=== PATIENT | female | born 1950 | race Hispanic/Latino ===

== ENCOUNTER 2017-10-15 11:00 | Emergency (ER) | payer OTHER, MEDICARE ==
[~2017-10-15] VITALS: Ht 160 cm; Wt 86.2 kg
[~2017-10-15 11:00] MED LIST: ALLOPURINOL100 MG PO; CYMBALTA30 MG PO; FUROSEMIDE20 MG PO; GABAPENTIN300 MG PO; GLIPIZIDE5 MG PO; LANTUS100 UNITS/ SQ; LISINOPRIL-HCT1 EACH PO; METFORMIN HCL500 MG PO; OMEPRAZOLE20 MG PO; PRAVASTATIN SOD40 MG PO
--- OUTSIDE RECORDS SUMMARY | 2017-10-15 11:02 | XMS REPORT | Clinical Summary ---
Author Author [facility] Organization [facility] Address Unknown Phone Unavailable Care Team Providers Care Senior Chemical Process Engineer Name Role Phone Melissa Ferreira MD PCP Allergies No Known Allergies Current Medications Prescription Sig. Disp. Refills Start End Date Status Date amLODIPine (NORVASC) 5 mg Take 5 mg by mouth daily. 1 06/04/20 Active tablet 17 lisinopril Take 2.5 mg by mouth 1 07/04/20 Active (PRINIVIL,ZESTRIL) 2.5 mg daily. 17 tablet pantoprazole (PROTONIX) Take 40 mg by mouth 1 06/04/20 Active 40 MG EC tablet daily. 17 JANUMET 50-1,000 mg per TAKE 1 TABLET BY MOUTH 1 06/04/20 Active tablet WITH MEALS TWICE A DAY 17 tiZANidine (ZANAFLEX) 2 TAKE 1 TABLET BY MOUTH 0 06/29/20 Active MG tablet EVERY 8 HOURS NEEDED 17 FOR 10 DAYS ondansetron (ZOFRAN) 4 MG Take 4 mg by mouth every 0 08/05/19 Active tablet 6 (six) hours as needed. 18 for nausea glimepiride (AMARYL) 2 MG TAKE 1 TABLET BY MOUTH 1 06/04/20 Active tablet DAILY WITH BREAKFAST OR 17 FIRST MAIN MEAL OF THE DAY ONCE A DAY NOVOLOG FLEXPEN 100 INJECT 10 UNITS 3 TIMES A 0 07/14/20 Active unit/mL insulin pen DAY BEFORE MEALS 17 SUBCUTANEOUSLY hydrALAZINE (APRESOLINE) Take 10 mg by mouth every 1 06/04/20 Active 10 MG tablet 8 (eight) hours. 17 BYSTOLIC 10 mg tablet TAKE 1 TABLET BY MOUTH AT 1 07/04/20 Active 6AM 17 traMADol ER (ULTRAM-ER) Take 100 mg by mouth 3 0 06/08/20 Active 100 mg 24 hr tablet (three) times a day. 17 ACCU-CHEK COMPACT PLUS USE DIRECTED EVERY 6 2 07/21/20 Active TEST strip HOURS 17 furosemide (LASIX) 40 mg Take 40 mg by mouth once. 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 Levator spasm 08/24/2017 History of bladder cancer 08/24/2017 Encounters Date Type Specialty Care Team Description 08/24/2017 Office Visit [facility] Estrada MD Enterocele (Primary Dx); Gloria Rogers, Pelvic pain; Levator spasm; History of bladder cancer after 10/14/2016 Family History Medical History Relation Name Comments problems Brother Kidney disease Brother Kidney disease Father Heart disease Mother Hypertension Mother Kidney cancer Sister Diabetes Sister Relation Name Status Comments Brother Brother Brother Brother Brother Father Mother Sister Sister Social History Tobacco Use Types Packs/Day Years Used Date Former Smoker Cigarettes 0.25 25 Quit: 1997 Smokeless Tobacco: Never Used Alcohol Use Drinks/Week oz/Week Comments No Sex Assigned at Date Recorded Not on file Last Filed Vital Signs Vital Sign Reading Time Taken Blood Pressure 114/74 08/24/2017 2:24 PM [employer] Pulse 71 08/24/2017 2:24 PM [employer] Temperature 37.6 C (99.6 F) 08/24/2017 2:24 PM [employer] Respiratory Rate - - Oxygen Saturation - - Inhaled Oxygen - - Concentration Weight 90.7 kg (200 lb) 08/24/2017 2:24 PM [employer] Height 160 cm (5' 3") 08/24/2017 2:24 PM [employer] Body Mass Index 35.43 08/24/2017 2:24 PM [employer] Plan of Treatment Health Maintenance Due Date Last Done Comments COLONOSCOPY 1999 MAMMOGRAM 1999 ZOSTER VACCINE 2009 PNEUMOCOCCAL 2014 POLYSACCHARIDE VACCINE AGE 65 AND OVER PNEUMOCOCCAL-13 2014 INFLUENZA VACCINE 02/24/2017 Results Not on fileafter 10/14/2016 Insurance Payer Benefit Subscriber ID Type Phone Address Plan / Group MEDICAID MEDICAID xxxxxxxxx Medicaid [facility] xxxxxxxxx HMO/PPO THCARE CHOICE/CHO ICE +
[2017-10-15] MEDS ORDERED: MORPHINE SULFATE 2 MG/ML SYR IV STA (11:51)
[2017-10-15] MEDS ORDERED: ONDANSETRON HCL INJ 2 MG/ML VIAL IV STA (11:51)
[2017-10-15 12:25] LABS: BASOPHILS % 0.3 % (0.0-1.0); BILIRUBIN,URINE NEGATIVE (NEGATIVE); CLARITY,URINE CLEAR (CLEAR); COLOR,URINE YELLOW (YELLOW); EOSINOPHILS # (AUTO) 0.1 (0.0-0.4); EOSINOPHILS % 1.6 % (0.0-6.0); HEMATOCRIT 34.3 % (34.2-44.1); HEMOGLOBIN 10.9 g/dL (12.0-16.0); KETONES,URINE NEGATIVE (NEGATIVE); LEUKOCYTE ESTERASE ,URINE TRACE (NEGATIVE); LYMPHOCYTES # (AUTO) 1.4 (1.0-3.2); LYMPHOCYTES % 21.5 % (18.0-39.1); MEAN CORPUSCULAR HEMOGLOBIN 30.6 pg (28-32); MEAN CORPUSCULAR HGB CONC 31.8 g/dL (31-35); MEAN CORPUSCULAR VOLUME 96.3 fL (81-99); MONOCYTES # (AUTO) 0.4 (0.2-0.8); MONOCYTES % 6.7 % (4.4-11.3); NEUTROPHILS # (AUTO) 4.5 (2.1-6.9); NEUTROPHILS % 69.4 % (38.7-80.0); NITRITE,URINE NEGATIVE (NEGATIVE); PLATELET COUNT 304 x10e3/uL (140-360); PROTEIN,URINE DIPSTICK NEGATIVE (NEGATIVE); RED BLOOD COUNT 3.56 x10e6/uL (3.6-5.1); RED CELL DISTRIBUTION WIDTH 13.9 % (11.7-14.4); URINE UROBILINOGEN 0.2 mg/dL (0.2 - 1)
--- NOTE | 2017-10-15 12:29 | Diagnostic Imaging Report ---
PROCEDURE: A single AP view of the chest. COMPARISON: None. INDICATIONS: BILATERAL KIDNEY PAIN FINDINGS: Lines/tubes: None. Lungs: The lungs are well inflated. Minimal linear opacity projecting in the left costophrenic angle region likely represents subsegmental atelectasis. There is no evidence of pneumonia or pulmonary edema. Pleura: There is no pleural effusion or pneumothorax. Heart and mediastinum: Cardiac silhouette is unremarkable. Pulmonary vasculature is normal. Bones: No acute bony abnormality. IMPRESSION: 1. No acute cardiopulmonary abnormalities. Ezekiel Schmitt M.D. Dictated by: Ezekiel Schmitt M.D. on 10/15/2017 at 12:29 Electronically approved by: Ezekiel Schmitt M.D. on 10/15/2017 at 12:29
[2017-10-15 12:35] LABS: INR 1.11; PARTIAL THROMBOPLASTIN TIME 34.3 seconds (23.8-35.5); PROTHROMBIN TIME 13.5 seconds (11.9-14.5)
[2017-10-15 12:43] LABS: BACTERIA,URINE RARE /HPF; RBC,URINE 0-5 /HPF (0-5)
[2017-10-15 12:44] LABS: ALANINE AMINOTRANSFERASE 11 IU/L (0-55); ALBUMIN 3.3 g/dL (3.5-5.0); ALBUMIN/GLOBULIN RATIO 0.9 (0.8-2.0); ALKALINE PHOSPHATASE 84 IU/L (40-150); BLOOD UREA NITROGEN 32 mg/dL (7-26); BUN/CREATININE RATIO 22 (6-25); CALCIUM 9.2 mg/dL (8.4-10.2); CARBON DIOXIDE 27 mmol/L (22-29); CHLORIDE 104 mmol/L (98-107); CREATINE KINASE 32 IU/L (29-168); CREATININE, SERUM 1.43 mg/dL (0.57-1.11); EST GLOMERULAR FILTRATION RATE 36 ML/MIN (60-); GLUCOSE 216 mg/dL (74-118); MAGNESIUM 1.5 MG/DL (1.3-2.1); SODIUM 142 mmol/L (136-145)
[2017-10-15 14:04] VITALS: BP 137/80
== END 2017-10-15 14:27 | disposition home or self-care (01) ==
LOC: ER 11:00
DX: R10.2 Pelvic and perineal pain (principal); R10.9 Unspecified abdominal pain; N30.90 Cystitis, unspecified without hematuria
CPT/HCPCS: 36415; 71045; 80053; 81001; 82550; 82553; 83735; 84484; 85025; 85610; 85730; 93005; 99284; J2270; J2405

== ENCOUNTER → 2017-12-18 | Outpatient (CLI) | payer MEDICARE ==
--- NOTE | 2017-12-18 19:21 | Diagnostic Imaging Report ---
Renal Scan Reason for exam: 67 F with bladder cancer in diagnosed in 2017; bladder removed. Biopsy of left kidney at outside facility last week also shows cancer. Left kidney has draining catheter with collection bag on right side. Radiopharmaceutical: Tc-99m MAG3 10.1 mCi Report: After administration of the radiopharmaceutical, dynamic images of the kidneys were obtained through 40 minutes. LEFT KIDNEY: Perfusion is prompt. 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 Extraction of tracer from the blood pool from the minimal amount of remaining renal parenchyma is normal. Clearance of tracer from the renal parenchyma is prompt. The pelvicaliceal system cannot be assessed because the impaired kidney does not fill the system to near-capacity. There is minimal amount of tracer that pools in the pelvicaliceal system. No drainage of tracer is seen from the left kidney. RIGHT KIDNEY: Perfusion is prompt. The kidney has a distorted reniform shape with reduction in size and irregular renal contours. Extraction of tracer from the blood pool is normal. Clearance of tracer from the renal parenchyma is prompt. The pelvicaliceal system is not dilated. Mildly increased pooling of tracer is seen within the pelvicaliceal system. Drainage of tracer from the pelvicaliceal study is adequate. No stasis of tracer is seen in the right ureter. The collection bag on the right side does fill with some tracer. DIFFERENTIAL RENAL FUNCTION: Left kidney 13% and right kidney 87% (normal 43-57%). Impression: 1. 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 The loss of renal parenchyma accounts for the decreased differential renal function of 13%. The remaining renal parenchyma appears to function normally. The renal collecting system cannot be assessed because it does not fill to near capacity. 2. The right kidney shows some loss of renal parenchyma due to scarring as evidenced by the reduction in size and the irregular contours. No hydronephrosis or obstruction are present. Signed by: Dr. Rosita Ramirez M.D. on 12/18/2017 7:18 PM
== END ==
LOC: NM 13:05
PROVIDERS: ATTEND Urology
DX: Z85.51 Personal history of malignant neoplasm of bladder (principal)
CPT/HCPCS: 78707; A9562

== ENCOUNTER → 2018-07-15 | Outpatient (CLI) | payer MEDICARE ==
--- NOTE | 2018-07-15 10:17 | Diagnostic Imaging Report ---
Exam: Right elbow, 3 views History: Elbow pain Comparison: None. Findings: No acute, displaced fracture or dislocation. Joint space is well-maintained. No joint effusion. Soft tissues unremarkable. Impression: No acute osseous abnormality. Signed by: Dr. Crow Bailon M.D. on 07/15/2018 10:13 AM
--- NOTE | 2018-07-15 10:21 | Diagnostic Imaging Report ---
Exam: Cervical spine, 4 views History: Cervical disc disorder Comparison: None. Findings: The cervical spine is visualized from the skull base to the top of T1 on the lateral radiograph. No acute, displaced fracture or dislocation. Soft tissue, ligamentous, and spinal cord abnormalities cannot be excluded on the basis of plain radiography. The intervertebral disc spaces are well-maintained. Minimal degenerative disc changes at C5-6 with a small anterior osteophyte. Mild left C3-4 foraminal narrowing secondary to uncovertebral arthrosis. Neural foramina are otherwise patent as seen on the oblique radiographs. Atlantoaxial interval is within normal limits. Prevertebral soft tissues are of normal thickness. Right internal jugular tunneled central venous catheter or port is partially visualized. Impression: No acute osseous abnormality. Mild left C3-4 foraminal narrowing due to uncovertebral arthrosis. MRI of the cervical spine without contrast may be of benefit in the clinical setting of reticular the. Minimal degenerative disc changes at C5-C6. Signed by: Dr. Crow Bailon M.D. on 07/15/2018 10:18 AM
== END ==
LOC: RAD 09:36
PROVIDERS: ATTEND Family Medicine
DX: M50.13 Cervical disc disorder with radiculopathy, cervicothoracic region (principal); M25.521 Pain in right elbow
CPT/HCPCS: 72050

== ENCOUNTER 2020-01-03 02:47 | Emergency (ER) | payer OTHER, MEDICARE ==
[~2020-01-03] VITALS: Ht 160 cm; Wt 86.2 kg
--- OUTSIDE RECORDS SUMMARY | 2020-01-03 02:51 | XMS REPORT | Clinical Summary ---
Author Author [facility] Organization [facility] Address Unknown Phone Unavailable Care Team Providers Care Trouble Shooter Name Role Phone Jasson Gregory MD PCP Allergies Comments Active Allergy Reactions Severity Noted Date Penicillins Rash Low 04/01/2018 Medications End Date Status Medication Sig Dispensed Refills Start Date Active pantoprazole (PROTONIX) Take 40 mg by 1 40 MG EC tablet mouth every 7 morning. Active NOVOLOG FLEXPEN 100 INJECT 4 0 unit/mL insulin pen UNITS 3 TIMES 7 A DAY BEFORE MEALS SUBCUTANEOUSL Y Active atorvastatin (LIPITOR) 40 Take 40 mg by 0 MG tablet mouth nightly. Active DULoxetine (CYMBALTA) 60 Take 60 mg by 0 MG capsule mouth every morning. Active magnesium oxide (MAG-OX) Take 400 mg 0 400 mg (241.3 mg by mouth magnesium) tablet daily. Active BYSTOLIC 10 mg tablet Take 10 mg by 0 09/21/19 1 mouth every 9 evening. Active NIFEdipine XL (PROCARDIA Take 30 mg by 0 10/06 XL) 30 MG 24 hr tablet mouth every 9 morning. Active glimepiride (AMARYL) 2 MG Take 2 mg by 0 07/27 tablet mouth every 9 morning. Active hydrALAZINE (APRESOLINE) Take 100 mg 0 100 MG tablet by mouth 2 (two) times a day. Active ELIQUIS 5 mg tablet Take 5 mg by 0 mouth 2 (two) 9 times a day. Active gabapentin (NEURONTIN) 1,200 mg = 4 0 01 300 mg capsule cap, PO, BID, 6 0 Refill(s) 03/02/2020 Active lidocaine-prilocaine Apply 30 g 2 03/03 (EMLA) 2.5-2.5 % cream topically as 9 needed for mild pain. Apply 1/2 gram to port 1 hour prior to treatment. Active ergocalciferol, vitamin Take by 0 D2, (VITAMIN D2 ORAL) mouth. Active LANTUS SOLOSTAR U-100 Inject 30 0 05/02/20 1 INSULIN 100 unit/mL Units under 9 injection (pen) the skin 2 (two) times a day. Active HUMALOG KWIKPEN INSULIN Inject 10 0 100 unit/mL injection pen Units under 9 the skin 2 (two) times a day. Active LINZESS 72 mcg capsule Take 1 3 01 capsule by 9 mouth daily before breakfast. Active spironolactone Take 25 mg by 0 (ALDACTONE) 25 MG tablet mouth daily. 9 Active esomeprazole (NexIUM) 40 TAKE 1 90 capsule 0 1 MG capsule CAPSULE BY 9 MOUTH EVERY DAY BEFORE BREAKFAST 08/04/2019 Discontinued (Patient Report ed) tiZANidine (ZANAFLEX) 2 TAKE 1 TABLET 0 MG tablet BY MOUTH 7 EVERY 8 HOURS NEEDED FOR 10 DAYS 07/08/2019 clonIDINE (CATAPRES) 0.1 Take 1 tablet 30 tablet 2 MG tablet (0.1 mg 8 total) by mouth daily. Hold for SBP <110 mmHg 08/04/2019 Discontinued (Patient Report ed) multivitamin with Take 1 tablet 0 minerals tablet by mouth daily. 08/04/2019 Discontinued (Patient Report ed) ascorbic acid, vitamin C, Take 500 mg 0 (VITAMIN C) 500 MG tablet by mouth daily. 06/13/2019 Discontinued (Med List Clean up) docusate sodium (COLACE) Take 100 mg 0 100 MG capsule by mouth 2 (two) times a day. 06/13/2019 Discontinued (Discontinued b y another clinician) calcium-vitamin Chew 1 0 D3-vitamin K (VIACTIV) chewable 500-500-40 mg-unit-mcg tablet(s) tablet,chewable daily. 01/23/2019 apixaban (ELIQUIS) 5 mg Take 1 tablet 60 tablet 0 tablet (5 mg total) 9 by mouth 2 (two) times a day for 30 days. 01/23/2019 polyethylene glycol Take 17 g by 30 packet 0 12/24 (MIRALAX) 17 gram packet mouth daily 9 for 30 days. 02/26/2019 Discontinued acetaminophen-codeine Take 1 tablet 90 tablet 0 (TYLENOL WITH CODEINE #3) by mouth 9 300-30 mg per tablet every 4 (four) hours as needed for moderate pain for up to 30 days. 03/26/2019 oxyCODone (ROXICODONE) 10 Take 1 tablet 60 tablet 0 MG tablet (10 mg total) 9 by mouth every 12 (twelve) hours as needed for moderate pain for up to 30 days. Max Daily Amount: 20 mg 03/03/2019 acetaminophen-codeine Take 1 tablet 15 tablet 0 (TYLENOL WITH CODEINE #3) by mouth 9 300-30 mg per tablet every 6 (six) hours as needed for moderate pain for up to 5 days. 03/05/2019 sulfamethoxazole-trimetho Take 1 tablet 14 tablet 0 prim (BACTRIM DS) 800-160 by mouth 2 9 mg per tablet (two) times a day for 7 days. smx-tmp DS (BACTRIM) 800-160 mg tabs (1tab q12 D10) 04/02/2019 ondansetron ODT (ZOFRAN Take 1 tablet 30 tablet 1 ODT) 8 MG disintegrating (8 mg total) 9 tablet by mouth every 8 (eight) hours as needed for nausea or vomiting for up to 30 days. 04/23/2019 oxyCODone (ROXICODONE) 5 chronic pain. 60 tablet 0 MG immediate release 1 tablet po q 9 tabletIndications: 12 hours prn chronic pain pain 06/13/2019 Discontinued (Discontinued b y another clinician) esomeprazole (NexIUM) 40 Take 1 90 capsule 0 0 MG capsule capsule (40 9 mg total) by mouth daily before breakfast. 03/28/2019 levoFLOXacin (LEVAQUIN) Take 1 tablet 3 tablet 0 500 MG tablet (500 mg 9 total) by mouth daily for 3 days. 08/04/2019 Discontinued (Patient Report ed) lidocaine (XYLOCAINE) 2 % Apply 1 0 02/24 jelly application 9 topically every 8 (eight) hours as needed. 06/01/2019 Discontinued (Patient Report ed) oxyCODone (ROXICODONE) 5 Take 5 mg by 0 05/11 MG immediate release mouth every 9 tablet 12 (twelve) hours as needed. 05/26/2019 Discontinued (Duplicate orde r) traMADol (ULTRAM) 50 mg Take 3,000 mg 0 tablet by mouth 9 every 6 (six) hours as needed. 05/26/2019 Discontinued (Duplicate orde r) gabapentin (NEURONTIN) Take 800 mg 1 01 800 mg tablet by mouth 3 9 (three) times a day. 06/01/2019 Discontinued (Patient Report ed) levoFLOXacin (LEVAQUIN) Take 1 tablet 7 tablet 0 500 MG tablet (500 mg 9 total) by mouth daily for 7 days. 06/06/2019 sulfamethoxazole-trimetho Take 1 tablet 14 tablet 0 prim (BACTRIM SS) 400-80 by mouth 2 9 mg per tablet (two) times a day for 7 days. 06/13/2019 Discontinued (Reorder) traMADol (ULTRAM) 50 mg Take 1 tablet 60 tablet 0 tabletIndications: (50 mg total) 9 chronic pain by mouth every 6 (six) hours as needed for moderate pain for up to 30 days .chronic pain. 07/04/2019 Discontinued (Reorder) traMADol (ULTRAM) 50 mg TAKE 1 TABLET 30 tablet 0 tablet BY MOUTH 9 EVERY 6 HOURS NEEDED FOR CHRONIC PAIN 08/04/2019 traMADol (ULTRAM) 50 mg Take 1 tablet 90 tablet 0 tabletIndications: (50 mg total) 9 chronic pain by mouth every 6 (six) hours as needed for moderate pain for up to 30 days .chronic pain. 09/21/2019 sulfamethoxazole-trimetho Take 1 tablet 28 tablet 0 prim (BACTRIM DS) 800-160 by mouth 2 0 mg per tablet (two) times a day for 14 days. Active Problems Patient Care Coordination Note Patient is known to Palliative Care from prior admissions. Please re-consult Pallliative Care upon OBS/Admit. Thanks! Problem Noted Date PE (pulmonary thromboembolism) 06/14/2019 Malignant neoplasm metastatic to left lung 9 Renal insufficiency 12/15/2018 SBO (small bowel obstruction) 10/24/2018 Small bowel obstruction 10/23/2018 C. difficile colitis 09/21/2018 Sepsis 09/19/2018 UTI (urinary tract infection) 08/19/2018 S/P insertion of IVC (inferior vena caval) filter Flank pain 07/21/2018 Hx of pulmonary embolus 07/05/2018 Dehydration 07/01/2018 Proctocolitis 06/21/2018 Urothelial cancer 05/04/2018 Acute renal failure (ARF) 04/27/2018 Urinary tract infection due to extended-spectrum beta lactamase (ESBL) 04/25/2018 producing Escherichia coli S/P ileal conduit 04/25/2018 Hyperlipidemia 04/21/2018 Hypertension 04/21/2018 Type 2 diabetes mellitus 04/21/2018 Anemia 04/21/2018 Urinary tract infection associated with nephrostomy c atheter 04/20/2018 Pelvic pain 08/24/2017 Phantom pain 08/24/2017 Enterocele 08/24/2017 Levator spasm 08/24/2017 History of bladder cancer 08/24/2017 Hypothyroidism due to medication Encounters Care Team Description Date Type Specialty 12/30/2019 Travel 12/29/2019 Travel Eliezer Barrientos MD 12/29/2019 Telephone Urology Eliezer Barrientos MD 12/16/2019 Telephone Urology Eliezer Barrientos MD 10/25/2019 Telephone Urology Eliezer Barrientos MD Urothelial carcinoma (HCC) (Primary Dx) 10/21/2019 Telemedicine Urology 10/18/2019 Travel Andres Rojas MD Hypothyroidism due to medication (Primar y Dx); Malignant neoplasm metastatic to left lung (HCC); History of bladder cancer 10/06/2019 Infusion Oncology 10/06/2019 Travel Andres Rojas MD Hypothyroidism due to medication (Primar y Dx); Malignant neoplasm metastatic to left lung (HCC); History of bladder cancer 10/03/2019 Orders Only Oncology Andres Rojas MD ChuDamaris MD 09/29/2019 Hospital Radiology Encounter Andres Rojas MD Malignant neoplasm of urinary organ (HCC ) 09/26/2019 Hospital Radiology Encounter Thania Delaney MA 09/19/2019 Telephone Oncology Thania Delaney MA 09/19/2019 Orders Only Oncology Andres Rojas MD Hypothyroidism due to medication (Primar y Dx); Malignant neoplasm metastatic to left lung (HCC); History of bladder cancer 09/15/2019 Infusion Oncology Thania Delaney MA Malignant neoplasm of urinary organ (HCC ) (Primary Dx) 09/15/2019 Orders Only Oncology Eliezer Barrientos MD Urothelial carcinoma (HCC) 09/14/2019 Hospital Radiology Encounter Andres Rojas MD Hypothyroidism due to medication (Primar y Dx); Malignant neoplasm metastatic to left lung (HCC); History of bladder cancer 09/14/2019 Orders Only Oncology Eliezer Barrientos MD Urolithiasis (Primary Dx); Malignant neoplasm of urinary organ, unspecified (HCC) 09/12/2019 Transcribe Access Orders Eliezer Barrientos MD Urothelial carcinoma (HCC) (Primary Dx) 09/07/2019 Office Visit Urology Andres Rojas MD Hypothyroidism due to medication (Primar y Dx); Malignant neoplasm metastatic to left lung (HCC); History of bladder cancer 08/25/2019 Infusion Oncology Cyril Hurt MD Malignant neoplasm metastatic to left lori ng (HCC); Hypothyroidism due to medication; History of bladder cancer 08/25/2019 Orders Only Oncology Andres Rojas MD Hypothyroidism due to medication (Primar y Dx); Malignant neoplasm metastatic to left lung (HCC); History of bladder cancer 08/04/2019 Infusion Oncology Andres Rojas MD Malignant neoplasm metastatic to left lori ng (HCC) (Primary Dx) 08/04/2019 Office Visit Oncology Fritz Dunn RPH 08/04/2019 Orders Only Oncology Andres Rojas MD Hypothyroidism due to medication; Malignant neoplasm metastatic to left lung (HCC); History of bladder cancer 07/21/2019 Orders Only Oncology Andres Rojas MD Hypothyroidism due to medication (Primar y Dx); Malignant neoplasm metastatic to left lung (HCC); History of bladder cancer 07/07/2019 Infusion Oncology Thania Delaney MA 07/05/2019 Telephone Oncology Brandy Rinaldi, NOLBERTO 07/04/2019 Orders Only Oncology Andres Rojas MD Hypothyroidism due to medication; Malignant neoplasm metastatic to left lung (HCC); History of bladder cancer 06/30/2019 Orders Only Oncology Andres Rojas MD Hypothyroidism due to medication (Primar y Dx); Malignant neoplasm metastatic to left lung (HCC); History of bladder cancer 06/16/2019 Infusion Oncology Andres Rojas MD 06/16/2019 Refill Oncology Teja Juarez MD PE (pulmonary thromboembolism) (HCC); S/P IVC filter; DVT (deep vein thrombosis) in 06/14/2019 [facility] Internal Nj dicine - Encounter 06/15/2019 Teja Juarez MD 06/14/2019 Hospital Radiology Encounter Andres Rojas MD 06/13/2019 Refill Oncology Teja Juarez MD PE (pulmonary thromboembolism) (HCC) (Pr imary Dx); S/P IVC filter 06/08/2019 Transcribe Access Orders Eliezer Barrientos MD Urothelial cancer (HCC) (Primary Dx) 06/03/2019 Office Visit Urology Andres Rojas MD Malignant neoplasm metastatic to left lori ng (HCC) (Primary Dx) 06/01/2019 Office Visit Oncology Andres Rojas MD Hypothyroidism due to medication; Malignant neoplasm metastatic to left lung (HCC); History of bladder cancer 06/01/2019 Orders Only Oncology Brandy Rinaldi, NOLBERTO 06/01/2019 Orders Only Oncology Andres Rojas MD Malignant neoplasm metastatic to left lori ng (HCC); S/P insertion of IVC (inferior vena caval) filter 05/30/2019 Hospital Radiology Encounter Tonia Vanegas RN 05/30/2019 Telephone Oncology Andres Rojas MD Hypothyroidism due to medication (Primar y Dx); Malignant neoplasm metastatic to left lung (HCC); History of bladder cancer 05/26/2019 Infusion Oncology Brandy Rinaldi, NOLBERTO 05/26/2019 Telephone Oncology Brandy Rinaldi, NOLBERTO 05/26/2019 Orders Only Oncology Andres Rojas MD Hypothyroidism due to medication; Malignant neoplasm metastatic to left lung (HCC); History of bladder cancer 05/24/2019 Orders Only Oncology Eliezer Barrientos MD Urothelial carcinoma (HCC) 05/11/2019 Hospital Radiology Encounter Thania Delaney MA 05/10/2019 Telephone Oncology Andres Rojas MD Hypothyroidism due to medication (Primar y Dx); Malignant neoplasm metastatic to left lung (HCC); History of bladder cancer 05/05/2019 Infusion Oncology Andres Rojas MD Malignant neoplasm metastatic to left lori ng (HCC); S/P insertion of IVC (inferior vena caval) filter 05/05/2019 Hospital Radiology Encounter Andres Rojas MD Malignant neoplasm metastatic to left lori ng (HCC) (Primary Dx); S/P insertion of IVC (inferior vena caval) filter 05/05/2019 Office Visit Oncology Andres Rojas MD Hypothyroidism due to medication; Malignant neoplasm metastatic to left lung (HCC); History of bladder cancer 05/03/2019 Orders Only Oncology Eliezer Barrientos MD Urothelial carcinoma (HCC) (Primary Dx) 04/27/2019 Office Visit Urology George Pyle MD Acute renal failure, unspecified acute r enal failure type (HCC); Chronic kidney disease, unspecified CKD stage 04/14/2019 Hospital Radiology Encounter Andres Rojas MD Hypothyroidism due to medication (Primar y Dx); Malignant neoplasm metastatic to left lung (HCC); History of bladder cancer 04/14/2019 Infusion Oncology Andres Rojas MD Hypothyroidism due to medication; Malignant neoplasm metastatic to left lung (HCC); History of bladder cancer 04/12/2019 Orders Only Oncology George Pyle MD Acute renal failure, unspecified acute r enal failure type (HCC) (Primary Dx); Chronic kidney disease, unspecified CKD stage 04/07/2019 Transcribe Access Orders Brandy Rinaldi RN 03/25/2019 Telephone Oncology Brandy Rinaldi RN 03/25/2019 Orders Only Oncology Fritz Dunn, [facility] 03/25/2019 Orders Only Oncology Brandy Rinaldi RN 03/25/2019 Orders Only Oncology Thania Delaney MA Malignant neoplasm metastatic to left lori ng (HCC) (Primary Dx) 03/25/2019 Orders Only Oncology Andres Rojas MD Hypothyroidism due to medication (Primar y Dx); Malignant neoplasm metastatic to left lung (HCC); History of bladder cancer 03/24/2019 Infusion Oncology Nilay Mcneil MD Encounter for lengthening/adjustment of growth maria c 03/24/2019 Hospital Radiology Encounter Nilay Mcneil MD Encounter for lengthening/adjustment of growth maria c (Primary Dx) 03/24/2019 Transcribe Access Orders Andres Rojas MD Malignant neoplasm metastatic to left lori ng (HCC) (Primary Dx); Urothelial cancer (HCC) 03/23/2019 Office Visit Oncology Andres Rojas MD 03/23/2019 Orders Only Oncology Brandy Rinaldi RN 03/23/2019 Orders Only Oncology Brandy Rinaldi RN 03/23/2019 Orders Only Oncology Andres Rojas MD Hypothyroidism due to medication; Malignant neoplasm metastatic to left lung (HCC); History of bladder cancer 03/23/2019 Orders Only Oncology Andres Rojas MD Hypothyroidism due to medication (Primar y Dx); Malignant neoplasm metastatic to left lung (HCC); History of bladder cancer 03/03/2019 Infusion Oncology Brandy Rinaldi, NOLBERTO 03/03/2019 Orders Only Oncology Coty Chapman RN 03/03/2019 Oncology Oncology Brandy Frias, NOLBERTO 03/03/2019 Orders Only Oncology Andres Rojas MD 03/01/2019 Orders Only Oncology Ankit Tejeda MD Lower abdominal pain (Primary Dx); Urinary tract infection with hematuria, site unspecified 02/26/2019 Emergency Emergency Medicine 02/26/2019 Travel Thania Delaney MA Malignant neoplasm metastatic to left lori ng (HCC) (Primary Dx) 02/25/2019 Orders Only Oncology Andres Rojas MD Malignant neoplasm metastatic to left lori ng (HCC) (Primary Dx); Urothelial cancer (HCC) 02/24/2019 Office Visit Oncology Brandy Rinaldi, NOLBERTO 02/24/2019 Orders Only Oncology Fritz Dunn, RPH Hypothyroidism due to medication; Malignant neoplasm metastatic to left lung (HCC); History of bladder cancer 02/24/2019 Orders Only Oncology Brandy Rinaldi, NOLBERTO 02/24/2019 Orders Only Oncology Andres Rojas MD Dehydration (Primary Dx); Acute renal failure, unspecified acute renal failure type (HCC) 02/22/2019 Infusion Oncology Thania Delaney MA Malignant neoplasm metastatic to left lori ng (HCC) (Primary Dx) 02/22/2019 Orders Only Oncology Tonia Vanegas, NOLBERTO 02/14/2019 Orders Only Oncology Andres Rojas MD 02/11/2019 Orders Only Oncology Brandy Rinaldi RN Dehydration (Primary Dx) 02/10/2019 Orders Only Oncology Andres Rojas MD Malignant neoplasm metastatic to left lori ng (HCC); Urothelial cancer (HCC); History of bladder cancer 02/09/2019 Hospital Procedural Cardiolo gy Encounter Andres Rojas MD 02/09/2019 Documentation Oncology Brandy Rinaldi RN 02/07/2019 Orders Only Oncology Nevaeh Bailey MA Malignant neoplasm metastatic to left lori ng (HCC) (Primary Dx); Urothelial cancer (HCC); History of bladder cancer 02/03/2019 Orders Only Oncology Andres Rojas MD Malignant neoplasm metastatic to left lori ng (HCC) (Primary Dx); Urothelial cancer (HCC) 01/26/2019 Office Visit Oncology Eliezer Barrientos MD 01/24/2019 Refill Urology Andres Rojas MD Proctocolitis; Urothelial cancer (HCC); Malignant neoplasm metastatic to left lung (HCC) 01/06/2019 Hospital Radiology Encounter Eliezer Barrientos MD Urothelial carcinoma (HCC) (Primary Dx) 01/05/2019 Office Visit Urology Eliezer Barrientos MD 01/04/2019 Telephone Urology Eliezer Barrientos MD 01/04/2019 Refill Urology after 01/02/2019 Family History Medical History Relation Name Comments problems Brother Kidney disease Brother Colon cancer Brother Kidney disease Father Heart disease Mother Hypertension Mother Kidney cancer Sister Diabetes Sister Relation Name Status Comments Brother Brother Brother Brother Brother Father Mother Sister Sister Social History Date Tobacco Use Types Packs/Day Years Used Quit: 1997 Former Smoker Cigarettes 0.25 25 Smokeless Tobacco: Never Used Drinks/Week oz/Week Comments Alcohol Use No Sex Assigned at Date Recorded Not on file Industry Job Start Date Occupation Not on file Not on file Not on file Travel End Travel History Travel Start No recent travel history available. Date Recorded COVID-19 Exposure Response 12/29/2019 4:33 PM CDT In the last month, have you been in contact with [facility] to assess someone who was confirmed or suspected to have Coronavirus / COVID-19? Last Filed Vital Signs Reading Time Taken Comments Vital Sign 137/64 10/06/2019 12:28 PM CDT Blood Pressure 60 10/06/2019 12:28 PM CDT Pulse 36.7 C (98 F) 10/06/2019 12:28 PM CDT Temperature 18 10/06/2019 12:28 PM CDT Respiratory Rate 98% 10/06/2019 12:28 PM CDT Oxygen Saturation - - Inhaled Oxygen Concentration 100 kg (220 lb 14.4 oz) 10/06/2019 10:04 AM CDT Weight 160 cm (5' 3") 08/04/2019 12:50 PM [employer] Height 39.13 08/04/2019 12:50 PM [employer] Body Mass Index Plan of Treatment Care Team Description Date Type Specialty Eliezer Barrientos MD [address] [address] 01/04/2020 Office Visit Urology Health Maintenance Due Date Last Done Comments DIABETIC RETINAL EYE EXAM 1949 DIABETIC FOOT EXAM 1959 BREAST CANCER SCREENING 1999 COLONOSCOPY SCREENING 1999 SHINGLES VACCINES (#1) 1999 65+ PNEUMOCOCCAL VACCINE 2014 (1 of 2 - PCV13) INFLUENZA VACCINE 02/25/2020 Implants Device Identifier Shelf Expiration Date Model / Serial / L ot Implanted Type Area Manufactur er [id number] / / Port Imlpntbl Smart Port W/ Dtchd Implantabl N/A: N/A ANGIODYNAM 0.4ml 6.6fr 55cm W/ Sheath - e Infusion [employer] [id number] Ports or Implanted: 04/07/2018 at [facility] (Quantity not on file) s [id number] / / Clip Ligtng Weck Hemoclip Plus W/ Medical N/A: Abdomen , WECK Tape Ti Med Lg - [id number] Clips for Middle CL OSURE Implanted: 08/23/2018 at [facility] (Quantity not on file) Use Specif ic [id number] / / Clip Ligtng Weck Hemoclip Plus W/ Medical N/A: Abdomen , TELEFLEX Tape Ti Lg - [id number] Clips for Middle MEDICA L Implanted: Qty: 2 on 08/23/2018 by Ana Maria verma/Eliezer Durant MD at [facility] Use Specific [place] [id number] / / Clip Ligtng Weck Hemoclip Plus W/ Medical N/A: Abdomen , WECK Tape Ti Med Lg - [id number] Clips for Middle CL OSURE Implanted: 08/23/2018 at [facility] (Quantity not on file) Use Specif ic [id number] / / Clip Ligtng Weck Hemoclip Plus W/ Medical N/A: Abdomen , TELEFLEX Tape Ti Lg - [id number] Clips for Middle MEDICA L Implanted: Qty: 1 on 08/23/2018 by Internal Ray verma/Eliezer Durant MD at [facility] Use Specific [place] [id number] / / Clip Ligtng Weck Hemoclip Plus W/ Medical N/A: Abdomen , TELEFLEX Tape Ti Lg - [id number] Clips for Middle MEDICA L Implanted: Qty: 1 on 08/23/2018 by Eliezer Luna MD at [facility] Use Specific [place] [id number] / / Clip Ligtng Weck Hemoclip Plus W/ Medical N/A: Abdomen , WECK Tape Ti Med Lg - [id number] Clips for Middle CL OSURE Implanted: 08/23/2018 at [facility] (Quantity not on file) Use Specif ic [id number] / / Clip Ligtng Weck Hemoclip Plus W/ Medical N/A: Abdomen , TELEFLEX Tape Ti Lg - [id number] Clips for Middle MEDICA L Implanted: Qty: 3 on 08/23/2018 by Eliezer Luna, MD at [facility] Use Specific [facility]OS[facility] [id number] / / Clip Ligtng Weck Hemoclip Plus W/ Medical N/A: Abdomen , WECK Tape Ti Med Lg - [id number] Clips for Middle CL OSURE Implanted: Qty: 3 on 08/23/2018 by Internal Quadrant/No n SYSTEMS Eliezer Barrientos MD at [facility] Use Specific [facility] [id number] / / Clip Ligtng Weck Hemoclip Plus W/ Medical N/A: Abdomen , TELEFLEX Tape Ti Med - [id number] Clips for Middle MEDIC AL Implanted: Qty: 3 on 08/23/2018 by Internal Ray drant/Eliezer Durant MD at [facility] Use Specific [facility] [id number] / / Clip Ligtng Weck Hemoclip Plus W/ Medical N/A: Abdomen , WECK Tape Ti Med Lg - [id number] Clips for Middle CL OSURE Implanted: 08/23/2018 at [facility] Internal [facility] (Quantity not on file) Use Specif ic [id number] / / Clip Ligtng Weck Hemoclip Plus W/ Medical N/A: N/A WECK Tape Ti Med Lg - [id number] Clips for CLOSURE Implanted: 08/23/2018 at [facility] (Quantity not on file) Use [id number] / / Clip Ligtng Weck Hemoclip Plus W/ Medical N/A: N/A WECK Tape Ti Med Lg - [id number] Clips for CLOSURE Implanted: 08/23/2018 at [facility] (Quantity not on file) Use [id number] / / Clip Ligtng Weck Hemoclip Plus W/ Medical N/A: N/A TELEFLEX Tape Ti Lg - [id number] Clips for MEDICAL Implanted: 08/23/2018 at [facility] (Quantity not on file) Use [id number] / / Clip Ligtng Hem-O-Skyler Endoscpc Aplr Surgical N/A: Abdom en, WECK Plymr Lg - [id number] Implants; Middle CLOSURE Implanted: Qty: 2 on 08/23/2018 by Expanders; Quadrant/No n SYSTEMS Eliezer Barrientos MD at [facility] Extenders; Specific HOSPITAL Surgical Wires [id number] / / Rtainr [facility] [place] Visceral - Surgical N/A: N/A ADEPT [id number] Implants; Implanted: Qty: 1 on 08/23/2018 by Expanders; Eliezer Barrientos MD at [facility] Extenders; HOSPITAL Surgical Wires [id number] / / [id number] Drain Wnd Chnl 19fr 1/4in Rnd Hbls Surgical ETH ICON Fl-Flut W/ 4in Trocar - Implants; DIV OF [id number] Expanders; PARUL & Implanted: Qty: 1 on 08/23/2018 by Extenders; [facility] at [facility] Surgical HOSPITAL Wires 11/23/2018 [id number] / / [id number] Mesh Surgcl [id number] Strattice Surgical N/A: Abdomen, LIFECELL Recnstrctv Tiss Mtrx - [id number] Mesh or Middle CORPORATIO Implanted: Qty: 1 on 08/23/2018 by Tissue Quadrant/No n N Eliezer Barrientos MD at [facility] Barrier Specific HOSPITAL Products [id number] / / Cook [employer] [place] Navalign Vascular N/A: N/A [employer] Femoral Vena Cava Filter - Filter PERIPHERAL [id number] INTERVENTI Implanted: 07/28/2018 at [facility] (Quantity not on file) Procedures Comments Procedure Name Priority Date/Time Associated Diag nosis THYROID STIMULATING Routine 10/06/2019 HORMONE 10:15 AM CDT T4, FREE Routine 10/06/2019 10:15 AM CDT T3 Routine 10/06/2019 10:15 AM CDT ESTIMATED GFR STAT 10/06/2019 10:07 AM CDT MAGNESIUM LEVEL STAT 10/06/2019 Hypothyroidism due to 10:07 AM CDT medication Malignant neoplasm metastatic to left lung (HCC) History of bladder cancer COMPREHENSIVE METABOLIC STAT 10/06/2019 Hypoth yroidism due to PANEL 10:07 AM CDT medication Malignant neoplasm metastatic to left lung (HCC) History of bladder cancer HC COMPLETE BLD COUNT STAT 10/06/2019 Hypothyr oidism due to W/AUTO DIFF 10:07 AM CDT medication Malignant neoplasm metastatic to left lung (HCC) History of bladder cancer PET CT SKULL BASE TO MID Routine 09/29/2019 Malig nant neoplasm of THIGH 2:49 PM [employer] urinary organ (HCC) ESTIMATED GFR STAT 09/15/2019 10:22 AM [employer] HC COMPLETE BLD COUNT STAT 09/15/2019 Hypothyr oidism due to W/AUTO DIFF 10:22 AM [employer] medication Malignant neoplasm metastatic to left lung (HCC) History of bladder cancer COMPREHENSIVE METABOLIC STAT 09/15/2019 Hypoth yroidism due to PANEL 10:22 AM [employer] medication Malignant neoplasm metastatic to left lung (HCC) History of bladder cancer MAGNESIUM LEVEL STAT 09/15/2019 Hypothyroidism due to 10:22 AM [employer] medication Malignant neoplasm metastatic to left lung (HCC) History of bladder cancer CT ABDOMEN PELVIS WO Routine 09/14/2019 Urothelia l carcinoma CONTRAST 12:16 PM [employer] (HCC) URINE CULTURE Routine 09/07/2019 Urothelial carc inoma 2:37 PM [employer] (HCC) THYROID STIMULATING Routine 08/25/2019 HORMONE 12:10 PM [employer] T4, FREE Routine 08/25/2019 12:10 PM [employer] T3 Routine 08/25/2019 12:10 PM [employer] ESTIMATED GFR STAT 08/25/2019 11:14 AM [employer]F MAGNESIUM LEVEL STAT 08/25/2019 Hypothyroidism due to 11:14 AM [employer] medication Malignant neoplasm metastatic to left lung (HCC) History of bladder cancer COMPREHENSIVE METABOLIC STAT 08/25/2019 Hypoth yroidism due to PANEL 11:14 AM [employer] medication Malignant neoplasm metastatic to left lung (HCC) History of bladder cancer HC COMPLETE BLD COUNT STAT 08/25/2019 Hypothyr oidism due to W/AUTO DIFF 11:14 AM [employer] medication Malignant neoplasm metastatic to left lung (HCC) History of bladder cancer ESTIMATED GFR Routine 08/04/2019 10:47 AM [employer] MAGNESIUM LEVEL Routine 08/04/2019 Malignant neop lasm 10:47 AM [employer] metastatic to left lung (HCC) T4, FREE Routine 08/04/2019 Malignant neopl asm 10:47 AM [employer] metastatic to left lung (HCC) THYROID STIMULATING Routine 08/04/2019 Malignant neoplasm HORMONE 10:47 AM [employer] metastatic to left lung (HCC) HC COMPLETE BLD COUNT Routine 08/04/2019 Malignan t neoplasm W/AUTO DIFF 10:47 AM [employer] metastatic to left lung (HCC) COMPREHENSIVE METABOLIC Routine 08/04/2019 Malign ant neoplasm PANEL 10:47 AM [employer] metastatic to left lung (HCC) T3 Routine 08/04/2019 Malignant neopl asm 10:47 AM [employer] metastatic to left lung (HCC) ESTIMATED GFR STAT 07/07/2019 9:18 AM [employer] T4, FREE STAT 07/07/2019 Hypothyroidism due to 9:18 AM [employer] medication Malignant neoplasm metastatic to left lung (HCC) History of bladder cancer THYROID STIMULATING STAT 07/07/2019 Hypothyroi dism due to HORMONE 9:18 AM [employer] medication Malignant neoplasm metastatic to left lung (HCC) History of bladder cancer MAGNESIUM LEVEL STAT 07/07/2019 Hypothyroidism due to 9:18 AM [employer] medication Malignant neoplasm metastatic to left lung (HCC) History of bladder cancer COMPREHENSIVE METABOLIC STAT 07/07/2019 Hypoth yroidism due to PANEL 9:18 AM [employer] medication Malignant neoplasm metastatic to left lung (HCC) History of bladder cancer HC COMPLETE BLD COUNT STAT 07/07/2019 Hypothyr oidism due to W/AUTO DIFF 9:18 AM [employer] medication Malignant neoplasm metastatic to left lung (HCC) History of bladder cancer T3 STAT 07/07/2019 Hypothyroidism due to 9:18 AM [employer] medication Malignant neoplasm metastatic to left lung (HCC) History of bladder cancer T4, FREE STAT 06/16/2019 Hypothyroidism due to 10:02 AM [employer] medication Malignant neoplasm metastatic to left lung (HCC) History of bladder cancer THYROID STIMULATING STAT 06/16/2019 Hypothyroi dism due to HORMONE 10:02 AM [employer] medication Malignant neoplasm metastatic to left lung (HCC) History of bladder cancer T3 STAT 06/16/2019 Hypothyroidism due to 10:02 AM [employer] medication Malignant neoplasm metastatic to left lung (HCC) History of bladder cancer POC GLUCOSE Routine 06/15/2019 11:25 AM [employer]F POC GLUCOSE Routine 06/15/2019 5:29 AM [employer] CHIEF POC GLUCOSE Routine 06/14/2019 11:22 PM [employer]F POC GLUCOSE Routine 06/14/2019 7:49 PM [employer]F POC GLUCOSE Routine 06/14/2019 4:33 PM [employer] US GUIDED VASCULAR ACCESS Routine 06/14/2019 DVT (deep vein 12:06 PM [employer] thrombosis) in IR IVC FILTER REMOVAL Routine 06/14/2019 PE (pulm onary 12:06 PM [employer] thromboembolism) (HCC) S/P IVC filter POC GLUCOSE Routine 06/14/2019 11:33 AM [employer]IEF POC GLUCOSE Routine 06/14/2019 7:29 AM [employer]F XR CHEST 1 VW PORTABLE STAT 06/14/2019 7:15 AM [employer]Y CHIEF ESTIMATED GFR STAT 06/14/2019 7:15 AM [employer] CHIEF PARTIAL THROMBOPLASTIN STAT 06/14/2019 TIME (PTT) 7:15 AM [employer] CHIEF PROTHROMBIN TIME WITH INR STAT 06/14/2019 7:15 AM [employer]IEF BASIC METABOLIC PANEL STAT 06/14/2019 7:15 AM [employer]IEF HC COMPLETE BLD COUNT STAT 06/14/2019 W/AUTO DIFF 7:15 AM [employer] ECG 12-LEAD STAT 06/14/2019 7:10 AM [employer] CHIE[employer] PET CT SKULL BASE TO MID Routine 05/30/2019 Malig nant neoplasm THIGH 3:36 PM [employer] metastatic to left lung (HCC) S/P insertion of IVC (inferior vena caval) filter GRAM STAIN Routine 05/26/2019 12:53 PM CDT URINE CULTURE Routine 05/26/2019 12:53 PM CDT URINALYSIS SCREEN AND Routine 05/26/2019 History of bladder cancer MICROSCOPY, WITH REFLEX 11:10 AM CDT TO CULTURE ESTIMATED GFR STAT 05/26/2019 9:30 AM CDT MAGNESIUM LEVEL STAT 05/26/2019 Hypothyroidism due to 9:30 AM CDT medication Malignant neoplasm metastatic to left lung (HCC) History of bladder cancer COMPREHENSIVE METABOLIC STAT 05/26/2019 Hypoth yroidism due to PANEL 9:30 AM CDT medication Malignant neoplasm metastatic to left lung (HCC) History of bladder cancer HC COMPLETE BLD COUNT STAT 05/26/2019 Hypothyr oidism due to W/AUTO DIFF 9:30 AM CDT medication Malignant neoplasm metastatic to left lung (HCC) History of bladder cancer CT ABDOMEN PELVIS WO Routine 05/11/2019 Urothelia l carcinoma CONTRAST 10:08 AM CDT (HCC) XR KUB KIDNEY URETER Routine 05/05/2019 Malignant neoplasm BLADDER 11:56 AM CDT metastatic to left lung (HCC) S/P insertion of IVC (inferior vena caval) filter ESTIMATED GFR Routine 05/05/2019 11:50 AM CDT MAGNESIUM LEVEL Routine 05/05/2019 Malignant neop lasm 11:50 AM CDT metastatic to left lung (HCC) T4, FREE Routine 05/05/2019 Malignant neopl asm 11:50 AM CDT metastatic to left lung (HCC) THYROID STIMULATING Routine 05/05/2019 Malignant neoplasm HORMONE 11:50 AM CDT metastatic to left lung (HCC) HC COMPLETE BLD COUNT Routine 05/05/2019 Malignan t neoplasm W/AUTO DIFF 11:50 AM CDT metastatic to left lung (HCC) COMPREHENSIVE METABOLIC Routine 05/05/2019 Malign ant neoplasm PANEL 11:50 AM CDT metastatic to left lung (HCC) T3 Routine 05/05/2019 Malignant neopl asm 11:50 AM CDT metastatic to left lung (HCC) US RENAL Routine 04/14/2019 Acute renal bobbi lure, 3:11 PM CDT unspecified acute renal failure type (HCC) Chronic kidney disease, unspecified CKD stage ESTIMATED GFR STAT 04/14/2019 9:43 AM CDT T4, FREE STAT 04/14/2019 Hypothyroidism due to 9:43 AM CDT medication Malignant neoplasm metastatic to left lung (HCC) History of bladder cancer THYROID STIMULATING STAT 04/14/2019 Hypothyroi dism due to HORMONE 9:43 AM CDT medication Malignant neoplasm metastatic to left lung (HCC) History of bladder cancer MAGNESIUM LEVEL STAT 04/14/2019 Hypothyroidism due to 9:43 AM CDT medication Malignant neoplasm metastatic to left lung (HCC) History of bladder cancer COMPREHENSIVE METABOLIC STAT 04/14/2019 Hypoth yroidism due to PANEL 9:43 AM CDT medication Malignant neoplasm metastatic to left lung (HCC) History of bladder cancer HC COMPLETE BLD COUNT STAT 04/14/2019 Hypothyr oidism due to W/AUTO DIFF 9:43 AM CDT medication Malignant neoplasm metastatic to left lung (HCC) History of bladder cancer T3 STAT 04/14/2019 Hypothyroidism due to 9:43 AM CDT medication Malignant neoplasm metastatic to left lung (HCC) History of bladder cancer ESTIMATED GFR Routine 04/04/2019 4:44 PM CDT URINALYSIS, AUTOMATED Routine 04/04/2019 Acute ki dney injury WITH MICROSCOPY 4:44 PM CDT (nontraumatic) (HCC ) Sclerosing glomerulonephritis PROTEIN, URINE, RANDOM Routine 04/04/2019 Acute k idney injury 4:44 PM CDT (nontraumatic) (HCC) Sclerosing glomerulonephritis MICROALBUMIN, URINE, Routine 04/04/2019 Acute kid gauri injury RANDOM 4:44 PM CDT (nontraumatic) (HCC ) Sclerosing glomerulonephritis SEDIMENTATION RATE Routine 04/04/2019 Acute kidne y injury 4:44 PM CDT (nontraumatic) (HCC) Sclerosing glomerulonephritis HC COMPLETE BLD COUNT Routine 04/04/2019 Acute ki dney injury W/AUTO DIFF 4:44 PM CDT (nontraumatic) (HCC ) Sclerosing glomerulonephritis RHEUMATOID FACTOR Routine 04/04/2019 Acute kidney injury 4:44 PM CDT (nontraumatic) (HCC) Sclerosing glomerulonephritis PARATHYROID HORMONE Routine 04/04/2019 Acute kidn ey injury 4:44 PM CDT (nontraumatic) (HCC) Sclerosing glomerulonephritis HEPATITIS C ANTIBODY Routine 04/04/2019 Acute kid gauri injury 4:44 PM CDT (nontraumatic) (HCC) Sclerosing glomerulonephritis HEPATITIS B SURFACE Routine 04/04/2019 Acute kidn ey injury ANTIGEN 4:44 PM CDT (nontraumatic) (HCC ) Sclerosing glomerulonephritis C4 COMPLEMENT COMPONENT Routine 04/04/2019 Acute kidney injury 4:44 PM CDT (nontraumatic) (HCC) Sclerosing glomerulonephritis C3 COMPLEMENT COMPONENT Routine 04/04/2019 Acute kidney injury 4:44 PM CDT (nontraumatic) (HCC) Sclerosing glomerulonephritis ANGE Routine 04/04/2019 Acute kidney in jury 4:44 PM CDT (nontraumatic) (HCC) Sclerosing glomerulonephritis URIC ACID LEVEL Routine 04/04/2019 Acute kidney i njury 4:44 PM CDT (nontraumatic) (HCC) Sclerosing glomerulonephritis PHOSPHORUS LEVEL Routine 04/04/2019 Acute kidney injury 4:44 PM CDT (nontraumatic) (HCC) Sclerosing glomerulonephritis MAGNESIUM LEVEL Routine 04/04/2019 Acute kidney i njury 4:44 PM CDT (nontraumatic) (HCC) Sclerosing glomerulonephritis CK ISOENZYMES Routine 04/04/2019 Acute kidney in jury 4:44 PM CDT (nontraumatic) (HCC) Sclerosing glomerulonephritis COMPREHENSIVE METABOLIC Routine 04/04/2019 Acute kidney injury PANEL 4:44 PM CDT (nontraumatic) (HCC ) Sclerosing glomerulonephritis XR KUB KIDNEY URETER Routine 03/24/2019 Encounter for BLADDER 10:47 AM CDT lengthening/adjustm ent of growth maria c MICROSCOPIC EXAMINATION Routine 03/23/2019 11:00 AM CDT URINALYSIS, COMPLETE, Routine 03/23/2019 WITH REFLEX TO CULTURE 11:00 AM CDT URINE CULTURE, Routine 03/23/2019 COMPREHENSIVE (DARRON 11:00 AM CDT HIST) ESTIMATED GFR Routine 03/23/2019 9:25 AM CDT MAGNESIUM LEVEL Routine 03/23/2019 Malignant neop lasm 9:25 AM CDT metastatic to left lung (HCC) T4, FREE Routine 03/23/2019 Malignant neopl asm 9:25 AM CDT metastatic to left lung (HCC) THYROID STIMULATING Routine 03/23/2019 Malignant neoplasm HORMONE 9:25 AM CDT metastatic to left lung (HCC) HC COMPLETE BLD COUNT Routine 03/23/2019 Malignan t neoplasm W/AUTO DIFF 9:25 AM CDT metastatic to left lung (HCC) COMPREHENSIVE METABOLIC Routine 03/23/2019 Malign ant neoplasm PANEL 9:25 AM CDT metastatic to left lung (HCC) T3 Routine 03/23/2019 Malignant neopl asm 9:25 AM CDT metastatic to left lung (HCC) MAGNESIUM LEVEL STAT 03/03/2019 Hypothyroidism due to 10:21 AM CDT medication Malignant neoplasm metastatic to left lung (HCC) History of bladder cancer T4, FREE STAT 03/03/2019 Hypothyroidism due to 10:21 AM CDT medication Malignant neoplasm metastatic to left lung (HCC) History of bladder cancer THYROID STIMULATING STAT 03/03/2019 Hypothyroi dism due to HORMONE 10:21 AM CDT medication Malignant neoplasm metastatic to left lung (HCC) History of bladder cancer T3 STAT 03/03/2019 Hypothyroidism due to 10:21 AM CDT medication Malignant neoplasm metastatic to left lung (HCC) History of bladder cancer GRAM STAIN STAT 02/26/2019 4:40 PM CDT URINE CULTURE STAT 02/26/2019 4:40 PM CDT URINALYSIS SCREEN AND STAT 02/26/2019 MICROSCOPY, WITH REFLEX 4:[address] ABDOMEN PELVIS WO STAT 02/26/2019 CONTRAST 3:32 PM CDT ESTIMATED GFR STAT 02/26/2019 3:10 PM CDT LIPASE LEVEL STAT 02/26/2019 3:10 PM CDT COMPREHENSIVE METABOLIC STAT 02/26/2019 PANEL 3:10 PM CDT HC COMPLETE BLD COUNT STAT 02/26/2019 W/AUTO DIFF 3:10 PM CDT ESTIMATED GFR Routine 02/24/2019 12:25 PM CDT HC COMPLETE BLD COUNT Routine 02/24/2019 Malignan t neoplasm W/AUTO DIFF 12:25 PM CDT metastatic to left lung (HCC) COMPREHENSIVE METABOLIC Routine 02/24/2019 Malign ant neoplasm PANEL 12:25 PM CDT metastatic to left lung (HCC) POC GLUCOSE Routine 02/22/2019 3:13 PM CDT POC GLUCOSE Routine 02/22/2019 2:50 PM CDT TTE COMPLETE, WO Routine 02/09/2019 Malignant stefano plasm CONTRAST, W DOPPLER 1:01 PM CDT metastatic to lef t lung ([id number]) (HCC) Urothelial cancer (HCC) History of bladder cancer ESTIMATED GFR Routine 02/07/2019 11:17 AM CDT PARTIAL THROMBOPLASTIN Routine 02/07/2019 Maligna nt neoplasm TIME (PTT) 11:17 AM CDT metastatic to left lung (HCC) Urothelial cancer (HCC) History of bladder cancer PROTHROMBIN TIME WITH INR Routine 02/07/2019 Azul gnant neoplasm 11:17 AM CDT metastatic to left lung (HCC) Urothelial cancer (HCC) History of bladder cancer HC COMPLETE BLD COUNT Routine 02/07/2019 Malignan t neoplasm W/AUTO DIFF 11:17 AM CDT metastatic to left lung (HCC) Urothelial cancer (HCC) History of bladder cancer COMPREHENSIVE METABOLIC Routine 02/07/2019 Malign ant neoplasm PANEL 11:17 AM CDT metastatic to left lung (HCC) Urothelial cancer (HCC) History of bladder cancer MAGNESIUM LEVEL Routine 02/07/2019 Malignant neop lasm 11:17 AM CDT metastatic to left lung (HCC) Urothelial cancer (HCC) History of bladder cancer URIC ACID LEVEL Routine 02/07/2019 Malignant neop lasm 11:17 AM CDT metastatic to left lung (HCC) Urothelial cancer (HCC) History of bladder cancer LDH Routine 02/07/2019 Malignant neopl asm 11:17 AM CDT metastatic to left lung (HCC) Urothelial cancer (HCC) History of bladder cancer THYROID STIMULATING Routine 02/07/2019 Malignant neoplasm HORMONE 11:17 AM CDT metastatic to left lung (HCC) Urothelial cancer (HCC) History of bladder cancer T4, FREE Routine 02/07/2019 Malignant neopl asm 11:17 AM CDT metastatic to left lung (HCC) Urothelial cancer (HCC) History of bladder cancer T3 Routine 02/07/2019 Malignant neopl asm 11:17 AM CDT metastatic to left lung (HCC) Urothelial cancer (HCC) History of bladder cancer HEPATITIS B SURFACE Routine 02/07/2019 Malignant neoplasm ANTIGEN 11:17 AM CDT metastatic to left lung (HCC) Urothelial cancer (HCC) History of bladder cancer HEPATITIS B SURFACE Routine 02/07/2019 Malignant neoplasm ANTIBODY 11:17 AM CDT metastatic to left lung (HCC) Urothelial cancer (HCC) History of bladder cancer RAPID HIV 1 & 2 Routine 02/07/2019 Malignant neop lasm 11:17 AM CDT metastatic to left lung (HCC) Urothelial cancer (HCC) History of bladder cancer URINALYSIS, AUTOMATED Routine 02/07/2019 Malignan t neoplasm WITH MICROSCOPY 11:17 AM CDT metastatic to left lung (HCC) Urothelial cancer (HCC) History of bladder cancer CLOSTRIDIUM DIFFICILE Routine 01/27/2019 Malignan t neoplasm TOXIN 9:45 AM CDT metastatic to left lung (HCC) PET CT SKULL BASE TO MID Routine 01/06/2019 Proct ocolitis THIGH 1:21 PM CDT Urothelial cancer ( HCC) Malignant neoplasm metastatic to left lung (HCC) POC GLUCOSE Routine 01/06/2019 11:16 AM CDT after 01/02/2019 Results * T3 (10/06/2019 10:15 AM CDT) Only the most recent of 10 results within the time period is included. T3 115 80 - 200 ng/dL [facility] Specimen Plasma specimen Performing Organization Address City/[facility] one Number [facility] DEPARTMENT OF [address] [place] [address] PATHOLOGY AND GENOMIC MEDICINE [facility] [address] [place] [id number] [facility] * Thyroid stimulating hormone (10/06/2019 10:15 AM CDT) Only the most recent of 10 results within the time period is included. TSH 4.13 0.27 - 4.20 uIU/mL [facility] Specimen Plasma specimen Performing Organization Address [facility] one Number [facility] [place] [address] [place], [place] [address] PATHOLOGY AND GENOMIC MEDICINE [facility] [address] [place] [id number] [facility] * T4, free (10/06/2019 10:15 AM CDT) Only the most recent of 10 results within the time period is included. T4, free 1.01 0.90 - 1.70 ng/dL [facility] Specimen Plasma specimen Performing Organization Address [facility] one Number [facility] [place] [address] [place], [place] [address] PATHOLOGY AND GENOMIC MEDICINE [facility] [address] [place] [address] * Estimated GFR (10/06/2019 10:07 AM CDT) Only the most recent of 14 results within the time period is included. Estimated GFR 28 (A) mL/min/1.73 m2 [place] Comment: [facility] Interpretation G1 >=90 Normal or high G2 60-89 Mildly decreased G3a 45-59 Mildly to moderately decreased G3b 30-44 Moderately to severely decreased G4 15-29 Severely decreased G5 <15 Kidney failure The eGFR was calculated using the Chronic Kidney Disease Epidemiology Collaboration (CKD-EPI) equation. Interpretation is based on recommendations of the National Kidney Foundation-Kidney Disease Outcomes Quality Initiative (NKF-KDOQI) published in 2014. Specimen Plasma specimen Performing Organization Address City/[facility] one Number [facility] DE[facility]MENT OF [address] [place] [address] PATHOLOGY AND GENOMIC MEDICINE [place] RIKI BELCHER [address] [place] [address] [facility] [address] * CBC with platelet and differential (10/06/2019 10:07 AM CDT) Only the most recent of 14 results within the time period is included. WBC 6.46 4.50 - 11.00 k/uL [facility] RBC 3.23 (L) 4.20 - 5.50 m/uL [facility] HGB 10.4 (L) 12.0 - 16.0 g/dL [facility] HCT 32.2 (L) 37.0 - 47.0 % [facility] MCV 99.7 82.0 - 100.0 fL [facility] MCH 32.2 27.0 - 34.0 pg [facility] MCHC 32.3 31.0 - 37.0 g/dL [facility] RDW - SD 44.1 37.0 - 55.0 fL [facility] MPV 9.1 8.8 - 13.2 fL [facility] Platelet count 215 150 - 400 k/uL [facility] Neutrophils 71.6 (H) 39.0 - 69.0 % [facility] Lymphocytes 17.6 (L) 25.0 - 45.0 % [facility] Monocytes 9.4 0.0 - 10.0 % [facility] Eosinophils 1.2 0.0 - 5.0 % [facility] Basophils 0.2 0.0 - 1.0 % [facility] Specimen Blood Performing Organization Address City/State/Zipcode Ph one Number [facility] DEPARTMENT OF [address] [place] [phone] PATHOLOGY AND GENOMIC MEDICINE [place] RIKI BELCHER [address] [place] [address] [facility] [address] * Magnesium level (10/06/2019 10:07 AM CDT) Only the most recent of 12 results within the time period is included. Pathologist [facility] Magnesium 1.7 1.6 - 2.4 mg/dL [facility] Specimen Plasma specimen Performing Organization Address City/State[facility] one Number [facility] OF [address] [place] [phone] PATHOLOGY AND GENOMIC MEDICINE [facility] [address] [place] [address] [facility] [address] * Comprehensive metabolic panel (10/06/2019 10:07 AM CDT) Only the most recent of 13 results within the time period is included. Sodium 139 135 - 148 mEq/L [facility] Potassium 4.5 3.5 - 5.0 mEq/L [facility] Chloride 107 98 - 112 mEq/L [facility] CO2 23 (L) 24 - 31 mEq/L [facility] Anion gap 9@ANIO 7 - 15 mEq/L [facility] BUN 39 (H) 8 - 23 mg/dL [facility] Creatinine 1.78 (H) 0.50 - 0.90 mg/dL [facility] Glucose 113 (H) 65 - 99 mg/dL [facility] Calcium 9.4 8.8 - 10.2 mg/dL [facility] Protein 6.6 6.3 - 8.3 g/dL [place] Comment: [facility] Hardy 4.6-7.0 g/dL 1 week 4.4-7.6 g/dL 7 months-1year 5.1-7.3 g/dL 1-2 years 5.6-7.5 g/dL >3 years 6.0-8.0 g/dL 18-150 6.3-8.3 g/dL Albumin 3.9 3.5 - 5.0 g/dL [facility] A/G ratio 1.4 0.7 - 3.8 [facility] Alkaline 99 0 - 104 U/L [place] phosphatase [facility] AST 20 10 - 35 U/L [facility] ALT 23 5 - 50 U/L [facility] Total bilirubin 0.3 0.0 - 1.2 mg/dL [facility] Specimen Plasma specimen Performing Organization Address City/State/Zipcode Ph one Number [facility] DE[facility]MENT OF [address] [place] [address] PATHOLOGY AND GENOMIC MEDICINE [place] IR[place] BELCHER [address] [place] [address] [facility] [address] * PET/CT Skull Base To Mid Thigh (09/29/2019 2:49 PM GEOPH[employer]ICAL PARTY CHIEF) Only the most recent of 3 results within the time period is included. Specimen Narrative Performed At EXAMINATION: PET CT SKULL BASE TO MID THIGH RAD IANT CLINICAL HISTORY: C68.9 Malignant neopl asm of urinary organ unspecified, C68.9 ; RESTAGING COMPARISON: PET/CT 05/30/2019, CT abdo men and pelvis 09/14/2019 TECHNIQUE: The patient received 10-15 m Ci 18-FDG intravenously. 1 hour later, PET/CT scanning from the orbits to the mid thighs was performed. CT scanning was nondiagnostic and used for attenuation correction purposes and to aid in localization of any abnormal findings on the PET images. Au tomated dose exposure control was utilized. Blood glucose = 100. FINDINGS: Head and Neck There is no suspicious lymph node uptak e and no evidence of malignancy in the brain. Chest No suspicious uptake in the mediastinum , travis, or axillae. 2.2 cm pulmonary nodule posterior right lung base with a n SUV of 13.7 (previously 1.1 cm, ill-defined, without clear focal uptake ). This has also increased in size from the recent abdomen CT, where it measures 1.7 cm [facility]. Stable subcentimeter ill-defined nodule anterior left upper lobe without uptake, likely benign. Abdomen Uptake is normal in the: liver, splee n, adrenal glands, pancreas, stomach. Left nephrectomy with normal uptake in the surgical bed. Borderline right hydronephrosis, slightly improved from prior PET/CT, but this was not present on the more recent abdominal CT. There is no suspicious re troperitoneal or mesenteric lymph node uptake. Extensive areas of physiologica l urinary activity in an ileal conduit. Pelvis There is no suspicious pelvic or inguin al lymph node uptake. Stable cystectomy changes with no suspicious uptake. Jose ed uptake is again seen in the anal and anorectal regions, even more prominent today, though most likely physiological (SUV = 14.7, previously 7.3). Osseous Structures There is no suspicious osseous uptake. IMPRESSION: 1.Increasing size and uptake of a pulmo nary metastasis in the right lung base. 2.No definite evidence of malignancy el sewhere. Increasing prominence of anal/anorectal uptake is most likely ph ysiological. [facility]-[id number] Procedure Note Hm Interface, Radiology Results Incoming - 09/29/2019 6:06 PM GEOPHYSICAL PARTY CHIEF EXAMINATION: PET CT SKULL BASE TO MID THIGH CLINICAL HISTORY: C68.9 Malignant neoplasm of urinary organ unspecified, C68.9 ; RESTAGING COMPARISON: PET/CT 05/30/2019, CT abdomen and pelvis 09/14/2019 TECHNIQUE: The patient received 10-15 mCi 18-FDG intravenously. 1 hour later, PET/CT scanning from the orbits to the mid thighs was performed. CT scanning was nondiagnostic and used for attenuation correction purposes and to aid in localization of any abnormal findings on the PET images. Automated dose exposure control was utilized. Blood glucose = 100. FINDINGS: Head and Neck There is no suspicious lymph node uptake and no evidence of malignancy in the brain. Chest No suspicious uptake in the mediastinum, travis, or axillae. 2.2 cm pulmonary nodule posterior right lung base with an SUV of 13.7 (previously 1.1 cm, ill- defined, without clear focal uptake). This has also increased in size from the recent abdomen CT, where it measures 1.7 cm by my measurement. Stable subcentimeter ill-defined nodule anterior left upper lobe without uptake, likely benign. Abdomen Uptake is normal in the: liver, spleen, adrenal glands, pancreas, stomach. Left nephrectomy with normal uptake in the surgical bed. Borderline right hydronephrosis, slightly improved from prior PET/CT, but this was not present on the more recent abdominal CT. There is no suspicious retroperitoneal or mesenteric lymph node uptake. Extensive areas of physiological urinary activity in an ileal conduit. Pelvis There is no suspicious pelvic or inguinal lymph node uptake. Stable cystectomy changes with no suspicious uptake. Marked uptake is again seen in the anal and anorectal regions, even more prominent today, though most likely physiological (SUV = 14.7, previously 7.3). Osseous Structures There is no suspicious osseous uptake. IMPRESSION: 1.Increasing size and uptake of a pulmon pepe metastasis in the right lung base. 2.No definite evidence of malignancy els ewhere. Increasing prominence of anal/anorectal uptake is most likely physiological. [facility]-[id number] Performing Organization Address City/State/Zipcode Ph one Number [facility] [address] [place] [address] * CT Abdomen Pelvis Wo Contrast (09/14/2019 12:16 PM GEOPHYSICAL PARTY CHIEF) Only the most recent of 3 results within the time period is included. Specimen Narrative Performed At EXAMINATION: CT ABDOMEN PELVIS WO CONTRAST RADI ANT CLINICAL HISTORY: C68.9 Malignant stefano plasm of urinary organ unspecified, hematuria UTI COMPARISON: May 11, 2019 TECHNIQUE: Multiple axial CT images of the Abdomen and pelvis were obtained Without IV contrast limiting evaluation . Sagittal and coronal reconstructions were done. Radiation dose reduction jacob hnique used for this study. CT imaging was performed with iterative reconstruction technique and/or automated exposure control to reduce ra diation dose. FINDINGS: HEPATOBILIARY: Unremarkable within th e limitations of a noncontrast exam. GALLBLADDER: Cholelithiasis without sig ns of cholecystitis. SPLEEN: No splenomegaly. PANCREAS: Unremarkable within the carson itations of a noncontrast exam. ADRENALS: No adrenal nodules. KIDNEYS: Right kidney with stable cys t. No stones or hydronephrosis. PERITONEUM/RETROPERITONEUM: No free a ir or free fluid. No enlarging lymph nodes. ABDOMINAL AORTA/IVC: No abdominal aorti c aneurysm. An IVC filter is in place. GI TRACT: Right lower quadrant ostomy in place with a stable bowel-containing parastomal hernia. No signs of bowel ob struction. The appendix is normal.No signs of diverticulitis. PELVIC ORGANS/BLADDER: Urinary bladde r, uterus, and ovaries are absent. No enlarged lymph nodes or free fluid. BONES AND SOFT TISSUES: No suspicious findings in the bones. VISUALIZED LOWER CHEST: Right pulmonary nodule increased in size now 1.4 cm. Stable subcentimeter nodule in the left lower lobe. IMPRESSION: Recurrent right lower lobe pulmonary me tastasis. No signs of recurrence in the abdomen a nd pelvis. [id number] Procedure Note Interface, Radiology Results Incoming - 09/14/2019 12:39 PM GEOPHYSICAL PARTY CHIEF EXAMINATION: CT ABDOMEN PELVIS WO CONTRAST CLINICAL HISTORY: C68.9 Malignant neoplasm of urinary organ unspecified, hematuria UTI COMPARISON: May 11, 2019 TECHNIQUE: Multiple axial CT images of the Abdomen and pelvis were obtained Without IV contrast limiting evaluation . Sagittal and coronal reconstructions were done. Radiation dose reduction technique used for this study. CT imaging was performed with iterative reconstruction technique and/or automated exposure control to reduce radiation dose. FINDINGS: HEPATOBILIARY: Unremarkable within the limitations of a noncontrast exam. GALLBLADDER: Cholelithiasis without signs of cholecystitis. SPLEEN: No splenomegaly. PANCREAS: Unremarkable within the limitations of a noncontrast exam. ADRENALS: No adrenal nodules. KIDNEYS: Right kidney with stable cyst. No stones or hydronephrosis. PERITONEUM/RETROPERITONEUM: No free air or free fluid. No enlarging lymph nodes. ABDOMINAL AORTA/IVC: No abdominal aortic aneurysm. An IVC filter is in place. GI TRACT: Right lower quadrant ostomy in place with a stable bowel-containing parastomal hernia. No signs of bowel obstruction. The appendix is normal.No signs of diverticulitis. PELVIC ORGANS/BLADDER: Urinary bladder, uterus, and ovaries are absent. No enlarged lymph nodes or free fluid. BONES AND SOFT TISSUES: No suspicious findings in the bones. VISUALIZED LOWER CHEST: Right pulmonary nodule increased in size now 1.4 cm. Stable subcentimeter nodule in the left lower lobe. IMPRESSION: Recurrent right lower lobe pulmonary metastasis. No signs of recurrence in the abdomen and pelvis. [id number] Performing Organization Address [facility] one Number [facility] [address] [place] [address] * Urine culture (09/07/2019 2:37 PM GEOPHYSICAL PARTY CHIEF) Only the most recent of 3 results within the time period is included. Urine culture No growth [facility] Specimen Urine Narrative Performed At Performed at: - [facility] [address] [place] [id number] Party Chief: Juno Wagner MD, Phone: [phone] Performing Organization Address City/[facility] one Number [facility] * POC glucose (06/15/2019 11:25 AM GEOPHYSICAL PARTY CHIEF) Only the most recent of 10 results within the time period is included. POC glucose 164 (H) 65 - 99 mg/dL [place] Comment: BAPTISM CLEAR Meter ID: [id number] [facility] [place] Shearer Operator: Terry Hoff Specimen Performing Organization Address [facility] one Number [facility] [place] [address] [place], [place] [address] PATHOLOGY AND GENOMIC MEDICINE [place] BAPTISM CLEAR [address] [place] [address] [facility] * IR IVC Filter Removal (06/14/2019 12:06 PM GEOPHYSICAL PARTY CHIEF) Specimen Narrative Performed At PROCEDURE: IR REMOVE ENDOVASCULAR VENA CAVA FILTER HM [facility] This exam was performed in the Radiolog y department. Fluoro time: 15:44 minutes IMPRESSION: A complete separate report will be issu ed in operative notes by the performing physician. [id number] Procedure Note Hm Interface, Radiology Results Incoming - 06/16/2019 9:18 AM GEOPHYSICAL PARTY CHIEF PROCEDURE: IR REMOVE ENDOVASCULAR VENA CAVA FILTER This exam was performed in the Radiology department. Fluoro time: 15:44 minutes IMPRESSION: A complete separate report will be issued in operative notes by the performing physician. [id number] Performing Organization Address [facility] Ph one Number HM [facility] [address] [place] [address] * US Guided Vascular Access (06/14/2019 12:06 PM GEOPHYSICAL PARTY CHIEF) Specimen Narrative Performed At PROCEDURE: US GUIDED VASCULAR ACCESS [facility] This exam was performed in the Radiolog y department. IMPRESSION: A complete separate report will be issu ed in operative notes by the performing physician. [id number] Procedure Note Interface, Radiology Results Incoming - 06/16/2019 9:18 AM GEOPHYSICAL PARTY CHIEF PROCEDURE: US GUIDED VASCULAR ACCESS This exam was performed in the Radiology department. IMPRESSION: A complete separate report will be issued in operative notes by the performing physician. [id number] Performing Organization Address [facility] one Number HM [facility] [address] [place] [address] * XR Chest 1 Vw Portable (06/14/2019 7:15 AM GEOPHYSICAL PARTY CHIEF) Specimen Narrative Performed At Examination: XR CHEST 1 VW PORTABLE HM [facility] Clinical history: "preop" Comparison: 06/12/2019 IMPRESSION: Indwelling support lines/tubes appear g enerally stable in position. There are no new alveolar opacities wit hin either lung. No pneumothoraces are identified. The cardiomediastinal silhouette is unc hanged. The bones of the chest are unchanged. [id number] Procedure Note Hm Interface, Radiology Results Incoming - 06/14/2019 7:19 AM GEOPHYSICAL PARTY CHIEF Examination: XR CHEST 1 VW PORTABLE Clinical history: "preop" Comparison: 06/12/2019 IMPRESSION: Indwelling support lines/tubes appear generally stable in position. There are no new alveolar opacities within either lung. No pneumothoraces are identified. The cardiomediastinal silhouette is unchanged. The bones of the chest are unchanged. [id number] Performing Organization Address [facility] one Number [facility] [address] [place] [address] * Partial thromboplastin time, activated (06/14/2019 7:15 AM GEOPHYSICAL PARTY CHIEF) Only the most recent of 2 results within the time period is included. PTT 41.0 (H) 23.0 - 36.0 sec [place] Comment: RIKI BELCHER PTT therapeutic range for [facility] unfractionated heparin is 61.0-112.0 seconds which corresponds to Anti-Xa 0.3-0.7 U/ml. Specimen Blood Performing Organization Address [facility] one Number [facility] [place] [address] [place] [address] [place], [place] [address] PATHOLOGY AND GENOMIC MEDICINE [place] BAPTISM CLEAR [address] [place] [address] [place] [address] [facility] * Prothrombin time with INR (06/14/2019 7:15 AM GEOPHYSICAL PARTY CHIEF) Only the most recent of 2 results within the time period is included. Prothrombin 12.9 11.5 - 14.5 sec [place] time BAPTISM SIMI [facility] INR 1.0 [place] Comment: RIKI BELCHER The International Normalized [facility] Ratio (INR) is a therapeutic monitoring tool for patients who are stable on oral anticoagulant therapy. An INR of 2.0-3.0 is suggested for deep vein thrombosis/pulmonary embolism. Specimen Blood Performing Organization Address [facility] one Number [facility] [place] [address] [place] [place], [place] [address] PATHOLOGY AND GENOMIC MEDICINE [facility] [address] [address] [place] [id number] [facility] * Basic metabolic panel (06/14/2019 7:15 AM GEOPHYSICAL PARTY CHIEF) Sodium 143 135 - 148 mEq/L [facility] Potassium 4.9 3.5 - 5.0 mEq/L [facility] Chloride 105 98 - 112 mEq/L [facility] CO2 25 24 - 31 mEq/L [facility] Anion gap 13@ANIO 7 - 15 mEq/L [facility] BUN 49 (H) 8 - 23 mg/dL [facility] Creatinine 2.00 (H) 0.50 - 0.90 mg/dL [facility] Glucose 131 (H) 65 - 99 mg/dL [facility] Calcium 10.0 8.8 - 10.2 mg/dL [facility] Specimen Plasma specimen Performing Organization Address City/[facility] [place] [address] [address] [place] [address] PATHOLOGY AND GENOMIC MEDICINE [facility] [address] [place] [address] * ECG 12 lead (06/14/2019 7:10 AM GEOPHYSICAL PARTY CHIEF) Pathologist [facility] Ventricular 61 [facility] MUSE rate Atrial rate 40 [facility] M[facility] OK interval 142 [facility] QRSD interval 90 [facility] QT interval 454 [facility] QTC interval 457 [facility] P axis 1 58 [facility] M[facility] QRS axis 1 -2 [facility] T wave axis 71 [facility] M[facility] EKG impression Marked sinus bradycardia with [facility] MUS E frequent premature ventricular complexes-Low voltage QRS-Abnormal ECG-- Specimen Narrative Performed At This result has an attachment that is n ot available. Performing Organization Address City/[facility] Ph one Number [facility] MUSE [address] [place] [address] * Gram stain (05/26/2019 12:53 PM CDT) Only the most recent of 2 results within the time period is included. Pathologist [facility] Gram stain Few WBC's HENDRIX result Many Gram positive rods BAPTISM Occasional Gram negative rods HOSPITAL Comment: Specimen Information Specimen Source: Urine Specimen Site: Nephrostomy/ Specimen Urine Performing Organization Address City/[facility] Ph one Number [facility] DEPARTMENT OF [address] [place] [address] PATHOLOGY AND GENOMIC MEDICINE [facility] [address] [place] [address] HOSPITAL * Urinalysis screen and microscopy, with reflex to culture (05/26/2019 11:10 AM CDT) Only the most recent of 2 results within the time period is included. Specimen site Nephrostomy [facility] Color, UA Yellow [facility] Appearance, UA Sl Cloudy [facility] Specific 1.012 1.001 - 1.030 [place] gravity, [facility] pH, UA 6.0 5.0 - 9.0 [facility] Protein, UA Negative Negative [facility] Glucose, UA Negative Negative [facility] Ketones, UA Negative Negative [facility] Bilirubin, UA Negative Negative [facility] Blood, UA Negative Negative [facility] Nitrite, UA Positive (A) Negative [facility] Urobilinogen, <2.0 <2.0 E.U./dL [facility] Leukocyte Large (A) Negative [place] esterase, [facility] Round <1 0 - 5 /HPF [place] epithelial [facility] WBC, UA 132 (H) 0 - 4 /HPF [facility] RBC, UA 8 (H) 0 - 5 /HPF [facility] Bacteria, UA Few None seen [facility] WBC clumps, UA Few (A) [facility] Yeast, UA None seen [facility] Yeast with None seen [place] pseudohyphae, [facility] Specimen Urine Performing Organization Address City/State/[facility] Ph one Number [facility] [place] [place] [address] [place], [place] [address] PATHOLOGY AND GENOMIC MEDICINE [facility] [address] [place] [address] [facility] * XR Kub Kidney Ureter Bladder (05/05/2019 11:56 AM CDT) Only the most recent of 2 results within the time period is included. 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 IMPRESSION: Lines, tubes and hardware: An IVC filte r is identified with the apex at the superior endplate of L2. Extensive surg ical clips are identified predominantly at midline, in the left upper quadrant, in the bilateral pelvis. Surgical clips are also identified in the right upper quadrant compatible with prior cholecystectomy. Lower thorax: Unremarkable where visibl e. Abdomen and bowel: Small amount of stoo l in the colon. Nonspecific paucity of bowel gas. No dilated loops of small joce wel seen. Calcifications: No abnormal calcificati ons found. Bones and soft tissues: No acute abnorm ality. Age-related degenerative findings. 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 IMPRESSION: Lines, tubes and hardware: An IVC filter is identified with the apex at the superior endplate of L2. Extensive surgical clips are identified predominantly at midline, in the left upper quadrant, in the bilateral pelvis. Surgical clips are also identified in the right upper quadrant compatible with prior cholecystectomy. Lower thorax: Unremarkable where visible. Abdomen and bowel: Small amount of stool in the colon. Nonspecific paucity of bowel gas. No dilated loops of small bowel seen. Calcifications: No abnormal calcifications found. Bones and soft tissues: No acute abnormality. Age-related degenerative findings. [facility]-[id number] Performing Organization Address City/State/Zipcode Ph one Number HM [facility] [address] [place] [address] * US Renal (04/14/2019 3:11 PM CDT) Specimen Narrative Performed At EXAMINATION: US RENAL HM [facility] CLINICAL HISTORY: N17.9 Acute kidney failure unspecified, N18.9 Chronic kidney disease unspecified, N17.9 N 18.9 TECHNIQUE: Sonographic imaging over the kidneys was performed. COMPARISON: CT of the abdomen and pel vis dated 02/26/2019 FINDINGS: 1.The right kidney is normal size measu ring 11.8 cm in long axis. The kidney has normal echogenicity. Vascular flow is u nremarkable. There is a 4.8 cm cyst in the right kidney. Mild to moderate righ t-sided hydronephrosis. 2.Prior left nephrectomy. Prior cystect bouchra. IMPRESSION: Mild to moderate right-sided hydronephr osis. [facility]-[id number] Procedure Note Interface, Radiology Results Incoming - 04/14/2019 3:16 PM CDT EXAMINATION: US RENAL CLINICAL HISTORY: N17.9 Acute kidney failure unspecified, N18.9 Chronic kidney disease unspecified, N17.9 N18.9 TECHNIQUE: Sonographic imaging over the kidneys was performed. COMPARISON: CT of the abdomen and pelvis dated 02/26/2019 FINDINGS: 1.The right kidney is normal size measur ing 11.8 cm in long axis. The kidney has normal echogenicity. Vascular flow is unremarkable. There is a 4.8 cm cyst in the right kidney. Mild to moderate right-sided hydronephrosis. 2.Prior left nephrectomy. Prior cystecto my. IMPRESSION: Mild to moderate right-sided hydronephrosis. [facility]-[id number] Performing Organization Address [facility] Ph one Number [facility] [address] [place] [address] * Microalbumin, urine, random (04/04/2019 4:44 PM CDT) Pathologist [facility] Total volume, No volume mL [place] urine [facility] Urine 34 mg/dL [place] creatinine BAPTISM concentration [facility] Urine 4.7 mg/dL [place] microalbumin [facility] Urine 138 (H) 0 - 30 mg/g [place] microalbumin/cr BAP[facility]ISM eatinine ratio HOSPITAL Specimen Urine Performing Organization Address City/[facility] Ph one Number [facility] DEPARTMENT OF [address] [place] [address] PATHOLOGY AND GENOMIC MEDICINE [address] * Hepatitis C antibody (04/04/2019 4:44 PM CDT) Hepatitis C Ab Non-reactive Non-reactive [facility] Specimen Blood Performing Organization Address City/[facility] Ph one Number [facility] DEPARTMENT OF [address] [place] [address] PATHOLOGY AND GENOMIC MEDICINE [place] [id number] [place] [address] HOSPITAL * Hepatitis B surface antigen (04/04/2019 4:44 PM CDT) Only the most recent of 2 results within the time period is included. Hepatitis B Non-reactive Non-reactive [place] surface Ag [facility] Specimen Blood Performing Organization Address City/[facility] Ph one Number [facility] DEPARTMENT [place] [address] PATHOLOGY AND [facility] MEDICINE [address] * Urinalysis, automated with microscopy (04/04/2019 4:44 PM CDT) Only the most recent of 2 results within the time period is included. Color, UA Straw [facility] Appearance, UA Clear [facility] Specific 1.006 1.001 - 1.030 [place] gravity, UA [facility] pH, UA 6.0 5.0 - 9.0 [facility] Protein, UA Negative Negative [facility] Glucose, UA Negative Negative [facility] Ketones, UA Negative Negative [facility] Bilirubin, UA Negative Negative [facility] Blood, UA Negative Negative [facility] Nitrite, UA Negative Negative [facility] Urobilinogen, <2.0 <2.0 E.U./dL [facility] Leukocyte Negative Negative [place] esterase, [facility] Epithelial <1 /HPF [place] cells, UA [facility] Round <1 0 - 5 /HPF [place] epithelial [facility] cells, [facility] WBC, UA 1 0 - 4 /HPF [facility] RBC, UA <1 0 - 5 /HPF [facility] Bacteria, UA None seen None seen [facility] Yeast, UA None seen [facility] Yeast with None seen [place] pseudohyphae, [facility] Specimen Urine Performing Organization Address City/[facility]/[employer] Ph one Number [facility] DEPARTMENT OF [address] [place] [address] PATHOLOGY AND GENOMIC MEDICINE [address] * Sedimentation rate (04/04/2019 4:44 PM CDT) Sedimentation >145 (H) 0 - 20 mm/hr [facility] Specimen Blood Performing Organization Address City/[facility] Ph one Number [facility] [place] [address] [place], [place] [address] PATHOLOGY AND GENOMIC MEDICINE [facility] [address] [place] [address] [facility] * Rheumatoid factor (04/04/2019 4:44 PM CDT) Rheumatoid <10 0 - 13 IU/mL [place] factor [facility] Specimen Plasma specimen Performing Organization Address City/[facility] Ph one Number [facility] DEPARTMENT OF [address] [place] [address] PATHOLOGY AND [facility] MEDICINE [address] * C3 complement component (04/04/2019 4:44 PM CDT) C3 complement 154 90 - 180 mg/dL [facility] Specimen Plasma specimen Performing Organization Address [facility] one Number [facility] DEPARTMENT OF [address] [place] [address] PATHOLOGY AND GENOMIC MEDICINE [address] * C4 complement component (04/04/2019 4:44 PM CDT) C4 complement 45 (H) 10 - 40 mg/dL [facility] Specimen Plasma specimen Performing Organization Address [facility] one Number [facility] DEPARTMENT OF [address] [place] [address] PATHOLOGY AND GENOMIC MEDICINE [address] * ANGE (04/04/2019 4:44 PM CDT) ANGE screen Negative Negative [facility] Specimen Blood Performing Organization Address [facility] one Number [facility] DEPARTMENT OF [address] [place] [address] PATHOLOGY AND GENOMIC MEDICINE [address] * Uric acid level (04/04/2019 4:44 PM CDT) Only the most recent of 2 results within the time period is included. Uric acid 8.2 (H) 2.4 - 5.7 mg/dL [facility] Specimen Plasma specimen Performing Organization Address City/[facility] Ph one Number [facility] DEPARTMENT OF [address] [place] [address] PATHOLOGY AND [facility] MEDICINE [address] * Phosphorus level (04/04/2019 4:44 PM CDT) Phosphorus 3.7 2.4 - 4.5 mg/dL [facility] Specimen Plasma specimen Performing Organization Address City/[facility] Ph one Number [facility] DEPARTMENT OF [address] [place] [address] PATHOLOGY AND GENOMIC MEDICINE [address] * Parathyroid hormone (04/04/2019 4:44 PM CDT) PTH 56 15 - 65 pg/mL [facility] Specimen Blood Performing Organization Address [facility] one Number [facility] DEPARTMENT OF [address] [place] [address] PATHOLOGY AND GENOMIC MEDICINE [address] * CK isoenzymes (04/04/2019 4:44 PM CDT) CK-MM 100 96 - 100 % [facility] CK-MB 0 0 - 4 % [facility] CK-BB 0 0 - 0 % [facility] Comment: The electrophoretic method is imprecise when used on specimens with total CK values <73 U/L. Isoenzyme results must be interpreted with caution. Creatine kinase 55 20 - 180 U/L [facility] Comment: REFERENCE INTERVAL: CK Total Access complete set of age- and/or gender-specific reference intervals for this test in the [employer] Laboratory Test Directory ([employer]). CK macro type I 0 0 - 0 % [facility] CK macro type 0 0 - 0 % [facility] II Comment: Performed by [facility], [address] [place] [address],[place] [id number] [email or web address], Jonnie Carrington MD - Lab. Director Specimen Serum Performing Organization Address [facility]/Zipcode Ph one Number [facility] [address] [place] [address] [facility] [address] [place] [address] * Urine Culture, Comprehensive (03/23/2019 11:00 AM CDT) Pathologist [facility] Urine culture Klebsiella pneumoniae [facility] Greater than 100,000 colony forming units per mL (A) Comment: Cefazolin <=4 ug/mL Cefazolin with an KELY <=16 predicts susceptibility to the oral agents cefaclor, cefdinir, cefpodoxime, cefprozil, cefuroxime, cephalexin, and loracarbef when used for therapy of uncomplicated urinary tract infections due to E. coli, Klebsiella pneumoniae, and Proteus mirabilis. Specimen Narrative Performed At Performed at: [facility] [address] Party Chief: Juno Wagner MD, Phone: [phone] Antibiotic Method Susceptibility Organism Amoxicillin/Clavulanate S ug/mL: Susceptible Klebsiella pneumoniae Ampicillin R ug/mL: Resistant Klebsiella pneumoniae Cefepime S ug/mL: Susceptible Klebsiella pneumoniae Ceftriaxone S ug/mL: Susceptible Klebsiella pneumoniae Cefuroxime S ug/mL: Susceptible Klebsiella pneumoniae Ciprofloxacin S ug/mL: Susceptible Klebsiella pneumoniae Ertapenem S ug/mL: Susceptible Klebsiella pneumoniae Gentamicin S ug/mL: Susceptible Klebsiella pneumoniae Imipenem S ug/mL: Susceptible Klebsiella pneumoniae Levofloxacin S ug/mL: Susceptible Klebsiella pneumoniae Meropenem S ug/mL: Susceptible Klebsiella pneumoniae Nitrofurantoin R ug/mL: Resistant Klebsiella pneumoniae Piperacillin/Tazobactam S ug/mL: Susceptible Klebsiella pneumoniae Tetracycline S ug/mL: Susceptible Klebsiella pneumoniae Tobramycin S ug/mL: Susceptible Klebsiella pneumoniae Trimethoprim/Sulfamethoxazole S ug/mL: Susceptible Klebsiella pneumoniae Comment: Performed at: [facility] [id number] Party Chief: Juno Wagner MD, Phone: [phone] Performing Organization Address [facility] one Number [facility] * URINALYSIS, COMPLETE, WITH REFLEX TO CULTURE (03/23/2019 11:00 AM CDT) Specific 1.009 1.005 - 1.030 [facility] gravity, urine pH, urine 6.5 5.0 - 7.5 [facility] Color, UA Yellow Yellow [facility] Appearance Cloudy (A) Clear [facility] WBC esterase, 2+ (A) Negative [facility] urine Protein, UA 2+ (A) Negative/Trace [facility] Glucose, urine Negative Negative [facility] Ketones, UA Negative Negative [facility] Occult blood, Trace (A) Negative [facility] urine Bilirubin, UA Negative Negative [facility] Urobilinogen, 0.2 0.2 - 1.0 mg/dL [facility] UA Nitrite, UA Negative Negative [facility] Microscopic See below:Comment: Microscopic [facility] examination was indicated and was performed. Urinalysis CommentComment: This specimen [facility] reflex has reflexed to a Urine Culture. Specimen Narrative Performed At Performed at: [address] [place], [place] [address] [address] Party Chief: Juno Wagner MD, Phone: [phone] Performing Organization Address [facility] one Number [facility] * Microscopic Examination (03/23/2019 11:00 AM CDT) WBC, UA 6-10 (A) 0 - 5 /hpf [facility] RBC, UA 0-2 0 - 2 /hpf [facility] Epithelial None seen 0 - 10 /hpf [facility] cells (non renal) Bacteria, UA Few None seen/Few [facility] Specimen Narrative Performed At Performed at: [address] [place] [address] [address] Party Chief: Juno Wagner MD, Phone: [phone] Performing Organization Address [facility] one Number [facility] * Lipase level (02/26/2019 3:10 PM CDT) Lipase 23 13 - 60 U/L [facility] Specimen Plasma specimen Performing Organization Address [facility] one Number [facility] [place] [id number] [place] [address] [place], [place] [address] PATHOLOGY AND GENOMIC MEDICINE [address] [place] [address] [facility] * Echocardiogram complete w contrast and 3D if needed (02/09/2019 1:01 PM CDT) Velocity Ratio 0.45 m/s [facility] (V1/V2) IVS,d 1.19 cm [facility] EF 64.72 % [facility] LA volume 109.00 cm3 [facility] LVPWD,d 1.12 cm [facility] AoV Mean PG 11.31 mmHg [facility] AV LVOT peak 4.03 mmHg [facility] gradient MV valve area p 3.81 cm2 [facility] 1/2 method E/A ratio 1.10 [facility] E wave 205.67 msec [facility] decelartion time LVOT Diam,S 1.97 cm [facility] LVOT area 3.05 cm2 [facility] LVOT Vmax 1.00 m/s [facility] LVOT VTI 0.22 m [facility] AoV Peak PG 20.13 mmHg [facility] MV Peak E Tom 1.18 m/s [facility] MV stenosis 57.72 ms [facility] pressure 1/2 time MV Peak A Tom 1.07 m/s [facility] LV Vol,s A2C 43.97 mL [facility] LV Vol,d A2C 128.69 mL [facility] AoV Area, Vmax 1.36 cm2 [facility] AoV Area, VTI 1.37 cm2 [facility] AoV Vmax 2.24 m/s [facility] LA Area d A4C 73 cm2 [facility] LV,d 5.01 cm [facility] LV,s 3.23 cm [facility] LV Vol,d A4C 126.32 ml [facility] LV Vol,s A4C 67.52 ml [facility] MV E A ratio 1.10 [facility] MR peak grad 84.49 mmHg [facility] LV SYS VOL 41.82 ml [facility] LV HART VOL 118.53 ml [facility] LA diam s 4.00 cm [facility] LA area s A4C 22.72 cm2 [facility] LA Vol MOD A4C 72.94 ml [facility] LV SV Teich 2D 76.72 ml [facility] LVOT SI 34.69 ml/m2 [facility] AoV Cusp sep 1.17 [facility] Aortic Root 2.98 cm [facility] AoV Vmn 1.63 [facility] IVS s 2D 1.48 [facility] LA Ao Ratio 1.34 [facility] Mmode OK End Hart 8.85 [facility] Grad OK End Diat Tom 1.49 [facility] D E excurs 1.20 [facility] E f slope 0.05 [facility] E prime lat 0.11 [facility] E aissatou sept 0.07 [facility] PV acc T slope 5.80 [facility] PV AT 119.89 msec [facility] AoV VTI 0.50 m [facility] LV EF,A2C 65.84 % [facility] LV EF,A4C 46.55 % [facility] LV EF,BP 57.37 % [facility] [place],d A2C 7.50 cm [facility] [place],d A4C 7.64 cm [facility] [place],s A2C 6.10 cm [facility] [place],s A4C 6.23 cm [facility] LV SV,A2C 84.73 % [facility] LV SV,A4C 58.81 % [facility] LV Vol,d BP 128.45 ml [facility] LV Vol,s BP 54.76 nl [facility] MR Vmax 5.21 m/s [facility] LVOT Vmn 0.73 [facility] Pt Size 160.02 [facility] Pt Wt 93.44 [facility] LVOT mean grad 2.40 mmHg [facility] LVPW s PLAX 1.34 cm [facility] MV Decel slope 5.75 m/s2 [facility] Specimen Narrative Performed At [facility] Left ventricular systolic function i s normal. There is mild left ventricular selma ntric hypertrophy. Left Ventricular ejection fraction i s 55 - 60%. The mitral valve appears calcified. Mild aortic valve stenosis . There is mild sclerosis of the aorti c valve leaflets. Spectral Doppler shows impaired rela xation pattern of left ventricular diastolic filling. Performing Organization Address [facility] Ph one Number [facility] [address] [place] [address] * Rapid HIV 1 & 2 (02/07/2019 11:17 AM CDT) Rapid HIV 1 and Non-Reactive Non-Reactive [address] Specimen Blood Performing Organization Address City/State/[facility] one Number [facility] [place] [address] [place], [place] [address] PATHOLOGY AND GENOMIC MEDICINE [facility] [address] [place] [address] [facility] * Hepatitis B surface antibody (02/07/2019 11:17 AM CDT) Hepatitis B Non-reactive Non-reactive [place] surface Ab [facility] Specimen Blood Performing Organization Address City/[facility] Ph one Number [facility] DEPARTMENT OF [address] [place] [address] PATHOLOGY [place] [address] HOSPITAL * LDH (02/07/2019 11:17 AM CDT) LDH 175 87 - 225 U/L [facility] Specimen Plasma specimen Performing Organization Address City/[facility] Ph one Number [facility] [place] [address] [place], [place] [address] PATHOLOGY AND GENOMIC MEDICINE [facility] [id number] [place] [id number] [place] [address] * C difficile toxin (01/27/2019 9:45 AM CDT) Clostridium No Clostridium difficle toxin [place] difficile toxin present [facility] Comment: HOSPITAL Specimen Information Specimen Source: Stool Specimen Site: Nonpreserved Specimen Stool - Nonpreserved Performing Organization Address [facility] Ph one Number [facility] DEPARTMENT OF [address] [place] [address] PATHOLOGY AND GENOMIC MEDICINE [facility] [address] [place] [address] HOSPITAL after 01/02/2019 Additional Health Concerns Resolved Time Infection Noted Time ESBL (C ) 12/18/2018 12:27 PM CDT Insurance Type Payer Benefit Subscriber ID Effective Phone Address Plan / Dates Group HMO AETNA MEDICARE AETNA xxxxxxxxxxxx 2019-P MEDICARE resent HMO/PPO [facility] Medicaid MEDICAID MEDICAID xxxxxxxxx 2016-P resent Advance Directives For more information, please contact: [phone] Patient Compressor Technician Explanation Type Date Recorded Advance Directives, 09/29/2019 1:04 PM Living Will and Medical Power of Director Insurance
--- OUTSIDE RECORDS SUMMARY | 2020-01-03 02:52 | XMS REPORT | Summary of Care ---
Author Author [facility] Organization [facility] Address Unknown Phone Unavailable Encounter KENNEDI Anton(OLIVA) [id number] Date(s): 12/30/16 - 12/30/16 [facility] [place] [phone]- [phone] Discharge Disposition: Home or Self Care Attending Physician: Jose Alfredo Ríos MD Vital Signs No data available for this section Problem List Condition Effective Dates Status Health Status Informan t Acid Active reflux(Confirmed) Anxiety(Confirmed) Active Diabetes Active mellitus(Confirmed) Acute lumbar Active radiculopathy(Confir med) Morbid Active obesity(Confirmed) Spasticity(Confirmed Resolved ) Allergies, Adverse Reactions, Alerts Substance Reaction Severity Status NKDA Active Medications No data available for this section Results No data available for this section Immunizations Given and Recorded Vaccine Date Status Refusal Reason pneumococcal 23-valent vaccine 12/15/05 Given Procedures Procedure Date Related Diagnosis Body Site Arthroplasty Cholecystectomy Hernia repair Hysterectomy Social History Social History Type Response Substance Abuse Use: None. Alcohol Never Smoking Status Never smoker; Type: Cigaret ela; Ready to change: No; Concerns about tobacco use in household: No; Exposure to Tobac co Smoke None; Cigarette Smoking Last 365 Days No; Reg Smoking Cessation Counseling No Assessment and Plan No data available for this section
--- OUTSIDE RECORDS SUMMARY | 2020-01-03 02:52 | XMS REPORT | Summary of Care ---
Author Author [facility] Address Unknown Phone Unavailable Encounter KENNEDI Anton(OLIVA) [id number] Date(s): 05/29/16 - 05/29/16 [place] [address] [address] [phone] Discharge Disposition: Home or Self Care Attending Physician: Michael Hennessy MD Referring Physician: Michael Hennessy MD Vital Signs Most recent to 1 oldest [Reference Range]: Height 162.56 cm (05/29/16 1:24 PM) Blood Pressure 108/72 mmHg [90-140/60-90 mmHg] (05/29/16 1:24 PM) Respiratory Rate 22 BRMIN [14-20 BRMIN] *HI* (05/29/16 1:24 PM) Peripheral Pulse 96 bpm Rate [60-100 bpm] (05/29/16 1:24 PM) Weight 109.091 kg (05/29/16 1:24 PM) Body Mass Index 41.28 m2 (05/29/16 1:24 PM) Problem List Condition Effective Dates Status Health Status Informan t Acid Active reflux(Confirmed) Anxiety(Confirmed) Active Diabetes Active mellitus(Confirmed) Acute lumbar Active radiculopathy(Confir med) Morbid Active obesity(Confirmed) Spasticity(Confirmed Resolved ) Allergies, Adverse Reactions, Alerts Substance Reaction Severity Status NKDA Active Medications gabapentin 600 mg oral tablet 600 mg = 1 tab, PO, TID, # 90 tab, 0 Refill(s), Pharmacy: [facility]/pharmacy #[id number] Start Date: 05/29/16 Status: Ordered Results No data available for this section [...]
--- OUTSIDE RECORDS SUMMARY | 2020-01-03 02:52 | XMS REPORT | Summary of Care ---
Author Author [facility] Organization [facility] Address Unknown Phone Unavailable Encounter KENNEDI Anton(OLVIA) [id number] Date(s): 01/14/16 - 01/18/16 [facility] [address] [place] [address] [phone] Discharge Disposition: Home Attending Physician: Theodore Arthur MD Admitting Physician: Theodore Arthur MD Referring Physician: Theodore Arthur MD Vital Signs 1 2 3 Most recent to oldest [Reference Range]: 160.02 cm (01/14/16 4:38 PM) 162.56 cm (01/09/16 3:05 PM) Height 99.3 DegF *HI* (01/18/16 4:30 PM) 98.3 DegF (01/18/16 4:03 PM) 98.9 DegF (01/18/16 11:53 AM) Temperature Oral [96.4-99.1 DegF] 108/71 mmHg (01/18/16 4:30 PM) 121/74 mmHg (01/18/16 4:03 PM) 117/77 mmHg (01/18/16 11:53 AM) Blood Pressure [90-140/60-90 mmHg] 17 BRMIN (01/18/16 4:30 PM) 16 BRMIN (01/18/16 4:03 PM) 16 BRMIN (01/18/16 11:53 AM) Respiratory Rate [14-20 BRMIN] 97 bpm (01/18/16 4:30 PM) 89 bpm (01/18/16 4:03 PM) 94 bpm (01/18/16 11:53 AM) Peripheral Pulse Rate [60-100 bpm] 110.625 kg (01/14/16 4:38 PM) 104.545 kg (01/09/16 3:05 PM) Weight 43.2 m2 (01/14/16 4:38 PM) 39.56 m2 (01/09/16 3:05 PM) Body Mass Index Problem List Condition Effective Dates Status Health Status Informan t Acid Active reflux(Confirmed) Anxiety(Confirmed) Active Diabetes Active mellitus(Confirmed) Morbid Active obesity(Confirmed) Allergies, Adverse Reactions, Alerts Substance Reaction Severity Status NKDA Active Medications acetaminophen (ANES) (ANES) Route: IV, Drug form: INJ, Start date: 01/14/16 12:13:00 CDT, Stop date: 6 13:13:00 CDT Start Date: 01/14/16 Stop Date: 01/14/16 Status: Completed acetaminophen-hydrocodone 325 mg-5 mg oral tablet 1 tab, PO, Q4H, PRN Pain Score 4-6, 0 Refill(s) Start Date: 01/18/16 Status: Ordered acetaminophen-hydrocodone 325 mg-5 mg oral tablet 1 tab, Route: PO, Drug Form: TAB, Dosing Weight 104.545, kg, Q4H, PRN Pain Score 4-6, Start date: 01/14/16 14:54:00 CDT, Duration: 30 day, Stop date: 02/13/16 1 4:53:00 CDT Notes: (Same as: [place] 325/5) Do not exceed 4gm/day of acetaminophen. Start Date: 01/14/16 Stop Date: 01/18/16 Status: Discontinued acetaminophen-hydrocodone 325 mg-5 mg oral tablet 1 tab, Route: PO, Drug Form: TAB, Dosing Weight 104.545, kg, Q4H, PRN Pain, Star t date: 01/14/16 14:54:00 CDT, Duration: 30 day, Stop date: 02/13/16 14:53:00 CD T Start Date: 01/14/16 Stop Date: 01/14/16 Status: Deleted allopurinol 100 mg, 1 tab, Route: PO, Drug form: TAB, Daily, Dosing Weight 110.625, kg, Star t date: 01/15/16 9:00:00 CDT, Duration: 30 day, Stop date: 02/13/16 9:00:00 CDT Notes: (Same as: Zyloprim) Start Date: 01/15/16 Stop Date: 01/18/16 Status: Discontinued allopurinol 100 mg oral tablet 100 mg = 1 tab, PO, Daily, # 90 tab, 1 Refill(s) Start Date: 01/09/16 Status: Ordered Ambien 5 mg, 1 tab, Route: PO, Drug form: TAB, Bedtime, PRN Sleep, Start date: 01/15/16 19:18:00 CDT, Duration: 30 day, Stop date: 02/14/16 19:17:00 CDT Notes: (Same As: Ambien) Start Date: 01/15/16 Stop Date: 01/18/16 Status: Discontinued Ambien CR 6.25 mg, Route: PO, Drug form: ERTAB, Bedtime, Dosing Weight 110.625, kg, PRN Sl eep, Start date: 01/15/16 18:59:00 CDT, Duration: 30 day, Stop date: 02/14/16 18 :58:00 CDT Start Date: 01/15/16 Stop Date: 01/15/16 Status: Deleted Ambien CR 12.5 mg oral tablet, extended release 12.5 mg = 1 tab, PO, Bedtime, PRN for sleep, 0 Refill(s) Start Date: 01/15/16 Stop Date: 01/29/16 Status: Ordered busPIRone 15 mg, 3 tab, Route: PO, Drug form: TAB, BID, Dosing Weight 110.625, kg, Start d ate: 01/15/16 9:00:00 CDT, Duration: 30 day, Stop date: 02/13/16 17:00:00 CDT Notes: (Same As: BuSpar) Start Date: 01/15/16 Stop Date: 01/18/16 Status: Discontinued busPIRone 15 mg oral tablet 15 mg = 1 tab, PO, BID, 0 Refill(s) Start Date: 01/09/16 Status: Ordered ceFAZolin (ANES) Route: IV, Drug form: INJ, ONCE, Stop date: 01/14/16 11:14:00 CDT Start Date: 01/14/16 Stop Date: 01/14/16 Status: Completed ceFAZolin (SCIP) 1 gm, 100 mL, Route: IVPB, Drug form: INJ, ABXQ8H, Dosing Weight 104.545, kg, St art date: 01/14/16 16:00:00 CDT, Stop date: 01/15/16 12:00:00 CDT Start Date: 01/14/16 Stop Date: 01/15/16 Status: Completed Colace 100 mg oral capsule 100 mg, 1 cap, Route: PO, Drug form: CAP, BID, Dosing Weight 104.545, kg, Start date: 01/14/16 17:00:00 CDT, Duration: 30 day, Stop date: 02/13/16 9:00:00 CDT Notes: (Same as: Colace) (Do Not Crush) Start Date: 01/14/16 Stop Date: 01/18/16 Status: Discontinued Dilaudid 0.5 mg, 0.5 mL, Route: IV, Drug form: INJ, Q3H, Dosing Weight 104.545, kg, PRN P ain Score 4-6, Start date: 01/14/16 14:54:00 CDT, Stop date: 02/13/16 14:53:00 C DT Start Date: 01/14/16 Stop Date: 01/18/16 Status: Discontinued Dilaudid 1 mg, 1 mL, Route: IV, Drug form: INJ, Q3H, Dosing Weight 104.545, kg, PRN Pain Score 7-10, Start date: 01/14/16 14:54:00 CDT, Duration: 30 day, Stop date: 01/25 14:53:00 CDT Start Date: 01/14/16 Stop Date: 01/18/16 Status: Discontinued DULoxetine 60 mg, 2 cap, Route: PO, Drug form: DRC, Daily, Dosing Weight 110.625, kg, Start date: 01/15/16 9:00:00 CDT, Duration: 30 day, Stop date: 02/13/16 9:00:00 CDT Notes: (Same as: Cymbalta) (Do Not Crush) Start Date: 01/15/16 Stop Date: 01/18/16 Status: Discontinued DULoxetine 60 mg oral delayed release capsule 60 mg = 1 cap, PO, Daily, # 30 cap, 0 Refill(s) Start Date: 01/09/16 Status: Ordered ePHEDrine (ANES) Route: IV, Drug form: INJ, ONCE, Stop date: 01/14/16 12:19:00 CDT Start Date: 01/14/16 Stop Date: 01/14/16 Status: Completed fentaNYL (ANES) Route: IV, Drug form: INJ, ONCE, Stop date: 01/14/16 11:04:00 CDT Start Date: 01/14/16 Stop Date: 01/14/16 Status: Completed furosemide 40 mg oral tablet 40 mg, 1 tab, Route: PO, Drug form: TAB, Daily, Dosing Weight 110.625, kg, Start date: 01/15/16 9:00:00 CDT, Duration: 30 day, Stop date: 02/13/16 9:00:00 CDT Notes: (Same as: Lasix) May cause GI upset. Give with food or milk. Start Date: 01/15/16 Stop Date: 01/18/16 Status: Discontinued furosemide 40 mg oral tablet 40 mg = 1 tab, PO, Daily, # 30 tab, 0 Refill(s) Start Date: 01/09/16 Status: Ordered gabapentin 300 mg oral capsule 1,200 mg = 4 cap, PO, BID, 0 Refill(s) Start Date: 01/09/16 Status: Ordered Garlic Oil oral capsule 1 tab, PO, Daily, 0 Refill(s) Start Date: 01/09/16 Status: Ordered heparin 5000 units/mL injectable solution 5,000 unit, 1 mL, Route: SUB-Q, Drug form: INJ, Q12H, Dosing Weight 104.545, kg, Start date: 01/15/16 8:00:00 CDT, Duration: 30 day, Stop date: 02/13/16 21:00:00 CDT Notes: porcine heparin Start Date: 01/15/16 Stop Date: 01/18/16 Status: Discontinued Humalog Kwik Pen 100 units/mL subcutaneous injection 5 unit, SUB-Q, TID-Before Meals, # 3 mL, 0 Refill(s) Start Date: 01/09/16 Status: Ordered hydrochlorothiazide 12.5 mg, 1 cap, Route: PO, Drug form: CAP, Daily, Start date: 01/15/16 9:00:00 C DT, Duration: 30 day, Stop date: 02/13/16 9:00:00 CDT Notes: (Same as: Microzide) With food. Start Date: 01/15/16 Stop Date: 01/18/16 Status: Discontinued hydrochlorothiazide-lisinopril 12.5 mg-20 mg oral tablet 1 tab, Route: PO, Drug Form: TAB, Dosing Weight 110.625, kg, Daily, Start date: 01/15/16 9:00:00 CDT, Duration: 30 day, Stop date: 02/13/16 9:00:00 CDT Start Date: 01/15/16 Stop Date: 01/15/16 Status: Deleted hydrochlorothiazide-lisinopril 12.5 mg-20 mg oral tablet 1 tab, PO, Daily, # 30 tab, 0 Refill(s) Start Date: 01/09/16 Status: Ordered insulin lispro 5 unit, Route: SUB-Q, Drug form: SOLN, TID-Before Meals, Dosing Weight 110.625, kg, Start date: 01/15/16 7:30:00 CDT, Duration: 30 day, Stop date: 02/13/16 16:3 0:00 CDT Start Date: 01/15/16 Stop Date: 01/15/16 Status: Deleted ketOROLAC (ANES) IV, ONCE Start Date: 01/14/16 Stop Date: 01/14/16 Status: Completed Lactated Ringers Injection IV 1000 mL 1,000 mL, Rate: 25 ml/hr, Infuse over: 40 hr, Route: IV, Dosing Weight 104.545 k g, Total Volume: 1,000, Start date: 01/14/16 10:38:00 CDT, Duration: 30 day, Sto p date: 02/13/16 10:37:00 CDT Start Date: 01/14/16 Stop Date: 01/14/16 Status: Discontinued Lantus Route: SUB-Q, Drug form: SOLN, Bedtime, Dosing Weight 110.625, kg, Start date: 0 01/15/16 21:00:00 CDT, Duration: 30 day, Stop date: 02/13/16 21:00:00 CDT Start Date: 01/15/16 Stop Date: 01/15/16 Status: Deleted Lantus 100 units/mL 60 units, SUB-Q, Bedtime, 0 Refill(s) Start Date: 01/09/16 Status: Ordered Levemir FlexPen 60 unit, 0.6 mL, Route: SUB-Q, Drug form: INJ, Bedtime, Start date: 01/15/16 21: 00:00 CDT, Duration: 30 day, Stop date: 02/13/16 21:00:00 CDT Notes: Same as LevemirDo not hold insulin without contacting prescriberWASTE: F/ P - Black; E - Municipal Trash Bin "single patient use only" Start Date: 01/15/16 Stop Date: 01/18/16 Status: Discontinued lidocaine (ANES) Route: IV, Drug form: INJ, ONCE, Stop date: 01/14/16 11:04:00 CDT Start Date: 01/14/16 Stop Date: 01/14/16 Status: Completed lisinopril 20 mg, 1 tab, Route: PO, Drug form: TAB, Daily, Start date: 01/15/16 9:00:00 CDT , Duration: 30 day, Stop date: 02/13/16 9:00:00 CDT Notes: (Same as: Prinivil, Zestril) Start Date: 01/15/16 Stop Date: 01/18/16 Status: Discontinued loratadine 10 mg, 1 tab, Route: PO, Drug form: TAB, Daily, Dosing Weight 110.625, kg, Start date: 01/15/16 9:00:00 CDT, Duration: 30 day, Stop date: 02/13/16 9:00:00 CDT Notes: 1 hr before meals (Same as: Claritin) Start Date: 01/15/16 Stop Date: 01/18/16 Status: Discontinued loratadine 10 mg oral tablet 10 mg = 1 tab, PO, Daily, # 30 tab, 0 Refill(s) Start Date: 01/09/16 Stop Date: 02/08/16 Status: Ordered LR 1000 mL INJ (ANES) Route: IV, Total Volume: 1,000, Start date: 01/14/16 10:28:00 CDT, Stop date: 11:28:00 CDT Start Date: 01/14/16 Stop Date: 01/14/16 Status: Completed magnesium citrate 300 ml, Route: PO, Drug Form: LIQ, Dosing Weight 104.545, kg, ONCE, PRN Constipa tion, Start date: 01/14/16 14:54:00 CDT Notes: (Same as: Citrate of Magnesia) Start Date: 01/14/16 Stop Date: 01/18/16 Status: Discontinued metFORMIN 1,000 mg, 2 tab, Route: PO, Drug form: TAB, BID-Meals, Dosing Weight 110.625, kg , Start date: 01/15/16 8:00:00 CDT, Duration: 30 day, Stop date: 02/13/16 17:00: 00 CDT Notes: (Same as: Glucophage) Take with meal Start Date: 01/15/16 Stop Date: 01/18/16 Status: Discontinued metFORMIN 1000 mg oral tablet 1,000 mg = 1 tab, PO, BID-Meals, # 30 tab, 0 Refill(s) Start Date: 01/09/16 Status: Ordered metroNIDAZOLE 500 mg oral tablet 500 mg = 1 tab, PO, Q8H, # 21 tab, 0 Refill(s) Start Date: 01/09/16 Stop Date: 01/16/16 Status: Ordered midazolam (ANES) Route: IV, Drug form: SOLN, ONCE, Stop date: 01/14/16 11:14:00 CDT Start Date: 01/14/16 Stop Date: 01/14/16 Status: Completed multivitamin Daily, 0 Refill(s) Start Date: 01/09/16 Status: Ordered NovoLOG FlexPen 5 unit, 0.05 mL, Route: SUB-Q, Drug form: SOLN, TID-Before Meals, Start date: 7:33:00 CDT, Duration: 30 day, Stop date: 02/14/16 7:30:00 CDT Notes: Roll in palms of hands gently; Do not shake vigorously. (Same as: NovoLO G)"single patient use only"WASTE: F/P - Black; E - Municipal Trash Bin Stable f or 28 days at room temperature.Expires in days from Date Start Date: 01/15/16 Stop Date: 01/18/16 Status: Discontinued ondansetron (ANES) Route: IV, Drug form: INJ, ONCE, Stop date: 01/14/16 13:54:00 CDT Start Date: 01/14/16 Stop Date: 01/14/16 Status: Completed pantoprazole 40 mg, 1 tab, Route: PO, Drug form: ECTAB, Daily, Dosing Weight 110.625, kg, Sta rt date: 01/15/16 9:00:00 CDT, Duration: 30 day, Stop date: 02/13/16 9:00:00 CDT Notes: Tablet should not be chewed or crushed.(Same as: Protonix) Start Date: 01/15/16 Stop Date: 01/18/16 Status: Discontinued pantoprazole 40 mg oral enteric coated tablet 40 mg = 1 tab, PO, Daily, # 30 tab, 0 Refill(s) Start Date: 01/09/16 Status: Ordered Pepcid 20 mg oral tablet 20 mg, 1 tab, Route: PO, Drug form: TAB, Daily, Dosing Weight 104.545, kg, Start date: 01/15/16 9:00:00 CDT, Duration: 30 day, Stop date: 02/13/16 9:00:00 CDT Notes: (Same as: Pepcid) Start Date: 01/15/16 Stop Date: 01/18/16 Status: Discontinued phenylephrine (ANES) Route: IV, Drug form: INJ, ONCE, Stop date: 01/14/16 12:14:00 CDT Start Date: 01/14/16 Stop Date: 01/14/16 Status: Completed potassium chloride 10 mEq oral tablet, extended release 10 mEq, 1 tab, Route: PO, Drug form: ERTAB, Daily, Dosing Weight 110.625, kg, St art date: 01/15/16 9:00:00 CDT, Duration: 30 day, Stop date: 02/13/16 9:00:00 CD T Notes: (Same as: K-Dur 10)"Do Not Crush" With food and full glass of water Start Date: 01/15/16 Stop Date: 01/18/16 Status: Discontinued potassium chloride 10 mEq oral tablet, extended release = 1 cap, PO, Daily, # 30 cap, 1 Refill(s) Start Date: 01/09/16 Status: Ordered pravastatin 40 mg, 2 tab, Route: PO, Drug form: TAB, Bedtime, Dosing Weight 110.625, kg, Sta rt date: 01/15/16 21:00:00 CDT, Duration: 30 day, Stop date: 02/13/16 21:00:00 C DT Notes: (Same as: Pravachol) Start Date: 01/15/16 Stop Date: 01/18/16 Status: Discontinued pravastatin 40 mg oral tablet 40 mg = 1 tab, PO, Bedtime, # 30 tab, 0 Refill(s) Start Date: 01/09/16 Status: Ordered promethazine 25 mg oral tablet 25 mg = 1 tab, PO, PRN, 0 Refill(s) Start Date: 01/09/16 Status: Ordered propofol (ANES) Route: IV, Drug form: INJ, ONCE, Stop date: 01/14/16 11:04:00 CDT Start Date: 01/14/16 Stop Date: 01/14/16 Status: Completed rocuronium (ANES) Route: IV, Drug form: INJ, ONCE, Stop date: 01/14/16 11:04:00 CDT Start Date: 01/14/16 Stop Date: 01/14/16 Status: Completed Senokot 17.2 mg, 2 tab, Route: PO, Drug Form: TAB, Dosing Weight 104.545, kg, Daily, Sta rt date: 01/15/16 9:00:00 CDT, Duration: 30 day, Stop date: 02/13/16 9:00:00 CDT Notes: (Same as: Senokot) Start Date: 01/15/16 Stop Date: 01/18/16 Status: Discontinued sodium chloride 0.9% 1000 ml INJ 1,000 mL 1,000 mL, Rate: 75 ml/hr, Infuse over: 13.3 hr, Route: IV, Dosing Weight 104.545 kg, Total Volume: 1,000, Start date: 01/14/16 14:54:00 CDT, Duration: 30 day, S top date: 02/13/16 14:53:00 CDT Start Date: 01/14/16 Stop Date: 01/18/16 Status: Discontinued tizanidine 4 mg oral tablet 4 mg = 1 tab, PO, PRN, 0 Refill(s) Start Date: 01/09/16 Status: Ordered tramadol 50 mg oral tablet 50 mg = 1 tab, PO, Q8H, PRN Pain, # 60 tab, 0 Refill(s) Start Date: 01/09/16 Stop Date: 01/29/16 Status: Ordered Tylenol 650 mg, 2 tab, Route: PO, Drug form: TAB, Q4H, Dosing Weight 104.545, kg, PRN Pa in 1-3/Temp > 100.4 F, Start date: 01/14/16 14:54:00 CDT, Duration: 30 day, Stop date: 02/13/16 14:53:00 CDT Notes: Do not exceed 4 gm/day. (Same as: Tylenol) Start Date: 01/14/16 Stop Date: 01/18/16 Status: Discontinued vancomycin (ANES) (ANES) Route: IV, Drug form: INJ, Start date: 01/14/16 11:06:00 CDT, Stop date: 6 12:06:00 CDT Start Date: 01/14/16 Stop Date: 01/14/16 Status: Completed Zofran 4 mg, 2 mL, Route: IV, Drug form: INJ, Q8H, Dosing Weight 104.545, kg, PRN Nause a, Start date: 01/14/16 14:54:00 CDT, Duration: 30 day, Stop date: 02/13/16 14:5 3:00 CDT Notes: (Same as: Zofran) MEDICATION WASTE Product Size: 4 mgProduct Was janis: __0_ mg Start Date: 01/14/16 Stop Date: 01/18/16 Status: Discontinued Results BLOOD BANK RESULTS Most recent to 1 oldest [Reference Range]: ABO/Rh O POS *Unknown* (01/09/16 4:03 PM) Antibody Scrn Negative (01/09/16 4:03 PM) ELECTROLYTES Most recent to 1 oldest [Reference Range]: Sodium Lvl [135-145 139 mEq/L mEq/L] (01/09/16 4:03 PM) Potassium Lvl 4.6 mEq/L [3.5-5.1 mEq/L] (01/09/16 4:03 PM) Chloride Lvl [95-109 102 mEq/L mEq/L] (01/09/16 4:03 PM) CO2 [24-32 mEq/L] 30 mEq/L (01/09/16 4:03 PM) AGAP [10.0-20.0 11.6 mEq/L mEq/L] (01/09/16 4:03 PM) CHEM PANEL Most recent to 1 oldest [Reference Range]: Creatinine Lvl 1.24 mg/dL [0.50-1.40 mg/dL] (01/09/16 4:03 PM) eGFR 45 mL/min/1.73m2 1 *NA* (01/09/16 4:03 PM) BUN [7-22 mg/dL] 22 mg/dL (01/09/16 4:03 PM) B/C Ratio [6-25] 18 (01/09/16 4:03 PM) Glucose Lvl [70-99 193 mg/dL mg/dL] *HI* (01/09/16 4:03 PM) Total Protein 7.5 g/dL [6.4-8.4 g/dL] (01/09/16 4:03 PM) Albumin Lvl [3.5-5.0 3.6 g/dL g/dL] (01/09/16 4:03 PM) Globulin [2.0-4.0 3.9 g/dL g/dL] (01/09/16 4:03 PM) A/G Ratio [0.7-1.6] 0.9 (01/09/16 4:03 PM) Calcium Lvl 9.3 mg/dL [8.5-10.5 mg/dL] (01/09/16 4:03 PM) ALT [0-65 unit/L] 40 unit/L (01/09/16 4:03 PM) AST [0-37 unit/L] 25 unit/L (01/09/16 4:03 PM) Alk Phos [39-136 89 unit/L unit/L] (01/09/16 4:03 PM) Bili Total [0.2-1.3 0.2 mg/dL mg/dL] (01/09/16 4:03 PM) 1Result Comment: The eGFR is calculated using the CKD-EPI formula. In most young, healthy individuals the eGFR will be >90 mL/min/1.73m2. The eGFR declines with age. An eGFR of 60-89 may be normal in some populations, particularly the elderly, for whom the CKD-EPI formula has not been extensively validated. Use of the eGFR is not recommended in the following populations: Individuals with unstable creatinine concentrations, including patients and those with serious co-morbid conditions. Patients with extremes in muscle mass or diet. The data above are obtained from the National Kidney Disease Education Program ( NKDEP) which additionally recommends that when the eGFR is used in patients with extremes of body mass index for purposes of drug dosing, the eGFR should be mul tiplied by the estimated BMI. HEMATOLOGY Most recent to 1 oldest [Reference Range]: WBC [3.7-10.4 K/CMM] 6.4 K/CMM (01/09/16 4:03 PM) RBC [4.20-5.40 4.06 M/CMM M/CMM] *LOW* (01/09/16 4:03 PM) Hgb [12.0-16.0 g/dL] 11.8 g/dL *LOW* (01/09/16 4:03 PM) Hct [36.0-48.0 %] 36.0 % (01/09/16 4:03 PM) MCV [80.0-98.0 fL] 88.5 fL (01/09/16 4:03 PM) MCH [27.0-31.0 pg] 29.1 pg (01/09/16 4:03 PM) MCHC [32.0-36.0 32.8 g/dL g/dL] (01/09/16 4:03 PM) RDW [11.5-14.5 %] 13.7 % (01/09/16 4:03 PM) Platelet [133-450 275 K/CMM K/CMM] (01/09/16 4:03 PM) MPV [7.4-10.4 fL] 8.4 fL (01/09/16 4:03 PM) Segs [45.0-75.0 %] 58.1 % (01/09/16 4:03 PM) Lymphocytes 29.5 % [20.0-40.0 %] (01/09/16 4:03 PM) Monocytes [2.0-12.0 8.0 % %] (01/09/16 4:03 PM) Eosinophils [0.0-4.0 3.2 % %] (01/09/16 4:03 PM) Basophils [0.0-1.0 1.2 % %] *HI* (01/09/16 4:03 PM) Segs-Bands # 3.7 K/CMM [1.5-8.1 K/CMM] (01/09/16 4:03 PM) Lymphocytes # 1.9 K/CMM [1.0-5.5 K/CMM] (01/09/16 4:03 PM) Monocytes # [0.0-0.8 0.5 K/CMM K/CMM] (01/09/16 4:03 PM) Eosinophils # 0.2 K/CMM [0.0-0.5 K/CMM] (01/09/16 4:03 PM) Basophils # [0.0-0.2 0.1 K/CMM K/CMM] (01/09/16 4:03 PM) PT [12.0-14.7 13.2 seconds seconds] (01/09/16 4:03 PM) INR [0.85-1.17] 0.97 (01/09/16 4:03 PM) PTT [22.9-35.8 33.2 seconds seconds] (01/09/16 4:03 PM) Immunizations Given and Recorded Vaccine Date Status [...] Smoking Cessation Counseling No Assessment and Plan Extracted from: Title: Clinical Document Author: Hima Gan MD Date: 01/17/16 PHYSICAL MEDICINE AND REHABILITATION PROGRESS NOTE CHIEF COMPLAINT IDENTIFICATION: This is a 65-year-old lady being seen for ongoing rehabilitation needs after having a lumbar neurogenic claudication central canal stenosis with bilateral L4-L5 and L5-S1 laminotomy and cyst resection. INTERVAL EVENTS AND SUBJECTIVE: All interval events reviewed. No new fevers, chills, nausea, vomiting, chest pains, palpitations, headaches, or dizziness. STrength improving. Tolerance to therapy improving. Disappointed that [facility] of network. PHYSICAL EXAMINATION: Vitals and Temp: VitalsTmp(F)[id number] 01/16 12:[id number]--- 01/16 08:[id number]--- 01/16 04:1798.809487/77--99--- 01/15 23:4298.890792/69--98--- 01/15 19:4699.515219/72--99--- 24 Hr Tmax: 99.0F (37.22c) at 01/15 19:4 6Vital Signs are the last 5 in the past 48 hours. GENERAL: Obese, BMI 43, sitting in room. PSYCH: Alert, oriented, appropriate and pleasant. HEENT: Pupils equal, round, reactive to light. Extraocular muscles intact. Moist mucous membranes. CARDIOVASCULAR: 2+ bilateral upper extremity pulses. Regular rate and rhythm all extremities, warm, well-perfused. PULMONARY: Respirations unlabored without conversational dyspnea at the sentence to the paragraph level. ABDOMEN: Doughy, nontender, nondistended. : No [place]. SKIN: No new breakdown seen over the arms or feet. BACK: Clean, dry and intact. NEUROMUSCULOSKELETAL: Cranial nerves II-XII are intact. Strength in the bilateral hip flexion, 4/5 knee extension, ankle dorsiflexion, great toe extension unbreakable. Babinski mute bilaterally. No hypertonicity or clonus. Good tolerance to sitting at the edge of the bed, though has poor posture. LABORATORY DATA: Labs (Last four charted values) WBC 6.4(JAN 08) Hgb L 11.8(JAN 08) Hct 36.0(JAN 08) Plt 275(JAN 08) Na 139(JAN 08) K 4.6(DEC 15) CO2 30(DEC 15) Cl 102(DEC 15) Cr 1.24(DEC 15) BUN 22(DEC 15) Glucose Random H 193(JAN 08) Ca 9.3(DEC 15) PT 13.2(JAN 08) INR 0.97(JAN 08) PTT 33.2(JAN 08) IMAGING DIAGNOSTIC STUDIES: No new imaging. ASSESSMENT AND PLAN: This is a 65-year-old with: 1. Lumbar neurogenic claudication with central canal stenosis and bilateral L4- L5 and L5-S1 foraminal stenosis status post laminotomy with L5-S1 synovial cyst resection: Neurological examination is stable. Strength appears to be improving in the distal myotomes. Sensation appears to be improving. No evidence for radiculitis. Continue with gentle postoperative risk reduction. Continue rehabilitation remobilization. 2. Axial back pain and postsurgical in the setting of chronic pain: This is also appearing stable at this time. We will continue to try to limit the usage of narcotics for the control. Continue ice, positioning, range of motion, stretching, heat packs as tolerated. 3. Rehabilitation for deficits in mobil ity, ADLs, IADLs, weakness and incoordination: -All interval therapy notes reviewed. -Pt standing at bathroom door w/o AD and IV pole attached to wall > decreased safety awareness > pt wall walking. Completed toileting Mod I. Sit > stand w/ RW from toilet SBA. gt in lag[place] SBA. Walking 125 feet with SBA. -Goals for mod indep. -Awaiting SNF for ongoing therapy- 1-2 h ours per day with nursing monitoring and assistance. -All acute hospital based rehab goals me t. I will follow peripherally. Please contact me with any other concerns.
--- OUTSIDE RECORDS SUMMARY | 2020-01-03 02:52 | XMS REPORT | Continuity of Care Document ---
Author Author [employer] Address Unknown Phone Unavailable Care Team Providers Care Supervisor [employer] Information [employer] Name Role Phone [facility] [employer] Unavailable Un available Problems Problem Status Onset Date Classification Date Reported Comments Source Methicillin resistant Staphylococcus aureus (organism) Active 12/14/2019 Problem 12/21/2019 [facility] - 12/14/2019 Problem added by Discern Expert. 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 Active 02/07/2019 [facility] Z12.31 - ENCNTR SCREEN MAMMOGRAM FOR MA Active 02/02/2019 [facility] DX: RADICULOPATHY, LUMBAR REGION,, PRESE Active 12/17/2018 [facility] Volume depletion, unspecified 10/21/2017 01/20/2018 [facility] M25.512 - PAIN IN LEFT SHOULDER Active 03/02/2017 [facility] 40MG Active 01/07/2017 [facility] Low back pain 11/28/2016 12/01/2016 [facility] BACK PAIN Active 11/28/2016 [facility] F/U Active 0 11/28/2016 [facility] M25.369 - "OTHER INSTABILITY, UNSPECIFIE Active 09/17/2016 [facility] 40 MG Active 05/29/2016 [facility] EVAL Active 05/13/2016 [facility] REFERRAL FOR EVAL Active 01/29/2016 [facility] UNK Active 0 01/07/2016 [facility] LUMBAR RADICULOPATHY, SURGERY Active 01/07/2016 [facility] 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 Active 07/03/2015 [facility] Mixed hyperlipidemia 01/20/2018 [facility] Other acute kidney failure 01/20/2018 [facility] Unspecified hydronephrosis 01/20/2018 [facility] Acid reflux (finding) Active Problem 12/21/2019 [facility], [facility], [facility], [facility] Anxiety (finding) Active Problem 12/21/2019 [facility], [facility], [facility], [facility] Clostridium difficile colitis (disorder) Resolved Problem 12/21/2019 [facility] Diabetes mellitus (disorder) A ctive Problem [facility], [facility], [facility], [facility] Lumbar radiculopathy (disorder) Active Problem [facility], [facility], [facility], [facility] Malignant neoplastic disease (disorder) Resolved Problem 12/21/2019 [facility] Morbid obesity (disorder) Acti ve Problem [facility], [facility], [facility], [facility] Spasticity (finding) Resolved Problem 12/21/2019 [facility], [facility], [facility], [facility] Secondary malignant neoplasm of lung (disorder) Resolved Problem 12/21/2019 [facility] RADICULOPATHY, LUMBAR REGION A ctive [facility] SPONDYLS W/O MYELOPATHY OR RADICULOPATHY Active [facility] OTHER MUSCLE SPASM Active [facility] OTHER CHRONIC PAIN Active [facility] SEVERE SEPSIS WITH SEPTIC SHOCK Active [facility] Medications Medication Details Route Status Patient Instructions Ordering Provider Order Date Source levofloxacin 750 mg oral tablet 750 mg = 1 tab, PO, Q48H, X 6 day, # 3 tab, 0 Refill(s), [facility]acy: [id number] Active 12/20/2019 [facility] vancomycin + Sodium Chloride 0.9% IV 250 mL 2001 mg: infuse over 2.5 hours For adult patients only: Round to nearest 250 mg per Medical Staff approval MEDICATION WASTE Product Size: 1000 mg Product Wasted: ___ mg Inactive 12/19/2019 [facility] Levaquin Notes: (Same as:Levaq uin) No Longer Active 12/18/2019 [facility] vancomycin + Sodium Chloride 0.9% IV 250 mL 2001 mg: infuse over 2.5 hours For adult patients only: Round to nearest 250 mg per Medical Staff approval MEDICATION WASTE Product Size: 1000 mg Product Wasted: ___ mg No Longer Active 12/17/2019 [facility] nter heparin Notes: porcine heparin No Longer Active 12/16/2019 [facility] meropenem Notes: Same as Sher kevin MEDICATION WASTE Product Size: 500 mg Product Wasted: ___ mg No Longer Active 12/16/2019 [facility] Docusate Notes: (Same as: Cola ce) (Do Not Crush) No Longer Active 12/15/2019 [facility] duloxetine Notes: (Same as: Cy mbalta) (Do Not Crush) No Longer Active 12/15/2019 [facility] Esomeprazole 40 mg, 1 cap, Rou te: PO, Drug form: ECCAP, Daily, Dosing Weight 102.9, kg, Start date: 12/15/19 9:00:00 CDT, Duration: 30 day, Stop date: 01/13/20 9:00:00 CDT No Longer Active 12/15/2019 [facility] nter montelukast Notes: (Same as:Si ngulair) No Longer Active 12/15/2019 [facility] POLYETHYLENE GLYCOL 3350 Notes : Dissolve in 8 oz of water or juice. (Same as: Miralax) Inactive 12/15/2019 [facility] nter Protonix Notes: Tablet should not be chewed or crushed. (Same as: Protonix) No Longer Active 12/15/2019 [facility] nter Miralax Notes: Dissolve in 8 o z of water or juice. (Same as: Miralax) No Longer Active 12/15/2019 [facility] Oxycodone Hydrochloride 5 MG Oral Tablet Notes: (Same as: Roxicodone) No Longer Active 12/15/2019 [facility] nter atorvastatin Notes: (Same as: Lipitor) No Longer Active 12/15/2019 [facility] Eliquis 5 mg, Route: PO, Drug form: TAB, Q12H, Dosing Weight 102.9, kg, Start date: 12/14/19 21:00:00 CDT, Duration: 30 day, Stop date: 01/13/20 9:00:00 CDT Inactive 12/15/2019 [facility] nter Melatonin 3 MG Extended Release Tablet Notes: (Same as: Melatonin) No Longer Active 12/15/2019 [facility] Vancomycin 2001 mg: infuse ov er 2.5 hours No Longer Active 12/15/2019 [facility] sennosides, HALFWAY Notes: (Same a s: Senokot) No Longer Active 12/14/2019 [facility] Heparin 80 unit/kg Bolus (Heparin Dosing Weight) Route: IVP, PRN, 5,800 unit, 5.8 mL, Drug form: INJ, PRN, Heparin Protocol, Start date: 12/14/19 15:11:00 CDT Stop date: 01/13/20 15:10:00 CDT, 30 day, 0 No Longer Active 12/14/2019 [facility] Heparin 40 unit/kg Bolus (Heparin Dosing Weight) Route: IVP, PRN, 2,900 unit, 2.9 mL, Drug form: INJ, PRN, Heparin Protocol, Start date: 12/14/19 15:11:00 CDT Stop date: 01/13/20 15:10:00 CDT, 30 day, 0 No Longer Active 12/14/2019 [facility] heparin additive 25,000 unit [18 unit/kg /hr] + Premix Diluent Sodium Chloride 0.45% 500 mL Notes: Total Concentration = 50 unit/ ml Total volume = 500 ml Send Med Request 2 hours prior to next bag No Longer Active 12/14/2019 [facility] Calcium Chloride 0.0014 MEQ/ML / Potassi um Chloride 0.004 MEQ/ML / Sodium Chloride 0.103 MEQ/ML / Sodium Lactate 0.028 MEQ/ML Injectable Solution 500 mL, 500 ml/hr, Infuse Over: 1 hr, Ro lyssa: IV, 500, Drug form: INJ, ONCE, Priority: STAT, Dosing Weight 102.9 kg, Start date: 12/14/19 14:57:00 CDT, Stop date: 12/14/19 14:57:00 CDT, 0 Inactive 12/14/2019 [facility] nter Sucralfate 100 MG/ML Oral Suspension [Carafate] Notes: May interfere w/enteral feeds - Take 1 hr before or 2 hr after antacids, dairy pdt, meals & minerals - On empty stomach. For patients unable to swallow tablet, dissolve in 10mL - 30mL of water or juice and stir before giving. (Same As: Carafate) No Longer Activ e 12/14/2019 [facility] Dextrose 50% Syringe (D50W) 12 .5 gm, 25 mL, Route: IVP, Drug Form: INJ, Dosing Weight 102.9, kg, PRN, PRN Blood Glucose Results, Start date: 12/14/19 13:46:00 CDT, Duration: 30 day, Stop date: 01/13/20 13:45:00 CDT, 0 No Longer Active 12/14/2019 [facility] Glucagon 1 mg, Route: IM, Drug form: PDR/INJ, PRN, Dosing Weight 102.9, kg, PRN Blood Glucose Results, Start date: 12/14/19 13:46:00 CDT, Duration: 30 day, Stop date: 01/13/20 13:45:00 CDT, 0 No Longer Active 12/14/2019 [facility] Insulin Lispro Notes: (Same as : Humalog) Roll in palms of hands gently; Do not shake vigorously. WASTE: F/P - Black; E - Municipal Trash Bin Stable for 28 days at room temperature. Expires in days from Date No Longer Active 12/14/2019 [facility] nt NIFEdipine 30 mg oral tablet, extended release 30 mg = 1 tab, PO, Daily, 0 Refill(s) Active 12/14/2019 [facility] nter albuterol 90 mcg/inh inhalation aerosol Notes: Albuterol 90 microgram/inh 8.5gm HFA WASTE: Aerosol - Return to Pharmacy Same as: ProAir No Longer Active 12/14/2019 [facility] oxyCODONE 10 mg oral tablet, immediate release TK 1 T PO Q 4 TO 6 H PRN Active 12/14/2019 [facility] spironolactone 25 mg oral tablet 25 mg = 1 tab, Daily, 0 Refill(s) Active 12/14/2019 [facility] nebivolol 10 MG Oral Tablet [Bystolic] 10 mg = 1 tab, Daily, 0 Refill(s) Active 12/14/2019 [facility] montelukast 10 mg oral tablet 10 mg = 1 tab, Daily, 0 Refill(s) Active 12/14/2019 [facility] atorvastatin 40 mg oral tablet 40 mg = 1 tab, Bedtime, 0 Refill(s) No Longer Active 12/14/2019 [facility] gabapentin 800 MG Oral Tablet 800 mg = 1 tab, TID, 0 Refill(s) No Longer Active 12/14/2019 [facility] apixaban 5 MG Oral Tablet [Eliquis] 5 mg, PO, Q12H, 0 Refill(s) No Longer Active 12/14/2019 [facility] 4 ML pembrolizumab 25 MG/ML Injection [Keytruda] 0 Refill(s) Active 12/14/2019 [facility] albuterol 90 mcg/inh inhalation aerosol 2 puff, INHALATION, QID, PRN Wheezing, # 17 gm, 0 Refill(s) Active 12/14/2019 [facility] nter Trazodone Hydrochloride 50 MG Oral Tablet 50 mg = 1 tab, Bedtime, PRN Sleep, 0 Refill(s) Active 12/14/2019 [facility] n[facility] Hydralazine Hydrochloride 100 MG Oral Tablet 0 Refill(s) No Longer Active 12/14/2019 [facility] glimepiride 2 mg oral tablet 2 mg = 1 tab, Daily, 0 Refill(s) Active 12/14/2019 [facility] Esomeprazole 40 MG Enteric Coated Capsule 40 mg = 1 cap, Daily, 0 Refill(s) Active 12/14/2019 [facility] linaclotide 0.072 MG Oral Capsule [Linzess] 72 microgram = 1 cap, Daily, PRN Constipation, 0 Refill(s) Active 12/14/2019 [facility] nter Sucralfate 100 MG/ML Oral Suspension [Carafate] 1 gm = 10 mL, QID-Before Meals, PRN GI Upset, 0 Refill(s) Active 12/14/2019 [facility] nter Oxycodone Hydrochloride 5 MG Oral Tablet Notes: (Same as: Roxicodone) No Longer Active 12/14/2019 [facility] nter meropenem Notes: Same as Sher kevin MEDICATION WASTE Product Size: 500 mg Product Wasted: ___ mg No Longer Active 12/14/2019 [facility] Saline Flush 0.9% Notes: Same as: BD Posiflush Sterile No Longer Active 12/14/2019 [facility] 1/2 NS 1000 mL 1,000 mL, Rate: 75 ml/hr, Infuse over: 13.3 hr, Route: IV, Dosing Weight 102.6 kg, Total Volume: 1,000, Start date: 12/14/19 8:51:00 CDT, Duration: 30 day, Stop date: 01/13/20 8:50:00 CDT, 2.17, m2 Inactive 12/14/2019 [facility] Acetaminophen Notes: Do not ex ceed 4 gm/day. (Same as: Tylenol) Inactive 12/14/2019 [facility] Oxycodone Hydrochloride 5 MG Oral Tablet Notes: (Same as: Roxicodone) Inactive 12/14/2019 [facility] Nystatin 100 UNT/MG Topical Powder Notes: (Same as:Mycostatin, Nilstat) For external use only. No Longer Active 12/14/2019 [facility] Acetaminophen Notes: Do not ex ceed 4 gm/day. (Same as: Tylenol) Inactive 12/14/2019 [facility] Ondansetron Notes: (Same as: Jose garcía) MEDICATION WASTE Product Size: 4 mg Product Wasted: ___ mg No Longer Active 12/14/2019 [facility] Saline Flush 0.9% Notes: (Same as: BD Posiflush) Inactive 12/14/2019 [facility] Potassium Chloride 20 mEq, Rou te: IVPB, PRN, Dosing Weight 102.6, kg, PRN Abnormal Lab Result, Via central line, Start date: 12/14/19 7:20:00 CDT, Duration: 30 day, Stop date: 01/13/20 7:19:00 CDT, FOR ICU USE ONLY Inactive 12/14/2019 [facility] sodium phosphate 15 mmol, Rout e: IVPB, PRN, Dosing Weight 102.6, kg, PRN Abnormal Lab Result, Start date: 12/14/19 7:20:00 CDT, Duration: 30 day, Stop date: 01/13/20 7:19:00 CDT, FOR ICU USE ONLY Inactive 12/14/2019 [facility] potassium phosphate 15 mmol, R oute: IVPB, PRN, Dosing Weight 102.6, kg, PRN Abnormal Lab Result, Start date: 12/14/19 7:20:00 CDT, Duration: 30 day, Stop date: 01/13/20 7:19:00 CDT, FOR ICU USE ONLY Inactive 12/14/2019 [facility] potassium phosphate-sodium phosphate 250 mg-280 mg-160 mg oral powder for reconstitution 2 pkt, Route: PO, Dosing Weight 102.6, kg, PRN, PRN Abnormal Lab Result, FOR ICU USE ONLY, Start date: 12/14/19 7:20:00 CDT, Duration: 30 day, Stop date: 01/13/20 7:19:00 CDT Inactive 12/14/2019 [facility] Magnesium Sulfate 2 gm, Route: IVPB, PRN, Dosing Weight 102.6, kg, PRN Abnormal Lab Result, Start date: 12/14/19 7:20:00 CDT, Duration: 30 day, Stop date: 01/13/20 7:19:00 CDT, FOR ICU USE ONLY Inactive 12/14/2019 [facility] Magnesium Oxide 800 mg, Route: PO, PRN, Dosing Weight 102.6, kg, PRN Abnormal Lab Result, FOR ICU USE ONLY, Start date: 12/14/19 7:20:00 CDT, Duration: 30 day, Stop date: 01/13/20 7:19:00 CDT Inactive 12/14/2019 [facility] Calcium Gluconate 1 gm, Route: IVPB, PRN, Dosing Weight 102.6, kg, PRN Abnormal Lab Result, Start date: 12/14/19 7:20:00 CDT, Duration: 30 day, Stop date: 01/13/20 7:19:00 CDT, FOR ICU USE ONLY Inactive 12/14/2019 [facility] Calcium Carbonate 500 MG Chewable Tablet 500 mg, Route: PO, PRN, Dosing Weight 102.6, kg, PRN Abnormal Lab Result, FOR ICU USE ONLY, Start date: 12/14/19 7:20:00 CDT, Duration: 30 day, Stop date: 01/13/20 7:19:00 CDT Inactive 12/14/2019 [facility] Fentanyl 50 microgram, Route: IVP, ONCE, Dosing Weight 86.364, kg, Priority: STAT, Start date: 12/14/19 1:56:00 CDT, Stop date: 12/14/19 1:56:00 CDT Inactive 12/14/2019 [facility] Norepinephrine Notes: Not for direct administration - DILUTE. Protect from light. (Same as:Levophed). Administer by either central venous catheter or peripherally-inserted central catheter (PICC) line. No Longer Active 12/14/2019 [facility] Vancomycin 2001 mg: infuse ov er 2.5 hours For adult patients only: Round to nearest 250 mg per Medical Staff approval MEDICATION WASTE Product Size: 1000 mg Product Wasted: ___ mg Inactive 12/14/2019 [facility] Tylenol Notes: Do not exceed 4 gm/day. (Same as: Tylenol) Inactive 12/14/2019 [facility] Saline Flush 0.9% Notes: (Same as: BD Posiflush) No Longer Active 12/14/2019 [facility] Isolyte S PH-7.4 (Bolus) IV No ela: (Same as: Isolyte S PH7.4, Normosol-R PH 7.4, Plasma-Lyte A ) Inactive 12/14/2019 [facility] nter cefepime Notes: (Same As: Az erwin) MEDICATION WASTE Product Size: 1000 mg Product Wasted: ___ mg Inactive 12/14/2019 [facility] gabapentin 600 MG Oral Tablet 600 mg = 1 tab, PO, TID, # 90 tab, 3 Refill(s), [id number] Active 01/07/2017 [facility] Methocarbamol 750 MG Oral Tablet [Robaxin] 750 mg = 1 tab, PO, Q6H, PRN Spasms, X 7 day, # 28 tab, 0 Refill(s), Pharmacy: [id number] Active 11/28/2016 [facility] Lidocaine 0.05 MG/MG Transdermal Patch 1 patch, TOP, Daily, # 14 patch, 0 Refill(s), Pharmacy: [facility] #[id number] Active 11/28/2016 [facility] predniSONE 20 mg oral tablet 6 0 mg = 3 tab, PO, Daily, Take 3 tablets for 60 mg dose, X 3 day, # 9 tab, 0 Refill(s), Pharmacy: [facility]/pharmacy #[id number] Active 11/28/2016 [facility] Robaxin Notes: (Same as:Robaxi n) Inactive 11/28/2016 [facility] Motrin Notes: (Same as: Advil) Give with food. Inactive 11/28/2016 [facility] gabapentin 600 MG Oral Tablet 600 mg = 1 tab, PO, TID, # 90 tab, 0 Refill(s), Pharmacy: [facility]/pharmacy #[id number] Active 05/29/2016 [facility] Acetaminophen 325 MG / Hydrocodone Kyaw trate 5 MG Oral Tablet 1 tab, PO, Q4H, PRN Pain Score 4-6, 0 Refill(s) Active 01/18/2016 [facility] Lantus Route: SUB-Q, Drug form : SOLN, Bedtime, Dosing Weight 110.625, kg, Start date: 01/15/16 21:00:00 CDT, Duration: 30 day, Stop date: 02/13/16 21:00:00 CDT Inactive 01/16/2016 [facility] Levemir FlexPen Notes: Same as Levemir Do not hold insulin without contacting prescriber WASTE: F/P - Black; E - Municipal Trash Bin "single patient use only" No Longer Active 01/16/2016 [facility] Pravastatin Notes: (Same as: P ravachol) No Longer Active 01/16/2016 [facility] Ambien Notes: (Same As: Ambien) No Longer Active 01/16/2016 [facility] Ambien CR 6.25 mg, Route: PO, Drug form: ERTAB, Bedtime, Dosing Weight 110.625, kg, PRN Sleep, Start date: 01/15/16 18:59:00 CDT, Duration: 30 day, Stop date: 02/14/16 18:58:00 CDT Inactive 01/15/2016 [facility] Zolpidem tartrate 12.5 MG Extended Relea se Tablet [Ambien] 12.5 mg = 1 tab, PO, Bedtime, PRN for sl eep, 0 Refill(s) Active 01/15/2016 [facility] Potassium Chloride 10 MEQ Extended Release Tablet Notes: (Same as: K-Dur 10) "Do Not Crush" With food and full glass of water No Longer Active 01/15/2016 [facility] pantoprazole Notes: Tablet negrito uld not be chewed or crushed. (Same as: Protonix) N o Longer Active 01/15/2016 [facility] Loratadine Notes: 1 hr before meals (Same as: Claritin) No Longer Active 01/15/2016 [facility] Hydrochlorothiazide 12.5 MG / Lisinopril 20 MG Oral Tablet 1 tab, Route: PO, Drug Form: TAB, Dosing Weight 110.625, kg, Daily, Start date: 01/15/16 9:00:00 CDT, Duration: 30 day, Stop date: 02/13/16 9:00:00 CDT Inactive 01/15/2016 [facility] Furosemide 40 MG Oral Tablet N otes: (Same as: Lasix) May cause GI upset. Give with food or milk. No Longer Active 01/15/2016 [facility] duloxetine Notes: (Same as: Cy mbalta) (Do Not Crush) No Longer Active 01/15/2016 [facility] Buspirone Notes: (Same As: BuS par) No Longer Active 01/15/2016 [facility] lisinopril Notes: (Same as: Pr inivil, Zestril) No Longer Active 01/15/2016 [facility] Allopurinol Notes: (Same as: Z yloprim) No Longer Active 01/15/2016 [facility] Senokot Notes: (Same as: Senok ot) No Longer Active 01/15/2016 [facility] Famotidine 20 MG Oral Tablet [Pepcid] Notes: (Same as: Pepcid) No Longer Active 01/15/2016 [facility] hydrochlorothiazide Notes: (Sa me as: Microzide) With food. No Longer Active 01/15/2016 [facility] Metformin hydrochloride 1000 MG Oral Tablet Notes: (Same as: Glucophage) Take with meal No Longer Active 01/15/2016 [facility] heparin sodium, porcine 2500 UNT/ML Injectable Solutio n Notes: porcine heparin No Longer Active 01/15/2016 [facility] NovoLOG FlexPen Notes: Roll in palms of hands gently; Do not shake vigorously. (Same as: NovoLOG) "single patient use only" WASTE: F/P - Black; E - Municipal Trash Bin Stable for 28 days at room temperature. Expires in days from Date No Longer Active 01/15/2016 [facility] Insulin Lispro 5 unit, Route: SUB-Q, Drug form: SOLN, TID-Before Meals, Dosing Weight 110.625, kg, Start date: 01/15/16 7:30:00 CDT, Duration: 30 day, Stop date: 02/13/16 16:30:00 CDT Inactive 01/15/2016 [facility] Docusate Sodium 100 MG Oral Capsule [Colace] Notes: (Same as: Colace) (Do Not Crush) No Longer Active 01/14/2016 [facility] ceFAZolin (SCIP) 1 gm, 100 mL, Route: IVPB, Drug form: INJ, ABXQ8H, Dosing Weight 104.545, kg, Start date: 01/14/16 16:00:00 CDT, Stop date: 01/15/16 12:00:00 CDT No Longer Active 01/14/2016 [facility] ketOROLAC (ANES) IV, ONCE Inactive 01/14/2016 [facility] Zofran Notes: (Same as: Zofran ) MEDICATION WASTE Product Size: 4 mg Product Wasted: __0_ mg No Longer Active 01/14/2016 [facility] magnesium citrate Notes: (Same as: Citrate of Magnesia) No Longer Active 01/14/2016 [facility] Dilaudid 0.5 mg, 0.5 mL, Route : IV, Drug form: INJ, Q3H, Dosing Weight 104.545, kg, PRN Pain Score 4-6, Start date: 01/14/16 14:54:00 CDT, Stop date: 02/13/16 14:53:00 CDT No Longer Active 01/14/2016 [facility] Tylenol Notes: Do not exceed 4 gm/day. (Same as: Tylenol) No Longer Active 01/14/2016 [facility] Acetaminophen 325 MG / Hydrocodone Kyaw trate 5 MG Oral Tablet Notes: (Same as: [place] 325/5) Do not ex ceed 4gm/day of acetaminophen. No Longer Active 01/14/2016 [facility] Sodium Chloride 0.154 MEQ/ML Injectable Solution 1,000 mL, Rate: 75 ml/hr, Infuse over: 13.3 hr, Route: IV, Dosing Weight 104.545 kg, Total Volume: 1,000, Start date: 01/14/16 14:54:00 CDT, Duration: 30 day, Stop date: 02/13/16 14:53:00 CDT No Longer Active 01/14/2016 [facility] ondansetron (ANES) Route: IV, Drug form: INJ, ONCE, Stop date: 01/14/16 13:54:00 CDT Inactive 01/14/2016 [facility] ePHEDrine (ANES) Route: IV, Dr ug form: INJ, ONCE, Stop date: 01/14/16 12:19:00 CDT Inactive 01/14/2016 [facility] phenylephrine (ANES) Route: IV , Drug form: INJ, ONCE, Stop date: 01/14/16 12:14:00 CDT Inactive 01/14/2016 [facility] acetaminophen (ANES) (ANES) Ro lyssa: IV, Drug form: INJ, Start date: 01/14/16 12:13:00 CDT, Stop date: 01/14/16 13:13:00 CDT Inactive 01/14/2016 [facility] midazolam (ANES) Route: IV, Dr ug form: SOLN, ONCE, Stop date: 01/14/16 11:14:00 CDT Inactive 01/14/2016 [facility] ceFAZolin (ANES) Route: IV, Dr ug form: INJ, ONCE, Stop date: 01/14/16 11:14:00 CDT Inactive 01/14/2016 [facility] vancomycin (ANES) (ANES) Route : IV, Drug form: INJ, Start date: 01/14/16 11:06:00 CDT, Stop date: 01/14/16 12:06:00 CDT Inactive 01/14/2016 [facility] propofol (ANES) Route: IV, Eleuterio g form: INJ, ONCE, Stop date: 01/14/16 11:04:00 CDT Inactive 01/14/2016 [facility] fentaNYL (ANES) Route: IV, Eleuterio g form: INJ, ONCE, Stop date: 01/14/16 11:04:00 CDT Inactive 01/14/2016 [facility] rocuronium (ANES) Route: IV, D rug form: INJ, ONCE, Stop date: 01/14/16 11:04:00 CDT Inactive 01/14/2016 [facility] lidocaine (ANES) Route: IV, Dr ug form: INJ, ONCE, Stop date: 01/14/16 11:04:00 CDT Inactive 01/14/2016 [facility] Calcium Chloride 0.0014 MEQ/ML / Potassi um Chloride 0.004 MEQ/ML / Sodium Chloride 0.103 MEQ/ML / Sodium Lactate 0.028 MEQ/ML Injectable Solution 1,000 mL, Rate: 25 ml/hr, Infuse over: 4 0 hr, Route: IV, Dosing Weight 104.545 kg, Total Volume: 1,000, Start date: 01/14/16 10:38:00 CDT, Duration: 30 day, Stop date: 02/13/16 10:37:00 CDT Inactive 01/14/2016 [facility] LR 1000 mL INJ (ANES) Route: I V, Total Volume: 1,000, Start date: 01/14/16 10:28:00 CDT, Stop date: 01/14/16 11:28:00 CDT Inactive 01/14/2016 [facility] Insulin Glargine 100 UNT/ML Injectable S olution [Lantus] 60 units, SUB-Q, Bedtime, 0 Refill(s) Active 01/09/2016 [facility] 3 ML Insulin Lispro 100 UNT/ML Pen Injector [Humalog] 5 unit, SUB-Q, TID-Before Meals, # 3 mL, 0 Refill(s) Active 01/09/2016 [facility] multivitamin Daily, 0 Refill(s) Active 01/09/2016 [facility] Garlic Oil oral capsule 1 tab, PO, Daily, 0 Refill(s) Active 01/09/2016 [facility] DULoxetine 60 mg oral delayed release capsule 60 mg = 1 cap, PO, Daily, # 30 cap, 0 Refill(s) Active 01/09/2016 [facility] Metronidazole 500 MG Oral Tablet 500 mg = 1 tab, PO, Q8H, # 21 tab, 0 Refill(s) Active 01/09/2016 [facility] pantoprazole 40 mg oral enteric coated tablet 40 mg = 1 tab, PO, Daily, # 30 tab, 0 Refill(s) Active 01/09/2016 [facility] gabapentin 300 MG Oral Capsule 1,200 mg = 4 cap, PO, BID, 0 Refill(s) Active 01/09/2016 [facility] allopurinol 100 mg oral tablet 100 mg = 1 tab, PO, Daily, # 90 tab, 1 Refill(s) Active 01/09/2016 [facility] promethazine 25 mg oral tablet 25 mg = 1 tab, PO, PRN, 0 Refill(s) Active 01/09/2016 [facility] tizanidine 4 mg oral tablet 4 mg = 1 tab, PO, PRN, 0 Refill(s) Active 01/09/2016 [facility] Furosemide 40 MG Oral Tablet 4 0 mg = 1 tab, PO, Daily, # 30 tab, 0 Refill(s) Active 01/09/2016 [facility] Potassium Chloride 10 MEQ Extended Release Tablet = 1 cap, PO, Daily, # 30 cap, 1 Refill(s) Active 01/09/2016 [facility] busPIRone 15 mg oral tablet 15 mg = 1 tab, PO, BID, 0 Refill(s) Active 01/09/2016 [facility] loratadine 10 mg oral tablet 1 0 mg = 1 tab, PO, Daily, # 30 tab, 0 Refill(s) Active 01/09/2016 [facility] Hydrochlorothiazide 12.5 MG / Lisinopril 20 MG Oral Tablet 1 tab, PO, Daily, # 30 tab, 0 Refill(s) Active 01/09/2016 [facility] tramadol hydrochloride 50 MG Oral Tablet 50 mg = 1 tab, PO, Q8H, PRN Pain, # 60 tab, 0 Refill(s) Active 01/09/2016 [facility] pravastatin 40 mg oral tablet 40 mg = 1 tab, PO, Bedtime, # 30 tab, 0 Refill(s) Active 01/09/2016 [facility] Metformin hydrochloride 1000 MG Oral Tablet 1,000 mg = 1 tab, PO, BID-Meals, # 30 tab, 0 Refill(s) Active 01/09/2016 [facility] Allergies, Adverse Reactions, Alerts Substance Category Reaction Severity Reaction type Status Date Reported Comments Source No Known Medication Allergies Assertion Drug aller gy [facility] penicillins Assertion Drug allergy Active [facility] Immunizations Immunization Date Given Site Status Last Updated Comments Source pneumococcal 23-valent vaccine 12/15/2005 Right arm completed Stefan [facility], TIRDominga, NAI Hunter, NAI Mauricio,[facility] Results Order Name Results Value Reference Range Date Interpretation Comments Source CHEM PANEL Glucose Lvl 118 70 - 99 12/19/2019 [facility] CHEM PANEL BUN 27 7 - 22 12/19/2019 [facility] CHEM PANEL Creatinine Lvl 1.28 0.50 - 1.40 12/19/2019 [facility] CHEM PANEL Sodium Lvl 140 135 - 145 12/19/2019 [facility] CHEM PANEL Potassium Lvl 5.1 3.5 - 5.1 12/19/2019 [facility] CHEM PANEL Chloride Lvl 107 95 - 109 12/19/2019 [facility] CHEM PANEL CO2 27 24 - 32 12/19/2019 [facility] CHEM PANEL Calcium Lvl 9.0 8.5 - 10.5 12/19/2019 [facility] CHEM PANEL Total Protein 6.0 6.4 - 8.4 12/19/2019 [facility] CHEM PANEL Albumin Lvl 2.2 3.5 - 5.0 12/19/2019 [facility] CHEM PANEL ALT 22 0 - 65 12/19/2019 [facility] CHEM PANEL AST 16 0 - 37 12/19/2019 [facility] CHEM PANEL Alk Phos 120 39 - 136 12/19/2019 [facility] CHEM PANEL Bili Total 0.3 0.2 - 1.3 12/19/2019 [facility] CHEM PANEL AGAP 11.1 10.0 - 20.0 12/19/2019 [facility] CHEM PANEL B/C Ratio 21 6 - 25 12/19/2019 [facility] CHEM PANEL Globulin 3.8 2.7 - 4.2 12/19/2019 [facility] CHEM PANEL A/G Ratio 0.6 0.7 - 1.6 12/19/2019 [facility] CHEM PANEL eGFR 42 12/19/2019 Result Comment: The eGFR is calculated using the [...] from the National Kidney Disease Education Program (NKDEP) which additionally recommends that when the eGFR is used in patients with extremes of body mass index for purposes of drug dosing, the eGFR should be multiplied by the estimated BMI. [facility] CHEM PANEL Phosphorus 3.6 2.5 - 4.5 12/19/2019 [facility] CHEM PANEL Magnesium Lvl 1.7 1.8 - 2.4 12/19/2019 [facility] HEMATOLOGY WBC 4.2 3.7 - 10.4 12/19/2019 [facility] HEMATOLOGY RBC 2.62 4.20 - 5.40 12/19/2019 [facility] HEMATOLOGY Hgb 8.4 12.0 - 16.0 12/19/2019 [facility] HEMATOLOGY Hct 25.0 36.0 - 48.0 12/19/2019 [facility] HEMATOLOGY MCV 95.6 80.0 - 98.0 12/19/2019 [facility] HEMATOLOGY MCH 32.3 27.0 - 31.0 12/19/2019 [facility] HEMATOLOGY MCHC 33.7 32.0 - 36.0 12/19/2019 [facility] HEMATOLOGY RDW 13.4 11.5 - 14.5 12/19/2019 [facility] HEMATOLOGY Platelet 230 133 - 450 12/19/2019 [facility] HEMATOLOGY MPV 7.8 7.4 - 10.4 12/19/2019 [facility] HEMATOLOGY Segs 58.2 45.0 - 75.0 12/19/2019 [facility] HEMATOLOGY Lymphocytes 26.5 20.0 - 40.0 12/19/2019 [facility] HEMATOLOGY Monocytes 12.5 2.0 - 12.0 12/19/2019 [facility] HEMATOLOGY Eosinophils 2.3 0.0 - 4.0 12/19/2019 [facility] HEMATOLOGY Basophils 0.5 0.0 - 1.0 12/19/2019 [facility] HEMATOLOGY Neutrophils # 2.4 1.5 - 8.1 12/19/2019 [facility] HEMATOLOGY Lymphocytes # 1.1 1.0 - 5.5 12/19/2019 [facility] HEMATOLOGY Monocytes # 0.5 0.0 - 0.8 12/19/2019 [facility] HEMATOLOGY Eosinophils # 0.1 0.0 - 0.5 12/19/2019 [facility] CHEM PANEL Magnesium Lvl 1.8 1.8 - 2.4 12/18/2019 [facility] CHEM PANEL Glucose Lvl 108 70 - 99 12/18/2019 [facility] CHEM PANEL BUN 31 7 - 22 12/18/2019 [facility] CHEM PANEL Creatinine Lvl 1.51 0.50 - 1.40 12/18/2019 [facility] CHEM PANEL Sodium Lvl 139 135 - 145 12/18/2019 [facility] CHEM PANEL Potassium Lvl 4.9 3.5 - 5.1 12/18/2019 [facility] CHEM PANEL Chloride Lvl 111 95 - 109 12/18/2019 [facility] CHEM PANEL CO2 25 24 - 32 12/18/2019 [facility] CHEM PANEL Calcium Lvl 8.7 8.5 - 10.5 12/18/2019 [facility] CHEM PANEL Total Protein 5.6 6.4 - 8.4 12/18/2019 [facility] CHEM PANEL Albumin Lvl 2.1 3.5 - 5.0 12/18/2019 [facility] CHEM PANEL ALT 20 0 - 65 12/18/2019 [facility] CHEM PANEL AST 16 0 - 37 12/18/2019 [facility] CHEM PANEL Alk Phos 111 39 - 136 12/18/2019 [facility] CHEM PANEL Bili Total 0.3 0.2 - 1.3 12/18/2019 [facility] CHEM PANEL AGAP 7.9 10.0 - 20.0 12/18/2019 [facility] CHEM PANEL B/C Ratio 21 6 - 25 12/18/2019 [facility] CHEM PANEL Globulin 3.5 2.7 - 4.2 12/18/2019 [facility] CHEM PANEL A/G Ratio 0.6 0.7 - 1.6 12/18/2019 [facility] CHEM PANEL eGFR 35 12/18/2019 Result Comment: The eGFR is calculated using the [...] from the National Kidney Disease Education Program (NKDEP) which additionally recommends that when the eGFR is used in patients with extremes of body mass index for purposes of drug dosing, the eGFR should be multiplied by the estimated BMI. [facility] CHEM PANEL Phosphorus 3.3 2.5 - 4.5 12/18/2019 [facility] HEMATOLOGY Segs 57.1 45.0 - 75.0 12/18/2019 [facility] HEMATOLOGY Lymphocytes 25.9 20.0 - 40.0 12/18/2019 [facility] HEMATOLOGY Monocytes 14.7 2.0 - 12.0 12/18/2019 [facility] HEMATOLOGY Eosinophils 1.6 0.0 - 4.0 12/18/2019 [facility] HEMATOLOGY Basophils 0.7 0.0 - 1.0 12/18/2019 [facility] HEMATOLOGY Neutrophils # 2.1 1.5 - 8.1 12/18/2019 [facility] HEMATOLOGY Lymphocytes # 1.0 1.0 - 5.5 12/18/2019 [facility] HEMATOLOGY Monocytes # 0.5 0.0 - 0.8 12/18/2019 [facility] HEMATOLOGY Eosinophils # 0.1 0.0 - 0.5 12/18/2019 [facility] HEMATOLOGY WBC 3.7 3.7 - 10.4 12/18/2019 [facility] HEMATOLOGY RBC 2.32 4.20 - 5.40 12/18/2019 [facility] HEMATOLOGY Hgb 7.4 12.0 - 16.0 12/18/2019 [facility] HEMATOLOGY Hct 22.4 36.0 - 48.0 12/18/2019 [facility] HEMATOLOGY MCV 96.2 80.0 - 98.0 12/18/2019 [facility] HEMATOLOGY MCH 32.0 27.0 - 31.0 12/18/2019 [facility] HEMATOLOGY MCHC 33.3 32.0 - 36.0 12/18/2019 [facility] HEMATOLOGY RDW 13.8 11.5 - 14.5 12/18/2019 [facility] HEMATOLOGY Platelet 198 133 - 450 12/18/2019 [facility] HEMATOLOGY MPV 8.3 7.4 - 10.4 12/18/2019 [facility] TOXICOLOGY Vanco Tr 23.7 12/18/2019 [facility] TOXICOLOGY Vanco Tr TND 1930 12/18/2019 [facility] CHEM PANEL Magnesium Lvl 1.9 1.8 - 2.4 12/17/2019 [facility] CHEM PANEL Glucose Lvl 102 70 - 99 12/17/2019 [facility] CHEM PANEL BUN 29 7 - 22 12/17/2019 [facility] CHEM PANEL Creatinine Lvl 1.34 0.50 - 1.40 12/17/2019 [facility] CHEM PANEL Sodium Lvl 139 135 - 145 12/17/2019 [facility] CHEM PANEL Potassium Lvl 5.0 3.5 - 5.1 12/17/2019 [facility] CHEM PANEL Chloride Lvl 110 95 - 109 12/17/2019 [facility] CHEM PANEL CO2 22 24 - 32 12/17/2019 [facility] CHEM PANEL Calcium Lvl 8.6 8.5 - 10.5 12/17/2019 [facility] CHEM PANEL Total Protein 5.4 6.4 - 8.4 12/17/2019 [facility] CHEM PANEL Albumin Lvl 2.0 3.5 - 5.0 12/17/2019 [facility] CHEM PANEL ALT 14 0 - 65 12/17/2019 [facility] CHEM PANEL AST 9 0 - 37 12/17/2019 [facility] CHEM PANEL Alk Phos 114 39 - 136 12/17/2019 [facility] CHEM PANEL Bili Total 0.4 0.2 - 1.3 12/17/2019 [facility] CHEM PANEL AGAP 12.0 10.0 - 20.0 12/17/2019 [facility] CHEM PANEL B/C Ratio 22 6 - 25 12/17/2019 [facility] CHEM PANEL Globulin 3.4 2.7 - 4.2 12/17/2019 [facility] CHEM PANEL A/G Ratio 0.6 0.7 - 1.6 12/17/2019 [facility] CHEM PANEL eGFR 40 12/17/2019 Result Comment: The eGFR is calculated using the [...] from the National Kidney Disease Education Program (NKDEP) which additionally recommends that when the eGFR is used in patients with extremes of body mass index for purposes of drug dosing, the eGFR should be multiplied by the estimated BMI. [facility] CHEM PANEL Phosphorus 3.0 2.5 - 4.5 12/17/2019 [facility] HEMATOLOGY WBC 3.9 3.7 - 10.4 12/17/2019 [facility] HEMATOLOGY RBC 2.42 4.20 - 5.40 12/17/2019 [facility] HEMATOLOGY Hgb 7.7 12.0 - 16.0 12/17/2019 [facility] HEMATOLOGY Hct 23.2 36.0 - 48.0 12/17/2019 [facility] HEMATOLOGY MCV 95.9 80.0 - 98.0 12/17/2019 [facility] HEMATOLOGY MCH 32.0 27.0 - 31.0 12/17/2019 [facility] HEMATOLOGY MCHC 33.4 32.0 - 36.0 12/17/2019 [facility] HEMATOLOGY RDW 13.5 11.5 - 14.5 12/17/2019 [facility] HEMATOLOGY Platelet 192 133 - 450 12/17/2019 [facility] HEMATOLOGY MPV 8.1 7.4 - 10.4 12/17/2019 [facility] HEMATOLOGY Segs 63.3 45.0 - 75.0 12/17/2019 [facility] HEMATOLOGY Lymphocytes 19.3 20.0 - 40.0 12/17/2019 [facility] HEMATOLOGY Monocytes 15.4 2.0 - 12.0 12/17/2019 [facility] HEMATOLOGY Eosinophils 1.6 0.0 - 4.0 12/17/2019 [facility] HEMATOLOGY Basophils 0.4 0.0 - 1.0 12/17/2019 [facility] HEMATOLOGY Neutrophils # 2.5 1.5 - 8.1 12/17/2019 [facility] HEMATOLOGY Lymphocytes # 0.8 1.0 - 5.5 12/17/2019 [facility] HEMATOLOGY Monocytes # 0.6 0.0 - 0.8 12/17/2019 [facility] HEMATOLOGY Eosinophils # 0.1 0.0 - 0.5 12/17/2019 [facility] HEMATOLOGY PT 14.5 12.0 - 14.7 12/16/2019 [facility] HEMATOLOGY INR 1.12 0.85 - 1.17 12/16/2019 [facility] HEMATOLOGY PTT 68.1 22.9 - 35.8 12/16/2019 [facility] HEMATOLOGY PT 15.2 12.0 - 14.7 12/16/2019 [facility] HEMATOLOGY INR 1.19 0.85 - 1.17 12/16/2019 [facility] HEMATOLOGY PTT 84.2 22.9 - 35.8 12/16/2019 [facility] HEMATOLOGY PT 15.6 12.0 - 14.7 12/16/2019 [facility] HEMATOLOGY INR 1.23 0.85 - 1.17 12/16/2019 [facility] HEMATOLOGY PTT 117.3 22.9 - 35.8 12/16/2019 Result Comment: Critical Result(s) arevalo d to ramesh graham at 12/16/2019 00:17 by sss. Read back OK. [facility] TOXICOLOGY Vanco Tr 17.0 12/16/2019 [facility] TOXICOLOGY Vanco Tr TND 1930 12/16/2019 [facility] CARDIAC ENZYMES Troponin-I <0.02 0.00 - 0.40 12/15/2019 [facility] PARATHYROID PROFILE Ca Ion WB 1.09 1.05 - 1.25 12/15/2019 [facility] PARATHYROID PROFILE Ca Norm WB 1.05 1.05 - 1.25 12/15/2019 [facility] TOXICOLOGY Vanco Lvl 13.8 12/15/2019 [facility] BACTERIAL - SEROLOGY MRSA by PCR Positive 1 *ABN* (12/14/19 9:06 AM) 12/14/2019 Result Comment: "Significant Findings called to Charli Walsh at 12/14/2019 20:41 by LF. Read Back OK." [facility] CARDIAC ENZYMES BNP 328 <=100 pg/mL 12/14/2019 [facility] CHEM PANEL Bili Direct 0.3 0.0 - 0.3 12/14/2019 [facility] CHEM PANEL Bili Indirect 0.4 0.0 - 1.0 12/14/2019 [facility] CHEM PANEL Osmolality 284 280 - 300 12/14/2019 [facility] DRUG SCREEN U Amph Scr Nega tive *NA* (12/14/19 9:06 AM) Negative 12/14/2019 [facility] DRUG SCREEN U [place] Scr Nega tive *NA* (12/14/19 9:06 AM) Negative 12/14/2019 [facility] DRUG SCREEN U Benzodiaz Scr Nega tive *NA* (12/14/19 9:06 AM) Negative 12/14/2019 [facility] DRUG SCREEN U Cocaine Scr Nega tive *NA* (12/14/19 9:06 AM) Negative 12/14/2019 [facility] DRUG SCREEN U Cannab Scr Nega tive *NA* (12/14/19 9:06 AM) Negative 12/14/2019 [facility] DRUG SCREEN U Opiate Scr Posi tive *ABN* (12/14/19 9:06 AM) Negative 12/14/2019 [facility] DRUG SCREEN U Phencyclidine Scr Nega tive *NA* (12/14/19 9:06 AM) Negative 12/14/2019 [facility] DRUG SCREEN UDS Note See Note (12/14/19 9:06 AM) 12/14/2019 [facility] DRUG SCREEN U Methadone Scr Nega tive *NA* (12/14/19 9:06 AM) Negative 12/14/2019 [facility] DRUG SCREEN U Propoxyph Scr Nega tive *NA* (12/14/19 9:06 AM) Negative 12/14/2019 [facility] HEMATOLOGY RBC Morph Alysa l (12/14/19 9:06 AM) Normal 12/14/2019 [facility] HEMATOLOGY Plt Morph Alysa l (12/14/19 9:06 AM) Normal 12/14/2019 [facility] IMMUNOLOGY Hep Bs Ag Negat onofre *NA* (12/14/19 9:06 AM) Negative 12/14/2019 [facility] IMMUNOLOGY Hep B Core IgM Negat onofre *NA* (12/14/19 9:06 AM) Negative 12/14/2019 [facility] IMMUNOLOGY Hep C Ab Negat onofre *NA* (12/14/19 9:06 AM) Negative 12/14/2019 [facility] IMMUNOLOGY Hep A IgM Negat onofre *NA* (12/14/19 9:06 AM) Negative 12/14/2019 [facility] IMMUNOLOGY HIV Ag/Ab 4th Gen Negat onofre *NA* (12/14/19 9:06 AM) Negative 12/14/2019 [facility] PARATHYROID PROFILE Ca Ion WB 1.10 1.05 - 1.25 12/14/2019 [facility] PARATHYROID PROFILE Ca Norm WB 1.04 1.05 - 1.25 12/14/2019 [facility] SPECIAL CHEMISTRY Hgb A1C 5.7 <=5.6 % 12/14/2019 [facility] URINE CHEM U Osmolality 203 300 - 800 12/14/2019 [facility] URINE CHEM U Sodium 22 12/14/2019 [facility] URINE CHEM U Potassium 12.2 12/14/2019 [facility] URINE CHEM U Chloride <10 12/14/2019 [facility] IMMUNOLOGY Coronavirus (COVID-19) NA A Not Detected (12/14/19 4:54 AM) Not Detected 12/14/2019 [facility] LEVOFLOXACIN:SUSC:PT:ISOLATE:ORDQN:KELY Culture: Urine 10,000 - 50,000 CFU/mL Enterococcus Species 12/14/2019 [facility] LEVOFLOXACIN:SUSC:PT:ISOLATE:ORDQN:KELY Enterococcus Species Enterococcus Species 12/14/2019 [facility] URINE AND STOOL UA Color Yellow *NA* (12/14/19 2:17 AM) Yellow 12/14/2019 [facility] URINE AND STOOL UA Turbidity Slight *ABN* (12/14/19 2:17 AM) Clear 12/14/2019 [facility] URINE AND STOOL UA Spec Grav 1.010 <=1.030 12/14/2019 [facility] URINE AND STOOL UA pH 6.0 5.0 - 8.0 12/14/2019 [facility] URINE AND STOOL UA Protein Negative mg/dL Negative mg/dL 12/14/2019 [facility] URINE AND STOOL UA Glucose Negative mg/dL Negative mg/dL 12/14/2019 [facility] URINE AND STOOL UA Ketones Negative mg/dL Negative mg/dL 12/14/2019 [facility] URINE AND STOOL UA Bili Negative *NA* (12/14/19 2:17 AM) Negative 12/14/2019 [facility] URINE AND STOOL UA Blood Small *ABN* (12/14/19 2:17 AM) Negative 12/14/2019 [facility] URINE AND STOOL UA Urobilinogen <1.0 0.1 - 1.0 12/14/2019 [facility] URINE AND STOOL UA Nitrite Negative (12/14/19 2:17 AM) Negative 12/14/2019 [facility] URINE AND STOOL UA Leuk Est Small *ABN* (12/14/19 2:17 AM) Negative 12/14/2019 [facility] URINE AND STOOL UA WBC 25 0 - 5 12/14/2019 [facility] URINE AND STOOL UA RBC 2 0 - 2 12/14/2019 [facility] URINE AND STOOL UA Mucus Few /LPF None Seen /LPF 12/14/2019 [facility] URINE AND STOOL UA Sq Epi None Seen 12/14/2019 [facility] BLOOD BANK RESULTS ABO/Rh O POS 12/14/2019 [facility] BLOOD BANK RESULTS Antibody Scrn Negative (12/13/19 8:16 PM) 12/14/2019 [facility] CARDIAC ENZYMES Total CK 119 12 - 191 12/14/2019 [facility] CARDIAC ENZYMES Troponin-I <0.02 0.00 - 0.40 12/14/2019 [facility] CHEM PANEL Procalcitonin Lvl 0.37 0.00 - 0.10 12/14/2019 [facility] CHEM PANEL Lactic Acid WB 2.0 0.5 - 2.2 12/14/2019 [facility] URINE AND STOOL UA Urobilinogen <=1.0 mg/dL 0.1 - 1.0 11/28/2016 [facility] URINE AND STOOL UA Color Ltyellow 11/28/2016 [facility] URINE AND STOOL UA Protein Negative mg/dL Negative mg/dL 11/28/2016 [facility] URINE AND STOOL UA Ketones Negative mg/dL Negative mg/dL 11/28/2016 [facility] URINE AND STOOL UA Glucose Negative mg/dL Negative mg/dL 11/28/2016 [facility] URINE AND STOOL UA Bili Negative *NA* (11/28/16 3:09 PM) Negative 11/28/2016 [facility] URINE AND STOOL UA Leuk Est Negative (11/28/16 3:09 PM) Negative 11/28/2016 [facility] URINE AND STOOL UA Sq Epi Occasional /LPF Few /LPF 11/28/2016 [facility] URINE AND STOOL UA RBC 4 0 - 2 11/28/2016 [facility] URINE AND STOOL UA WBC 7 0 - 5 11/28/2016 [facility] URINE AND STOOL UA Bacteria Occasional /HPF None Seen /HPF 11/28/2016 [facility] URINE AND STOOL UA Hyal Cast 1 0 - 2 11/28/2016 [facility] URINE AND STOOL UA Nitrite Negative (11/28/16 3:09 PM) Negative 11/28/2016 [facility] URINE AND STOOL UA Blood Small *ABN* (11/28/16 3:09 PM) Negative 11/28/2016 [facility] URINE AND STOOL UA pH 5.0 5.0 - 8.0 11/28/2016 [facility] URINE AND STOOL UA Spec Grav 1.005 <=1.030 11/28/2016 [facility] URINE AND STOOL UA Turbidity Clear (11/28/16 3:09 PM) Clear 11/28/2016 [facility] BLOOD BANK RESULTS ABO/Rh O POS 01/09/2016 [facility] BLOOD BANK RESULTS Antibody Scrn Negative (01/09/16 4:03 PM) 01/09/2016 [facility] CHEM PANEL B/C Ratio 18 6 - 25 01/09/2016 [facility] CHEM PANEL AGAP 11.6 10.0 - 20.0 01/09/2016 [facility] CHEM PANEL A/G Ratio 0.9 0.7 - 1.6 01/09/2016 [facility] CHEM PANEL Globulin 3.9 2.0 - 4.0 01/09/2016 [facility] CHEM PANEL Bili Total 0.2 0.2 - 1.3 01/09/2016 [facility] CHEM PANEL AST 25 0 - 37 01/09/2016 [facility] CHEM PANEL Alk Phos 89 39 - 136 01/09/2016 [facility] CHEM PANEL ALT 40 0 - 65 01/09/2016 [facility] CHEM PANEL Total Protein 7.5 6.4 - 8.4 01/09/2016 [facility] CHEM PANEL Albumin Lvl 3.6 3.5 - 5.0 01/09/2016 [facility] CHEM PANEL Calcium Lvl 9.3 8.5 - 10.5 01/09/2016 [facility] CHEM PANEL eGFR 45 01/09/2016 Result Comment: The eGFR is calculated using the [...] from the National Kidney Disease Education Program (NKDEP) which additionally recommends that when the eGFR is used in patients with extremes of body mass index for purposes of drug dosing, the eGFR should be multiplied by the estimated BMI. [facility] CHEM PANEL Creatinine Lvl 1.24 0.50 - 1.40 01/09/2016 [facility] CHEM PANEL Chloride Lvl 102 95 - 109 01/09/2016 [facility] CHEM PANEL CO2 30 24 - 32 01/09/2016 [facility] CHEM PANEL Sodium Lvl 139 135 - 145 01/09/2016 [facility] CHEM PANEL Potassium Lvl 4.6 3.5 - 5.1 01/09/2016 [facility] CHEM PANEL BUN 22 7 - 22 01/09/2016 [facility] CHEM PANEL Glucose Lvl 193 70 - 99 01/09/2016 [facility] HEMATOLOGY Monocytes # 0.5 0.0 - 0.8 01/09/2016 [facility] HEMATOLOGY Lymphocytes # 1.9 1.0 - 5.5 01/09/2016 [facility] HEMATOLOGY Eosinophils 3.2 0.0 - 4.0 01/09/2016 [facility] HEMATOLOGY Basophils 1.2 0.0 - 1.0 01/09/2016 [facility] HEMATOLOGY Segs-Bands # 3.7 1.5 - 8.1 01/09/2016 [facility] HEMATOLOGY Lymphocytes 29.5 20.0 - 40.0 01/09/2016 [facility] HEMATOLOGY Monocytes 8.0 2.0 - 12.0 01/09/2016 [facility] HEMATOLOGY Segs 58.1 45.0 - 75.0 01/09/2016 [facility] HEMATOLOGY Eosinophils # 0.2 0.0 - 0.5 01/09/2016 [facility] HEMATOLOGY Basophils # 0.1 0.0 - 0.2 01/09/2016 [facility] INR 0.97 0.85 - 1.17 01/09/2016 [facility] PT 13.2 12.0 - 14.7 01/09/2016 [facility] PTT 33.2 22.9 - 35.8 01/09/2016 [facility] Hct 36.0 36.0 - 48.0 01/09/2016 [facility] MCV 88.5 80.0 - 98.0 01/09/2016 [facility] Hgb 11.8 12.0 - 16.0 01/09/2016 [facility] WBC 6.4 3.7 - 10.4 01/09/2016 [facility] RBC 4.06 4.20 - 5.40 01/09/2016 [facility] MPV 8.4 7.4 - 10.4 01/09/2016 [facility] Platelet 275 133 - 450 01/09/2016 [facility] MCH 29.1 27.0 - 31.0 01/09/2016 [facility] MCHC 32.8 32.0 - 36.0 01/09/2016 [facility] RDW 13.7 11.5 - 14.5 01/09/2016 [facility] Pathology Reports No Data Provided for This Section Diagnostic Reports Report Value Date Source Ext Lower Venous Doppler Bilat US EXAM: US BILATERAL LOWER EXTREMITY VENOUS DOPPLER DATE: 12/16/2019 3:25 PM CDT INDICATION: Septicemia- concern for DVT ADDITIONAL INFORMATION: None. COMPARISON: None. TECHNIQUE: Multiplanar grayscale, color Doppler, and spectral Doppler ultrasound of the bilateral lower extremity veins. FINDINGS: Right Thigh Veins: Common Femoral: Patent. Femoral (SFV): Patent. Popliteal: Patent. Proximal Greater Saphenous: Patent. Proximal Deep Femoral Veins: Patent. Right Calf Veins: Peroneal: Patent. Posterior Tibial: Patent. Left Thigh Veins: Common Femoral: Patent. Femoral (SFV): Patent. Popliteal: Patent. Proximal Greater Saphenous: Patent. Proximal Deep Femoral Veins: Patent. Left Calf Veins: Peroneal: Patent. Posterior Tibial: Patent. Other: Left popliteal fluid collection in keeping with a Weiss's cyst measures 3.9 x 2.4 x 1.0 cm. IMPRESSION: 1. No deep venous thrombosis (DVT) in t he femoropopliteal veins. 2. No DVT in the visible portions of th e calf veins. 3. Left Weiss's cyst. 12/16/2019 [facility] Chest 1view DX EXAM: XR CHEST 1 VIEW DATE: 12/16/2019 8:49 CDT INDICATION: - evaluate for pulmonary edema Additional history: History of malignant neoplasm of bladder. COMPARISON: Chest 12/13/2019 TECHNIQUE: AP chest. . FINDINGS: Lines, tubes and hardware: A right chest wall port catheter is unchanged. Lungs and pleura: Linear opacities in the lung bases are unchanged. There are 3 subcentimeter nodular opacities projecting over the right upper lung and left lower lung are noted. Minimal bilateral perihilar opacities are present, slightly more prominent since the prior exam. The costophrenic sulci are sharp without effusion. No pneumothorax is identified on this semiupright radiograph. Heart and mediastinum: The heart size is normal for technique. Bones, soft tissues: Osseous structures are unchanged. IMPRESSION: 1. Minimal bilateral perihilar opacitie s may represent pulmonary venous congestion or mild pulmonary edema. 2. Bibasilar subsegmental atelectasis. 3. Subcentimeter nodular opacities proj ecting over the right upper lung and left lower lung may represent calcified granulomas, although metastasis cannot be completely excluded, considering prior history of malignancy. Further evaluation with CT chest recommended. 12/16/2019 [facility] Abdomen AP DX EXAM: XR ABDOMEN 1 VIEW DATE: 12/15/2019 at 0835 hours INDICATION: Abdominal pain ADDITIONAL INFORMATION: None. COMPARISON: CT abdomen pelvis of 11/18/2017 at 1608 hours. TECHNIQUE: AP abdomen. FINDINGS: Lines, tubes and hardware: * Surgical clips are seen in the abdomen and pelvis. * IVC filter overlies L2-3. * EKG leads overlie the patient. Lower thorax: Unremarkable where visible. Abdomen and bowel: Normal. Bones and soft tissues: No acute abnormality. IMPRESSION: 1. No abdominal abnormalities. 2. Hardware as above. 12/15/2019 [facility] Abdomen complete US EXAM: US A BDOMEN COMPLETE DATE: 12/14/2019 7:12 CDT INDICATION: - eval for hydronephrosis as well as unclear cause of diffuse abdomen pain ADDITIONAL INFORMATION: 69-year-old female with past medical history of metastatic bladder cancer presenting with fever, oliguria, and cloudy urine x 2 days. COMPARISON: Retroperitoneal ultrasound, 10/14/2017. CT abdomen and pelvis without IV contrast, 11/18/2017. TECHNIQUE: Multiplanar grayscale and color Doppler ultrasound of the abdomen. FINDINGS: Liver: Craniocaudal length: 22.1 cm. Echogenicity: Normal. Surface: Normal. Mass (size and location): None. Main portal vein: Caliber: 1.1 cm. Flow: Hepatopetal. Bile ducts: Common bile duct diameter: 0.37 cm. Intrahepatic ducts: Normal. Gallbladder: Post cholecystectomy. Pancreas: Partially obscured. No focal lesions. Spleen: Size: 9.8 cm x 5.5 cm x 3.9 cm. Volume: 109.7 mL. Mass or focal lesion (size and location): None. Right kidney: Size: 11.8 cm x 3.9 cm x 4.6 cm. Volume: 111 mL. Cortical thickness: Normal. Hydronephrosis: None. Echogenicity: Normal. Calculi: None. Cysts/Masses: A thin-walled, anechoic, avascular cystic lesion measuring 5.2 cm x 3.7 cm x 3.7 cm is seen in the right renal interpolar region. Left kidney: Not identified. Bladder: Not identified. Abdominal aorta: The diameters of the proximal and mid aorta are 1.7 cm and 1.5 cm respectively. Inferior vena cava: The IVC is within normal size limits with an IVC filter in place. Free fluid: None. Other: None. IMPRESSION: 1. No hydronephrosis in the right kidne y. The left kidney and bladder are not identified; please correlate with patient's surgical history for bladder cancer. 2. Right interpolar renal simple cyst m easuring 5.2 cm x 3.7 cm x 3.7 cm. 3. IVC filter in place. 4. Hepatomegaly. 12/14/2019 [facility] Brain wo contrast CT EXAM: CT BRAIN WITHOUT CONTRAST DATE: 12/13/2019 at 2332 hours INDICATION: Left sided weakness x 1 day COMPARISON: None TECHNIQUE: Axial CT images of the brain were obtained. Sagittal and coronal reformats. IV contrast: None DLP: 840 mGy-cm FINDINGS: There is no edema, hemorrhage, mass lesion or other acute intracranial abnormality. The ventricles and basal cisterns are patent. Hyperostosis frontalis interna is evident bilaterally. Otherwise, the calvarium and skull base are unremarkable. There are calcifications of the bilateral carotid siphons in the right vertebral artery and basilar artery. 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 The mastoid air cells and visible paranasal sinuses are clear. The orbital globes are unremarkable. IMPRESSION: No acute intracranial abnormality UT SECTION: Neuro 12/13/2019 [facility] Chest 1view DX EXAM: XR CHEST 1 VIEW DATE: 12/13/2019 19:16 CDT INDICATION: - Undifferentiated Sepsis COMPARISON: Chest x-ray dated November 2012 TECHNIQUE: AP chest. FINDINGS: Lines, tubes and hardware: Right chest wall port catheter tip projects over the upper SVC. Lungs and pleura: Streaky bibasilar opacities are present. Calcified granuloma in the left lower lung. Mild biapical pulmonary scarring. The costophrenic sulci are sharp without effusion. No pneumothorax is identified on this semiupright radiograph. Heart and mediastinum: The heart size is normal for technique. The mediastinal contours are normal. Bones, soft tissues: No acute abnormality. IMPRESSION: 1. Streaky bibasilar opacities likely r epresent subsegmental atelectasis 12/13/2019 [facility] Bone scan 3 phase NM TRIPLE PH ASE BONE SCAN OF THE KNEES: HISTORY: Left knee pain for 3 months, left total knee arthroplasty 2016. TECHNIQUE: 26.0 mCi of technetium 99m MDP were given intravenously followed by perfusion, blood pool and delayed static imaging over the knees. FINDINGS: There is no abnormal perfusion or blood pool activity in the left knee. Photopenia in the left knee is seen consistent with the prosthesis. There is increased activity in the osseous structures surrounding the left knee prosthesis. Radiographs of the left knee on 11/11/2018 show osteoporosis surrounding the prosthesis without definite evidence of loosening or osteomyelitis. There are no other current imaging studies for comparison. IMPRESSION: Findings consistent with reactive changes around the left knee prosthesis with possible loosening, without bone scan evidence of osteomyelitis. SL [id number] 02/11/2019 [facility] Spine lumbar wo contrast MRI P atient Name: FELICITAS PASTRANA : 1950; Age: 68 years Female MR: [id number] Study: Spine lumbar wo contrast MRI 01/25/2019 5:50 PM CDT Clinical Indication: - M54.16 Radiculopathy, lumbar region. COMPARISON: CT 11/18/2017. Lumbar spine radius 11/28/2016 TECHNIQUE: Multiplanar T1, T2, STIR weighted noncontrast MRI of the lumbar spine is performed on the 1.5 Leslie magnet. FINDINGS: ALIGNMENT AND GENERAL ASSESSMENT: There is normal alignment of the lumbar spine. The bone marrow is normal for the patient's age. There is no compression fracture. The anterior and posterior paraspinal soft tissues are normal. The conus medullaris ends at the L1-L2 level. For the sake of nomenclature, five lumbar vertebrae are assumed. DISC SPACES: T12-L1: No significant disc bulge or protrusion. No spinal canal stenosis or foraminal narrowing. The facet joints are unremarkable. L1-L2: No significant disc bulge or protrusion. No spinal canal stenosis or foraminal narrowing. The facet joints are unremarkable. L2-L3: Mild facet degenerative changes. No significant disc bulge or protrusion. No spinal canal stenosis. Small bilateral foraminal disc protrusions. L3-L4: Posterior disc bulge. Moderate to severe facet degenerative changes. Severe spinal canal stenosis. Spinal canal measures 5.6 mm. Moderate bilateral foraminal narrowing. Mild facet degenerative changes. L4-L5: Severe facet degenerative changes. Question postsurgical changes. Lack of IV contrast does somewhat limit evaluation. Focal signal abnormalities present posteriorly could reflect post surgical scarring change. Mild posterior disc bulge. Moderate spinal canal stenosis. Spinal measures 7.7 mm. Moderate to severe bilateral foraminal narrowing. L5-S1: Posterior disc bulge. Moderate to severe facet degenerative changes. No spinal canal stenosis. Moderate to severe bilateral foraminal narrowing. IMPRESSION: 1. Severe spinal canal stenosis at L3-L 4. 2. Moderate spinal canal stenosis at L4 -L5. 3. Moderate to severe foraminal narrowi ng at L4-L5 and L5-S1. SL: [id number] 01/25/2019 [facility] Knee 4+ views unilateral DX Le knee 4+ views unilateral DX, 11/11/2018 14:01 CDT HISTORY: - M25.562 Pain in left knee COMPARISON: None FINDINGS: Status post left total knee arthroplasty. Hardware is intact. No perisplenic fractures. There appears to be a few small ossified bodies in the joint. Negative for joint effusion. IMPRESSION: Left total knee arthroplasty SL: [id number] 11/11/2018 [facility] Abdomen/Pelvis wo IV contrast CT EXAM: CT ABDOMEN AND PELVIS WITHOUT CONTRAST DATE: 11/18/2017 3:13 PM CDT INDICATION: - Z85.51 Personal history of malignant neoplasm of bladder ADDITIONAL INFORMATION: None. COMPARISON: January 13, 2017 TECHNIQUE: Volumetric CT acquisition of the abdomen and pelvis without the intravenous administration contrast. Axial, coronal and sagittal reconstructions. Oral contrast: Omni mix CT Radiation Dose DLP 819 mGy-cm AEC, mA/kV adjustment by patient size, and/or iterative reconstruction technique were used, per departmental dose-optimization program. FINDINGS: Lines and tubes: None. Lower thorax: Unremarkable. Evaluation of the solid organs is limited by lack of intravenous contrast. Liver and biliary tree: Unremarkable. Gallbladder: Surgically absent Pancreas: Moderately atrophic Spleen: Unremarkable. Adrenals: Unremarkable. Kidneys comment ureters, and bladder: There has been interval cystectomy with creation of a diverting ileostomy. There is mild right-sided and severe left- sided hydroureteronephrosis. A 4 cm right renal cyst is again seen. There is no nephrolithiasis. Reproductive organs: Surgically absent Gastrointestinal tract: There is mild diverticulosis. Appendix: Normal. Peritoneum and retroperitoneum: No ascites or free air. Lymph nodes: No pathologic adenopathy. Vasculature: Mild atherosclerotic calcification Bones: No acute abnormality. Soft tissues: Postsurgical changes in the anterior abdominal wall. Moderate fat- containing right lower quadrant parastomal hernia. IMPRESSION: 1. Interval cystectomy with creation of a diverting ileostomy. 2. Mild right-sided and severe left-kristin ed hydroureteronephrosis. 3. No evidence of metastatic disease in the abdomen or pelvis. 11/18/2017 [facility] Retroperitoneal limited US EXA M: Retroperitoneal limited US HISTORY: E86.9 Volume depletion, unspecified; N17.8 Other acute kidney failure; E87.2 Acidosis - E86.9 Volume depletion, unspecified; N17.8 Other acute kidney failure; E87.2 Acidosis COMPARISON: 01/13/2017 CT FINDINGS: Right kidney: Length and cortical thickness are 12.3 and 1.0 cm, respectively. No hydronephrosis, suspicious mass, or large shadowing calculus. There is a simple right renal cyst which measures 4.8 cm. Left Kidney: Length and cortical thickness are 11.7 and 1.2 cm, respectively. There is significant left hydronephrosis. In the proximal ureter, there is a soft tissue focus measuring 1.4 cm. The left ureter is dilated proximal and distal to this soft tissue focus measuring approximately 1 cm. Bladder: Absent. Vascular: Visualized portions of the IVC are patent. There is no obvious aneurysmal dilatation of the aorta. The origins of the common iliac arteries are not seen sonographically. IMPRESSION: Significant left hydronephrosis with a soft tissue density in the proximal ureter. Soft tissue is nonspecific and could represent infection, tumor or clot. The left ureter is dilated proximal and distal to this soft tissue focus. 10/14/2017 [facility] Shoulder series DX Patient Nam e: FELICITAS PASTRANA : 1950; Age: 66 years y/o Female MR: [id number] * LEFT SHOULDER, 4 views History: Left shoulder pain. Comparison is made to 12/30/2016 was reviewed. Technique: The left shoulder was evaluated in frontal projection in internal and external rotation. Transaxillary and transthoracic views were also obtained. IMPRESSION: 1. Mildly displaced fracture of the grea ter tuberosity is again noted without significant change from the prior study. 2. There are 2 small calcific densities adjacent to the glenoid, possible small avulsion fractures of the glenoid versus dystrophic degenerative calcifications. 3. The acromioclavicular joint is unrema rkable. 4. No significant degenerative changes i nvolving the glenohumeral joint. 5. No destructive lesions. 6. The previously noted surgical skin st aples overlie the left shoulder are no longer present. SL: [id number] 01/20/2017 [facility] Renal Stone CT Exam: CT scan o f the abdomen and pelvis without contrast. Reason for Exam: - R31.9 Hematuria, unspecified; N13.30 Unspecified hydronephrosis Comparison Exam: MRI lumbar spine 06/24/2016 Technique: Multiple axial images were obtained of the abdomen and pelvis. 5 mm slices were acquired without injection of intravenous contrast. Reformatted sagittal and coronal images were obtained for additional diagnostic information. Total exam DLP = 954 mGy-cm. This exam was performed according to our departmental dose-optimization program, which includes automated exposure control, adjustment of the MA and/or KV according to patient size and/or use of iterative reconstruction technique. Discussion: Visualized portions of the lung bases are unremarkable. Note that this exam is suboptimal for evaluation of the abdominal and pelvic viscera secondary to lack of intravenous contrast. Liver is unremarkable for technique. The patient is status post cholecystectomy. No biliary duct dilation. Stomach is unremarkable. Pancreas, adrenal glands, and spleen are within normal limits. Multiple lobulated masslike densities are seen within the base of the bladder (2, 122). It cannot be further evaluated without use of intravenous contrast. No calcified stones seen within the kidneys, ureters, or the bladder. However, there is severe left-sided hydroureter and hydronephrosis. Low-density structure likely representing a cyst seen within the right kidney measuring up to 3.9 cm. No dilated loops of bowel. The appendix is normal. Patient is status post hysterectomy and bilateral oophorectomy by history. No appreciable lymphadenopathy. No acute bony abnormality is appreciated. No suspicious osteoblastic or osteolytic lesions. No evidence seen for abdominal aortic aneurysm. Impression: 1. Findings highly suspicious for prima ry neoplasm involving the bladder associated with severe left-sided hydronephrosis and hydroureter. Cystoscopy should be considered. 01/13/2017 [facility] Humerus 2 views DX Patient Nam e: FELICITAS PASTRANA : 1950; Age: 66 years Female MR: [id number] Study: Humerus 2 views DX 12/30/2016 3:30 PM CDT CLINICAL INDICATION: M79.602 Pain in left arm - M79.602 Pain in left arm COMPARISON: None FINDINGS: Views and laterality: Left humerus 2 views Comminuted and mildly displaced fracture through the proximal left humerus. The glenohumeral and acromioclavicular joints are intact. The visualized lung is clear. Surgical mel overlie the left shoulder. IMPRESSION: Comminuted and mildly displaced fracture through the proximal left humerus. Surgical mel overlie the left shoulder. Advise correlation with prior operative history. SL: [id number] 12/30/2016 [facility] lumbar 2 or 3 views DX S pine lumbar 2 or 3 views DX COMPARISON: None CLINICAL HISTORY: Pain Post Trauma - Trauma; FINDINGS: 3 views of the lumbar spine are submitted for review. 5 nonrib-bearing lumbar-type vertebra ar e visualized. Visualized bones demonstrate normal radiodensity. There is no evidence for fracture or subluxation. There is mild anterior spondylosis most pronounced at L2-L3 level. Facet arthrosis is noted in the mid to lower lumbar spine. The SI joints demonstrate normal morphology. IMPRESSION: Degenerative changes in the lumbar spine, as discussed above. No evidence for fracture or subluxation. SL: [id number] 11/28/2016 [facility] Spine lumbar wo contrast MRI E XAM: MRI LUMBAR SPINE WITHOUT CONTRAST DATE: 06/24/2016 8:08 AM [employer] . TECHNIQUE: Multiplanar, multisequence MRI lumbar spine without IV contrast COMPARISON: 07/13/2015 lumbar magnetic resonance imaging FINDINGS: The lumbar vertebral bodies have normal height, shape, and alignment. There is no worrisome marrow signal abnormality. The conus terminates normally at L1-L2. The paravertebral soft tissues are within normal limits. Postoperative status. There is a 3.4 cm right renal cyst. There is fluid signal in the right renal pelvis measuring up to 2.5 cm. The visualized portion of the left ureter is dilated. Disc spaces, spinal canal, and neural foramina: T12-L1. Intervertebral disc height and signal are maintained. Posterior elements are normal. There is no stenosis. L1-L2. Intervertebral disc height and signal are maintained. Posterior elements are normal. There is no stenosis. L2-L3. Intervertebral discs is dehydrated with small diffuse bulge. Facets are unremarkable. Central canal measures 11 mm. Lateral recesses are patent. Neural foramina are patent. L3-L4. Loss in vertebral disc signal. There is a small diffuse disc bulge. There is bilateral facet hypertrophy with ligamentous redundancy. Central canal measures 8 mm with slight crowding of the cauda equina. Lateral recesses are narrowed with no compression of the L4 nerve roots. There is mild stenosis of the neural foramina with no compression of the exiting L3 nerve roots. L4-L5. Intervertebral disc is dehydrated with diffuse disc bulge. Patient is status post bilateral laminotomies. Facets are enlarged bilaterally. Central canal measures 6 mm. Lateral recesses are patent. There is severe left and moderate to severe right neural foramen narrowing. L5-S1. Intervertebral disc height and signal are maintained. There is moderate diffuse disc bulge. There is bilateral facet hypertrophy with synovial inflammation. Patient is undergone bilateral laminectomies. Central canal measures 10 mm. There is severe right and moderate to severe left neural foramen stenosis. IMPRESSION: 1. Interval L4-L5 and L5-S1 postoperativ e changes with improvement in the capacity of the central canal relative to the preoperative study 2. Persistent, substantial bilateral L4- L5 and L5-S1 neural foramen narrowings 3.Left-sided hydronephrosis and ureteral prominence. This finding is incompletely evaluated by this study and may be further assessed with CT abdomen and pelvis 06/24/2016 [facility] Sp[facility] lumbar series DX Five-vi ew lumbar spine. INDICATION: 65-year-old female with chronic low back pain status post lumbar surgery. Rule out right L5-S1 foraminal stenosis. Backache. COMPARISON: None. FINDINGS: Lumbar vertebral bodies are normal in height and alignment on lateral view. The disc spaces are preserved in height. Mild anterior and lateral degenerative spurring seen throughout. Facet degenerative changes are seen on the left at L5-S1. No pars defects identified. IMPRESSION: Mild/moderate lumbar spondylosis. SL: [id number] 05/29/2016 [facility] Brain w/wo contrast MRI COMPAR SANJEEV: No prior exam. COMMENTS: No intracranial hemorrhage, ventriculomegaly, midline shift, or acute ischemia is seen. Flow voids are seen within the vessels at the skull base. There is no diffusion restriction. The brainstem appears unremarkable. The cerebellum appears unremarkable. The sella appears unremarkable. Several scattered supratentorial white matter increased FLAIR signal are seen compatible with mild chronic microvascular ischemia. No pathologic enhancement is demonstrated. Right maxillary sinus mild polypoid mucosal disease is seen. There is approximately 4.7 mm inferior ectopia of the bilateral cerebellar tonsils below the foramen magnum. IMPRESSION: 1. No acute hemorrhage, acute ischemia, or mass. 2. Mild chronic microvascular ischemia. 3. Inferior ectopia of the bilateral cer ebellar tonsils. 05/26/2016 [facility] Hip 2/3 views uni DX Right Hip x-ray 3 views History: 65-year-old female with right hip pain. Comparison: None. Findings: The hip joint space is mild narrowed. The acetabulum has mild sclerotic changes at lateral margin there are no osteophytes. The contours of the femoral head are normal. No soft tissue calcification. No fracture or subluxation seen. Impression: Mild right hip osteo arthritic changes. 05/19/2016 [facility] Spine Sacrum wo contrast MRI E XAM: SPINE SACRUM WO CONTRAST MRI DATE: Jul 13, 2015 07:11:00 AM . CLINICAL INDICATION: low-back pain with radiculopathy. TECHNIQUE: Multiplanar, multisequence MRI sacrum performed without IV contrast COMPARISON: Lumbar spine MRI from the same date FINDINGS: The lower lumbar vertebral bodies and sacrum abnormal marrow signals. There is no compression deformity or suggestion of insufficiency fracture. There is facet arthropathy asymmetric to the right at L5-S1 with synovial inflammatory changes in the adjacent paraspinal muscle inflammatory change. On the right at S1 and S2, there is a 13 x 10 mm synovial cyst posterior to the right zygapophyseal articulation. Is a similar, but smaller lesion in the left measuring up to 6 mm. IMPRESSION: 1. No sacral fracture or marrow signal a bnormality otherwise 2. Right L5-S1 and S1- S2 facet arthropa thy with synovial inflammation including bilateral S1- S2 synovial cysts posterior to the articulations. 07/13/2015 [facility] [place] Spine lumbar wo contrast MRI E XAM: MRI LUMBAR SPINE WITHOUT CONTRAST DATE: Jul 13, 2015 07:11:00 AM . CLINICAL INDICATION: low-back pain, spondylosis without myelopathy. TECHNIQUE: Multiplanar, multisequence MRI lumbar spine without IV contrast COMPARISON: Unavailable FINDINGS: The lumbar vertebral bodies have normal height, shape, and alignment. There is no worrisome marrow signal abnormality. The conus terminates normally at L1-L2. The paravertebral soft tissues are within normal limits. Bosniak one 3.1 cm right renal cyst is noted. Disc spaces, spinal canal, and neural foramina: T12-L1. Intervertebral disc height and signal are maintained. Posterior elements are normal. There is no stenosis. L1-L2. Intervertebral disc height and signal are maintained. Posterior elements are normal. There is no stenosis. L2-L3. Intervertebral disc height and signal are maintained. Posterior elements are normal. There is no stenosis. L3-L4. Mild loss of intervertebral disc signal without significant height loss. There is a small diffuse disc bulge slightly asymmetric to the left extraforaminal zone. Facets are minimally enlarged without significant ligamentous redundancy. Central canal measures 9 mm with mild effacement of the ventral CSF space, but no cauda equina crowding. Lateral recesses are narrowed with descending L4 nerve roots contacted by the disc and facets. Neural foramina are very minimally narrowed without L3 nerve root mass effect L4-L5. Intervertebral disc is dehydrated without significant height loss. There is moderate diffuse disc bulge. There is severe facet enlargement with ligamentous redundancy. Central canal is narrowed to 6 mm with near-complete effacement CSF spaces and crowding of the cauda equina, but no sunitha compression. Lateral recesses are completely effaced with nonvisualization of the descending L5 nerve roots. There is severe stenosis of the left neural foramen with L4 nerve root compressed by disc and facets. There is moderate stenosis of the right neural foramen with facet osteophytes encroaching upon, but not compressing the L4 nerve root. L5-S1. Intervertebral disc height and signal are maintained. Facets are severely enlarged asymmetric to the right with ligamentous redundancy. Central canal measures 8 mm without significant cauda equina crowding. There is right greater left lateral recess stenosis with dorsal displacement and presumed compression of the right S1 nerve root, which is not clearly identified. There is moderate to severe stenosis of the right neural foramen with right L5 nerve root contacted and minimally remodeled by disc and facet osteophyte. IMPRESSION: 1. Moderate to severe L4-L5 central eloy l stenosis with cauda equina crowding, but no sunitha compression. There is associated severe bilateral lateral recess stenosis. 2. Moderate to severe/severe neural fora men stenoses on the left at L4-L5 and on the right L5-S1. 3. Please see additional comments above 07/13/2015 [facility] Consultation Notes No Data Provided for This Section Discharge Summaries No Data Provided for This Section History and Physicals No Data Provided for This Section Vital Signs Vital Sign Value Date Comments Source Temperature Oral (F) 98 F 12/19/2019 [facility] Heart Rate 63 12/19/2019 [facility] Respitory Rate 18 12/19/2019 [facility] Systolic (mm Hg) 163 12/19/2019 [facility] Diastolic (mm Hg) 65 12/19/2019 [facility] Temperature Oral (F) 97.8 F 12/19/2019 [facility] Heart Rate 77 12/19/2019 [facility] Respitory Rate 18 12/19/2019 [facility] Systolic (mm Hg) 145 12/19/2019 [facility] Diastolic (mm Hg) 73 12/19/2019 [facility] Temperature Oral (F) 98.2 F 12/19/2019 [facility] Heart Rate 64 12/19/2019 [facility] Respitory Rate 18 12/19/2019 [facility] Systolic (mm Hg) 135 12/19/2019 [facility] Diastolic (mm Hg) 60 12/19/2019 [facility] Height 160.02 cm 12/16/2019 [facility] Weight 102.9 12/16/2019 [facility] Height 160.02 cm 12/14/2019 [facility] Weight 102.9 12/14/2019 [facility] BMI Calculated 40.19 12/14/2019 [facility] Height 160.02 cm 12/14/2019 [facility] Weight 102.6 12/14/2019 [facility] BMI Calculated 40.07 12/14/2019 [facility] BMI Calculated 30.73 12/13/2019 [facility] Weight 99.545 01/07/2017 [facility] BMI Calculated 38.88 01/07/2017 [facility] Systolic (mm Hg) 102 01/07/2017 [facility] Diastolic (mm Hg) 59 01/07/2017 [facility] Heart Rate 100 01/07/2017 [facility] Height 160.02 cm 01/07/2017 [facility] Respitory Rate 22 01/07/2017 [facility] Temperature Oral (F) 98.0 F 11/28/2016 [facility] Respitory Rate 16 11/28/2016 [facility] Heart Rate 76 11/28/2016 [facility] Systolic (mm Hg) 112 11/28/2016 [facility] Diastolic (mm Hg) 78 11/28/2016 [facility] Respitory Rate 16 11/28/2016 [facility] Heart Rate 84 11/28/2016 [facility] Temperature Oral (F) 98.1 F 11/28/2016 [facility] Systolic (mm Hg) 110 11/28/2016 [facility] Diastolic (mm Hg) 71 11/28/2016 [facility] Height 157.48 cm 11/28/2016 [facility] BMI Calculated 43.99 11/28/2016 [facility] Weight 109.091 11/28/2016 [facility] Height 162.56 cm 05/29/2016 [facility] Weight 109.091 05/29/2016 [facility] BMI Calculated 41.28 05/29/2016 [facility] Respitory Rate 22 05/29/2016 [facility] Heart Rate 96 05/29/2016 [facility] Systolic (mm Hg) 108 05/29/2016 [facility] Diastolic (mm Hg) 72 05/29/2016 [facility] BMI Calculated 42.6 05/13/2016 [facility] Weight 109.091 05/13/2016 [facility] Systolic (mm Hg) 99 05/13/2016 [facility] Diastolic (mm Hg) 62 05/13/2016 [facility] Height 160.02 cm 05/13/2016 [facility] Respitory Rate 20 05/13/2016 [facility] Temperature Oral (F) 98 F 05/13/2016 [facility] Heart Rate 105 05/13/2016 [facility] Temperature Oral (F) 99.3 F 01/18/2016 [facility] Heart Rate 97 01/18/2016 [facility] Respitory Rate 17 01/18/2016 [facility] Systolic (mm Hg) 108 01/18/2016 [facility] Diastolic (mm Hg) 71 01/18/2016 [facility] Temperature Oral (F) 98.3 F 01/18/2016 [facility] Heart Rate 89 01/18/2016 [facility] Respitory Rate 16 01/18/2016 [facility] Systolic (mm Hg) 121 01/18/2016 [facility] Diastolic (mm Hg) 74 01/18/2016 [facility] Systolic (mm Hg) 117 01/18/2016 [facility] Diastolic (mm Hg) 77 01/18/2016 [facility] Respitory Rate 16 01/18/2016 [facility] Heart Rate 94 01/18/2016 [facility] Temperature Oral (F) 98.9 F 01/18/2016 [facility] Height 160.02 cm 01/14/2016 [facility] Weight 110.625 01/14/2016 [facility] BMI Calculated 43.2 01/14/2016 [facility] Height 162.56 cm 01/09/2016 [facility] BMI Calculated 39.56 01/09/2016 [facility] Weight 104.545 01/09/2016 [facility] Encounters Location Location Details Encounter Type Encounter Number Reason For Visit Attending Provider ADM Date DC Date Status Source [facility] [place] [facility] [id number] 00 Kenneth Ferreira 12/06/2014 12/07/2014 [facility] [place] [facility] [place] [facility] [id number] 01 Kenneth Ferreira 07/13/2015 07/14/2015 [facility] [place] Outpatient [id number] [facility] 12/18/2015 Active [facility] Outpatient [id number] [facility] 01/14/2016 Active [facility] Inpatient [id number] Theodore Max 01/14/2016 01/18/2016 [facility] Outpatient [id number] THEODORE MAX 01/29/2016 Active [facility] Outpatient [id number] SHABNAM ESTILL 02/01/2016 Active [facility] Outpatient [id number] [facility] 02/29/2016 Active [facility] Outpatient [id number] SHABNAM ESTILL 02/29/2016 Active [facility] Outpatient [id number] SHABNAM ESTILL 04/11/2016 Active [facility] Outpatient [id number] Argyrios Stampas 05/13/2016 05/14/2016 [facility] [place] [facility] [id number] 03 Argyrios Stampas 05/19/2016 05/20/2016 [facility] [place] [facility] [place] [facility] [id number] 02 Kenneth Ferreira 05/26/2016 05/27/2016 [facility] [place] [facility] Outpatient [id number] Michael Cheney-Bustamante 05/29/2016 05/30/2016 [facility] [place] [facility] [id number] 04 Michael Cheney-Bustamante 06/24/2016 06/25/2016 [facility] [place] [facility] Emergency [id number] Joey Espino 11/28/2016 11/28/2016 [facility] [place] [facility] [id number] Jose Alfredo Ríos 12/30/2016 12/31/2016 [facility] [place] [facility] Outpatient [id number] Michael Cheney-Bustamante 01/07/2017 01/08/2017 [facility] [place] [facility] [id number] 07 Kenneth Ferreira 01/13/2017 01/14/2017 [facility] [place] [facility] [place] [facility] [id number] 08 Jose Alfredo Michoacano 01/20/2017 01/21/2017 [facility] [place] [facility] [place] [facility] [id number] 10 Fidel Perry 10/14/2017 10/15/2017 [facility] [place] [facility] [place] [facility] [id number] 11 Tyler Ross 11/18/2017 11/19/2017 [facility] [place] [facility] [place] [facility] [id number] 12 Jose Alfredo Sidhue 11/11/2018 11/12/2018 [facility] Outpatient [id number] Jose Alfreod Michoacano 01/25/2019 01/26/2019 [facility] Outpatient [id number] Jose Alfredo Michoacano 02/11/2019 02/12/2019 [facility] Inpatient [id number] [place] Bernabe 12/13/2019 12/19/2019 [facility] Procedures Procedure Code Date Perfomer Comments Source Arthroplasty [id number] [facility], [facility] [place],[facility] [place] Cholecystectomy [id number] [facility] [place],[facility] Creation of ileal conduit [id number] [facility] Cystectomy [id number] [facility] Hernia repair [id number] [facility], [facility] [place],[facility] [place],[facility] Hysterectomy [id number] [facility], [facility] [place],[facility] Laminectomy<sup>1</sup> [id number] L4-L5, L5- S1 [facility] Left nephrectomy [id number] [facility] Assessment and Plan Assessment and Plan Date Source Extracted from:Title: Progress Note Author: Driss Dalton MD Date: 12/19/19 69 yo F w/ PMH urothelial carcinoma s/p cystectomy with ileal conduit, hydronephrosis s/p L nephrectomy, pulmonary mets currently under treatment, recurrent UTI (pseudomonas, MRSA, ESBL Klebsiella) admitted for septic shock 2/2 UTI. 1.Septic shock(R65.21) 2.Acute UTI(N39.0) - H/O ESBL Klebsiella, pseudomonas rodriges-sensitive, MRSA UTIs in 2018 ([facility] records) - Urine culture: MRSA / Sensitivies: pending - s/p Meropenem 3 day - Vancomycin 1500 qd (12/12-12/17) - Urology: Renal U/S: no hydronephrosis: follow up o/p 3.AUDREY (acute kidney injury)(N17.9) -Cr> 1.51 -PO Intake, 4.Urothelial cancer(C68.9) -pulm mets -Keytruda monthly -Continue home montelukast and albuterol prn SOB DVT: heparin subq Diet: Renal Diet PT/OT Dispo: pending clinical improvement Driss Dalton MD PGY-1 discussed with PGY-3 and attending, agreed to current plan [id number] Addendum by Jules Herring MD on 12/19/2019 15:27 CDT Family Medicine Staff Progress Note: I was present and examined this patient with Court and Kamala, and I agree with the history and examination as discussed and reflected in theprogress noteby dated 12/19/2019. I have personally reviewed the past medical records, current laboratory findings, diagnostic imaging and interpretation. I have discussed the assessment and plan with the team. Ms. Pastrana is a 69 yr. old femalew/ PMHx ofurothelial carcinoma s/p cystectomy with ileal conduit, hydronephrosis s/p L nephrectomy, pulmonary mets currently under treatment, recurrent MDR UTI (pseudomonas, MRSA, ESBL Klebsiella) admitted for septic shock 2/2 UTI. She was initially admitted to ICU for pressor support, was started on antibiotics, anddowngraded to the floor for further management. Upon my vist this morning, patient is clinically improving, VS stable. Today's plan is: Continue on Meropenem and Vancomycin.Per Urology team, no concern for retention or obstruction.Pain control with oxycodone per home meds. Urology will f/u patient as outpatient. Okay to discharge home today with f/u with Urology as outpatient next week. Extracted from:Title: [facility] Pulmonary and Critical Care Teaching Staff Attestation Author: Ant Kidd MD Date: 12/14/19 TEACHING PHYSICIAN NOTE I was present for the akhtar points of the _Dr. Andrews _ history and physical examination of the patient on the date of _12/13_. I reviewed past medical records, information, labs and imaging and I concur with residents/fellows note and agree with the findings and plan as documented in the chart except stated below otherwise. I discussed the case with _Dr. Andrews_ and agree with the diagnosis of: - Septic shock - Urinary tract infection (history of ES BL+MRSA) - AUDREY on CKD (baseline 1.9) - Encephalopathy likely from sepsis - DM - Hyponatremia likely hypovolemia - Chronic DVT - Cancer Pain - Hx: metastatic urothelial carcinoma wi th ileal conduit with metastasis, left nephrectomy, laminectomy Plan: - covid negative, CXR not suggestive and no pulm symptoms. Ultarsound of right kidney no hydro, s/p cholecystectomy - lactate normal. 2 liters in. Additiona l 500 LR--> wean off pressors - Continue VAnc + Merem 12/13: Day 1. pen ding cultures - ICU quality > Head elevated 30 degrees > DVT prophylaxis: heparin drip > Nutrition/glucose control: start diet, Glucose> 180 (Sliding scale) > Line and tubes: Lines, Tubes, and Drains: 12/14/2019 05:15 Central Lines: Femoral, left Non-tunneled (most common) Triple > Sultana catheter: urostomy > Sedation: none > Date of intubation: na > Restraints: na I saw, evaluated, and participated in the care of the patient on the date of this note. I have extensively reviewed the patient's available history, information, labs and imaging. The patient's condition has high probability for clinically significant deterioration and requires the highest level of physician preparedness to intervene urgently and thus requires ICU care. I personally spent _30minutes, excluding procedures. Extracted from:Title: Stroke Consultation Brief Note Author: Nick Chery MD Date: 12/13/19 Stroke Consultation Brief Note Patient: FELICITAS PASTRANA Date/time of arrival to [facility]: 12/13/2019 18:41 Reason for consult: LUE weakness Requesting Physician/Service: Alex Bai MD Assessment: FELICITAS PASTRANA is a 69 Years Female with PMH of bladder cancer s/p surgery, ostomy, lung mets who presented after 2 days of fever, oligouria, and cloudy urine. She was lethargic the day of her admission with reported decreased volume of speech and difficulty eating/confusion which resolved in a few hours and she was back to baseline per the daughter when the patient arrived to the ED. ED resident reported LUE/LLE drift, however, this is baseline per the daughter due to prior L shoulder and L knee surgeries. Her transient symptoms of confusion and difficulty talking were likely due to her current infectious and metabolic symptoms, similar to a prior such episode in the setting of dehydration as reported by the daughter. We reviewed the CT Brain and did not see anything concerning and her exam dose not show reliable focal neurological deficits. Thus we would not recommend any further work up from a stroke standpoint. Thank you for the consultation. Case discussed with stroke fellow Dr Kyle. We will now sign off. Nick Chery MD [facility] | [facility] Adult Neurology PGY-2 Neurology Team 12/19/2019 [facility] Extracted from:Title: Clinical Document Author: Hima Gan MD Date: [...] of network. PHYSICAL EXAMINATION: Vitals and Temp: Vitals Tmp(F) Pulse BP RR SpO2 FIO2 01/16 12:00 98.2 87 113/72 1 6 99 --- 01/16 08:00 98.2 83 121/75 1 6 99 --- 01/16 04:17 98.8 93 128/77 - - 99 --- 01/15 23:42 98.4 84 113/69 - - 98 --- 01/15 19:46 99.0 86 131/72 - - 99 --- 24 Hr Tmax: 99.0F (37.22c) at 01/15 19:4 6 Vital Signs are the last 5 in the [...] DATA: Labs (Last four charted values) WBC 6.4 (JAN 08) Hgb L 11.8 (JAN 08) Hct 36.0 (JAN 08) Plt 275 (JAN 08) Na 139 (JAN 08) K 4.6 (JAN 08) CO2 30 (JAN 08) Cl 102 (JAN 08) Cr 1.24 (JAN 08) BUN 22 (JAN 08) Glucose Random H 193 (JAN 08) Ca 9.3 (JAN 08) PT 13.2 (JAN 08) INR 0.97 (JAN 08) PTT 33.2 (JAN 08) IMAGING DIAGNOSTIC STUDIES: No new imaging. [...] Please contact me with any other concerns. 01/18/2016 [facility] Plan of Care No Data Provided for This Section Social History Social History Date Source Social History TypeResponse Substance Abuse Use: None. Alcohol Never Smoking Status Never smoker; Type: Cigarettes; Ready to change: No; Concerns about tobacco use in household: No; Exposure to Tobacco Smoke None; Cigarette Smoking Last 365 Days No; Reg Smoking Cessation Counseling No entered on: 01/07/17 01/09/2016 [facility] Social History TypeResponse Substance Abuse Use: None. Alcohol Never Smoking Status Never smoker; Type: Cigarettes; Ready to change: No; Concerns about tobacco use in household: No; Exposure to Tobacco Smoke None; Cigarette Smoking Last 365 Days No; Reg Smoking Cessation Counseling No entered on: 01/07/17 01/09/2016 [facility] [place] Social History TypeResponse Substance Abuse Use: None. Alcohol Never Smoking Status Never smoker; Type: Cigarettes; Ready to change: No; Concerns about tobacco use in household: No; Exposure to Tobacco Smoke None; Cigarette Smoking Last 365 Days No; Reg Smoking Cessation Counseling No 01/09/2016 [facility] Social History TypeResponse Substance Abuse Use: None. Alcohol Never Smoking Status Never smoker; Type: Cigarettes; Ready to change: No; Concerns about tobacco use in household: No; Exposure to Tobacco Smoke None; Cigarette Smoking Last 365 Days No; Reg Smoking Cessation Counseling No entered on: 01/07/17 01/09/2016 [facility] Social History TypeResponse Alcohol Never Substance Abuse Use: None. Smoking Status Never smoker; Type: Cigarettes; Ready to change: No; Concerns about tobacco use in household: No; Exposure to Tobacco Smoke None; Cigarette Smoking Last 365 Days No; Reg Smoking Cessation Counseling No entered on: 12/13/19 01/09/2016 [facility] Family History No Data Provided for This Section Advance Directives No Data Provided for This Section Functional Status No Data Provided for This Section
--- OUTSIDE RECORDS SUMMARY | 2020-01-03 02:52 | XMS REPORT | Summary of Care ---
Author Organization Unknown Address Unknown Phone Unavailable Encounter HQ Encntr_aliwillam(FIN) [id number] Date(s): 12/06/14 - 12/06/14 [facility] Outpatient Imaging - [address] [place] Maur[place] [id number] [phone] Discharge Disposition: Home Physician Attending: Kenneth Ferreira MD Vital Signs No data available for this section Problem List No data available for this section Allergies, Adverse Reactions, Alerts Substance Reaction Severity Status NKDA Active Medications No data available for this section Results No data available for this section Immunizations Vaccine Date Refusal Reason pneumococcal 23-valent vaccine 12/15/05 Procedures No data available for this section Social History No data available for this section Assessment and Plan No data available for this section
--- OUTSIDE RECORDS SUMMARY | 2020-01-03 02:52 | XMS REPORT | Summary of Care ---
Author Author [facility] Organization [facility] Address Unknown Phone Unavailable Encounter KENNEDI Anton(OLIVA) [id number] Date(s): 11/28/16 - 11/28/16 [facility] [address] [place] [address]- Discharge Diagnosis: Acute bilateral low back pain Discharge Disposition: Home or Self Care Attending Physician: Joey Espino MD Vital Signs Most recent to 1 2 oldest [Reference Range]: Height 157.48 cm (11/28/16 1:01 PM) Temperature Oral 98.0 DegF 98.1 DegF [96.4-99.1 DegF] (11/28/16 4:07 PM) (11/28/16 1:01 PM) Blood Pressure 112/78 mmHg 110/71 mmHg [90-140/60-90 mmHg] (11/28/16 4:07 PM) (11/28/16 1:01 PM) Respiratory Rate 16 BRMIN 16 BRMIN [14-20 BRMIN] (11/28/16 4:07 PM) (11/28/16 1:01 PM) Peripheral Pulse 76 bpm 84 bpm Rate [60-100 bpm] (11/28/16 4:07 PM) (11/28/16 1:01 PM) Weight 109.091 kg (11/28/16 1:01 PM) Body Mass Index 43.99 m2 (11/28/16 1:01 PM) Problem List Condition Effective Dates Status Health Status Informan t Acid Active reflux(Confirmed) Anxiety(Confirmed) Active Diabetes Active mellitus(Confirmed) Acute lumbar Active radiculopathy(Confir med) Morbid Active obesity(Confirmed) Spasticity(Confirmed Resolved ) Allergies, Adverse Reactions, Alerts Substance Reaction Severity Status NKDA Active Medications lidocaine topical patch (5% film) 1 patch, TOP, Daily, # 14 patch, 0 Refill(s), Pharmacy: [facility]/pharmacy #[id number] Start Date: 11/28/16 Stop Date: 12/12/16 Status: Ordered Motrin 600 mg, 3 tab, Route: PO, Drug form: TAB, ONCE, Dosing Weight 109.091, kg, Prior ity: STAT, Start date: 11/28/16 13:11:00 CDT, Stop date: 11/28/16 13:11:00 CDT Notes: (Same as: Advil) Give with food. Start Date: 11/28/16 Stop Date: 11/28/16 Status: Completed predniSONE 20 mg oral tablet 60 mg = 3 tab, PO, Daily, Take 3 tablets for 60 mg dose, X 3 day, # 9 tab, 0 Ref ill(s), Pharmacy: [facility]/pharmacy #[id number] Start Date: 11/28/16 Stop Date: 12/01/16 Status: Ordered Robaxin 1,000 mg, 2 tab, Route: PO, Drug form: TAB, ONCE, Dosing Weight 109.091, kg, Erendira ority: STAT, Start date: 11/28/16 14:40:00 CDT, Stop date: 11/28/16 14:40:00 CDT Notes: (Same as:Robaxin) Start Date: 11/28/16 Stop Date: 11/28/16 Status: Completed Robaxin-750 oral tablet 750 mg = 1 tab, PO, Q6H, PRN Spasms, X 7 day, # 28 tab, 0 Refill(s), Pharmacy: [facility]/pharmacy #[id number] Start Date: 11/28/16 Stop Date: 12/05/16 Status: Ordered Results URINE AND STOOL Most recent to 1 oldest [Reference Range]: UA Turbidity [Clear] Clear (11/28/16 3:09 PM) UA Color Ltyellow *NA* (11/28/16 3:09 PM) UA pH [5.0-8.0] 5.0 (11/28/16 3:09 PM) UA Spec Grav 1.005 [<=1.030] (11/28/16 3:09 PM) UA Glucose [Negative Negative mg/dL mg/dL] *NA* (11/28/16 3:09 PM) UA Blood [Negative] Small *ABN* (11/28/16 3:09 PM) UA Ketones [Negative Negative mg/dL mg/dL] *NA* (11/28/16 3:09 PM) UA Protein [Negative Negative mg/dL mg/dL] (11/28/16 3:09 PM) UA Urobilinogen <=1.0 mg/dL [0.1-1.0 mg/dL] *NA* (11/28/16 3:09 PM) UA Bili [Negative] Negative *NA* (11/28/16 3:09 PM) UA Leuk Est Negative [Negative] (11/28/16 3:09 PM) UA Nitrite Negative [Negative] (11/28/16 3:09 PM) UA WBC [0-5 /HPF] 7 /HPF *HI* (11/28/16 3:09 PM) UA RBC [0-2 /HPF] 4 /HPF *HI* (11/28/16 3:09 PM) UA Bacteria [None Occasional /HPF Seen /HPF] *NA* (11/28/16 3:09 PM) UA Sq Epi [Few /LPF] Occasional /LPF *NA* (11/28/16 3:09 PM) UA Hyal Cast [0-2 1 /LPF /LPF] (11/28/16 3:09 PM) Immunizations Given and Recorded Vaccine Date [...]
--- OUTSIDE RECORDS SUMMARY | 2020-01-03 02:52 | XMS REPORT | Summary of Care ---
Author Author [facility] Outpatient Imaging - [facility] Organization [facility] Outpatient Imaging - [facility] Address Unknown Phone Unavailable Encounter HQ Encntr_alias(FIN) [id number] Date(s): 07/13/15 - 07/13/15 [facility] Outpatient Imaging - [place] [address] [place] [id number] [phone] Discharge Disposition: Home Attending Physician: Kenneth Ferreira MD Vital Signs No data [...]
--- OUTSIDE RECORDS SUMMARY | 2020-01-03 02:52 | XMS REPORT | Summary of Care ---
Author Author [facility] Outpatient Imaging - [facility] Organization [facility] Outpatient Imaging - [facility] Address Unknown Phone Unavailable Encounter HQ Desean(FIN) [id number] Date(s): 05/26/16 - 05/26/16 [facility] Imaging - [place] [address] [place] [phone] Discharge Disposition: Home or Self Care Attending Physician: Kenneth Ferreira MD Vital Signs [...]
--- OUTSIDE RECORDS SUMMARY | 2020-01-03 02:52 | XMS REPORT | Summary of Care ---
Author Author [facility] Address Unknown Phone Unavailable Encounter KENNEDI Anton(OLIVA) [id number] Date(s): 05/13/16 - 05/13/16 [place] [place], [place] [address] Discharge Disposition: Home or Self Care Attending Physician: Addy Humphries MD Referring Physician: Addy Humphries MD Vital Signs Most recent to 1 oldest [Reference Range]: Height 160.02 cm (05/13/16 2:47 PM) Temperature Oral 98 DegF [96.4-99.1 DegF] (05/13/16 2:47 PM) Blood Pressure 99/62 mmHg [90-140/60-90 mmHg] (05/13/16 2:47 PM) Respiratory Rate 20 BRMIN [14-20 BRMIN] (05/13/16 2:47 PM) Peripheral Pulse 105 bpm Rate [60-100 bpm] *HI* (05/13/16 2:47 PM) Weight 109.091 kg (05/13/16 2:47 PM) Body Mass Index 42.6 m2 (05/13/16 2:47 PM) Problem List Condition Effective Dates Status Health Status Informan t Acid Active reflux(Confirmed) Anxiety(Confirmed) Active Diabetes Active mellitus(Confirmed) Acute lumbar Active radiculopathy(Confir med) Morbid Active obesity(Confirmed) Spasticity(Confirmed Resolved ) Allergies, Adverse Reactions, Alerts Substance Reaction Severity Status NKDA Active Medications No Known Medications Results No data available for this section [...]
--- OUTSIDE RECORDS SUMMARY | 2020-01-03 02:52 | XMS REPORT | Summary of Care ---
Author Author [facility] Outpatient Imaging - [facility] Organization [facility] Outpatient Imaging - [facility] Address Unknown Phone Unavailable Encounter HQ Desean(FIN) [id number] Date(s): 06/24/16 - 06/24/16 [facility] Outpatient Imaging - [place] [address] [place] [phone] Discharge Disposition: Home or Self Care Attending Physician: Michael Hennessy MD Vital Signs No data available for [...]
--- OUTSIDE RECORDS SUMMARY | 2020-01-03 02:52 | XMS REPORT | Summary of Care ---
Author Author [facility] ospital Organization [facility] Address Unknown Phone Unavailable Encounter KENNEDI Anton(OLIVA) [id number] Date(s): 02/11/19 - 02/11/19 [facility] [address] [place] [address]- [phone] Discharge Disposition: Home or Self Care Attending Physician: Jose Alfredo Ríos MD Referring Physician: Jose Alfredo Ríos MD Vital Signs No data available for this section Problem List Condition Effective Dates Status Health Status Informan t Acid Active reflux(Confirmed) Anxiety(Confirmed) Active Diabetes Active mellitus(Confirmed) Acute lumbar Active radiculopathy(Confir med) Morbid Active obesity(Confirmed) Spasticity(Confirmed Resolved ) Allergies, Adverse Reactions, Alerts No Known Medication Allergies Medications No data available for this section Results No data available for this section Immunizations Given and Recorded Vaccine Date Status Refusal Reason pneumococcal 23-valent vaccine 12/15/05 Given Procedures Procedure Date Related Diagnosis Body Site Status Arthroplasty Completed Cholecystectomy Completed Hernia repair Completed Hysterectomy Completed Social History Social History Type Response Substance Abuse Use: None. Alcohol Never Smoking Status Never smoker; Type: Cigaret ela; Ready to change: No; Concerns about tobacco use in household: No; Exposure to Tobac co Smoke None; Cigarette Smoking Last 365 Days No; Reg Smoking Cessation Counseling No entered on: 01/07/17 Assessment and Plan No data available for this section
--- OUTSIDE RECORDS SUMMARY | 2020-01-03 02:52 | XMS REPORT | Summary of Care ---
Author Author [facility] Outpatient Imaging - [facility] Organization [facility] Outpatient Imaging - [facility] Address Unknown Phone Unavailable Encounter KENNEDI Anton(FIN) [id number] Date(s): 01/13/17 - 01/13/17 [facility] Outpatient Imaging - [place] [address] [place] [phone] Discharge Disposition: Home or Self Care Attending Physician: Kenneht Ferreira MD Vital Signs No data available [...]
--- OUTSIDE RECORDS SUMMARY | 2020-01-03 02:52 | XMS REPORT | Summary of Care ---
Author Author [facility] Outpatient Imaging [facility] Organization [facility] Outpatient Imaging [facility] Address Unknown Phone Unavailable Encounter KENNEDI Anton(OLIVA) [id number] Date(s): 01/20/17 - 01/20/17 [facility] Outpatient Imaging [place] [address] 46- [phone] Discharge Disposition: Home or Self Care Attending [...]
--- OUTSIDE RECORDS SUMMARY | 2020-01-03 02:52 | XMS REPORT | Summary of Care ---
Author Author [facility]ital Organization [facility] Address Unknown Phone Unavailable Encounter KENNEDI Anton(OLIVA) [id number] Date(s): 01/25/19 - 01/25/19 [facility] [address] [place] [address]- [phone] Discharge Disposition: Home or Self Care Attending [...]
--- OUTSIDE RECORDS SUMMARY | 2020-01-03 02:52 | XMS REPORT | Summary of Care ---
Author Author [facility] Outpatient Imaging [facility] Organization [facility] Outpatient Imaging [facility] Address Unknown Phone Unavailable Encounter KENNEDI Anton(FIN) [id number] Date(s): 11/11/18 - 11/11/18 [facility] Outpatient Imaging [place] [address] 46- [phone] Discharge Disposition: Home or Self Care Attending [...]
--- OUTSIDE RECORDS SUMMARY | 2020-01-03 02:52 | XMS REPORT | Summary of Care ---
Author Author [facility] Organization [facility] Address Unknown Phone Unavailable Encounter KENNEDI Anton(OLIVA) [id number] Date(s): 12/13/19 - 12/19/19 [facility] [address] [employer] provided by [employer] [facility] [place] [address]- Discharge Disposition: Home or Self Care Attending Physician: Carmelina Martinez DO Admitting Physician: Ant Kidd MD Vital Signs 1 2 3 Most recent to oldest [Reference Range]: 160.02 cm (12/16/19 1:48 AM) 160.02 cm (12/14/19 10:31 AM) 160.02 cm (12/14/19 6:46 AM) Height 101.6 kg (12/15/19 4:39 AM) Current Weight 98 DegF (12/19/19 11:34 AM) 97.8 DegF (12/19/19 8:19 AM) 98.2 DegF (12/19/19 4:00 AM) Temperature Oral [96.4-99.1 DegF] 163/65 mmHg *HI* (12/19/19 11:34 AM) 145/73 mmHg *HI* (12/19/19 8:19 AM) 135/60 mmHg (12/19/19 4:00 AM) Blood Pressure [90-140/60-90 mmHg] 18 BRMIN (12/19/19 11:34 AM) 18 BRMIN (12/19/19 8:19 AM) 18 BRMIN (12/19/19 4:00 AM) Respiratory Rate [14-20 BRMIN] 63 bpm (12/19/19 11:34 AM) 77 bpm (12/19/19 8:19 AM) 64 bpm (12/19/19 4:00 AM) Peripheral Pulse Rate [60-100 bpm] 102.9 kg (12/16/19 1:48 AM) 102.9 kg (12/14/19 10:31 AM) 102.6 kg (12/14/19 6:46 AM) Weight 40.19 m2 (12/14/19 10:31 AM) 40.07 m2 (12/14/19 6:46 AM) 30.73 m2 (12/13/19 6:43 PM) Body Mass Index Problem List Condition Effective Dates Status Health Status Informan t Acid Active reflux(Confirmed) Anxiety(Confirmed) Active C. 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 Allergies, Adverse Reactions, Alerts Substance Reaction Severity Status penicillins Active Medications 1/2 NS 1000 mL 1,000 mL, Rate: 75 ml/hr, Infuse over: 13.3 hr, Route: IV, Dosing Weight 102.6 k g, Total Volume: 1,000, Start date: 12/14/19 8:51:00 CDT, Duration: 30 day, Stop date: 01/13/20 8:50:00 CDT, 2.17, m2 Start Date: 12/14/19 Stop Date: 12/14/19 Status: Discontinued acetaminophen 650 mg, 2 tab, Route: PO, Drug form: TAB, Q4H, Dosing Weight 102.6, kg, PRN For Temp > 100.4 F, Start date: 12/14/19 7:20:00 CDT, Duration: 30 day, Stop date: 01/13/20 7:19:00 CDT, 0 Notes: Do not exceed 4 gm/day. (Same as: Tylenol) Start Date: 12/14/19 Stop Date: 12/14/19 Status: Discontinued acetaminophen 650 mg, 2 tab, Route: PO, Drug form: TAB, Q6H, Dosing Weight 102.6, kg, PRN Pain Score 1-3, Start date: 12/14/19 8:48:00 CDT, Duration: 30 day, Stop date: 01/12 8:47:00 CDT, 0 Notes: Do not exceed 4 gm/day. (Same as: Tylenol) Start Date: 12/14/19 Stop Date: 12/14/19 Status: Discontinued albuterol 90 mcg/inh inhalation aerosol 2 puff, INHALATION, QID, PRN Wheezing, # 17 gm, 0 Refill(s) Start Date: 12/14/19 Status: Ordered albuterol 90 mcg/inh inhalation aerosol 2 puff, Route: INHALATION, Drug Form: AERO/A, Dosing Weight 102.9, kg, QID, PRN Wheezing, Start date: 12/14/19 13:38:00 CDT, Duration: 30 day, Stop date: 13:37:00 CDT, 0 Notes: Albuterol 90 microgram/inh 8.5gm HFAWASTE: Aerosol - Return to Pharmacy Same as: ProAir Start Date: 12/14/19 Stop Date: 12/19/19 Status: Discontinued atorvastatin 40 mg, 1 tab, Route: PO, Drug form: TAB, Bedtime, Dosing Weight 102.9, kg, Start date: 12/14/19 21:00:00 CDT, Duration: 30 day, Stop date: 01/12/20 21:00:00 CDT, 0 Notes: (Same as: Lipitor) Start Date: 12/14/19 Stop Date: 12/19/19 Status: Discontinued atorvastatin 40 mg oral tablet 40 mg = 1 tab, Bedtime, 0 Refill(s) Start Date: 12/14/19 Stop Date: 12/19/19 Status: Discontinued Bystolic 10 mg oral tablet 10 mg = 1 tab, Daily, 0 Refill(s) Start Date: 12/14/19 Status: Ordered calcium carbonate 500 mg (200 mg elemental calcium) oral tablet 500 mg, Route: PO, PRN, Dosing Weight 102.6, kg, PRN Abnormal Lab Result, FOR IC U USE ONLY, Start date: 12/14/19 7:20:00 CDT, Duration: 30 day, Stop date: 01/12 7:19:00 CDT Start Date: 12/14/19 Stop Date: 12/14/19 Status: Discontinued calcium carbonate 500 mg (200 mg elemental calcium) oral tablet 1,000 mg, Route: PO, PRN, Dosing Weight 102.6, kg, PRN Abnormal Lab Result, FOR ICU USE ONLY, Start date: 12/14/19 7:20:00 CDT, Duration: 30 day, Stop date: 7:19:00 CDT Start Date: 12/14/19 Stop Date: 12/14/19 Status: Discontinued calcium gluconate 1 gm, Route: IVPB, PRN, Dosing Weight 102.6, kg, PRN Abnormal Lab Result, Start date: 12/14/19 7:20:00 CDT, Duration: 30 day, Stop date: 01/13/20 7:19:00 CDT, F OR ICU USE ONLY Start Date: 12/14/19 Stop Date: 12/14/19 Status: Discontinued Carafate 1 gm, 1 tab, Route: PO, Drug form: TAB, QID-Before Meals, Dosing Weight 102.9, k g, PRN GI Upset, Start date: 12/14/19 14:24:00 CDT, Duration: 30 day, Stop date: 01/13/20 14:23:00 CDT, 0 Notes: May interfere w/enteral feeds - Take 1 hr before or 2 hr after antacids, dairy pdt, meals & minerals - On empty stomach.For patients unable to swallow tablet, dissolve in 10mL - 30mL of water or juice and stir before giving. (Same As: Carafate) Start Date: 12/14/19 Stop Date: 12/16/19 Status: Discontinued Carafate 1 g/10 mL oral suspension 1 gm = 10 mL, QID-Before Meals, PRN GI Upset, 0 Refill(s) Start Date: 12/14/19 Status: Ordered cefepime + sterile water 10 mL 1 gm, Route: IVP, ONCE, Dosing Weight 86.364, kg, Priority: STAT, Start date: 19:16:00 CDT, Stop date: 12/13/19 19:16:00 CDT, ABX Indication: Urinary T ract Infection, 0 Notes: (Same As: Maxipime) MEDICATION WASTE Product Size: 1000 mgProduc t Wasted: ___ mg Start Date: 12/13/19 Stop Date: 12/13/19 Status: Completed Dextrose 50% Syringe (D50W) 12.5 gm, 25 mL, Route: IVP, Drug Form: INJ, Dosing Weight 102.9, kg, PRN, PRN Bl ood Glucose Results, Start date: 12/14/19 13:46:00 CDT, Duration: 30 day, Stop d ate: 01/13/20 13:45:00 CDT, 0 Start Date: 12/14/19 Stop Date: 12/19/19 Status: Discontinued Dextrose 50% Syringe (D50W) 25 gm, 50 mL, Route: IVP, Drug Form: INJ, Dosing Weight 102.9, kg, PRN, PRN Bloo d Glucose Results, Start date: 12/14/19 13:46:00 CDT, Duration: 30 day, Stop dannie e: 01/13/20 13:45:00 CDT, 0 Start Date: 12/14/19 Stop Date: 12/16/19 Status: Discontinued docusate 100 mg, 1 cap, Route: PO, Drug form: CAP, TID-Meals, Dosing Weight 102.9, kg, St art date: 12/15/19 17:00:00 CDT, Duration: 30 day, Stop date: 01/14/20 12:00:00 CDT, 0 Notes: (Same as: Colace) (Do Not Crush) Start Date: 12/15/19 Stop Date: 12/19/19 Status: Discontinued DULoxetine 60 mg, 1 cap, Route: PO, Drug form: DRC, Daily, Dosing Weight 102.9, kg, Start d ate: 12/15/19 9:00:00 CDT, Duration: 30 day, Stop date: 01/13/20 9:00:00 CDT, 0 Notes: (Same as: Cymbalta) (Do Not Crush) Start Date: 12/15/19 Stop Date: 12/19/19 Status: Discontinued Eliquis 5 mg, Route: PO, Drug form: TAB, Q12H, Dosing Weight 102.9, kg, Start date: 11/25 21:00:00 CDT, Duration: 30 day, Stop date: 01/13/20 9:00:00 CDT Start Date: 12/14/19 Stop Date: 12/14/19 Status: Canceled Eliquis 5 mg oral tablet 5 mg, PO, Q12H, 0 Refill(s) Start Date: 12/14/19 Stop Date: 12/19/19 Status: Discontinued esomeprazole 40 mg, 1 cap, Route: PO, Drug form: ECCAP, Daily, Dosing Weight 102.9, kg, Start date: 12/15/19 9:00:00 CDT, Duration: 30 day, Stop date: 01/13/20 9:00:00 CDT Start Date: 12/15/19 Stop Date: 12/14/19 Status: Canceled esomeprazole 40 mg oral delayed release capsule 40 mg = 1 cap, Daily, 0 Refill(s) Start Date: 12/14/19 Status: Ordered fentaNYL 50 microgram, Route: IVP, ONCE, Dosing Weight 86.364, kg, Priority: STAT, Start date: 12/14/19 1:56:00 CDT, Stop date: 12/14/19 1:56:00 CDT Start Date: 12/14/19 Stop Date: 12/14/19 Status: Completed gabapentin 800 mg oral tablet 800 mg = 1 tab, TID, 0 Refill(s) Start Date: 12/14/19 Stop Date: 12/19/19 Status: Discontinued glimepiride 2 mg oral tablet 2 mg = 1 tab, Daily, 0 Refill(s) Start Date: 12/14/19 Status: Ordered glucagon 1 mg, Route: IM, Drug form: PDR/INJ, PRN, Dosing Weight 102.9, kg, PRN Blood Glu cose Results, Start date: 12/14/19 13:46:00 CDT, Duration: 30 day, Stop date: 13:45:00 CDT, 0 Start Date: 12/14/19 Stop Date: 12/19/19 Status: Discontinued heparin 5,000 unit, 1 mL, Route: SUB-Q, Drug form: INJ, Q8H, Dosing Weight 102.9, kg, St art date: 12/16/19 16:00:00 CDT, Duration: 30 day, Stop date: 02/14/20 8:00:00 C DT, 0 Notes: porcine heparin Start Date: 12/16/19 Stop Date: 12/19/19 Status: Discontinued Heparin 40 unit/kg Bolus (Heparin Dosing Weight) Route: IVP, PRN, 2,900 unit, 2.9 mL, Drug form: INJ, PRN, Heparin Protocol, Star t date: 12/14/19 15:11:00 CDT Stop date: 01/13/20 15:10:00 CDT, 30 day, 0 Start Date: 12/14/19 Stop Date: 12/16/19 Status: Discontinued Heparin 80 unit/kg Bolus (Heparin Dosing Weight) Route: IVP, PRN, 5,800 unit, 5.8 mL, Drug form: INJ, PRN, Heparin Protocol, Star t date: 12/14/19 15:11:00 CDT Stop date: 01/13/20 15:10:00 CDT, 30 day, 0 Start Date: 12/14/19 Stop Date: 12/16/19 Status: Discontinued heparin additive 25,000 unit [18 unit/kg/hr] + Premix Diluent Sodium Chloride 0. 45% 500 mL 500 mL, Rate: 26.14 ml/hr, Infuse over: 19.1 hr, Route: IV, Dosing Weight 72.6 k g, Total Volume: 500 mL, Start date: 12/14/19 15:11:00 CDT, Duration: 30 day, St op date: 01/13/20 15:10:00 CDT, 1.82, m2, 0 Notes: Total Concentration = 50 unit/ ml Total volume = 500 mlSend Med Request 2 hours prior to next bag Start Date: 12/14/19 Stop Date: 12/16/19 Status: Discontinued hydrALAZINE 100 mg oral tablet 0 Refill(s) Start Date: 12/14/19 Stop Date: 12/19/19 Status: Discontinued insulin lispro 1 unit, 0.01 mL, Route: SUB-Q, Drug form: SOLN, TID-Before Meals, Dosing Weight 102.9, kg, PRN Blood Glucose Results, Start date: 12/14/19 13:46:00 CDT, Duratio n: 30 day, Stop date: 01/13/20 13:45:00 CDT, 0 Notes: (Same as: Humalog) Roll in palms of hands gently; Do not shake vigorously . WASTE: F/P - Black; E - Municipal Trash BinStable for 28 days at room tempera ture.Expires in days from Date Start Date: 12/14/19 Stop Date: 12/19/19 Status: Discontinued insulin lispro 2 unit, 0.02 mL, Route: SUB-Q, Drug form: SOLN, TID-Before Meals, Dosing Weight 102.9, kg, PRN Blood Glucose Results, Start date: 12/14/19 13:46:00 CDT, Duratio n: 30 day, Stop date: 01/13/20 13:45:00 CDT, 0 Notes: (Same as: Humalog) Roll in palms of hands gently; Do not shake vigorously . WASTE: F/P - Black; E - Municipal Trash BinStable for 28 days at room tempera ture.Expires in days from Date Start Date: 12/14/19 Stop Date: 12/19/19 Status: Discontinued insulin lispro 3 unit, 0.03 mL, Route: SUB-Q, Drug form: SOLN, TID-Before Meals, Dosing Weight 102.9, kg, PRN Blood Glucose Results, Start date: 12/14/19 13:46:00 CDT, Duratio n: 30 day, Stop date: 01/13/20 13:45:00 CDT, 0 Notes: (Same as: Humalog) Roll in palms of hands gently; Do not shake vigorously . WASTE: F/P - Black; E - Municipal Trash BinStable for 28 days at room tempera ture.Expires in days from Date Start Date: 12/14/19 Stop Date: 12/19/19 Status: Discontinued insulin lispro 4 unit, 0.04 mL, Route: SUB-Q, Drug form: SOLN, TID-Before Meals, Dosing Weight 102.9, kg, PRN Blood Glucose Results, Start date: 12/14/19 13:46:00 CDT, Duratio n: 30 day, Stop date: 01/13/20 13:45:00 CDT, 0 Notes: (Same as: Humalog) Roll in palms of hands gently; Do not shake vigorously . WASTE: F/P - Black; E - Municipal Tr[facility] BinStable [facility] from Date Start Date: 12/14/19 Stop Date: 12/19/19 Status: Discontinued insulin lispro 5 unit, 0.05 mL, Route: SUB-Q, Drug form: SOLN, TID-Before Meals, Dosing Weight 102.9, kg, PRN Blood Glucose Results, Start date: 12/14/19 13:46:00 CDT, Duratio n: 30 day, Stop date: 01/13/20 13:45:00 CDT, 0 Notes: (Same as: Humalog) Roll in palms of hands gently; Do not shake vigorously . WASTE: F/P - Black; E - Municipal Trash BinStable for 28 days at room [facility].Expires in days from Date Start Date: 12/14/19 Stop Date: 12/19/19 Status: Discontinued Isolyte S PH-7.4 (Bolus) IV 1,000 mL, 2,000 ml/hr, Infuse Over: 0.5 hr, Route: IV, 1,000, Drug form: SOLN, O NCE, Priority: STAT, Dosing Weight 86.364 kg, Start date: 12/13/19 19:16:00 CDT, Stop date: 12/13/19 19:16:00 CDT, 0 Notes: (Same as: Isolyte S PH7.4, Normosol-R PH 7.4, Plasma-Lyte A ) Start Date: 12/13/19 Stop Date: 12/13/19 Status: Completed Keytruda intravenous injection 0 Refill(s) Start Date: 12/14/19 Status: Ordered Lactated Ringers (Bolus) IV 500 mL, 500 ml/hr, Infuse Over: 1 hr, Route: IV, 500, Drug form: INJ, ONCE, Prio rity: STAT, Dosing Weight 102.9 kg, Start date: 12/14/19 14:57:00 CDT, Stop date : 12/14/19 14:57:00 CDT, 0 Start Date: 12/14/19 Stop Date: 12/14/19 Status: Completed Levaquin 750 mg, 150 mL, Route: IV, Drug form: SOLN, [id number], Dosing Weight 102.9, kg, St art date: 12/18/19 12:00:00 CDT, Duration: 30 day, Stop date: 01/15/20 12:00:00 CDT, ABX Indication: Urinary Tract Infection, 0 Notes: (Same as:Levaquin) Start Date: 12/18/19 Stop Date: 12/19/19 Status: Discontinued levofloxacin 750 mg oral tablet 750 mg = 1 tab, PO, Q48H, X 6 day, # 3 tab, 0 Refill(s), Pharmacy: [facility]/pharmacy #[id number] Start Date: 12/20/19 Stop Date: 12/26/19 Status: Ordered Levophed 8 mg in 250 mL (Titrate.) IV 8 mg + Sodium Chloride 0.9% IV 242 mL 8 mg, 8 mL, Rate: Titrate, Start Dose: 5 microgram/min, Titration: 2 microgram/m in every 2-5 minutes, Goal(s): MAP >= 65 mmHg, Max Dose: 70 microgram/min, Route: IV, Dosing Weight 86.364 kg, Total Volume: 250, Start date: 12/13/19 22:50:00 CDT, Durati... Notes: Not for direct administration - DILUTE. Protect from light. (Same as:Levo phed). Administer by either central venous catheter or peripherally-inserted adam tral catheter (PICC) line. Start Date: 12/13/19 Stop Date: 12/15/19 Status: Discontinued Linzess 72 mcg oral capsule 72 microgram = 1 cap, Daily, PRN Constipation, 0 Refill(s) Start Date: 12/14/19 Status: Ordered magnesium oxide 800 mg, Route: PO, PRN, Dosing Weight 102.6, kg, PRN Abnormal Lab Result, FOR IC U USE ONLY, Start date: 12/14/19 7:20:00 CDT, Duration: 30 day, Stop date: 01/12 7:19:00 CDT Start Date: 12/14/19 Stop Date: 12/14/19 Status: Discontinued magnesium sulfate 2 gm, Route: IVPB, PRN, Dosing Weight 102.6, kg, PRN Abnormal Lab Result, Start date: 12/14/19 7:20:00 CDT, Duration: 30 day, Stop date: 01/13/20 7:19:00 CDT, F OR ICU USE ONLY Start Date: 12/14/19 Stop Date: 12/14/19 Status: Discontinued melatonin 3 mg oral tablet 3 mg, 1 tab, Route: PO, Drug Form: TAB, Dosing Weight 102.9, kg, Bedtime, Start date: 12/14/19 21:00:00 CDT, Duration: 30 day, Stop date: 01/12/20 21:00:00 CDT, 0 Notes: (Same as: Melatonin) Start Date: 12/14/19 Stop Date: 12/19/19 Status: Discontinued meropenem 500 mg, Route: IVPB, Drug form: PDR/INJ, [id number], Dosing Weight 102.6, kg, CrCL= 10 -29 ml/min, Extended infusion, infuse over 3 hours, Start date: 12/14/19 11 :00:00 CDT, Duration: 3 day, Stop date: 12/16/19 23:00:00 CDT, ABX Indication: U rinary Trac... Notes: Same as Merrem MEDICATION WASTE Product Size: 500 mgProduct Wast ed: ___ mg Start Date: 12/14/19 Stop Date: 12/16/19 Status: Discontinued meropenem 500 mg, Route: IVPB, Drug form: PDR/INJ, [id number], Dosing Weight 102.9, kg, CrCL= 30 -49 ml/min, Extended infusion, infuse over 3 hours, Start date: 12/16/19 11: 00:00 CDT, Duration: 2 day, Stop date: 12/18/19 3:00:00 CDT, ABX Indication: Uri nary Tract... Notes: Same as Merrem MEDICATION WASTE Product Size: 500 mgProduct Wast ed: ___ mg Start Date: 12/16/19 Stop Date: 12/18/19 Status: Completed MiraLax 17 gm, 1 pkt, Route: PO, Drug form: PWDR, BID, Dosing Weight 102.9, kg, Start da te: 12/15/19 9:00:00 CDT, Duration: 30 day, Stop date: 01/13/20 17:00:00 CDT, 0 Notes: Dissolve in 8 oz of water or juice.(Same as: Miralax) Start Date: 12/15/19 Stop Date: 12/19/19 Status: Discontinued montelukast 10 mg, 1 tab, Route: PO, Drug form: TAB, Daily, Dosing Weight 102.9, kg, Start d ate: 12/15/19 9:00:00 CDT, Duration: 30 day, Stop date: 01/13/20 9:00:00 CDT, 0 Notes: (Same as:Singulair) Start Date: 12/15/19 Stop Date: 12/19/19 Status: Discontinued montelukast 10 mg oral tablet 10 mg = 1 tab, Daily, 0 Refill(s) Start Date: 12/14/19 Status: Ordered NIFEdipine 30 mg oral tablet, extended release 30 mg = 1 tab, PO, Daily, 0 Refill(s) Start Date: 12/14/19 Status: Ordered nystatin topical 100,000 units/g powder 1 appl, Route: TOP, PRN, Drug form: PWDR, PRN For Fungal Prophylaxis, Start date : 12/14/19 7:20:00 CDT, Duration: 30 day, Stop date: 01/13/20 7:19:00 CDT, 0 Notes: (Same as:Mycostatin, Nilstat) For external use only. Start Date: 12/14/19 Stop Date: 12/16/19 Status: Discontinued ondansetron 4 mg, 2 mL, Route: IVP, Drug form: INJ, Q8H, Dosing Weight 102.6, kg, PRN Nausea & Vomiting, Start date: 12/14/19 7:20:00 CDT, Duration: 30 day, Stop date: 01/13/20 7:19:00 CDT, 0 Notes: (Same as: Cristiane) MEDICATION WASTE Product Size: 4 mgProduct Was janis: ___ mg Start Date: 12/14/19 Stop Date: 12/16/19 Status: Discontinued oxyCODONE 10 mg oral tablet, immediate release TK 1 T PO Q 4 TO 6 H PRN Start Date: 12/14/19 Status: Ordered oxyCODONE 5 mg oral tablet, immediate release 10 mg, 2 tab, Route: PO, Drug form: TAB, Q6H, Dosing Weight 102.9, kg, PRN Pain Score 4-6, Start date: 12/14/19 11:58:00 CDT, Duration: 30 day, Stop date: 01/12 11:57:00 CDT, 0 Notes: (Same as: Roxicodone) Start Date: 12/14/19 Stop Date: 12/15/19 Status: Discontinued oxyCODONE 5 mg oral tablet, immediate release 10 mg, 2 tab, Route: PO, Drug form: TAB, Q4H, Dosing Weight 102.9, kg, PRN Pain Score 4-6, Start date: 12/15/19 7:55:00 CDT, Duration: 30 day, Stop date: 7:54:00 CDT, 0 Notes: (Same as: Roxicodone) Start Date: 12/15/19 Stop Date: 12/19/19 Status: Discontinued oxyCODONE 5 mg oral tablet, immediate release 5 mg, 1 tab, Route: PO, Drug form: TAB, Q6H, Dosing Weight 102.6, kg, PRN Pain S core 4-6, Start date: 12/14/19 8:48:00 CDT, Duration: 30 day, Stop date: 0 8:47:00 CDT, 0 Notes: (Same as: Roxicodone) Start Date: 12/14/19 Stop Date: 12/14/19 Status: Discontinued polyethylene glycol 3350 17 gm, 1 pkt, Route: PO, Drug form: PWDR, Daily, Dosing Weight 102.9, kg, Start date: 12/15/19 9:00:00 CDT, Duration: 30 day, Stop date: 01/13/20 9:00:00 CDT, 0 Notes: Dissolve in 8 oz of water or juice.(Same as: Miralax) Start Date: 12/15/19 Stop Date: 12/15/19 Status: Canceled potassium chloride 20 mEq, Route: IVPB, PRN, Dosing Weight 102.6, kg, PRN Abnormal Lab Result, Via central line, Start date: 12/14/19 7:20:00 CDT, Duration: 30 day, Stop date: 7:19:00 CDT, FOR ICU USE ONLY Start Date: 12/14/19 Stop Date: 12/14/19 Status: Discontinued potassium chloride 10 mEq, Route: IVPB, PRN, Dosing Weight 102.6, kg, PRN Abnormal Lab Result, Via peripheral line, Start date: 12/14/19 7:20:00 CDT, Duration: 30 day, Stop date: 01/13/20 7:19:00 CDT, FOR ICU USE ONLY Start Date: 12/14/19 Stop Date: 12/14/19 Status: Discontinued potassium chloride 20 mEq, Route: PO, Drug form: ERTAB, PRN, Dosing Weight 102.6, kg, PRN Abnormal Lab Result, Start date: 12/14/19 7:20:00 CDT, Duration: 30 day, Stop date: 01/12 7:19:00 CDT, FOR ICU USE ONLY Start Date: 12/14/19 Stop Date: 12/14/19 Status: Discontinued potassium chloride 20 mEq, Route: NJ, Drug form: LIQ, PRN, Dosing Weight 102.6, kg, PRN Abnormal La b Result, Start date: 12/14/19 7:20:00 CDT, Duration: 30 day, Stop date: 0 7:19:00 CDT, FOR ICU USE ONLY Start Date: 12/14/19 Stop Date: 12/14/19 Status: Discontinued potassium phosphate 15 mmol, Route: IVPB, PRN, Dosing Weight 102.6, kg, PRN Abnormal Lab Result, Sta rt date: 12/14/19 7:20:00 CDT, Duration: 30 day, Stop date: 01/13/20 7:19:00 CDT , FOR ICU USE ONLY Start Date: 12/14/19 Stop Date: 12/14/19 Status: Discontinued potassium phosphate 30 mmol, Route: IVPB, PRN, Dosing Weight 102.6, kg, PRN Abnormal Lab Result, Sta rt date: 12/14/19 7:20:00 CDT, Duration: 30 day, Stop date: 01/13/20 7:19:00 CDT , FOR ICU USE ONLY Start Date: 12/14/19 Stop Date: 12/14/19 Status: Discontinued potassium phosphate 45 mmol, Route: IVPB, PRN, Dosing Weight 102.6, kg, PRN Abnormal Lab Result, Sta rt date: 12/14/19 7:20:00 CDT, Duration: 30 day, Stop date: 01/13/20 7:19:00 CDT , FOR ICU USE ONLY Start Date: 12/14/19 Stop Date: 12/14/19 Status: Discontinued potassium phosphate-sodium phosphate 250 mg-280 mg-160 mg oral powder for recons titution 2 pkt, Route: PO, Dosing Weight 102.6, kg, PRN, PRN Abnormal Lab Result, FOR ICU USE ONLY, Start date: 12/14/19 7:20:00 CDT, Duration: 30 day, Stop date: 7:19:00 CDT Start Date: 12/14/19 Stop Date: 12/14/19 Status: Discontinued Protonix 40 mg, 1 tab, Route: PO, Drug form: ECTAB, Daily, Dosing Weight 102.9, kg, Start date: 12/15/19 9:00:00 CDT, Duration: 30 day, Stop date: 01/13/20 9:00:00 CDT, 0 Notes: Tablet should not be chewed or crushed.(Same as: Protonix) Start Date: 12/15/19 Stop Date: 12/19/19 Status: Discontinued Saline Flush 0.9% 10 ml, Route: IVP, Drug Form: INJ, Dosing Weight 102.6, kg, Q12H, Start date: 9:00:00 CDT, Duration: 30 day, Stop date: 01/12/20 21:00:00 CDT, 0 Notes: Same as: BD Posiflush Sterile Start Date: 12/14/19 Stop Date: 12/19/19 Status: Discontinued Saline Flush 0.9% 10 ml, Route: IVP, Drug Form: INJ, Dosing Weight 102.6, kg, PRN, PRN Line Flush, Start date: 12/14/19 7:20:00 CDT, Duration: 30 day, Stop date: 01/13/20 7:19:00 CDT, 0 Notes: (Same as: BD Posiflush) Start Date: 12/14/19 Stop Date: 12/14/19 Status: Discontinued Saline Flush 0.9% 10 mL, Route: IVP, Drug Form: INJ, Dosing Weight 86.364, kg, PRN, PRN Line Flush , Start date: 12/13/19 19:16:00 CDT, Duration: 30 day, Stop date: 01/12/20 19:15 :00 CDT, 0 Notes: (Same as: BD Posiflush) Start Date: 12/13/19 Stop Date: 12/19/19 Status: Discontinued senna 8.6 mg, 1 tab, Route: PO, Drug Form: TAB, Dosing Weight 102.9, kg, BID, Start da te: 12/14/19 17:00:00 CDT, Duration: 30 day, Stop date: 01/13/20 9:00:00 CDT, 0 Notes: (Same as: Senokot) Start Date: 12/14/19 Stop Date: 12/19/19 Status: Discontinued sodium phosphate 15 mmol, Route: IVPB, PRN, Dosing Weight 102.6, kg, PRN Abnormal Lab Result, Sta rt date: 12/14/19 7:20:00 CDT, Duration: 30 day, Stop date: 01/13/20 7:19:00 CDT , FOR ICU USE ONLY Start Date: 12/14/19 Stop Date: 12/14/19 Status: Discontinued sodium phosphate 30 mmol, Route: IVPB, PRN, Dosing Weight 102.6, kg, PRN Abnormal Lab Result, Sta rt date: 12/14/19 7:20:00 CDT, Duration: 30 day, Stop date: 01/13/20 7:19:00 CDT , FOR ICU USE ONLY Start Date: 12/14/19 Stop Date: 12/14/19 Status: Discontinued sodium phosphate 45 mmol, Route: IVPB, PRN, Dosing Weight 102.6, kg, PRN Abnormal Lab Result, Sta rt date: 12/14/19 7:20:00 CDT, Duration: 30 day, Stop date: 01/13/20 7:19:00 CDT , FOR ICU USE ONLY Start Date: 12/14/19 Stop Date: 12/14/19 Status: Discontinued spironolactone 25 mg oral tablet 25 mg = 1 tab, Daily, 0 Refill(s) Start Date: 12/14/19 Status: Ordered trazodone 50 mg oral tablet 50 mg = 1 tab, Bedtime, PRN Sleep, 0 Refill(s) Start Date: 12/14/19 Status: Ordered Tylenol 650 mg, 2 tab, Route: PO, Drug form: TAB, ONCE, Dosing Weight 86.364, kg, Priori ty: STAT, Start date: 12/13/19 19:36:00 CDT, Stop date: 12/13/19 19:36:00 CDT, 0 Notes: Do not exceed 4 gm/day. (Same as: Tylenol) Start Date: 12/13/19 Stop Date: 12/13/19 Status: Completed vancomycin 1,500 mg, 250 mL, Route: IVPB, Drug form: INJ, [id number], Dosing Weight 102.6, kg, Start date: 12/14/19 20:00:00 CDT, Duration: 3 day, Stop date: 12/16/19 20:00:00 CDT, ABX Indication: Urinary Tract Infection, 0 Notes: TIME CRITICAL MEDICATIONSame as: Vancocin-NS (premixed)Infusion rate< 1000 mg: infuse over 1 [id number] - 1500 mg: infuse over 1.5 [id number] - 2000 mg: infuse over 2 hours> 2001 mg: infuse over 2.5 hours Start Date: 12/14/19 Stop Date: 12/16/19 Status: Discontinued vancomycin + Sodium Chloride 0.9% IV 250 mL 1.5 gm, Route: IVPB, [id number], Start date: 12/16/19 20:00:00 CDT, Stop date: 12/26 20:00:00 CDT, ABX Indication: Bacteremia, 0 Notes: TIME CRITICAL MEDICATION(Same As: Vancocin)Infusion rate< 1000 mg: infuse over 1 [id number] - 1500 mg: infuse over 1.5 hoursVancomycin FOR IV SET ONLY1501 - 2000 mg: infuse over 2 hours> 2001 mg: infuse over 2.5 hoursFor adult patients only: Round to nearest 250 mg per Medical Staff approval MEDICATION WASTE Product Size: 1000 mgProduct Wasted: ___ mg Start Date: 12/16/19 Stop Date: 12/17/19 Status: Discontinued vancomycin + Sodium Chloride 0.9% IV 250 mL 1,750 mg, Route: IVPB, ONCE, Dosing Weight 86.364, kg, Priority: STAT, Start dannie e: 12/13/19 19:36:00 CDT, Stop date: 12/13/19 19:36:00 CDT, ABX Indication: Othe r (specify in Comments), 0 Notes: TIME CRITICAL MEDICATION(Same As: Vancocin)Infusion rate< 1000 mg: infuse over 1 [id number] - 1500 mg: infuse over 1.5 hoursVancomycin FOR IV SET ONLY1501 - 2000 mg: infuse over 2 hours> 2001 mg: infuse over 2.5 hoursFor adult patients only: Round to nearest 250 mg per Medical Staff approval MEDICATION WASTE Product Size: 1000 mgProduct Wasted: ___ mg Start Date: 12/13/19 Stop Date: 12/13/19 Status: Completed vancomycin + Sodium Chloride 0.9% IV 250 mL 1.25 gm, Route: IVPB, [id number], Start date: 12/18/19 19:30:00 CDT, Duration: 30 d ay, Stop date: 01/16/20 19:30:00 CDT, ABX Indication: Bacteremia, 0 Notes: TIME CRITICAL MEDICATION(Same As: Vancocin)Infusion rate< 1000 mg: infuse over 1 [id number] - 1500 mg: infuse over 1.5 hoursVancomycin FOR IV SET ONLY1501 - 2000 mg: infuse over 2 hours> 2001 mg: infuse over 2.5 hoursFor adult patients only: Round to nearest 250 mg per Medical Staff approval MEDICATION WASTE Product Size: 1000 mgProduct Wasted: ___ mg Start Date: 12/18/19 Stop Date: 12/18/19 Status: Canceled Results 1 2 3 Most recent to oldest [Reference Range]: 0.37 ng/mL *HI* (12/13/19 7:36 PM) Procalcitonin Lvl [0.00-0.10 ng/mL] 2.4 K/CMM (12/19/19 5:10 AM) 2.1 K/CMM (12/18/19 3:02 AM) 2.5 K/CMM (12/17/19 3:22 AM) Neutrophils # [1.5-8.1 K/CMM] 1.1 K/CMM (12/19/19 5:10 AM) 1.0 K/CMM (12/18/19 3:02 AM) 0.8 K/CMM *LOW* (12/17/19 3:22 AM) Lymphocytes # [1.0-5.5 K/CMM] 0.5 K/CMM (12/19/19 5:10 AM) 0.5 K/CMM (12/18/19 3:02 AM) 0.6 K/CMM (12/17/19 3:22 AM) Monocytes # [0.0-0.8 K/CMM] 0.1 K/CMM (12/19/19 5:10 AM) 0.1 K/CMM (12/18/19 3:02 AM) 0.1 K/CMM (12/17/19 3:22 AM) Eosinophils # [0.0-0.5 K/CMM] 328 pg/mL *HI* (12/14/19 9:06 AM) BNP [<=100 pg/mL] 1930 *NA* (12/17/19 7:44 PM) 1930 *NA* (12/15/19 7:50 PM) Vanco Tr TND 23.7 ug/ml *NA* (12/17/19 7:44 PM) 17.0 ug/ml *NA* (12/15/19 7:50 PM) Vanco Tr Normal (12/14/19 9:06 AM) Plt Morph [Normal] Negative *NA* (12/14/19 9:06 AM) HIV Ag/Ab 4th Gen [Negative] 0.4 mg/dL (12/14/19 9:06 AM) Bili Indirect [0.0-1.0 mg/dL] Positive 1 *ABN* (12/14/19 9:06 AM) MRSA by PCR 42 mL/min/1.73m2 2 *NA* (12/19/19 5:10 AM) 35 mL/min/1.73m2 3 *NA* (12/18/19 3:02 AM) 40 mL/min/1.73m2 4 *NA* (12/17/19 3:22 AM) eGFR O POS *Unknown* (12/13/19 8:16 PM) ABO/Rh See Note (12/14/19 9:06 AM) UDS Note 0.6 *LOW* (12/19/19 5:10 AM) 0.6 *LOW* (12/18/19 3:02 AM) 0.6 *LOW* (12/17/19 3:22 AM) A/G Ratio [0.7-1.6] Negative (12/13/19 8:16 PM) Antibody Scrn 2.2 g/dL *LOW* (12/19/19 5:10 AM) 2.1 g/dL *LOW* (12/18/19 3:02 AM) 2.0 g/dL *LOW* (12/17/19 3:22 AM) Albumin Lvl [3.5-5.0 g/dL] 120 unit/L (12/19/19 5:10 AM) 111 unit/L (12/18/19 3:02 AM) 114 unit/L (12/17/19 3:22 AM) Alk Phos [39-136 unit/L] 22 unit/L (12/19/19 5:10 AM) 20 unit/L (12/18/19 3:02 AM) 14 unit/L (12/17/19 3:22 AM) ALT [0-65 unit/L] Negative *NA* (12/14/19 9:06 AM) U Amph Scr [Negative] 11.1 mEq/L (12/19/19 5:10 AM) 7.9 mEq/L *LOW* (12/18/19 3:02 AM) 12.0 mEq/L (12/17/19 3:22 AM) AGAP [10.0-20.0 mEq/L] 16 unit/L (12/19/19 5:10 AM) 16 unit/L (12/18/19 3:02 AM) 9 unit/L (12/17/19 3:22 AM) AST [0-37 unit/L] 21 (12/19/19 5:10 AM) 21 (12/18/19 3:02 AM) 22 (12/17/19 3:22 AM) B/C Ratio [6-25] Negative *NA* (12/14/19 9:06 AM) U Lubna Scr [Negative] 0.5 % (12/19/19 5:10 AM) 0.7 % (12/18/19 3:02 AM) 0.4 % (12/17/19 3:22 AM) Basophils [0.0-1.0 %] Negative *NA* (12/14/19 9:06 AM) U Benzodiaz Scr [Negative] 27 mg/dL *HI* (12/19/19 5:10 AM) 31 mg/dL *HI* (12/18/19 3:02 AM) 29 mg/dL *HI* (12/17/19 3:22 AM) BUN [7-22 mg/dL] 9.0 mg/dL (12/19/19 5:10 AM) 8.7 mg/dL (12/18/19 3:02 AM) 8.6 mg/dL (12/17/19 3:22 AM) Calcium Lvl [8.5-10.5 mg/dL] 119 unit/L (12/13/19 7:36 PM) Total CK [12-191 unit/L] 107 mEq/L (12/19/19 5:10 AM) 111 mEq/L *HI* (12/18/19 3:02 AM) 110 mEq/L *HI* (12/17/19 3:22 AM) Chloride Lvl [95-109 mEq/L] 27 mEq/L (12/19/19 5:10 AM) 25 mEq/L (12/18/19 3:02 AM) 22 mEq/L *LOW* (12/17/19: AM) CO2 [24-32 mEq/L] Negative *NA* (12/14/19 9:06 AM) U Cocaine Scr [Negative] 1.28 mg/dL (12/19/19 5:10 AM) 1.51 mg/dL *HI* (12/18/19 3:02 AM) 1.34 mg/dL (12/17/19 3:22 AM) Creatinine Lvl [0.50-1.40 mg/dL] 0.3 mg/dL (12/14/19 9:06 AM) Bili Direct [0.0-0.3 mg/dL] 2.3 % (12/19/19 5:10 AM) 1.6 % (12/18/19 3:02 AM) 1.6 % (12/17/19 3:22 AM) Eosinophils [0.0-4.0 %] 3.8 g/dL (12/19/19 5:10 AM) 3.5 g/dL (12/18/19 3:02 AM) 3.4 g/dL (12/17/19 3:22 AM) Globulin [2.7-4.2 g/dL] 118 mg/dL *HI* (12/19/19 5:10 AM) 108 mg/dL *HI* (12/18/19 3:02 AM) 102 mg/dL *HI* (12/17/19 3:22 AM) Glucose Lvl [70-99 mg/dL] Negative *NA* (12/14/19 9:06 AM) Hep A IgM [Negative] Negative *NA* (12/14/19 9:06 AM) Hep B Core IgM [Negative] Negative *NA* (12/14/19 9:06 AM) Hep Bs Ag [Negative] 25.0 % *LOW* (12/19/19 5:10 AM) 22.4 % *LOW* (12/18/19 3:02 AM) 23.2 % *LOW* (12/17/19 3:22 AM) Hct [36.0-48.0 %] Negative *NA* (12/14/19 9:06 AM) Hep C Ab [Negative] 8.4 g/dL *LOW* (12/19/19 5:10 AM) 7.4 g/dL *LOW* (12/18/19 3:02 AM) 7.7 g/dL *LOW* (12/17/19 3:22 AM) Hgb [12.0-16.0 g/dL] 5.7 % *HI* (12/14/19 9:06 AM) Hgb A1C [<=5.6 %] 1.12 (12/16/19 12:18 PM) 1.19 *HI* (12/16/19 6:04 AM) 1.23 *HI* (12/15/19 10:46 PM) INR [0.85-1.17] 5.1 mEq/L (12/19/19 5:10 AM) 4.9 mEq/L (12/18/19 3:02 AM) 5.0 mEq/L (12/17/19 3:22 AM) Potassium Lvl [3.5-5.1 mEq/L] 26.5 % (12/19/19 5:10 AM) 25.9 % (12/18/19 3:02 AM) 19.3 % *LOW* (12/17/19:22 AM) Lymphocytes [20.0-40.0 %] 32.3 pg *HI* (12/19/19 5:10 AM) 32.0 pg *HI* (12/18/19 3:02 AM) 32.0 pg *HI* (12/17/19:22 AM) MCH [27.0-31.0 pg] 33.7 g/dL (12/19/19 5:10 AM) 33.3 g/dL (12/18/19:02 AM) 33.4 g/dL (12/17/19:22 AM) MCHC [32.0-36.0 g/dL] 95.6 fL (12/19/19 5:10 AM) 96.2 fL (12/18/19 3:02 AM) 95.9 fL (12/17/19 3:22 AM) MCV [80.0-98.0 fL] Negative *NA* (12/14/19 9:06 AM) U Methadone Scr [Negative] 1.7 mg/dL *LOW* (12/19/19 5:10 AM) 1.8 mg/dL (12/18/19 3:02 AM) 1.9 mg/dL (12/17/19:22 AM) Magnesium Lvl [1.8-2.4 mg/dL] 12.5 % *HI* (12/19/19 5:10 AM) 14.7 % *HI* (12/18/19 3:02 AM) 15.4 % *HI* (12/17/19: AM) Monocytes [2.0-12.0 %] 7.8 fL (12/19/19 5:10 AM) 8.3 fL (12/18/19 3:02 AM) 8.1 fL (12/17/19 3:22 AM) MPV [7.4-10.4 fL] 140 mEq/L (12/19/19 5:10 AM) 139 mEq/L (12/18/19 3:02 AM) 139 mEq/L (12/17/19 3:22 AM) Sodium Lvl [135-145 mEq/L] Positive *ABN* (12/14/19 9:06 AM) U Opiate Scr [Negative] 284 mOsm/kg (12/14/19 9:06 AM) Osmolality [280-300 mOsm/kg] Negative *NA* (12/14/19 9:06 AM) U Phencyclidine Scr [Negative] 3.6 mg/dL (12/19/19 5:10 AM) 3.3 mg/dL (12/18/19 3:02 AM) 3.0 mg/dL (12/17/19 3:22 AM) Phosphorus [2.5-4.5 mg/dL] 230 K/CMM (12/19/19 5:10 AM) 198 K/CMM (12/18/19 3:02 AM) 192 K/CMM (12/17/19 3:22 AM) Platelet [133-450 K/CMM] 58.2 % (12/19/19 5:10 AM) 57.1 % (12/18/19 3:02 AM) 63.3 % (12/17/19 3:22 AM) Segs [45.0-75.0 %] Negative *NA* (12/14/19 9:06 AM) U Propoxyph Scr [Negative] 6.0 g/dL *LOW* (12/19/19 5:10 AM) 5.6 g/dL *LOW* (12/18/19 3:02 AM) 5.4 g/dL *LOW* (12/17/19 3:22 AM) Total Protein [6.4-8.4 g/dL] 14.5 seconds (12/16/19 12:18 PM) 15.2 seconds *HI* (12/16/19 6:04 AM) 15.6 seconds *HI* (12/15/19 10:46 PM) PT [12.0-14.7 seconds] 68.1 seconds *HI* (12/16/19 12:18 PM) 84.2 seconds *HI* (12/16/19 6:04 AM) 117.3 seconds 5 *CRIT* (12/15/19 10:46 PM) PTT [22.9-35.8 seconds] Not Detected (12/14/19 4:54 AM) Coronavirus (COVID-19) BRICE [Not Detected] 2.62 M/CMM *LOW* (12/19/19 5:10 AM) 2.32 M/CMM *LOW* (12/18/19 3:02 AM) 2.42 M/CMM *LOW* (12/17/19 3:22 AM) RBC [4.20-5.40 M/CMM] Normal (12/14/19 9:06 AM) RBC Morph [Normal] 13.4 % (12/19/19 5:10 AM) 13.8 % (12/18/19 3:02 AM) 13.5 % (12/17/19 3:22 AM) RDW [11.5-14.5 %] 0.3 mg/dL (12/19/19 5:10 AM) 0.3 mg/dL (12/18/19 3:02 AM) 0.4 mg/dL (12/17/19 3:22 AM) Bili Total [0.2-1.3 mg/dL] Negative *NA* (12/14/19 9:06 AM) U Cannab Scr [Negative] <0.02 ng/mL (12/15/19 4:52 AM) <0.02 ng/mL (12/13/19 7:36 PM) Troponin-I [0.00-0.40 ng/mL] Negative *NA* (12/14/19 2:17 AM) UA Bili [Negative] Small *ABN* (12/14/19 2:17 AM) UA Blood [Negative] <10 mEq/L *NA* (12/14/19 9:06 AM) U Chloride Yellow *NA* (12/14/19 2:17 AM) UA Color [Yellow] Negative mg/dL *NA* (12/14/19 2:17 AM) UA Glucose [Negative mg/dL] Negative mg/dL *NA* (12/14/19 2:17 AM) UA Ketones [Negative mg/dL] Small *ABN* (12/14/19 2:17 AM) UA Leuk Est [Negative] Few /LPF *NA* (12/14/19 2:17 AM) UA Mucus [None Seen /LPF] Negative (12/14/19 2:17 AM) UA Nitrite [Negative] 6.0 (12/14/19 2:17 AM) UA pH [5.0-8.0] Negative mg/dL (12/14/19 2:17 AM) UA Protein [Negative mg/dL] 2 /HPF (12/14/19 2:17 AM) UA RBC [0-2 /HPF] 22 mEq/L *NA* (12/14/19 9:06 AM) U Sodium 1.010 (12/14/19 2:17 AM) UA Spec Grav [<=1.030] None Seen *NA* (12/14/19 2:17 AM) UA Sq Epi Slight *ABN* (12/14/19 2:17 AM) UA Turbidity [Clear] <1.0 mg/dL (12/14/19 2:17 AM) UA Urobilinogen [0.1-1.0 mg/dL] 25 /HPF *HI* (12/14/19 2:17 AM) UA WBC [0-5 /HPF] 203 mOsm/kg *LOW* (12/14/19 9:06 AM) U Osmolality [300-800 mOsm/kg] 12.2 mEq/L *NA* (12/14/19 9:06 AM) U Potassium 13.8 ug/ml *NA* (12/14/19 7:21 PM) Vanco Lvl 4.2 K/CMM (12/19/19 5:10 AM) 3.7 K/CMM (12/18/19 3:02 AM) 3.9 K/CMM (12/17/19 3:22 AM) WBC [3.7-10.4 K/CMM] 1.09 mMol/L (12/15/19 1:25 AM) 1.10 mMol/L (12/14/19 9:06 AM) Ca Ion WB [1.05-1.25 mMol/L] 1.05 mMol/L (12/15/19 1:25 AM) 1.04 mMol/L *LOW* (12/14/19 9:06 AM) Ca Norm WB [1.05-1.25 mMol/L] 2.0 mmol/L (12/13/19 7:36 PM) Lactic Acid WB [0.5-2.2 mmol/L] 1Result Comment: "Significant Findings called to Charli Walsh at 12/14/2019 20:41 by LF. Read Back OK." 2Result Comment: The eGFR is calculated using the [...] be mul tiplied by the estimated BMI. 3Result Comment: The eGFR is calculated using the [...] be mul tiplied by the estimated BMI. 4Result Comment: The eGFR is calculated using the [...] be mul tiplied by the estimated BMI. 5Result Comment: Critical Result(s) called to ramesh graham at 12/16/2019 00:17 by sss. Read back OK. Microbiology Reports TEST: Culture: Urine STATUS: Auth (Verified) BODY SITE: SOURCE: Urine, Clean Catch COLLECTED DATE/TIME: 12/14/19 4:42 AM FINAL REPORT 10,000 - 50,000 CFU/mL Enterococcus Species ORGANISM:Enterococcus Species Immunizations Given and Recorded Vaccine Date Status Refusal Reason pneumococcal 23-valent vaccine 12/15/05 Given Procedures Procedure Date Related Diagnosis Body Site Status Arthroplasty Completed Cholecystectomy Completed Creation of ileal conduit Completed Cystectomy Completed Hernia repair Completed Hysterectomy Completed Laminectomy1 Completed Left nephrectomy Completed 1L4-L5, L5-S1 Social History Social History Type Response Alcohol Never Substance Abuse Use: None. Smoking Status Never smoker; Type: Cigaret ela; Ready to change: No; Concerns about tobacco use in household: No; Exposure to Tobac co Smoke None; Cigarette Smoking Last 365 Days No; Reg Smoking Cessation Counseling No entered on: 12/13/19 Assessment and Plan Extracted from: Title: Progress Note Author: Driss Dalton MD Date: 0 69 yo F w/ PMH urothelial carcin michelle s/p cystectomy with ileal conduit, hydronephrosis s/p [...] PGY-3 and attending, agreed to current plan [id number] Addendum by Herring, [facility] Medicine Staff Progr [facility] Note: Jules MUÑOZ on I was present and examined this patient with Court and Kamala, and I agree with the 12/19/2019 history and examination as discussed and reflected in theprogress noteby 15:27 CDT dated 12/19/2019. I have personally reviewed the past medical records, current laboratory findings, diagnostic imaging and interpretation. I have discussed the assessment and plan with the team. Ms Gabriel Pastrana is a 69 yr. old femalew/ PMHx ofurothelial carcinoma s/p cystectomy with ileal conduit, hydronephrosis s/p L nephrectomy, pulmonary mets currently u nder treatment, recurrent MDR UTI (pseudomonas, MRSA, ESBL Klebsiella) admitted for sep tic shock 2/2 UTI. She was initially admitted to ICU for pressor support, was started on antibiotics, anddowngraded to the floor for further management. Upon my vist this morning, patient is clinically improving, VS stable. Today's plan is: Continue on Meropenem and Vancomycin.Per Urology team, no concern for retention or obstruction. Pain control with oxycodone per home meds. Urology will f/u patient as outpatient. Okay to discharge home today with f/u with Urology as outpatient next week. Extracted from: Title: [facility] and Critical Author: Ant Kidd Date: 12/14/19 Care Teaching Staff Attestation TEACHING PHYSICIAN NOTE I was present for the akhtar points of the _Dr. Andrews _ history and physical examination of the patient on the date of _12/13_. I reviewed past medical records, information, labs and imaging and I concur with resident s/fellow s note and agree with the findings and [...] I personally spent _30minutes, excluding procedures. Extracted from: Title: Stroke Consultation Brief Author: Nick Chery Date: 12/13/19 Note Stacy MUÑOZ Stroke Consultation Brief Note Patient: FELICITAS PASTRANA Date/time of arrival to [facility]: 12/13/2019 18:41 Reason for consult: LUE [...] will now sign off. Nick Chery MD [facility] | [facility] Adult Neurology PGY-2 Neurology Team
--- OUTSIDE RECORDS SUMMARY | 2020-01-03 02:52 | XMS REPORT | Summary of Care ---
Author Author [facility] Outpatient Imaging - [facility] Organization [facility] Outpatient Imaging - [facility] Address Unknown Phone Unavailable Encounter KENNEDI Anton(FIN) [id number] Date(s): 05/19/16 - 05/19/16 [facility] Outpatient Imaging - [place] [address] [place] [phone] Discharge Disposition: Home or Self Care Attending Physician: Addy Humphries MD Vital Signs No data available for [...]
--- OUTSIDE RECORDS SUMMARY | 2020-01-03 02:52 | XMS REPORT | Summary of Care ---
Author Author [facility] Outpatient Imaging - [facility] Organization [facility] Outpatient Imaging - [facility] Address Unknown Phone Unavailable Encounter HQ Desean(FIN) [id number] Date(s): 10/14/17 - 10/14/17 [facility] Outpatient Imaging - [place] [address] [place] [address] [phone] Encounter Diagnosis Volume depletion, unspecified (Final) - 10/20/17 Mixed hyperlipidemia (Final) - Other acute kidney failure (Final) - Unspecified hydronephrosis (Final) - Discharge Disposition: Home or Self Care Attending Physician: Fidel Perry MD Vital Signs No data available for [...]
--- OUTSIDE RECORDS SUMMARY | 2020-01-03 02:52 | XMS REPORT | Summary of Care ---
Author Author [facility] Address Unknown Phone Unavailable Encounter KENNEDI Anton(OLIVA) [id number] Date(s): 01/07/17 - 01/07/17 [id number] [place], [place] [address] Discharge Disposition: Home or Self Care Attending Physician: Michael Hennessy MD Referring Physician: Michael Hennessy MD Vital Signs Most recent to 1 oldest [Reference Range]: Height 160.02 cm (01/07/17 2:12 PM) Blood Pressure 102/59 mmHg [90-140/60-90 mmHg] (01/07/17 2:12 PM) Respiratory Rate 22 BRMIN [14-20 BRMIN] *HI* (01/07/17 2:12 PM) Peripheral Pulse 100 bpm Rate [60-100 bpm] (01/07/17 2:12 PM) Weight 99.545 kg (01/07/17 2:12 PM) Body Mass Index 38.88 m2 (01/07/17 2:12 PM) Problem List Condition Effective Dates Status Health Status Informan t Acid Active reflux(Confirmed) Anxiety(Confirmed) Active Diabetes Active mellitus(Confirmed) Acute lumbar Active radiculopathy(Confir med) Morbid Active obesity(Confirmed) Spasticity(Confirmed Resolved ) Allergies, Adverse Reactions, Alerts Substance Reaction Severity Status NKDA Active Medications gabapentin 600 mg oral tablet 600 mg = 1 tab, PO, TID, # 90 tab, 3 Refill(s), Pharmacy: [facility]/pharmacy #[id number] Start Date: 01/07/17 Stop Date: 05/07/17 Status: Ordered Results No data available for [...]
--- OUTSIDE RECORDS SUMMARY | 2020-01-03 02:52 | XMS REPORT | Summary of Care ---
Author Author [facility] Outpatient Imaging - [facility] Organization [facility] Outpatient Imaging - [facility] Address Unknown Phone Unavailable Encounter KENNEDI Anton(FIN) [id number] Date(s): 11/18/17 - 11/18/17 [facility] [place] [address] [place] [phone] Discharge Disposition: Home or Self Care Attending Physician: Tyler Ross MD Vital Signs No data available for [...]
--- OUTSIDE RECORDS SUMMARY | 2020-01-03 02:53 | XMS REPORT | Continuity of Care Document ---
Author Author [facility] t Organization [facility] Address [address] [place] [address] Phone Unavailable Care Team Providers Care Acrobatic Rigger Name Role Phone JOSELITO MUÑOZ, Cameron LAZCANO PCP Floyd MUÑOZ, Eliezer Attphys Ollie Martinez Attphys Crystal MUÑOZ, Amari Campos Attphys [phone] Burak MUÑOZ, Gayle Ocampo Attphys Thania Delaney MA Attphys Unavailable BRIAN RIDER M.D. Attphys Unavailable Blu MUÑOZ, Cyril Attphys [facility], Fritz Attphys Unavailable Gentry ARVIZU, Brandy Attphys Unavailable Larry MUÑOZ, Hilary Attphys Guilherme ARVIZU, Tonia Attphys Unavailable Lashanda MUÑOZ, Jose Vazquez Attphys Ewa MUÑOZ, Nilay Attphys Adela ARVIZU, Coty Attphys Unavailable Nikhil MUÑOZ, Rudy Pham Attphys Cornelio Ríos Attphys Nevaeh Bailey MA Attphys Unavailable Geraldo SINGH Attphys Unavailable Ariadna ROSS VALENTIN Attphys Unavailable Ariadna Ross Valentin Attphys Kne WHITT Attphys Unavailable Jakub Perry Attphys Melissa Ferreira Attphys Ken Hennessy Attphys Av Espino Attphys Addy Humphries Attphys Philip Arthur Attphys Darien Kidd Admphys HILARY TORREZ Admphys Unavailable Philip Arthur Admphys Payers Payer Name Policy Type Policy Number Effective Date Expiration Date S brijesh AETNA MEDICAREAETNA MEDICARE HMO/PPO [id number] -PresentO xxxxxxxxxxxx 2019 00:00:00 [facility] [id number] xxxxxxxxx 2016 00:00:00 [facility] Medicare Advantage [id number] 2012 00:00:00 [facility] Problems Condition Name Condition Details Condition Category Status Onset Date Resolution Date Last Treatment Date Treating Clinician Comments Source Methicillin resistant Staphylococcus aureus (organism) Methicillin resistant Staphylococcus aureus (organism) Active 12/14/2019 Problem 12/21/2019 Nares - 12/14/2019Problem added by Discern Expert. [facility] Problem Active 2019-12-14 00:00:00 2019-12-21 21:31:59 [facility] SEPTIC SHOCK SEPT IC SHOCK Active 12/13/2019 [facility] Diagnosis Active 2019-12-13 00:00:00 2019-12-22 21:54:00 John Moreira WEAKNESS WEAK NESS Active 12/13/2019 [facility] Diagnosis Active 2019-12-13 00:00:00 2019-12-13 19:56:00 John Moreira PE (pulmonary thromboembolism) PE (pulmonary thromboembolism) Disea se Active 2019-06-14 00:00:00 Simeon Lyn Z96.689=PRESENCE OF UNSPECIFIED ARTIFICA Z96.689=PRESENCE OF UNSPECIFIED ARTIFICA Active 02/07/2019 [facility] Active 2019-02-07 00:00:00 2019-02-11 09:16:00 John Moreira Z12.31 - ENCNTR SCREEN MAMMOGRAM FOR MA Z12.31 - ENCNTR SCREEN MAMMOGRAM FOR MA Active 02/02/2019 [facility] [place] Diagnosis Active 2019-02-02 00:01:00 2019-04-08 17:28:00 M emorinitish Moreira Malignant neoplasm metastatic to left lung Malignant n eoplasm metastatic to left lung Disease Active 2018-12-28 00:00:00 Wendy Lyn DX: RADICULOPATHY, LUMBAR REGION,, PRESE DX: RADICULOPATHY, LUMBAR REGION,, PRESE Active 12/17/2018 [facility] Diagnosis Active 2018-12-17 00:00:00 2019-01-25 17:11:00 John Moreira Renal insufficiency Renal insufficiency Disease Active 2018-12-15 00:00 :00 Simeon Lyn SBO (small bowel obstruction) SBO (small bowel obstruction) Disease Active 2018-10-24 00:00:00 Simeon Lyn Small bowel obstruction Small bowel obstruction Disease Active 2018-10-23 00:00:[address] C. difficile colitis C. difficile colitis Disease Active 00:00:00 Simeon Lyn Sepsis Sepsis Disease Active 2018-09-19 00:00:00 Simeon Lyn UTI (urinary tract infection) UTI (urinary tract infection) Disease Active 2018-08-19 00:00:00 Simeon Lyn S/P insertion of IVC (inferior vena caval) filter S/P insertion of IVC (inferior vena caval) filter Disease Active 2018-07-28 00:00:00 Simeon Lyn Flank pain Flank pain Disease Active 2018-07-21 00:00:00 Simeon Lyn Hx of pulmonary embolus Hx of pulmonary embolus Disease Active 2018-07-05 00:00:00 Simeon duarte Dehydration Dehydration Disease Active 2018-07-01 00:00:00 Simeon Lyn Proctocolitis Proctocolitis Disease Active 2018-06-21 00:00:00 Simeon Lyn Urothelial cancer Urothelial cancer Disease Active 2018-05-04 00:00:00 Simeon Lyn Acute renal failure (ARF) Acute renal failure (ARF) Disease Ac tive 2018-04-27 00:00:00 Simeon duarte Urinary tract infection due to extended- spectrum beta lactamase (ESBL) producing Escherichia coli Urinary tract infection due to extended- spectrum beta lactamase (ESBL) producing Escherichia coli Disease Active 2018-04-25 00:00:00 Simeon Lyn S/P ileal conduit S/P ileal conduit Disease Active 2018-04-25 00:00:00 Simeon Lyn Hyperlipidemia Hyperlipidemia Disease Active 2018-04-21 00:00:00 Simoen Lyn Hypertension Hypertension Disease Active 2018-04-21 00:00:00 Simeon Lyn Type 2 diabetes mellitus Type 2 diabetes mellitus Disease Acti ve 2018-04-21 00:00:00 Simeon duarte Anemia Anemia Disease Active 2018-04-21 00:00:00 Simeon Lyn Urinary tract infection associated with nephrostomy ca theter Urinary tract infection associated with nephrostomy catheter Disease Active 2018-04-20 00:00:00 Simeon duarte Pelvic pain Pelvic pain Disease Active 2017-08-24 00:00:00 Simeon Lyn Phantom pain Phantom pain Disease Active 2017-08-24 00:00:00 Simeon Lyn Enterocele Enterocele Disease Active 2017-08-24 00:00:00 Simeon Lyn Levator spasm Levator spasm Disease Active 2017-08-24 00:00:00 Simeon Lyn History of bladder cancer History of bladder cancer Disease Ac tive 2017-08-24 00:00:[address] M25.512 - PAIN IN LEFT SHOULDER M25.512 - PAIN IN LEFT SHOULDER Active 03/02/2017 VELAS[facility]Z [facility] [place] Diagnosis Active 2017-03-02 00:01:00 2017-04-03 15:45:00 John Moreira 40MG 40MG Active 01/07/2017 [facility] Diagnosis A ctive 2017-01-07 00:00:00 2018-01-17 10:14:00 Cameron Moreira BACK PAIN BACK PAIN Active 11/28/2016 [facility] Active 2016-11-28 00:00:00 2016-11-28 13:26:00 [facility] Harish F/U F/U Active 11/28/2016 [facility] Diagnosis Act onofre 2016-11-28 00:00:00 2017-01-07 13:34:00 [facility] M25.369 - "OTHER INSTABILITY, UNSPECIFIE M25.369 - "OTHER INSTABILITY, UNSPECIFIE Active 09/17/2016 [facility] [place] Diagnosis Active 2016-09-17 00:01:00 2016-10-26 15:48:00 [facility] Harish 40 MG 40 M G Active 05/29/2016 [facility] Diagnosis Active 2016-05-29 00:00:00 2016-06-02 16:14:00 [facility] EVAL EVAL Active 05/13/2016 [facility] Diagnosis A ctive 2016-05-13 00:00:00 2016-05-29 13:04:00 [facility] REFERRAL FOR EVAL REFE RRAL FOR EVAL Active 01/29/2016 [facility] Diagnosis Active 2016-01-29 00:00:00 2017-03-02 10:59:00 [facility] Harish UNK UNK Active 01/07/2016 [facility] Active 2016-01-07 00:00:00 2016-01-14 15:59:00 [facility] LUMBAR RADICULOPATHY, SURGERY LUMBAR RADICULOPATHY, SURGERY Active 01/07/2016 [facility] Active 2016-01-07 00:00 :00 2016-02-13 15:07:00 [facility] Harish 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 Active 07/03/2015 [facility] [place] Diagnosis Active 2015-07-03 00:01:00 2015-07-13 07:02:00 [facility] Harish Pain in both knees, unspecified chronicity Pain in bot h knees, unspecified chronicity Problem Active [facility] Loosening of prosthesis of left total knee replacement , initial encounter Loosening of prosthesis of left total knee replacement, initial encounter Problem Active [facility] Mixed hyperlipidemia Mixe d hyperlipidemia 01/20/2018 [facility] [place] Problem 2018-01-20 15:52:41 [facility] Other acute kidney failure Oth er acute kidney failure 01/20/2018 [facility] [place] Problem 2018-01-20 15:52:41 [facility] Unspecified hydronephrosis Uns pecified hydronephrosis 01/20/2018 [facility] [place] Problem 2018-01-20 15:52:41 [facility] Malignant neoplastic disease (disorder) Malignant neoplastic disease (disorder) Resolved Problem 12/21/2019 [facility] Problem Resolved 2019-12-21 21:31:59 [facility] Spasticity (finding) Spas ticity (finding) Resolved Problem 12/21/2019 [facility], [facility], [facility] [place], [facility] [place], [facility] Problem Resolved 2019-12-21 21:31:59 [facility] 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) Resolved Problem 12/21/2019 [facility] Problem Resolved 2019-12-21 21:31:59 [facility] Acid reflux (finding) Acid reflux (finding) Active Problem 12/21/2019 [facility], [facility], [facility] [place], [facility] [place], [facility] Problem Active 2019-12-21 21:31:59 [facility] Anxiety (finding) Anxi ety (finding) Active Problem 12/21/2019 [facility], [facility], [facility] [place], [facility] [place], [facility] Problem Active 2019-12-21 21:31:59 Rishabh [facility] [place] Diabetes mellitus (disorder) D iabetes mellitus (disorder) Active Problem 12/21/2019 [facility], [facility], [facility] [place], [facility] [place], [facility] Problem Active 2019-12-21 21:31:59 [facility] Lumbar radiculopathy (disorder) Lumbar radiculopathy (disorder) Active Problem 12/21/2019 [facility], [facility], [facility] [place], [facility] [place], [facility] Problem Active 2019-12-21 21:31:59 [facility] Morbid obesity (disorder) Morb id obesity (disorder) Active Problem 12/21/2019 [facility], [facility], [facility] [place], [facility] [place], [facility] Problem Active 2019-12-21 21:31:5 9 [facility] RADICULOPATHY, LUMBAR REGION R ADICULOPATHY, LUMBAR REGION Active [facility] Diagnosis Active 2016-02-13 15:07 :00 [facility] SPONDYLS W/O MYELOPATHY OR RADICULOPATHY SPONDYLS W/O MYELOPATHY OR RADICULOPATHY Active [facility] Diagnosis Active 2016-02-13 15:07:00 [facility] OTHER MUSCLE SPASM OTHE R MUSCLE SPASM Active [facility] Diagnosis Active 2017-01-07 13:34:00 [facility] OTHER CHRONIC PAIN OTHE R CHRONIC PAIN Active [facility] Diagnosis Active 2016-06-02 16:14:00 [facility] SEVERE SEPSIS WITH SEPTIC SHOCK SEVERE SEPSIS WITH SEPTIC SHOCK Active [facility] Diagnosis Active 2019-12-22 21:54:00 [facility] Hypothyroidism due to medication Hypothyroidism due to medicatio n Disease Active [facility] Volume depletion, unspecified Volume depletion, unspecified 10/21/2017 01/20/2018 [facility] Problem 2017-10-21 04:15:56 2018-01-20 15:52:41 2018-01-20 15:52:41 [facility] Low back pain Low back pain 11/28/2016 12/01/2016 [facility] Problem 2016-11-28 05:00:00 2016-12-01 03:32:50 2016-11 03:32:50 [facility] Allergies, Adverse Reactions, Alerts Allergy Name Allergy Type Status Severity Reaction(s) Onset Date Inacti ve Date Treating Clinician Comments Source Penicillins Propensity to adverse reactions to drug Active Rash 2018-04-01 00:00:00 Simeon dobbins Penicillin Allergy to Substance Active 2017-10-15 00:00:00 [facility] No Known Medication Allergies No Known Medication Allergies Active [facility] penicillins penicillins Active [facility] Family History Family Member Diagnosis Comments Start Date Stop Date Source Natural brother problems [place] Natural brother Kidney disease [place] Natural brother Colon cancer [place] Natural father Kidney disease [place] Natural mother Heart disease [place] Natural mother Hypertension [place] Natural sister Kidney cancer [place] Natural sister Diabetes [facility] thodist Social History Social Habit Start Date Stop Date Quantity Comments Source History of tobacco use Current smoker [place] Sex Assigned At [facility] Exposure to SARS-CoV-2 (event) Unable to assess Simeon Lyn Cigarettes smoked current (pack per day) - Reported 00:00:00 2019-10-24 00:00:00 Simeon Lyn Cigarette pack-years 2019-10-24 00:00:00 2019-10-24 00:00:00 Simeon Lyn Alcohol intake 2019-10-24 00:00:00 2019-10-24 00:00:00 Current non-drinker of alcohol (finding) Simeon Lyn Social History 2016-01-09 20:33:59 2016-01-09 20:33:59 John Moreira Smoking Status Start Date Stop Date Source Former smoker 2019-10-24 00:00:00 2019-10-24 00:00:00 Simeon Lyn Medications Ordered Medication Name Filled Medication Name Start Date Stop Da te Current Medication? Ordering Clinician Indication Dosage Frequency Signature (SIG) Comments Components Source levofloxacin 750 mg oral tablet 2019-12-20 14:00:00 Yes 750 mg = 1 tab, PO, Q48H, X 6 day, # 3 tab, 0 Refill(s), Pharmacy: [facility]/pharmacy #[id number] [facility] [place] vancomycin + Sodium Chloride 0.9% IV 250 mL 2019-12-19 00:30:00 No 2001 mg: infuse over 2.5 hours For adult patients only: Round to nearest 250 mg per Medical Staff approval MEDICATION WASTE Product Size: 1000 mg Product Wasted: ___ mg [facility] Harish Levaquin 2019-12-18 17:00:00 No Notes: (Micheal e as:Levaquin) [facility] vancomycin + Sodium Chloride 0.9% IV 250 mL 2019-12-17 01:00:00 No 2001 mg: infuse over 2.5 hours For adult patients only: Round to nearest 250 mg per Medical Staff approval MEDICATION WASTE Product Size: 1000 mg Product Wasted: ___ mg [facility] heparin 2019-12-16 21:00:00 No Notes: porci ne heparin [facility] meropenem 2019-12-16 16:00:00 No Notes: Same as Merrem MEDICATION WASTE Product Size: 500 mg Product Wasted: ___ mg [facility] Docusate 2019-12-15 22:00:00 No Notes: (Same as: Colace) (Do Not Crush) [facility] duloxetine 2019-12-15 14:00:00 No Notes: (Same as: Cymbalta) (Do Not Crush) [facility] Esomeprazole 2019-12-15 14:00:00 No 40 mg, 1 cap, Route: PO, Drug form: ECCAP, Daily, Dosing Weight 102.9, kg, Start date: 12/15/19 9:00:00 CDT, Duration: 30 day, Stop date: 01/13/20 9:00:00 CDT [facility] montelukast 2019-12-15 14:00:00 No Notes: ( Same as:Singulair) [facility] POLYETHYLENE GLYCOL 3350 2019-12-15 14:00:00 No Notes: Dissolve in 8 oz of water or juice. (Same as: Miralax) [facility] Protonix 2019-12-15 14:00:00 No Notes: Tablet should not be chewed or crushed. (Same as: Protonix) [facility] Miralax 2019-12-15 14:00:00 No Notes: Dissolve in 8 oz of water or juice. (Same as: Miralax) [facility] nn Oxycodone Hydrochloride 5 MG Oral Tablet 2019-12-15 12:55:00 No Notes: (Same as: Roxicodone) [facility] atorvastatin 2019-12-15 02:00:00 No Notes: (Same as: Lipitor) [facility] Eliquis 2019-12-15 02:00:00 No 5 mg, Route: PO, Drug form: TAB, Q12H, Dosing Weight 102.9, kg, Start date: 12/14/19 21:00:00 CDT, Duration: 30 day, Stop date: 01/13/20 9:00:00 CDT [facility] Melatonin 3 MG Extended Release Tablet 2019-12-15 02:00:00 No Notes: (Same as: Melatonin) [facility] Vancomycin 2019-12-15 01:00:00 No 2001 mg: infuse over 2.5 hours [facility] sennosides, [facility] 2019-12-14 22:00:00 No Notes: (Same as: Senokot) [facility] Heparin 80 unit/kg Bolus (Heparin Dosing Weight) 2019-12-14 20:1 1:00 No Route: IVP, PRN, 5,800 unit, 5.8 mL, Drug form: INJ, PRN, Heparin Protocol, Start date: 12/14/19 15:11:00 CDT Stop date: 01/13/20 15:10:00 CDT, 30 day, 0 [facility] Harish Heparin 40 unit/kg Bolus (Heparin Dosing Weight) 2019-12-14 20:1 1:00 No Route: IVP, PRN, 2,900 unit, 2.9 mL, Drug form: INJ, PRN, Heparin Protocol, Start date: 12/14/19 15:11:00 CDT Stop date: 01/13/20 15:10:00 CDT, 30 day, 0 John Moreira heparin additive 25,000 unit [18 unit/kg /hr] + Premix Diluent Sodium Chloride 0.45% 500 mL 2019-12-14 20:11:00 No Notes: Total Concentration = 50 unit/ ml Total volume = 500 ml Send Med Request 2 hours prior to next bag John Moreira Calcium Chloride 0.0014 MEQ/ML / Potassi um Chloride 0.004 MEQ/ML / Sodium Chloride 0.103 MEQ/ML / Sodium Lactate 0.028 MEQ/ML Injectable Solution 2019-12-14 19:57:00 No 500 mL, 500 ml/hr, Infuse Over: 1 hr, Route: IV, 500, Drug form: INJ, ONCE, Priority: STAT, Dosing Weight 102.9 kg, Start date: 12/14/19 14:57:00 CDT, Stop date: 12/14/19 14:57:00 CDT, 0 [facility] Harish Sucralfate 100 MG/ML Oral Suspension [Carafate] 2019-12-14 19:24 :00 No Notes: May interfere w/enter al feeds - Take 1 hr before or 2 hr after antacids, dairy pdt, meals & minerals - On empty stomach. For patients unable to swallow tablet, dissolve in 10mL - 30mL of water or juice and stir before giving. (Same As: Carafate) John avelar Dextrose 50% Syringe (D50W) 2019-12-14 18:46:00 No 12.5 gm, 25 mL, Route: IVP, Drug Form: INJ, Dosing Weight 102.9, kg, PRN, PRN Blood Glucose Results, Start date: 12/14/19 13:46:00 CDT, Duration: 30 day, Stop date: 01/13/20 13:45:00 CDT, 0 John [place] n Glucagon 2019-12-14 18:46:00 No 1 mg, Route: IM, Drug form: PDR/INJ, PRN, Dosing Weight 102.9, kg, PRN Blood Glucose Results, Start date: 12/14/19 13:46:00 CDT, Duration: 30 day, Stop date: 01/13/20 13:45:00 CDT, 0 John Moreira Insulin Lispro 2019-12-14 18:46:00 No Notes: (Same as: Humalog) Roll in palms of hands gently; Do not shake vigorously. WASTE: F/P - Black; E - Municipal Trash Bin Stable for 28 days at room temperature. Expires in days from Date John avelar NIFEdipine 30 mg oral tablet, extended release 2019-12-14 18:44: 00 Yes 30 mg = 1 tab, PO, Daily, 0 Refill(s) John Moreira albuterol 90 mcg/inh inhalation aerosol 2019-12-14 18:38:00 No Notes: Albuterol 90 microgram/inh 8.5gm HFA WASTE: Aerosol - Return to Pharmacy Same as: Jono Lopez [facility] oxyCODONE 10 mg oral tablet, immediate release 2019-12-14 18:37: 00 Yes TK 1 T [facility] [place] [facility] 25 mg oral tablet 2019-12-14 18:30:00 Yes 25 mg = 1 tab, Daily, 0 Refill(s) John Moreira nebivolol 10 MG Oral Tablet [Bystolic] 2019-12-14 18:30:00 Yes 10 mg = 1 tab, Daily, 0 Refill(s) [facility] Kristopher avelar montelukast 10 mg oral tablet 2019-12-14 18:30:00 Yes 10 mg = 1 tab, Daily, 0 Refill(s) John Harish atorvastatin 40 mg oral tablet 2019-12-14 18:30:00 No 40 mg = 1 tab, Bedtime, 0 Refill(s) John Moreira gabapentin 800 MG Oral Tablet 2019-12-14 18:30:00 No 800 mg = 1 tab, TID, 0 Refill(s) John Moreira apixaban 5 MG Oral Tablet [Eliquis] 2019-12-14 18:30:00 No 5 mg, PO, Q12H, 0 Refill(s) John Moreira 4 ML pembrolizumab 25 MG/ML Injection [Keytruda] 2019-12-14 18:30:00 Yes 0 Refill(s) John martinez albuterol 90 mcg/inh inhalation aerosol 2019-12-14 18:30:00 Yes 2 puff, INHALATION, QID, PRN Wheezing, # 17 gm, 0 Refill(s) John Moreira Trazodone Hydrochloride 50 MG Oral Tablet 2019-12-14 18:30:00 Yes 50 mg = 1 tab, Bedtime, PRN Sleep, 0 Refill(s) John Moreira Hydralazine Hydrochloride 100 MG Oral Tablet 2019-12-14 18:30:00 No 0 Refill(s) John Moreira glimepiride 2 mg oral tablet 2019-12-14 18:30:00 Yes 2 mg = 1 tab, Daily, 0 Refill(s) John Moreira Esomeprazole 40 MG Enteric Coated Capsule 2019-12-14 18:30:00 Yes 40 mg = 1 cap, Daily, 0 Refill(s) John Moreira linaclotide 0.072 MG Oral Capsule [Linzess] 2019-12-14 18:30:00 Yes 72 microgram = 1 cap, Daily, PRN Constipation, 0 Refill(s) John Moreira Sucralfate 100 MG/ML Oral Suspension [Carafate] 2019-12-14 18:30 :00 Yes 1 gm = 10 mL, QID-Before Meals, PRN GI Upset, 0 Refill (s) John Moreira Oxycodone Hydrochloride 5 MG Oral Tablet 2019-12-14 16:58:00 No Notes: (Same as: Roxicodone) John avelar meropenem 2019-12-14 16:00:00 No Notes: Same as Merrem MEDICATION WASTE Product Size: 500 mg Product Wasted: ___ mg John oMreira Saline Flush 0.9% 2019-12-14 14:00:00 No Notes: Same as: BD Posiflush Sterile [facility] 1/2 NS 1000 mL 2019-12-14 13:51:00 No 1,000 mL, Rate: 75 ml/hr, Infuse over: 13.3 hr, Route: IV, Dosing Weight 102.6 kg, Total Volume: 1,000, Start date: 12/14/19 8:51:00 CDT, Duration: 30 day, Stop date: 01/13/20 8:50:00 CDT, 2.17, m2 [facility] Acetaminophen 2019-12-14 13:48:00 No Notes: Do not exceed 4 gm/day. (Same as: Tylenol) [facility] Oxycodone Hydrochloride 5 MG Oral Tablet 2019-12-14 13:48:00 No Notes: (Same as: Roxicodone) [facility] Nystatin 100 UNT/MG Topical Powder 2019-12-14 12:20:00 No Notes: (Same as:Mycostatin, Nilstat) For external use only. [facility] Acetaminophen 2019-12-14 12:20:00 No Notes: Do not exceed 4 gm/day. (Same as: Tylenol) [facility] Ondansetron 2019-12-14 12:20:00 No Notes: (Same as: Zofran) MEDICATION WASTE Product Size: 4 mg Product Wasted: ___ mg [facility] Saline Flush 0.9% 2019-12-14 12:20:00 No Notes: (Same as: BD Posiflush) [facility] Potassium Chloride 2019-12-14 12:20:00 No 20 mEq, Route: IVPB, PRN, Dosing Weight 102.6, kg, PRN Abnormal Lab Result, Via central line, Start date: 12/14/19 7:20:00 CDT, Duration: 30 day, Stop date: 01/13/20 7:19:00 CDT, FOR ICU USE ONLY [facility] sodium phosphate 2019-12-14 12:20:00 No 15 mmol, Route: IVPB, PRN, Dosing Weight 102.6, kg, PRN Abnormal Lab Result, Start date: 12/14/19 7:20:00 CDT, Duration: 30 day, Stop date: 01/13/20 7:19:00 CDT, FOR ICU USE ONLY [facility] potassium phosphate 2019-12-14 12:20:00 No 15 mmol, Route: IVPB, PRN, Dosing Weight 102.6, kg, PRN Abnormal Lab Result, Start date: 12/14/19 7:20:00 CDT, Duration: 30 day, Stop date: 01/13/20 7:19:00 CDT, FOR ICU USE ONLY John Moreira potassium phosphate-sodium phosphate 250 mg-280 mg-160 mg oral powder for reconstitution 2019-12-14 12:20:00 No 2 pkt, Route: PO, Dosing Weight 102.6, kg, PRN, PRN Abnormal Lab Result, FOR ICU USE ONLY, Start date: 12/14/19 7:20:00 CDT, Duration: 30 day, Stop date: 01/13/20 7:19:00 CDT John Moreira Magnesium Sulfate 2019-12-14 12:20:00 No 2 gm, Route: IVPB, PRN, Dosing Weight 102.6, kg, PRN Abnormal Lab Result, Start date: 12/14/19 7:20:00 CDT, Duration: 30 day, Stop date: 01/13/20 7:19:00 CDT, FOR ICU USE ONLY John Moreira Magnesium Oxide 2019-12-14 12:20:00 No 800 mg, Route: PO, PRN, Dosing Weight 102.6, kg, PRN Abnormal Lab Result, FOR ICU USE ONLY, Start date: 12/14/19 7:20:00 CDT, Duration: 30 day, Stop date: 01/13/20 7:19:00 CDT John Moreira Calcium Gluconate 2019-12-14 12:20:00 No 1 gm, Route: IVPB, PRN, Dosing Weight 102.6, kg, PRN Abnormal Lab Result, Start date: 12/14/19 7:20:00 CDT, Duration: 30 day, Stop date: 01/13/20 7:19:00 CDT, FOR ICU USE ONLY John Moreira Calcium Carbonate 500 MG Chewable Tablet 2019-12-14 12:20:00 No 500 mg, Route: PO, PRN, Dosing Weight 102.6, kg, PRN Abnormal Lab Result, FOR ICU USE ONLY, Start date: 12/14/19 7:20:00 CDT, Duration: 30 day, Stop date: 01/13/20 7:19:00 CDT [facility] Fentanyl 2019-12-14 06:56:00 No 50 microgram, Route: IVP, ONCE, Dosing Weight 86.364, kg, Priority: STAT, Start date: 12/14/19 1:56:00 CDT, Stop date: 12/14/19 1:56:00 CDT [facility] Her jorge Norepinephrine 2019-12-14 03:50:00 No Notes: Not for direct administration - DILUTE. Protect from light. (Same as:Levophed). Administer by either central venous catheter or peripherally-inserted central catheter (PICC) line. [facility] Vancomycin 2019-12-14 00:36:00 No 2001 mg: infuse over 2.5 hours For adult patients only: Round to nearest 250 mg per Medical Staff approval MEDICATION WASTE Product Size: 1000 mg Product Wasted: ___ mg [facility] Tylenol 2019-12-14 00:36:00 No Notes: Do not exceed 4 gm/day. (Same as: Tylenol) [facility] Saline Flush 0.9% 2019-12-14 00:16:00 No Notes: (Same as: BD Posiflush) [facility] Isolyte S PH-7.4 (Bolus) IV 2019-12-14 00:16:00 No Notes: (Same as: Isolyte S PH7.4, Normosol-R PH 7.4, Plasma-Lyte A ) [facility] cefepime 2019-12-14 00:16:00 No Notes: (Same As: Maxipime) MEDICATION WASTE Product Size: 1000 mg Product Wasted: ___ mg [facility] sulfamethoxazole-trimethoprim (BACTRIM DS) 800-160 mg per ta blet 2019-09-07 00:00:00 2019-09-21 23:59:00 No 1{tbl} Q.5D Take 1 tablet by mouth 2 (two) times a day for [address] multivitamin with minerals tablet 2019-08-04 11:13:11 2019 00:00:00 No 1{tbl} QD Take 1 tablet by mouth daily. Simeon Lyn ascorbic acid, vitamin C, (VITAMIN C) 500 MG tablet 2019-08-04 11:11:56 2019-08-04 00:00:00 No 500mg QD Take 500 mg by mouth daily. Simeon Lyn atorvastatin (LIPITOR) 40 MG tablet 2019-08-04 11:11:34 Yes 40mg QD Take 40 mg by mouth nightly. Simeon hui DULoxetine (CYMBALTA) 60 MG capsule 2019-08-04 11:11:34 Yes 60mg QD Take 60 mg by mouth every morning. Simeon Lyn magnesium oxide (MAG-OX) 400 mg (241.3 mg magnesium) tablet 2019-08-04 11:11:34 Yes 400mg QD Take 400 mg by mouth daily. Simeon Lyn hydrALAZINE (APRESOLINE) 100 MG tablet 2019-08-04 11:11:34 Yes 100mg Q.5D Take 100 mg by mouth 2 (two) times a day. Simeon Lyn ergocalciferol, vitamin D2, (VITAMIN D2 ORAL) 2019-08-04 11:11:3 4 Yes Take by mouth. Siemon dobbins traMADol (ULTRAM) 50 mg tablet 2019-07-04 00:00:00 9 23:59:00 No chronic pain 50mg Q6H Take 1 tablet (50 mg total) by mouth every 6 (six) hours as needed for moderate pain for up to 30 days .chronic pain. Simeon Lyn traMADol (ULTRAM) 50 mg tablet 2019-06-17 00:00:00 2019-07-04 00 :00:00 No TAKE 1 TABLET BY MOUTH EVERY 6 HOURS NEEDED FOR CHR ONIC PAIN Simeon Lyn esomeprazole (NexIUM) 40 MG capsule 2019-06-16 00:00:00 Yes TAKE 1 CAPSULE BY MOUTH EVERY DAY BEFORE BREAKFAST Simeon Lyn docusate sodium (COLACE) 100 MG capsule 11:55:50 2019-06-13 00:00:00 No 100mg Q.5D Take 100 mg by mouth 2 (two) ti mes a day. Simeon Lyn calcium-vitamin D3-vitamin K (VIACTIV) 500-500-40 mg-unit-mc g tablet,chewable 2019-06-13 11:53:19 2019-06-13 00:00:00 No QD Chew 1 chewable tablet(s) daily. Simeon Lyn traMADol (ULTRAM) 50 mg tablet 2019-06-01 00:00:00 2019-05-27 8 00:00:00 No chronic pain 50mg Q6H Take 1 tablet (50 mg total) by mouth every 6 (six) hours as needed for moderate pain for up to 30 days .chronic pain. Simeon Lyn sulfamethoxazole-trimethoprim (BACTRIM SS) 400-80 mg per tab let 2019-05-30 00:00:00 2019-06-06 23:59:00 No 1{tbl} Q.5D Take 1 tablet by mouth 2 (two) times a day for 7 days. Simeon dobbins levoFLOXacin (LEVAQUIN) 500 MG tablet 2019-05-26 00:00 :00 2019-06-01 00:00:00 No 500mg QD Take 1 tablet (500 mg total) by mouth da james for 7 days. Simeon Lyn LINZESS 72 mcg capsule 2019-05-12 00:00:00 Yes 1{capsule} QD Take 1 capsule by mouth daily before breakfast. Simeon Lyn oxyCODone (ROXICODONE) 5 MG immediate release tablet 2019-05-11 00:00:00 2019-06-01 00:00:00 No 5mg Q12H Take 5 mg by mouth every 12 (twelve) hours as needed. Simeon Lyn LANTUS SOLOSTAR U-100 INSULIN 100 unit/mL injection (pen) 2019-05-02 00:00:00 Yes 30U Q.5D Inject 30 Units under the skin 2 (two) times a day. Simeon Lyn gabapentin (NEURONTIN) 800 mg tablet 2019-05-02 00:00: 00 2019-05-26 00:00:00 No 800mg [id number] Take 800 mg b y mouth 3 (three) times a day. Simeon Lyn traMADol (ULTRAM) 50 mg tablet 2019-04-30 00:00:00 2019-05-26 00 :00:00 No 3000mg Q6H Take 3,000 mg by mouth every 6 (six) hours as needed. Simeon Lyn levoFLOXacin (LEVAQUIN) 500 MG tablet 2019-03-25 00:00 :00 2019-03-28 23:59:00 No 500mg QD Take 1 tablet (500 mg total) by mouth da james for 3 days. Simeon Lyn esomeprazole (NexIUM) 40 MG capsule 2019-03-23 00:00:0 0 2019-06-13 00:00:00 No 40mg QD Take 1 capsule (40 mg total) by mouth da james before breakfast. Simeon Lyn oxyCODone (ROXICODONE) 5 MG immediate release tablet 2019-03-23 00:00:00 2019-04-23 23:59:00 No chronic pain chr onic pain. 1 tablet po q 12 hours prn pain Simeon Lyn spironolactone (ALDACTONE) 25 MG tablet 2019-03-09 00:00:00 Yes 25mg QD Take 25 mg by mouth daily. Simeon hui lidocaine (XYLOCAINE) 2 % jelly 2019-03-08 00:00:00 00:00:00 No 1{application} Q8H Apply 1 application topically every 8 (eight) hours as needed. Simeon Lyn lidocaine-prilocaine (EMLA) 2.5-2.5 % cream 2018 00:00:00 2020-03-02 23:59:00 No Apply topicall y as needed for mild pain. Apply 1/2 gram to port 1 hour prior to treatment. Simeon Lyn ondansetron ODT (ZOFRAN ODT) 8 MG disintegrating tablet 2019-03-03 00:00:00 2019-04-02 23:59:00 No 8mg Q8H Take 1 tablet (8 mg total) by mouth every 8 (eight) hours as needed for nausea or vomiting for up to 30 days. Simeon Lyn sulfamethoxazole-trimethoprim (BACTRIM DS) 800-160 mg per ta blet 2019-02-26 00:00:00 2019-03-05 23:59:00 No 1{tbl} Q.5D Take 1 tablet by mouth 2 (two) times a day for 7 days. smx-tmp DS (BACTRIM) 800-160 mg tabs (1tab q12 D10) Simeon Lyn acetaminophen-codeine (TYLENOL WITH CODEINE #3) 300-30 mg pe r tablet 2019-02-26 00:00:00 2019-03-03 23:59:00 No 1{tbl} Q6H Take 1 tablet by mouth every 6 (six) hours as needed for moderate pain for up to 5 days. Simeon Lyn oxyCODone (ROXICODONE) 10 MG tablet 2019-02-24 00:00:0 0 2019-03-26 23:59:00 No 10mg Q12H Take 1 tablet ( 10 mg total) by mouth every 12 (twelve) hours as needed for moderate pain for up to 30 days. Max Daily Amount: 20 mg Simeon Lyn HUMALOG KWIKPEN INSULIN 100 unit/mL injection pen 2019-02-19 00:00:00 Yes 10U Q.5D Inject 10 Units under the skin 2 (two) times a day. Simeon Lyn ELIQUIS 5 mg tablet 2019-02-09 00:00:00 Yes 5mg Q.5D Take 5 mg by mouth 2 (two) times a day. Simeon Lyn acetaminophen-codeine (TYLENOL WITH CODEINE #3) 300-30 mg pe r tablet 2019-02-07 00:00:00 2019-02-26 00:00:00 No 1{tbl} Q4H Take 1 tablet by mouth every 4 (four) hours as needed for moderate pain for up to 30 days. Simeon Lyn apixaban (ELIQUIS) 5 mg tablet 2018-12-24 00:00:00 2019-01-23 23 :59:00 No 5mg Q.5D Take 1 tablet (5 mg total) by mouth 2 (two) time s a day for 30 days. Simeon Lyn polyethylene glycol (MIRALAX) 17 gram packet 03-31-31 00:00:00 2019-01-23 23:59:00 No 17g QD Take 17 g by mouth daily for 30 days. Simeon Lyn NIFEdipine XL (PROCARDIA XL) 30 MG 24 hr tablet 2018-10-06 00:00 :00 Yes 30mg QD Take 30 mg by mouth every morning. Simeon Lyn BYSTOLIC 10 mg tablet 2018-09-21 00:00:00 Yes 10mg QD Take 10 mg by mouth every evening. Simeon Lyn glimepiride (AMARYL) 2 MG tablet 2018-08-11 00:00:00 Yes 2mg QD Take 2 mg by mouth every morning. Simeon hui clonIDINE (CATAPRES) 0.1 MG tablet 2018-07-08 00:00:00 201 04-07-13 23:59:00 No .1mg QD Take 1 tablet (0.1 mg total) by mouth daily. Hold for SBP <110 mmHg Simeon Lyn NOVOLOG FLEXPEN 100 unit/mL insulin pen 2017-07-14 00:00:00 Yes INJECT 4 UNITS 3 TIMES A DAY BEFORE MEALS SUBCUTANEOUSLY [facility] tiZANidine (ZANAFLEX) 2 MG tablet 2017-06-29 00:00:00 2019 00:00:00 No TAKE 1 TABLET BY MOUTH EVERY 8 HOURS NEEDED FOR 10 DAYS [place] [facility] pantoprazole (PROTONIX) 40 MG EC tablet 2017-06-04 00:00:00 Yes 40mg QD Take 40 mg by mouth every morning. Wendy Lyn gabapentin 600 MG Oral Tablet 2017-01-07 20:45:03 Yes 600 mg = 1 tab, PO, TID, # 90 tab, 3 Refill(s), Pharmacy: [facility]/pharmacy #[id number] [facility] Harish Methocarbamol 750 MG Oral Tablet [Robaxin] 2016-11-28 20:41:00 Yes 750 mg = 1 tab, PO, Q6H, PRN Spasms, X 7 day, # 28 tab, 0 Refill(s), Pharmacy: [facility]/pharmacy #[id number] [facility] Lidocaine 0.05 MG/MG Transdermal Patch 2016-11-28 20:40:00 Yes 1 patch, TOP, Daily, # 14 patch, 0 Refill(s), Pharmacy: [facility]/pharmacy #[id number] [facility] predniSONE 20 mg oral tablet 2016-11-28 20:40:00 Yes 60 mg = 3 tab, PO, Daily, Take 3 tablets for 60 mg dose, X 3 day, # 9 tab, 0 Refill(s), Pharmacy: [facility]/pharmacy #[id number] [facility] rosio Robaxin 2016-11-28 19:40:00 No Notes: (Same as:Robaxin) [facility] Harish Motrin 2016-11-28 18:11:00 No Notes: (Same as: Advil) Give with food. [facility] Harish gabapentin 600 MG Oral Tablet 2016-05-29 19:14:00 Yes 600 mg = 1 tab, PO, TID, # 90 tab, 0 Refill(s), Pharmacy: [facility]/pharmacy #[id number] [facility] Acetaminophen 325 MG / Hydrocodone Bitartrate 5 MG Oral Tabl et 2016-01-18 16:11:00 Yes 1 tab, PO, Q4H, PRN Pain Scor e 4-6, 0 Refill(s) John Moreira Lantus 2016-01-16 02:00:00 No Route: SUB-Q, Drug form: SOLN, Bedtime, Dosing Weight 110.625, kg, Start date: 01/15/16 21:00:00 CDT, Duration: 30 day, Stop date: 02/13/16 21:00:00 CDT John Moreira Levemir FlexPen 2016-01-16 02:00:00 No Notes: Same as Levemir Do not hold insulin without contacting prescriber WASTE: F/P - Black; E - Municipal Trash Bin "single [facility] use only" [facility] 2016-01-16 02:00:00 No Notes: ( Same as: Pravachol) John Moreira Ambien 2016-01-16 00:18:00 No Notes: (Same As: Ambien) John Moreira Ambien CR 2016-01-15 23:59:00 No 6.25 mg, Route: PO, Drug form: ERTAB, Bedtime, Dosing Weight 110.625, kg, PRN Sleep, Start date: 01/15/16 18:59:00 CDT, Duration: 30 day, Stop date: 02/14/16 18:58:00 CDT John Moreira Zolpidem tartrate 12.5 MG Extended Release Tablet [Ambien] 2016-01-15 23:54:00 Yes 12.5 mg = 1 tab, PO, Bedtime, P RN for sleep, 0 Refill(s) John Moreira Potassium Chloride 10 MEQ Extended Release Tablet 2016-01-15 14:00:00 No Notes: (Same as: K-D ur 10) "Do Not Crush" With food and full glass of water [facility] Harish pantoprazole 2016-01-15 14:00:00 No Notes: Tablet should not be chewed or crushed. (Same as: Protonix) [facility] Harish Loratadine 2016-01-15 14:00:00 No Notes: 1 hr before meals (Same as: Claritin) John Moreira Hydrochlorothiazide 12.5 MG / Lisinopril 20 MG Oral Tablet 2016-01-15 14:00:00 No 1 tab, Rou te: PO, Drug Form: TAB, Dosing Weight 110.625, kg, Daily, Start date: 01/15/16 9:00:00 CDT, Duration: 30 day, Stop date: 02/13/16 9:00:00 CDT [facility] Furosemide 40 MG Oral Tablet 2016-01-15 14:00:00 No Notes: (Same as: Lasix) May cause GI upset. Give with food or milk. [facility]ish duloxetine 2016-01-15 14:00:00 No Notes: (Same as: Cymbalta) (Do Not Crush) [facility] Buspirone 2016-01-15 14:00:00 No Notes: (Sa me As: BuSpar) [facility] lisinopril 2016-01-15 14:00:00 No Notes: (Same as: Prinivil, Zestril) [facility] Allopurinol 2016-01-15 14:00:00 No Notes: ( Same as: Zyloprim) [facility] Senokot 2016-01-15 14:00:00 No Notes: (Same as: Senokot) [facility] Famotidine 20 MG Oral Tablet [Pepcid] 2016-01-15 14:00:00 N o Notes: (Same as: Pepcid) [facility] hydrochlorothiazide 2016-01-15 14:00:00 No Notes: (Same as: Microzide) With food. [facility] Metformin hydrochloride 1000 MG Oral Tablet 2016-01-15 13:00:00 No Notes: (Same as: Glucophage) Take with meal John Harish heparin sodium, porcine 2500 UNT/ML Injectable Solution 2016-01-15 13:00:00 No Notes: porcine heparin [facility] NovoLOG FlexPen 2016-01-15 12:33:00 No Notes: Roll in palms of hands gently; Do not shake vigorously. (Same as: NovoLOG) "single patient use only" WASTE: F/P - Black; E - Municipal Trash Bin Stable for 28 days at room temperature. Expires in days from Date [facility] Insulin Lispro 2016-01-15 12:30:00 No 5 unit, Route: SUB-Q, Drug form: SOLN, TID-Before Meals, Dosing Weight 110.625, kg, Start date: 01/15/16 7:30:00 CDT, Duration: 30 day, Stop date: 02/13/16 16:30:00 CDT [facility] Docusate Sodium 100 MG Oral Capsule [Colace] 2016-01-14 22:00:00 No Notes: (Same as: Colace) (Do Not Crush) John [facility] ceFAZolin (SCIP) 2016-01-14 21:00:00 No 1 gm, 100 mL, Route: IVPB, Drug form: INJ, ABXQ8H, Dosing Weight 104.545, kg, Start date: 01/14/16 16:00:00 CDT, Stop date: 01/15/16 12:00:00 CDT Cameron oakes Harish ketOROLAC (ANES) 2016-01-14 20:00:00 No IV, ONCE John Moreira Zofran 2016-01-14 19:54:00 No Notes: (Same as: Zofran) MEDICATION WASTE Product Size: 4 mg Product Wasted: __0_ mg [facility] magnesium citrate 2016-01-14 19:54:00 No Notes: (Same as: Citrate of Magnesia) [facility] Dilaudid 2016-01-14 19:54:00 No 0.5 mg, 0.5 mL, Route: IV, Drug form: INJ, Q3H, Dosing Weight 104.545, kg, PRN Pain Score 4-6, Start date: 01/14/16 14:54:00 CDT, Stop date: 02/13/16 14:53:00 CDT [facility] Tylenol 2016-01-14 19:54:00 No Notes: Do not exceed 4 gm/day. (Same as: Tylenol) [facility] Acetaminophen 325 MG / Hydrocodone Bitartrate 5 MG Oral Tabl et 2016-01-14 19:54:00 No Notes: (Sa me as: [place] 325/5) Do not exceed 4gm/day of acetaminophen. [facility] Sodium Chloride 0.154 MEQ/ML Injectable Solution 2016-01-14 19:5 4:00 No 1,000 mL, Rate: 75 ml/hr, In fuse over: 13.3 hr, Route: IV, Dosing Weight 104.545 kg, Total Volume: 1,000, Start date: 01/14/16 14:54:00 CDT, Duration: 30 day, Stop date: 02/13/16 14:53:00 [facility] 2016-01-14 18:54:00 No Route: IV, Drug form: INJ, ONCE, Stop date: 01/14/16 13:54:00 CDT [facility] ePHEDrine ([facility]) 2016-01-14 17:19:00 No Route: IV, Drug form: INJ, ONCE, Stop date: 01/14/16 12:19:00 CDT [facility] Harish phenylephrine ([facility]) 2016-01-14 17:14:00 No Route: IV, Drug form: INJ, ONCE, Stop date: 01/14/16 12:14:00 CDT [facility] acetaminophen ([facility]) ([facility]) 2016-01-14 17:13:00 No Route: IV, Drug form: INJ, Start date: 01/14/16 12:13:00 CDT, Stop date: 01/14/16 13:13:00 CDT [facility] midazolam ([facility]) 2016-01-14 16:14:00 No Route: IV, Drug form: SOLN, ONCE, Stop date: 01/14/16 11:14:00 CDT [facility] ceFAZolin ([facility]) 2016-01-14 16:14:00 No Route: IV, Drug form: INJ, ONCE, Stop date: 01/14/16 11:14:00 [facility] ([facility]) ([facility]) 2016-01-14 16:06:00 No Route: IV, Drug form: INJ, Start date: 01/14/16 11:06:00 CDT, Stop date: 01/14/16 12:06:00 CDT [facility] propofol ([facility]) 2016-01-14 16:04:00 No Route: IV, Drug form: INJ, ONCE, Stop date: 01/14/16 11:04:00 CDT [facility] fentaNYL ([facility]) 2016-01-14 16:04:00 No Route: IV, Drug form: INJ, ONCE, Stop date: 01/14/16 11:04:00 CDT [facility] rocuronium ([facility]) 2016-01-14 16:04:00 No Route: IV, Drug form: INJ, ONCE, Stop date: 01/14/16 11:04:00 CDT Cameron Moreira lidocaine (ANES) 2016-01-14 16:04:00 No Route: IV, Drug form: INJ, ONCE, Stop date: 01/14/16 11:04:00 CDT Cameron warnernitish [facility] Calcium Chloride 0.0014 MEQ/ML / Potassi um Chloride 0.004 MEQ/ML / Sodium Chloride 0.103 MEQ/ML / Sodium Lactate 0.028 MEQ/ML Injectable Solution 2016-01-14 15:38:00 No 1,000 mL, Rate: 25 ml/hr, Infuse over: 40 hr, Route: IV, Dosing Weight 104.545 kg, Total Volume: 1,000, Start date: 01/14/16 10:38:00 CDT, Duration: 30 day, Stop date: 02/13/16 10:37:00 CDT John Moreira LR 1000 mL INJ (ANES) 2016-01-14 15:28:00 No Route: IV, Total Volume: 1,000, Start date: 01/14/16 10:28:00 CDT, Stop date: 01/14/16 11:28:00 CDT John Moreira Insulin Glargine 100 UNT/ML Injectable Solution [Lantus] 2016-01-09 20:20:00 Yes 60 units, SUB-Q, Bedtime, 0 Refi ll(s) John Moreira 3 ML Insulin Lispro 100 UNT/ML Pen Injector [Humalog] 2016-01-09 20:19:00 Yes 5 unit, SUB-Q, TID-Before Meals, # 3 mL, 0 Refill(s) John Moreira multivitamin 2016-01-09 20:15:00 Yes Daily, 0 Refill(s) John Moreira Garlic Oil oral capsule 2016-01-09 20:15:00 Yes 1 tab, PO, Daily, 0 Refill(s) John Moreira DULoxetine 60 mg oral delayed release capsule 2016-01-09 20:14:0 0 Yes 60 mg = 1 cap, PO, Daily, # 30 cap, 0 Refill(s) John Moreira Metronidazole 500 MG Oral Tablet 2016-01-09 20:13:00 Yes 500 mg = 1 tab, PO, Q8H, # 21 tab, 0 Refill(s) Rishabh kathleen Harish pantoprazole 40 mg oral enteric coated tablet 2016-01-09 20:13:0 0 Yes 40 mg = 1 tab, PO, Daily, # 30 tab, 0 Refill(s) John Moreira gabapentin 300 MG Oral Capsule 2016-01-09 20:12:00 Yes 1,200 mg = 4 cap, PO, BID, 0 Refill(s) John cook allopurinol 100 mg oral tablet 2016-01-09 20:11:00 Yes 100 mg = 1 tab, PO, Daily, # 90 tab, 1 Refill(s) Ny claudette Harish promethazine 25 mg oral tablet 2016-01-09 20:11:00 Yes 25 mg = 1 tab, PO, PRN, 0 Refill(s) John cook tizanidine 4 mg oral tablet 2016-01-09 20:10:00 Yes 4 mg = 1 tab, PO, PRN, 0 Refill(s) John Moreira Furosemide 40 MG Oral Tablet 2016-01-09 20:10:00 Yes 40 mg = 1 tab, PO, Daily, # 30 tab, 0 Refill(s) Foster Moreira Potassium Chloride 10 MEQ Extended Release Tablet 2016-01-09 20:09:00 Yes = 1 cap, PO, Daily, # 30 cap, 1 Refill(s) John Moreira busPIRone 15 mg oral tablet 2016-01-09 20:09:00 Yes 15 mg = 1 tab, PO, BID, 0 Refill(s) John Moreira loratadine 10 mg oral tablet 2016-01-09 20:08:00 Yes 10 mg = 1 tab, PO, Daily, # 30 tab, 0 Refill(s) Foster Moreira Hydrochlorothiazide 12.5 MG / Lisinopril 20 MG Oral Tablet 2016-01-09 20:08:00 Yes 1 tab, PO, Daily, # 30 tab, 0 R efill(s) John Moreira tramadol hydrochloride 50 MG Oral Tablet 2016-01-09 20:07:00 Yes 50 mg = 1 tab, PO, Q8H, PRN Pain, # 60 tab, 0 Refill(s) John Moreira pravastatin 40 mg oral tablet 2016-01-09 20:06:00 Yes 40 mg = 1 tab, PO, Bedtime, # 30 tab, 0 Refill(s) Rishabh Moreira Metformin hydrochloride 1000 MG Oral Tablet 2016-01-09 20:06:00 Yes 1,000 mg = 1 tab, PO, BID-Meals, # 30 tab, 0 Refill(s) John Moreira gabapentin (NEURONTIN) 300 mg capsule 2016-01-09 00:00:00 Y es 1,200 mg = 4 cap, PO, BID, 0 Refill(s) Simeon Lyn Allopurinol 100 Mg Tablet Allopurinol 100 Mg Tablet Yes 100 Daily [facility] Duloxetine Hcl (Cymbalta) 30 Mg Capsule. Duloxetine Hcl (Cymbalta) 30 Mg Capsule. Yes 30 Daily [facility] Furosemide 20 Mg Tablet Furosemide 20 Mg Tablet Yes 20 Daily [facility] Gabapentin 300 Mg Capsule Gabapentin 300 Mg Capsule Yes 300 Three Times A Day [facility] Glipizide 5 Mg Tablet Glipizide 5 Mg Tablet Yes 5 Twice A Day [facility] Insulin Glargine (Lantus) 100 Units/Ml Ml Insulin Glar gine (Lantus) 100 Units/Ml Ml Yes 30 Twice A Day [facility] Lisinopril/Hydrochlorothiazide (Lisinopril-Hctz 20-12. 5 Mg Tab) 1 Each Tablet Lisinopril/Hydrochlorothiazide (Lisinopril-Hctz 20-12.5 Mg Tab) 1 Each Tablet Yes Daily [facility] Metformin Hcl 500 Mg Tablet Metformin Hcl 500 Mg Tablet Yes 500 2BID [facility] Omeprazole 20 Mg Capsule. Omeprazole 20 Mg Capsule. Yes 20 Twice A Day [facility] Pravastatin Sodium 40 Mg Tablet Pravastatin Sodium 40 Mg Tablet Yes 40 Daily [facility] Vital Signs Vital Name Observation Time Observation Value Comments Source Temperature Oral (F) 2019-12-19 16:34:00 98 F John Moreira Heart Rate 2019-12-19 16:34:00 John Moreira Respitory Rate 2019-12-19 16:34:00 [facility] Systolic (mm Hg) 2019-12-19 16:34:00 Rishabh rial [place] Diastolic (mm Hg) 2019-12-19 16:34:00 [facility] [place] Temperature Oral (F) 2019-12-19 13:19:00 97.8 F [facility] Heart Rate 2019-12-19 13:19:00 [facility] Respitory Rate 2019-12-19 13:19:00 [facility] Systolic (mm Hg) 2019-12-19 13:19:00 Rishabh rial [place] Diastolic (mm Hg) 2019-12-19 13:19:00 [facility] Temperature Oral (F) 2019-12-19 09:00:00 98.2 F [facility] [place] Heart Rate 2019-12-19 09:00:00 [facility] Respitory Rate 2019-12-19 09:00:00 [facility] [place] Systolic (mm Hg) 2019-12-19 09:00:00 Rishabh rial Harish Diastolic (mm Hg) 2019-12-19 09:00:00 [facility] [place] Height 2019-12-16 06:48:00 160.02 cm [facility] Weight 2019-12-16 06:48:00 [facility] [place] Height 2019-12-14 15:31:00 160.02 cm [facility] Weight 2019-12-14 15:31:00 [facility] BMI Calculated 2019-12-14 15:31:00 [facility] Height 2019-12-14 11:46:00 160.02 cm [facility] [place] Weight 2019-12-14 11:46:00 [facility] BMI Calculated 2019-12-14 11:46:00 [facility] BMI Calculated 2019-12-13 23:43:00 Josephori al [place] Systolic blood pressure 2019-10-06 12:28:34 137 mm[Hg] [facility] Diastolic blood pressure 2019-10-06 12:28:34 64 mm[Hg] [facility] Heart rate 2019-10-06 12:28:34 60 /min [place] [facility] Body temperature 2019-10-06 12:28:34 36.67 [place] [place] [facility] Respiratory rate 2019-10-06 12:28:34 18 /min [place] [facility] Oxygen saturation in Arterial blood by Pulse oximetry 10-05 12:28:34 98 /min [place] [facility] Body weight 2019-10-06 10:04:21 100.2 kg [facility] BMI 2019-10-06 10:04:21 39.13 kg/m2 [facility] Height 2019-09-08 10:50:00 63 [in_us] [facility] Weight 2019-09-08 10:50:00 217.8 [lb_av] [facility] Body Mass Index Calculated 2019-09-08 10:50:00 38.58 kg/m2 [facility] Body height 2019-08-04 12:50:14 160 cm [facility] Weight 2017-01-07 19:12:00 [facility] BMI Calculated 2017-01-07 19:12:00 [facility] Systolic (mm Hg) 2017-01-07 19:12:00 Rishabh rial [facility]ish Diastolic (mm Hg) 2017-01-07 19:12:00 [facility] [place] Heart Rate 2017-01-07 19:12:00 [facility] Height 2017-01-07 19:12:00 160.02 cm [facility] Respitory Rate 2017-01-07 19:12:00 [facility] Temperature Oral (F) 2016-11-28 21:07:00 98.0 F [facility] Respitory Rate 2016-11-28 21:07:00 [facility] [place] Heart Rate 2016-11-28 21:07:00 [facility] Systolic (mm Hg) 2016-11-28 21:07:00 Rishabh [facility] Diastolic (mm Hg) 2016-11-28 21:07:00 [facility] Respitory Rate 2016-11-28 18:01:00 [facility] [place] Heart Rate 2016-11-28 18:01:00 [facility] Temperature Oral (F) 2016-11-28 18:01:00 98.1 F [facility] Systolic (mm Hg) 2016-11-28 18:01:00 Rishabh [facility] Diastolic (mm Hg) 2016-11-28 18:01:00 [facility] Height 2016-11-28 18:01:00 157.48 cm [facility] BMI Calculated 2016-11-28 18:01:00 [facility] Weight 2016-11-28 18:01:00 [facility] [place] Height 2016-05-29 18:24:00 162.56 cm [facility] Weight 2016-05-29 18:24:00 [facility] BMI Calculated 2016-05-29 18:24:00 [facility] Respitory Rate 2016-05-29 18:24:00 [facility] Heart Rate 2016-05-29 18:24:00 [facility] [place] Systolic (mm Hg) 2016-05-29 18:24:00 Rishabh [facility] [place] Diastolic (mm Hg) 2016-05-29 18:24:00 [facility] BMI Calculated 2016-05-13 19:47:00 [facility] Weight 2016-05-13 19:47:00 [facility] Systolic (mm Hg) 2016-05-13 19:47:00 Rishabh [facility] Diastolic (mm Hg) 2016-05-13 19:47:00 [facility] [facility] Height 2016-05-13 19:47:00 160.02 cm [facility] Respitory Rate 2016-05-13 19:47:00 [facility] [place] Temperature Oral (F) 2016-05-13 19:47:00 98 F [facility] Heart Rate 2016-05-13 19:47:00 [facility] Temperature Oral (F) 2016-01-18 21:30:00 99.3 F [facility] Heart Rate 2016-01-18 21:30:00 [facility] Respitory Rate 2016-01-18 21:30:00 [facility] Systolic (mm Hg) 2016-01-18 21:30:00 Rishabh [facility] [place] Diastolic (mm Hg) 2016-01-18 21:30:00 [facility] Temperature Oral (F) 2016-01-18 21:03:00 98.3 F [facility] Heart Rate 2016-01-18 21:03:00 [facility] Respitory Rate 2016-01-18 21:03:00 [facility] Systolic (mm Hg) 2016-01-18 21:03:00 Rishabh [facility] Diastolic (mm Hg) 2016-01-18 21:03:00 [facility] Systolic (mm Hg) 2016-01-18 16:53:00 Rishabh [facility] [place] Diastolic (mm Hg) 2016-01-18 16:53:00 [facility] Respitory Rate 2016-01-18 16:53:00 [facility] [place] [facility] 2016-01-18 16:53:00 [facility] Temperature Oral (F) 2016-01-18 16:53:00 98.9 F [facility] [place] Height 2016-01-14 21:38:00 160.02 cm [facility] Weight 2016-01-14 21:38:00 [facility] [place] BMI Calculated 2016-01-14 21:38:00 [facility] [place] Height 2016-01-09 20:05:00 162.56 cm [facility] [place] BMI Calculated 2016-01-09 20:05:00 [facility] Weight 2016-01-09 20:05:00 [facility] [place] Procedures Procedure Date / Time Performed Performing Clinician Sourken e T3 2019-10-06 10:15:00 Andres [facility]kinst [facility] T4, FREE 2019-10-06 10:15:00 Andres [facility]kinst [facility] THYROID STIMULATING HORMONE 2019-10-06 10:15:00 Andres Hawkins [facility] HC COMPLETE BLD COUNT W/AUTO DIFF 2019-10-06 10:07:00 Andres Hawkins COMPREHENSIVE METABOLIC PANEL 2019-10-06 10:07:00 Arley Hawkins MAGNESIUM LEVEL 2019-10-06 10:07:00 Andres [facility]kinst [facility] ESTIMATED GFR 2019-10-06 10:07:00 Andres [facility] PET CT SKULL BASE TO MID THIGH 2019-09-29 14:49:11 Valerie Hawkins [facility] MAGNESIUM LEVEL 2019-09-15 10:22:00 Andres Hawkinst [facility] COMPREHENSIVE METABOLIC PANEL 2019-09-15 10:22:00 Arley Hawkins [facility] HC COMPLETE BLD COUNT W/AUTO DIFF 2019-09-15 10:22:00 Andres Hawkins ESTIMATED GFR 2019-09-15 10:22:00 [facility] [place] [facility] ABDOMEN PELVIS WO CONTRAST 2019-09-14 12:16:46 Eliezer Neves [B] ALBUMIN SERUM 2019-09-08 00:00:00 [facility] [B] VITAMIN D 25-HYDROXY 2019-09-08 00:00:[address] [facility] [QLH] HEMOGLOBIN A1c 2019-09-08 00:00:00 [facility] URINE CULTURE 2019-09-07 14:37:00 Eliezer Neves [facility] [U] XRAY BONE LENGTH STUDY-SCANOGRAM [id number] 2019-09-02 00:00:00 [facility] [U] XRAY KNEE 4 OR MORE VWS BILATERAL [id number] 2019-09-01 00:00:00 [facility] T3 2019-08-25 12:10:00 Andres Hawkinst [facility] T4, FREE 2019-08-25 12:10:00 Andres Hawkins [facility] THYROID STIMULATING HORMONE 2019-08-25 12:10:00 Andres Hawkins [place] [facility] HC COMPLETE BLD COUNT W/AUTO DIFF 2019-08-25 11:14:00 Neo Hurt [place] [facility] COMPREHENSIVE METABOLIC PANEL 2019-08-25 11:14:00 Srinivasan Hurttesh Hendrix [facility] MAGNESIUM LEVEL 2019-08-25 11:14:00 Cyril Hurt [facility] ESTIMATED GFR 2019-08-25 11:14:00 Srinivasan Hurttesh Hendrix [facility] od[facility] T3 2019-08-04 10:47:00 Andres Hawkinst [facility] COMPREHENSIVE METABOLIC PANEL 2019-08-04 10:47:00 Arley Hawkins [facility] HC COMPLETE BLD COUNT W/AUTO DIFF 2019-08-04 10:47:00 Andres Hawkins [facility] THYROID STIMULATING HORMONE 2019-08-04 10:47:00 Andres Hawkins [facility] T4, FREE 2019-08-04 10:47:00 Andres Hawkinst on [facility] MAGNESIUM LEVEL 2019-08-04 10:47:00 Andres Hawkins [facility] ESTIMATED GFR 2019-08-04 10:47:00 Andres Hawkinst [facility] T3 2019-07-07 09:18:00 Andres Hawkins on [facility] HC COMPLETE BLD COUNT W/AUTO DIFF 2019-07-07 09:18:00 Andres Hawkins COMPREHENSIVE METABOLIC PANEL 2019-07-07 09:18:00 Arley Hawkins MAGNESIUM LEVEL 2019-07-07 09:18:00 Andres Hawkins [facility] THYROID STIMULATING HORMONE 2019-07-07 09:18:00 Andres Hawkins [facility] T4, FREE 2019-07-07 09:18:00 Andres Hawkins [facility] ESTIMATED GFR 2019-07-07 09:18:00 Andres Hawkins [facility] T3 2019-06-16 10:02:00 Andres Hawkins [facility] THYROID STIMULATING HORMONE 2019-06-16 10:02:00 Andres Hawkinsist T4, FREE 2019-06-16 10:02:00 Andres Hawkins [facility] POC GLUCOSE 2019-06-15 11:25:00 Hilary Torrez [facility] POC GLUCOSE 2019-06-15 05:29:00 Hilary Torrez [facility] POC GLUCOSE 2019-06-14 23:22:00 Hilary Torrez [facility] POC GLUCOSE 2019-06-14 19:49:00 Hilary Torrez [facility] POC GLUCOSE 2019-06-14 16:33:00 Hilary Torrez [facility] IR IVC FILTER REMOVAL 2019-06-14 12:06:56 Hilary Torrez [facility] US GUIDED VASCULAR ACCESS 2019-06-14 12:06:56 Hilary Torrez [facility] POC GLUCOSE 2019-06-14 11:33:00 Hilary Torrez [facility] POC GLUCOSE 2019-06-14 07:29:00 Hilary Torrez [facility] XR CHEST 1 VW PORTABLE 2019-06-14 07:15:23 Hilary Torrez [facility] HC COMPLETE BLD COUNT W/AUTO DIFF 2019-06-14 07:15:00 Hilary Torrez BASIC METABOLIC PANEL 2019-06-14 07:15:00 Hilary Torrez [facility] PROTHROMBIN TIME WITH INR 2019-06-14 07:15:00 Hilary Torrez PARTIAL THROMBOPLASTIN TIME (PTT) 2019-06-14 07:15:00 Hilary Torrez [facility] ESTIMATED GFR 2019-06-14 07:15:00 Hilary Torrez [facility] ECG 12-LEAD 2019-06-14 07:10:51 Hilary Torrez [facility] PET CT SKULL BASE TO MID THIGH 2019-05-30 15:36:14 Valerie Hawkins URINE CULTURE 2019-05-26 12:53:00 Andres Hawkins [facility] GRAM STAIN 2019-05-26 12:53:00 Andres Hawkins [facility] URINALYSIS SCREEN AND MICROSCOPY, WITH REFLEX TO CULTURE 201 04-05-31 11:10:00 Ema Joseph HC COMPLETE BLD COUNT W/AUTO DIFF 2019-05-26 09:30:00 Andres Hawkins COMPREHENSIVE METABOLIC PANEL 2019-05-26 09:30:00 Arley Hawkins MAGNESIUM LEVEL 2019-05-26 09:30:00 Andres Hawkins [facility] ESTIMATED GFR 2019-05-26 09:30:00 Andres Hawkins [place] [facility] CT ABDOMEN PELVIS WO CONTRAST 2019-05-11 10:08:00 Eliezer Neves XR KUB KIDNEY URETER BLADDER 2019-05-05 11:56:10 Andres Hawkins [facility] T3 2019-05-05 11:50:00 Andres Hawkins [facility] COMPREHENSIVE METABOLIC PANEL 2019-05-05 11:50:00 Arley Hawkins HC COMPLETE BLD COUNT W/AUTO DIFF 2019-05-05 11:50:00 Andres Hawkins THYROID STIMULATING HORMONE 2019-05-05 11:50:00 Andres Hawkins T4, FREE 2019-05-05 11:50:00 Andres Hawkinst [facility] MAGNESIUM LEVEL 2019-05-05 11:50:00 DarcourtAndres Houst on [facility] ESTIMATED GFR 2019-05-05 11:50:00 DarcourtAndres Houst on [facility] US RENAL 2019-04-14 15:11:11 George Pyle [facility] T3 2019-04-14 09:43:00 Andres Hawkins [place] [facility] HC COMPLETE BLD COUNT W/AUTO DIFF 2019-04-14 09:43:00 Andres Hawkins [facility] COMPREHENSIVE METABOLIC PANEL 2019-04-14 09:43:00 Arley Hawkins [facility] MAGNESIUM LEVEL 2019-04-14 09:43:00 Andres Hawkinst on [facility] THYROID STIMULATING HORMONE 2019-04-14 09:43:00 Andres Hawkins [facility] T4, FREE 2019-04-14 09:43:00 Andres Hawkins [place] [facility] ESTIMATED GFR 2019-04-14 09:43:00 Andres Hawkins [place] [facility] COMPREHENSIVE METABOLIC PANEL 2019-04-04 16:44:00 George Pyle [facility] CK ISOENZYMES 2019-04-04 16:44:00 George Pyle [facility] MAGNESIUM LEVEL 2019-04-04 16:44:00 George Pyle [facility] PHOSPHORUS LEVEL 2019-04-04 16:44:00 George Pyle [facility] URIC ACID LEVEL 2019-04-04 16:44:00 George Pyle [facility] ANGE 2019-04-04 16:44:00 George Pyle [facility] C4 COMPLEMENT COMPONENT 2019-04-04 16:44:00 George Pyle [facility] HEPATITIS B SURFACE ANTIGEN 2019-04-04 16:44:00 George Pyle [facility] HEPATITIS C ANTIBODY 2019-04-04 16:44:00 George Pyle n [facility] PARATHYROID HORMONE 2019-04-04 16:44:00 George Pyle RHEUMATOID FACTOR 2019-04-04 16:44:00 George Pyle M ethodist HC COMPLETE BLD COUNT W/AUTO DIFF 2019-04-04 16:44:00 James Pyle SEDIMENTATION RATE 2019-04-04 16:44:00 George Pyle MICROALBUMIN, URINE, RANDOM 2019-04-04 16:44:00 George Pyle PROTEIN, URINE, RANDOM 2019-04-04 16:44:00 George Pyle [facility] URINALYSIS, AUTOMATED WITH MICROSCOPY 2019-04-04 16:44:00 George Pyle ESTIMATED GFR 2019-04-04 16:44:00 George Pyle [facility] XR KUB KIDNEY URETER BLADDER 2019-03-24 10:47:56 Ewa, Nilay Hendrix [facility] URINE CULTURE, COMPREHENSIVE (DARRON HIST) 2019-03-23 11:00: 00 Andres Hawkins URINALYSIS, COMPLETE, WITH REFLEX TO CULTURE 2019-03-23 11:0 0:00 Andres Hawkins MICROSCOPIC EXAMINATION 2019-03-23 11:00:00 Andres Hawkins T3 2019-03-23 09:25:00 Andres Hawkins [facility] COMPREHENSIVE METABOLIC PANEL 2019-03-23 09:25:00 Arley Hawkins HC COMPLETE BLD COUNT W/AUTO DIFF 2019-03-23 09:25:00 Andres Hawkins THYROID STIMULATING HORMONE 2019-03-23 09:25:00 Andres Hawkins T4, FREE 2019-03-23 09:25:00 Andres Hawkins [place] [facility] [place] MAGNESIUM LEVEL 2019-03-23 09:25:00 Andres Hawkins [facility] [place] ESTIMATED GFR 2019-03-23 09:25:00 Andres Hawkins [facility] [place] T3 2019-03-03 10:21:00 Andres Hawkins [place] [facility] THYROID STIMULATING HORMONE 2019-03-03 10:21:00 Andres Hawkins [facility] T4, FREE 2019-03-03 10:21:00 Andres Hawkinst on [facility] MAGNESIUM LEVEL 2019-03-03 10:21:00 Andres Hawkinst on [facility] URINE CULTURE 2019-02-26 16:40:00 Ankit Tejeda ethodist GRAM STAIN 2019-02-26 16:40:00 Ankit Tejeda ethodist URINALYSIS SCREEN AND MICROSCOPY, WITH REFLEX TO CULTURE 201 04-03-03 16:15:[address] [facility] [address] ABDOMEN PELVIS WO CONTRAST 2019-02-26 15:32:01 Ankit Tejeda [facility] HC COMPLETE BLD COUNT W/AUTO DIFF 2019-02-26 15:10:00 [facility] [place] [facility] COMPREHENSIVE METABOLIC PANEL 2019-02-26 15:10:00 Ankit Tejeda [facility] LIPASE LEVEL 2019-02-26 15:10:00 Ankit Tejeda Hendrix [place] ethodist ESTIMATED GFR 2019-02-26 15:10:00 Ankit Tejeda Hendrix [place] ethodist COMPREHENSIVE METABOLIC PANEL 2019-02-24 12:25:00 Arley Hawkins [facility] HC COMPLETE BLD COUNT W/AUTO DIFF 2019-02-24 12:25:00 Andres Hawkins [facility] ESTIMATED GFR 2019-02-24 12:25:00 Andres Hawkins [place] [facility] POC GLUCOSE 2019-02-22 15:13:00 Andres Hawkinst on [facility] POC GLUCOSE 2019-02-22 14:50:00 Andres Hawkinst on [facility] TTE COMPLETE, WO CONTRAST, W DOPPLER ([id number]) 2019-02-09 13:0 1:55 Andres Hawkins URINALYSIS, AUTOMATED WITH MICROSCOPY 2019-02-07 11:17:00 Da rcAndres stevens [facility] RAPID HIV 1 & 2 2019-02-07 11:17:00 Andres Hawkins on [facility] HEPATITIS B SURFACE ANTIBODY 2019-02-07 11:17:00 Andres Hawkins HEPATITIS B SURFACE ANTIGEN 2019-02-07 11:17:00 Andres Hawkins T3 2019-02-07 11:17:00 Andres Hawkins [facility] [place] T4, FREE 2019-02-07 11:17:00 Andres Hawkins [place] [facility] [place] THYROID STIMULATING HORMONE 2019-02-07 11:17:00 Andres Hawkinsist LDH 2019-02-07 11:17:00 Andres Hawkins on [facility] URIC ACID LEVEL 2019-02-07 11:17:00 Andres Hawkins on [facility] [place] MAGNESIUM LEVEL 2019-02-07 11:17:00 Andres Hawkins [facility] COMPREHENSIVE METABOLIC PANEL 2019-02-07 11:17:00 Arley Hawkins HC COMPLETE BLD COUNT W/AUTO DIFF 2019-02-07 11:17:00 Andres Hawkins PROTHROMBIN TIME WITH INR 2019-02-07 11:17:00 Andres Hawkins PARTIAL THROMBOPLASTIN TIME (PTT) 2019-02-07 11:17:00 Andres Hawkins ESTIMATED GFR 2019-02-07 11:17:00 Andres Hawkins on [facility] CLOSTRIDIUM DIFFICILE TOXIN 2019-01-27 09:45:[address] SKULL BASE TO MID THIGH 2019-01-06 13:21:06 Valerie Hawkins POC GLUCOSE 2019-01-06 11:16:00 Andres Hawkins on [facility] Arthroplasty [facility] [place] Cholecystectomy [facility] Creation of ileal conduit [facility] [place] Cystectomy [facility] [place] Hernia repair [facility] Hysterectomy [facility] [place] Laminectomy<sup>1</sup> [facility] [place] [facility] Planned Activity Planned Date Details Comments Source Future Scheduled Test 2020-02-25 00:00:00 INFLUENZA VACCINE [code = INFLUENZA VACCINE] [facility] Future Scheduled Test 2014 00:00:00 65+ PNEUMOCOCCAL V ACCINE (1 of 2 - PCV13) [code = 65+ PNEUMOCOCCAL VACCINE (1 of 2 - PCV13)] [facility] Future Scheduled Test 1999 00:00:00 BREAST CANCER SCRE ENING [code = BREAST CANCER SCREENING] [facility] Future Scheduled Test 1999 00:00:00 COLONOSCOPY SCREEN ING [code = COLONOSCOPY SCREENING] [facility] Future Scheduled Test 1999 00:00:00 SHINGLES VACCINES (#1) [code = SHINGLES VACCINES (#1)] [facility] Future Scheduled Test 1959 00:00:00 DIABETIC FOOT EXAM [code = DIABETIC FOOT EXAM] [facility] Scheduled Test 1949 00:00:00 DIABETIC RETINAL E YE EXAM [code = DIABETIC RETINAL EYE EXAM] [facility] Encounters Start Date/Time End Date/Time Encounter Type Admission Type Attendi [facility] Care Department Encounter ID Source 2019-12-13 18:41:44 2019-12-19 17:25:00 Outpatient Juan Carmelina Dallasjayan [facility] [id number] 2019-12-14 03:05:00 2019-12-13 18:41:00 Inpatient E [facility] MED [id number] 2019-10-21 00:00:00 2019-10-21 00:00:00 Outpatient ELIEZER NEVES [facility] [id number] [facility] 2019-10-06 00:00:00 2019-10-06 00:00:00 Outpatient VALERIE HAWKINS [facility] [id number] [facility] 2019-09-29 00:00:00 2019-09-29 00:00:00 Outpatient VALERIE HAWKINS [facility] [id number] [facility] 2019-09-26 00:00:00 2019-09-26 00:00:00 Outpatient VALERIE HAWKINS [facility] [id number] [facility] 2019-09-15 00:00:00 2019-09-15 00:00:00 Outpatient VALERIE HAWKINS [facility] [id number] [facility] 2019-09-14 00:00:00 2019-09-14 00:00:00 Outpatient ELIEZER NEVES [facility] [id number] [facility] 2019-09-08 10:15:00 2019-09-08 10:15:00 Appointment; BRIAN RIDER M.D. HUANG, EDDIE, M.D. [facility] Orthopedics [facility] [id number] [facility] 2019-06-14 00:00:00 2019-06-15 00:00:00 Outpatient DAVIN TORREZ [facility] [id number] [facility] 2019-06-14 00:00:00 2019-06-14 00:00:00 Outpatient DAVIN TORREZ [facility] [id number] [facility] 2019-05-30 00:00:00 2019-05-30 00:00:00 Outpatient VALERIE HAWKINS [facility] [id number] [facility] 2019-05-11 00:00:00 2019-05-11 00:00:00 Outpatient ELIEZER NEVES [facility] [id number] [facility] 2019-05-05 00:00:00 2019-05-05 00:00:00 Outpatient VALERIE HAWKINS [facility] [id number] [facility] 2019-04-14 00:00:00 2019-04-14 00:00:00 Outpatient LASHANDA GEORGE [facility] [id number] [facility] 2019-02-11 09:09:00 2019-02-11 23:59:00 Outpatient Jeanette Ríos ar Cornelio MHSE MHSE [id number] 2019-02-11 09:09:00 2019-02-11 09:09:00 Outpatient MHSE MHSE [id number] [facility] 2019-01-25 16:29:00 2019-01-25 23:59:00 Outpatient Marguerite Ríosk ar Cornelio MHSE MHSE [id number] 2019-01-25 16:29:00 2019-01-25 16:29:00 Outpatient MHSE MHSE [id number] [facility] 2018-11-11 13:55:00 2018-11-11 23:59:00 Outpatient Stanton Ríosar Cornelio [id number] 2017-11-18 12:29:00 2017-11-18 23:59:00 Outpatient Valentin Ross HOIP HOIP [id number] 2017-10-15 11:00:00 2017-10-15 14:27:00 Departed Emergency Room ER SOBIA WHITT [facility] [id number] [facility] 2017-10-14 10:20:00 2017-10-14 23:59:00 Outpatient Andres Perry gladys Call HOIP HOIP [id number] 2017-01-20 12:01:00 2017-01-20 23:59:00 Outpatient Stanton Ríos Cornelio [id number] 2017-01-13 10:20:00 2017-01-13 23:59:00 Outpatient Kenneth Ferreira HOIP HOIP [id number] 2017-01-07 13:29:00 2017-01-07 23:59:00 Outpatient Michael Gan TIRR MHTIRR [id number] 2016-12-30 15:19:00 2016-12-30 23:59:00 Outpatient Stanton Ríosar Cornelio [id number] 2016-11-28 12:49:00 2016-11-28 16:17:[address] [id number] 2016-06-24 07:45:00 2016-06-24 23:59:00 Outpatient Michael Gan JANNIP HOIP [id number] 2016-05-29 13:01:00 2016-05-29 23:59:00 Outpatient Shravan RutledgeBustamanteMichael sullivan MHTIRR MHTIRR [id number] 2016-05-26 11:31:00 2016-05-26 23:59:00 Outpatient Kenneth Ferreira MHHOIP MHHOIP [id number] 2016-05-19 13:40:00 2016-05-19 23:59:00 Outpatient Addy Humphries MHHOIP MHHOIP [id number] 2016-05-13 14:15:00 2016-05-13 23:59:00 Outpatient Addy Humphries MHTIRR MHTIRR [id number] 2016-01-14 14:54:00 2016-01-18 17:40:00 Outpatient Veronica Arthur MHSE MHSE [id number] 2015-07-13 06:53:00 2015-07-13 23:59:00 Outpatient Kenneth Ferreira HOIP HOIP [id number] 2014-12-06 09:39:00 2014-12-06 23:59:00 Outpatient Celena Ferreira MHIE MHIE [id number] Results Test Description Test Time Test Comments Results Result Comments Source CHEM PANEL 2019-12-19 10:10:00 [facility]M PANEL 2019-12-19 10:10:00 [facility] CHEM PANEL 2019-12-19 10:10:00 1.28 [facility] CHEM PANEL 2019-12-19 10:10:00 [facility] CHEM PANEL 2019-12-19 10:10:00 5.1 Memor [facility] CHEM PANEL 2019-12-19 10:10:00 [facility] 2019-12-19 10:10:00 27 Memor [facility] CHEM PANEL 2019-12-19 10:10:00 9.0 [facility] CHEM PANEL 2019-12-19 10:10:00 6.0 [facility] CHEM PANEL 2019-12-19 10:10:00 2.2 Memor [facility] CHEM PANEL 2019-12-19 10:10:00 22 [facility] [place] CHEM PANEL 2019-12-19 10:10:00 16 [facility] [place] CHEM PANEL 2019-12-19 10:10:00 120 [facility] [place] CHEM PANEL 2019-12-19 10:10:00 0.3 [facility] [place] CHEM PANEL 2019-12-19 10:10:00 11.1 [facility] [place] CHEM PANEL 2019-12-19 10:10:00 Test Item B/C Ratio (test code = B/C Ratio) 21 1 -25 [facility] [id number] 10:10:003.8[facility] PANEL 2019-12-19 10:10:00* Test Item Value Reference Range Interpretation Comments A/G Ratio (test code = A/G Ratio) 0.6 1 0.7-1.6 [facility]annCHE[facility] [id number] 10:10:0042[facility] PANEL 2019-12-19 10:10:003.6[facility] [id number] 10:10:001.7[facility] QnrnuzeSOXWQCKAIE2348-73-61 10:10:004.2[facility] WbbzwifQUZNZMKASX2985-78-26 10:10:002.62[facility] AnbkzwkVRDJXTSALU3084-98-35 10:10:008.4[facility] [place] EXDBKVIXYB5691-61-76 10:10:0025.0[facility] DrzlqglAEPWWVYPCZ1756-38-37 10:10:00 95.6[facility] PruunucYLVZEWNQWQ9868-70-51 10:10:00* Test Item Value Reference Range Interpretation Comments MCH (test code = MCH) 32.3 pg 27.0-31.0 [facility] MouysgpNCHBAUCINV7396-62-02 10:10:0033.7[facility]annHEMATOLOGY 2019-12-19 10:10:0013.4[facility] JfaexxvUZZTXKLCHS1156-37-34 10:10:76681Vokaxlep TfsjkdwDOSNZFWTIL5079-59-57 10:10:007.8[facility] PyomgfgMPDMEOLMAT0440-04-61 10:10:0058.2[facility] FfpxjefXWOSDAKBAX4065-52-21 10:10:0026.5[facility] [place] HGSUXYQYZP2032-84-86 10:10:0012.5[facility] AjrgzskZALLIJIZYD1874-74-04 10:10:00 2.3[facility] PjzmfyzELEWOTDRWB8725-09-44 10:10:000.5[facility]annHEMATOLOGY 2019-12-19 10:10:002.4[facility] IcykumaSTAEZLEQEO3908-30-96 10:10:001.1[facility] KlunixvEDSJNRJUGF4388-19-69 10:10:000.5[facility] AgqysftEPWUEYZHQD7744-49-13 10:10:000.1[facility]annCHEM WTQSY5147-91-06 08:02:001.8[facility]annCHEM DXIUH8277-79-52 08:02:51376Kldlhjya HermannCHEM QPBAT2062-69-65 08:02:0031 [facility] XTLKH4371-09-09 08:02:001.51[facility]annCHEM PANEL 2019-12-18 08:02:54915Bemqrizb HermannCHEM VITLO5416-90-60 08:02:004.9[facility]annCHEM TTDMT3896-41-02 08:02:00939Grrzpndf HermannCHEM VUOHB7718-37-19 08:02:0025[facility]annCHE[facility] AYAXV5255-84-99 08:02:008.7[facility]annCHEM QCKPM3528-81-65 08:02:005.6[facility]annCHEM RUEEB4340-42-37 08:02:002.1 [facility]annCHE[facility] MZRCQ3029-30-96 08:02:0020[facility]annCHEM PANEL 2019-12-18 08:02:0016[facility]annCHEM XLDVL1868-05-54 08:02:28642Xodmbxet HermannCHEM QBSXQ4627-53-77 08:02:000.3[facility]annCHEM HDEVZ2108-55-19 08:02:007.9[facility]annCHEM OXWRW6725-46-65 08:02:00* Test Item Value Reference Range Interpretation Comments B/C Ratio (test code = B/C Ratio) 21 1 6-25 [facility]CHE[facility] [id number] 08:02:003.5[facility]annCHEM PANEL 2019-12-18 08:02:00* Test Item Value Reference Range Interpretation Comments A/G Ratio (test code = A/G Ratio) 0.6 1 0.7-1.6 [facility]CHE[facility] [id number] 08:02:0035[facility]annCHEM PANEL 2019-12-18 08:02:003.3[facility] CoegpxlOCUUSIOBRD1413-71-01 08:02:0057.1[facility]orial VdwsxanUSLZPJTVHX6509-54-94 08:02:0025.9[facility] PzzoiohQLBGCNNWZQ0294-47-44 08:02:0014.7[facility] PqbuwpiAIPMPAAUOI1263-99-20 08:02:001.6[facility] SHAOVGSBQL0562-11-73 08:02:000.7[facility] TqilrmtWWTEOTQMTC5696-73-04 08:02:002.1 [facility] WcmblrvOUNBXDHRRR1229-75-21 08:02:001.0[facility]annHEMATOLOGY 2019-12-18 08:02:000.5[facility] ZujzdaiIZQTSKWDPA9755-00-91 08:02:000.1[facility] GhcsodyIRGYHBGWEF9758-22-27 08:02:003.7[facility] IrthzspXVBZQYCVME8341-94-97 08:02:002.32[facility] TezjlhgYERTZJQACP5905-67-46 08:02:007.4[facility] [place] IOYKEWPSLI2428-84-30 08:02:0022.4[facility] PyllnprIKBHLEWRDE2924-03-06 08:02:00 96.2[facility] ItqfckgPRRGBLCYWA4573-37-70 08:02:00* Test Item Value Reference Range Interpretation Comments MCH (test code = MCH) 32.0 pg 27.0-31.0 [facility] RlmstezGDJHKXJOUA8476-31-03 08:02:0033.3[facility]annHEMATOLOGY 2019-12-18 08:02:0013.8[facility] LswndaiYGLGZIVPLV8740-12-18 08:02:37009Ztwbpnvl BylasjuKWBKDPCRNQ1811-74-03 08:02:008.3[facility] HjybqyvDMJYUIHHSA2353-89-64 00:44:0023.7[facility] VcawmjqNVNOTTVIXQ5200-18-82 00:44:00* Test Item Value Reference Range Interpretation Comments Na Stanley TND (test code = [facility] Tr TND) 1930 1 [facility]CHE[facility] RVAGF4094-71-32 08:22:001.9[facility]annCHEM PANEL 2019-12-17 08:22:58452Kvlyjkpy HermannCHEM VOPCP4917-52-20 08:22:0029[facility]annCHEM TAJXL4259-11-11 08:22:001.34[facility]annCHEM IVULE0587-65-46 08:22:59823Lftizlyo HermannCHEM TCCIF2302-33-49 08:22:005.0[facility]annCHEM HGGAQ2590-02-37 08:22:91763Nqozauba HermannCHEM ZFGQD7297-46-04 08:22:0022 [facility]CHE[facility] WYUOX8948-69-63 08:22:008.6[facility]annCHEM PANEL 2019-12-17 08:22:005.4[facility]annCHEM JUETT1118-46-35 08:22:002.0[facility]annCHEM AKQNU7903-50-18 08:22:0014[facility]annCHEM GJZGS9968-92-82 08:22:009[facility]annCHEM GQTCZ6703-38-68 08:22:86412Cjsnztzu HermannCHEM FTIPG5915-49-81 08:22:000.4[facility]annCHEM UDYMH9406-29-78 08:22:0012.0 [facility]CHE[facility] TUOAA3851-75-15 08:22:00* Test Item Value Reference Range Interpretation Comments B/C Ratio (test code = B/C Ratio) 22 1 01-18 [facility]CHE[facility] DGLUB1534-63-45 08:22:003.4[facility]annCHEM PANEL 2019-12-17 08:22:00* Test Item Value Reference Range Interpretation Comments A/G Ratio (test code = A/G Ratio) 0.6 1 0.7-1.6 [facility]annCHEM WBKBO7594-83-72 08:22:0040[facility]annCHEM PANEL 2019-12-17 08:22:003.0[facility] BcbrdwwDJYSRHKAIM4135-60-76 08:22:003.9[facility] ShyjqrcYHBKGEHRVD2803-49-97 08:22:002.42[facility] OyqudzwVSZRDOZPEU2758-62-64 08:22:007.7[facility] HpftnvaBIESOWOCZX0474-34-22 08:22:0023.2[facility] WIAWJQWCKK0972-97-32 08:22:0095.9[facility] KjjpkoaKAIGUVYDHQ5242-42-75 08:22:00* Test Item Value Reference Range Interpretation Comments MCH (test code = MCH) 32.0 pg 27.0-31.0 [facility] TyveowiGUIJEGZGBG4528-47-13 08:22:0033.4[facility] HermannHEMATOLOGY 2019-12-17 08:22:0013.5[facility] ZfqhuhrHKFVTMASTE1487-94-81 08:22:70905Xnntlcbn LoguxgfHAWROKKWFP1054-15-35 08:22:008.1[facility] HkglizkPSPKBXNOSP3700-86-86 08:22:0063.3[facility] FoutwbtKVMESJFHZW5799-57-02 08:22:0019.3[facility] [place] MVZGYYQBSL5142-59-93 08:22:0015.4[facility] IwgplylGCAFKSQLZT2469-51-01 08:22:00 1.6[facility] EroxgmjZWOTNZIDQY1523-92-96 08:22:000.4[facility] HermannHEMATOLOGY 2019-12-17 08:22:002.5[facility] PmfuuivASTWHUOLHP2500-85-61 08:22:000.8[facility] GncbxgdHQXEYYPKPI1261-12-84 08:22:000.6[facility] FgailzaRYXSHLUDWC1605-18-52 08:22:000.1[facility] WwfrmvlKNMMTRLPMW9169-25-04 17:18:00* Test Item Value Reference Range Interpretation Comments PT (test code = PT) 14.5 s 12.0-14.7 [facility] FgglzabFQBOPLCCFK8169-30-89 17:18:00* Test Item Value Reference Range Interpretation Comments INR (test code = INR) 1.12 1 0.85-1.17 [facility] IwuyxshUGJTLUDCUP8981-88-94 17:18:00* Test Item Value Reference Range Interpretation Comments PTT (test code = PTT) 68.1 s 22.9-35.8 [facility] YgaxtxhQBVHKGTBHF8825-75-39 11:04:00* Test Item Value Reference Range Interpretation Comments PT (test code = PT) 15.2 s 12.0-14.7 [facility] OevagknIIXMIKWVNW6470-45-65 11:04:00* Test Item Value Reference Range Interpretation Comments INR (test code = INR) 1.19 1 0.85-1.17 [facility] ZnegxsuWODYSRGRCP1986-43-02 11:04:00* Test Item Value Reference Range Interpretation Comments PTT (test code = PTT) 84.2 s 22.9-35.8 [facility] StlgihwVRNPTRLOCR8902-04-20 03:46:00* Test Item Value Reference Range Interpretation Comments PT (test code = PT) 15.6 s 12.0-14.7 [facility] IgeigmcIYOBPMUZLZ2804-74-65 03:46:00* Test Item Value Reference Range Interpretation Comments INR (test code = INR) 1.23 1 0.85-1.17 [facility] VcfieufWPAOHZMZHK3502-34-54 03:46:00* Test Item Value Reference Range Interpretation Comments PTT (test code = PTT) 117.3 s 22.9-35.8 [facility] WaxoyvaATKPRQRJEU4781-99-86 00:50:0017.0[facility] HermannTOXICOLOGY 2019-12-16 00:50:00* Test Item Value Reference Range Interpretation Comments Na Stanley TND (test code = Na Tr TND) 1930 1 [facility]annCARDIAC CJMIXBC9009-41-76 09:52:00<0.02[facility] PARATHYROID RAEBGZK5482-86-43 06:25:001.09[facility] HermannPARATHYROID PROFILE 2019-12-15 06:25:001.05[facility] MnimhvsSBGKIYDFNV6634-78-63 00:21:0013.8[facility] HermannBACTERIAL - BHKMOGGM2646-20-68 14:06:00Positive 1*ABN*(12/14/19 9:06 AM) [facility]annCARDIAC CXGRUUK4899-39-27 14:06:84027Ehefyter HermannCHEM PANEL 2019-12-14 14:06:000.3[facility]annCHEM SWWXY8542-18-90 14:06:000.4[facility]annCHEM SNEQU6934-34-65 14:06:60880Wbdswyup HermannDRUG WMAOKB5226-03-98 14:06:00Negative *NA*(12/14/19 9:06 AM)[facility] HermannDRUG ZKWVBH0026-31-99 14:06:00Negative *NA*(12/14/19 9:06 AM)[facility] HermannDRUG WLBOTB3801-03-81 14:06:00Negative *NA*(12/14/19 9:06 AM)[facility] HermannDRUG QSRVDW2403-18-55 14:06:00Negative *NA*(12/14/19 9:06 AM)[facility] HermannDRUG PUQCJQ9025-37-42 14:06:00Negative *NA*(12/14/19 9:06 AM)[facility] HermannDRUG QKEUII5728-79-23 14:06:00Positive *ABN*(12/14/19 9:06 AM)[facility] HermannDRUG FIATCQ4633-61-75 14:06:00Negative *NA*(12/14/19 9:06 AM)[facility] HermannDRUG WZLAOZ8193-68-66 14:06:00See Note (12/14/19 9:06 AM)[facility] HermannDRUG VDUNBD7713-28-96 14:06:00 Negative *NA*(12/14/19 9:06 AM)[facility] HermannDRUG CWENHK8075-98-81 14:06:00 Negative *NA*(12/14/19 9:06 AM)[facility] IczkjwsFIKIMBUYID5794-99-78 14:06:00 Normal (12/14/19 9:06 AM)[facility] CmtjrdtPCUJQVITBC3285-06-82 14:06:00Normal (12/14/19 9:06 AM)[facility] SxizrlzSEWGRXPNXA8487-31-18 14:06:00Negative *NA*(12/14/19 9:06 AM)[facility] HngxupwUTZESSJLBU2734-46-26 14:06:00Negative *NA*(12/14/19 9:06 AM)[facility] SksmofaQFTCVEFQHO6358-81-22 14:06:00Negative *NA*(12/14/19 9:06 AM)[facility] NlrefulBDWKUMZEHR8887-67-44 14:06:00Negative *NA*(12/14/19 9:06 AM)[facility] KbnysvjDHKFRHKKVE1582-94-47 14:06:00Negative *NA*(12/14/19 9:06 AM)[facility] HermannPARATHYROID RWERHMY0327-55-81 14:06:001.10 [facility] HermannPARATHYROID YXVIUAG0387-56-42 14:06:001.04[facility] SPECIAL ESXOJCRPO5032-53-31 14:06:005.7[facility] HermannURINE PZOP7651-33-26 14:06:72127Bwxaqjqy HermannURINE ZKPJ9753-18-52 14:06:0022[facility] HermannURINE CZQB3811-42-13 14:06:0012.2[facility] HermannURINE EXVY2130-19-83 14:06:00<10 [facility] XnuvjwsKCDAMMOPMS7044-87-59 09:54:00Not Detected (12/14/19 4:54 AM) [facility] HermannLEVOFLOXACIN:SUSC:PT:ISOLATE:ORDQN:ZVI7936-17-47 09:42:00 Enterococcus SpeciesMemorial HermannURINE AND XQUWN1987-39-44 07:17:00Yellow *NA*(12/14/19 2:17 AM)[facility]UR[facility] AND WIDRZ8924-27-09 07:17:00Slight *ABN*(12/14/19 2:17 AM)[facility]UR[facility] AND CQOAA5624-24-36 07:17:00* Test Item Value Reference Range Interpretation Comments UA Spec Grav (test code = UA Spec Grav) 1.010 1 [facility]annURINE AND TRBOT4991-03-20 07:17:00* Test Item Value Reference Range Interpretation Comments UA pH (test code = UA pH) 6.0 1 5.0-8.0 [facility]UR[facility] AND PWQPN9581-06-08 07:17:00Negative *NA*(12/14/19 2:17 AM) [facility] PEUJE1840-18-52 07:17:00Small *ABN*(12/14/19 2:17 AM) [facility]UR[facility] AND OGQRY8585-86-41 07:17:00<1.0[facility]UR[facility] AND VXNSU0167-69-71 07:17:00Negative (12/14/19 2:17 AM)[facility] TLRHU9429-49-81 07:17:00Small *ABN*(12/14/19 2:17 AM)[facility] AND IALST8445-95-59 07:17:0025[facility]annURINE AND TAUXZ7751-53-46 07:17:002 [facility] HermannBLOOD BANK WXEHBDZ9274-69-72 01:16:40Negative (12/13/19 8:16 PM) [facility]annCARDIAC KLKTNFH7704-18-77 00:36:75321Ckmmgclk HermannCARDIAC MRFKHEJ9156-69-05 00:36:00<0.02[facility] HermannCHEM HZWON8985-88-44 00:36:000.37 [facility]annCHEM LAGSU3430-35-05 00:36:002.0[facility] AzhwzkhH39585-49-89 16:16:43* Test Item Value Reference Range Interpretation Comments T3 (test code = 3053-6) 115 ng/dL 80-200 [facility] MethodistT4, rhph1212-01-47 12:31:26* Test Item Value Reference Range Interpretation Comments T4, free (test code = 3024-7) 1.01 ng/dL 0.9-1.7 [place] MethodistThyroid stimulating lempqim2143-71-85 12:31:26* Test Item Value Reference Range Interpretation Comments TSH (test code = 3016-3) 4.13 0.27- 4.20 uIU/mL [place] MethodistComprehensive metabolic svhpz1354-60-57 11:10:09* Test Item Value Reference Range Interpretation Comments Sodium (test code = 2951-2) 139 135- 148 mEq/L Potassium (test code = 2823-3) 4.5 3.5- 5.0 mEq/L Chloride (test code = 5-0) 107 98- 112 mEq/L CO2 (test code = 2027-9) 23 24- 31 mEq/L L Anion gap (test code = 56148-9) 9@ANIO 7- 15 mEq/L BUN (test code = 3094-0) 39 mg/dL 8-23 H Creatinine (test code = 2160-0) 1.78 mg/dL 0.5-0.9 H Glucose (test code = 2345-7) 113 mg/dL 65-99 H Calcium (test code = 85198-6) 9.4 mg/dL 8.8-10.2 Protein (test code = 2885-2) 6.6 g/dL 6.3-8.3 - 4.6- 7.0 g/dL1 week 4.4-7.6 g/dL7 months-1year 5.1-7.3 g/dL1-2 years 5.6-7.5 g/dL>3 years 6.0-8.0 g/jF63-777 6.3-8.3 g/dL Albumin (test code = 1751-7) 3.9 g/dL 3.5-5 A/G ratio (test code = 1759-0) 1.4 0.7-3.8 Alkaline phosphatase (test code = 6768-6) 99 U/L 0-104 AST (test code = 1920-8) 20 U/L 10-35 ALT (test code = 1742-6) 23 U/L 5-50 Total bilirubin (test code = 1974-) 0.3 mg/dL 0-1.2 Lab Interpretation (test code = 92712-3) Abnormal [facility] MethodistMagnesium zefki4684-45-21 11:10:09* Test Item Value Reference Range Interpretation Comments Magnesium (test code = 79052-4) 1.7 mg/dL 1.6-2.4 [facility] MethodistEstimated GQD4554-05-54 11:10:09* Test Item Value Reference Range Interpretation Comments Estimated GFR (test code = 5488) 28 mL/min/1.73 m2 A Catergory Units InterpretationG1 >=90 Normal or highG2 60-89 Mildly zyetmywanE5y 45-59 Mildly to moderately fwqftmbwwV2e 30-44 Moderately to severely decreasedG4 15-29 Severely decreasedG5 <15 Kidney failureThe eGFR was calculated using the Chronic Kidney Disease Epidemiology Collaboration (CKD-EPI) equation. Interpretation is based on recommendations of the National Kidney Foundation-Kidney Disease Outcomes Quality Initiative (NKF-KDOQI) published in 2014. Lab Interpretation (test code = 65451-9) Abnormal [place] MethodistCBC with platelet and ovtzedhsawfw7080-10-16 10:37:33* Test Item Value Reference Range Interpretation Comments WBC (test code = 86527-4) 6.46 4.50- 11.00 k/uL RBC (test code = 29588-2) 3.23 m/uL 4.2-5.5 L HGB (test code = 718-7) 10.4 g/dL 12-16 L HCT (test code = 4544-3) 32.2 % 37-47 L MCV (test code = 787-2) 99.7 fL 82-100 MCH (test code = 785-6) 32.2 pg 27-34 MCHC (test code = 786-4) 32.3 g/dL 31-37 RDW - SD (test code = 57940-5) 44.1 fL 37-55 MPV (test code = 81848-8) 9.1 fL 8.8-13.2 Platelet count (test code = 54933-5) 215 150- 400 k/uL Neutrophils (test code = 76126-3) 71.6 % 39-69 H Lymphocytes (test code = 84429-1) 17.6 % 25-45 L Monocytes (test code = 91962-2) 9.4 % 0-10 Eosinophils (test code = 96347-5) 1.2 % 0-5 Basophils (test code = 99452-6) 0.2 % 0-1 Lab Interpretation (test code = 36116-4) Abnormal [place] MethodistPET/CT Skull Base To Mid Zgmsa5837-86-60 18:03:29Hm Interface, Radiology Results 09/29/2019 6:06 PM CSTEXAMINATION: PET CT SKULL BASE TO MID THIGHCLINICAL HISTORY: C68.9 Malignant neoplasm of urinary organ unspecified, C68.9 ; RESTAGINGCOMPARISON: PET/CT 05/30/2019, CT abdomen and pelvis 09/14/2019 TECHNIQUE: The patient received 10-15 mCi 18-FDG intrav enously. 1 hour later, PET/CT scanning from the orbits to the mid thighs was per formed. CT scanning was nondiagnostic and used for attenuation correction purpos es and to aid in localization of any abnormal findings on the PET images. Automa janis dose exposure control was utilized. Blood glucose = 100.FINDINGS:Head and Ne ckThere is no suspicious lymph node uptake and no evidence of malignancy in the brain.ChestNo suspicious uptake in the mediastinum, travis, or axillae. 2.2 cm pul monary nodule posterior right lung base with an SUV of 13.7 (previously 1.1 cm, ill-defined, without clear focal uptake). This has also increased in size from t he recent abdomen CT, where it measures 1.7 cm by my measurement. Stable subcent imeter ill-defined nodule anterior left upper lobe without uptake, likely benign .AbdomenUptake is normal in the: liver, spleen, adrenal glands, pancreas, stoma ch. Left nephrectomy with normal uptake in the surgical bed. Borderline right hy dronephrosis, slightly improved from prior PET/CT, but this was not present on t he more recent abdominal CT. There is no suspicious retroperitoneal or mesenteri c lymph node uptake. Extensive areas of physiological urinary activity in an ile al conduit.PelvisThere is no suspicious pelvic or inguinal lymph node uptake. St able cystectomy changes with no suspicious uptake. Marked uptake is again seen i n the anal and anorectal regions, even more prominent today, though most likely physiological (SUV = 14.7, previously 7.3).Osseous StructuresThere is no suspici ous osseous uptake. IMPRESSION:1.Increasing size and uptake of a pulmonary metas tasis in the right lung base.2.No definite evidence of malignancy elsewhere. Inc reasing prominence of anal/anorectal uptake is most likely physiological.[facility]-2UA 6442QNKHouston MethodistCT Abdomen Pelvis Wo Nprqltxj3545-64-36 12:36:43Hm Interface, Radiology Results 09/14/2019 12:39 PM CSTEXAMINATION: CT ABDOMEN PELVIS WO CONTRASTCLINICAL HISTORY: C68.9 Malignant neoplasm of urinary organ unspecified, hematuria UTICOMPARISON: May 11, 2019TECHNIQUE: [facility] t[facility] axial CT images of the Abdomen and pelvis were obtained Without IV contras t limiting evaluation . Sagittal and coronal reconstructions were done. Radiatio n dose reduction technique used for this study.CT imaging was performed with ite rative reconstruction technique and/or automated exposure control to reduce radi ation dose.FINDINGS:HEPATOBILIARY: Unremarkable within the limitations of a non contrast exam.GALLBLADDER: Cholelithiasis without signs of cholecystitis.SPLEEN: No splenomegaly.PANCREAS: Unremarkable within the limitations of a noncontrast exam.ADRENALS: No adrenal nodules.KIDNEYS: Right kidney with stable cyst. No stones or hydronephrosis.PERITONEUM/RETROPERITONEUM: No free air or free fluid. No enlarging lymph nodes.ABDOMINAL AORTA/IVC: No abdominal aortic aneurysm. An IVC filter is in place.GI TRACT: Right lower quadrant ostomy in place with a s table bowel-containing parastomal hernia. No signs of bowel obstruction. The julia endix is normal.No signs of diverticulitis.PELVIC ORGANS/BLADDER: Urinary bladd er, uterus, and ovaries are absent. No enlarged lymph nodes or free fluid.BONES AND SOFT TISSUES: No suspicious findings in the bones.VISUALIZED LOWER CHEST: R ight pulmonary nodule increased in size now 1.4 cm. Stable subcentimeter nodule in the left lower lobe.IMPRESSION:Recurrent right lower lobe pulmonary metastasi s.No signs of recurrence in the abdomen and pelvis.[id number] [place] Latter DayUrine fgzsuvp0605-01-23 08:01:00* Test Item Value Reference Range Interpretation Comments Urine culture (test code = 630-4) No growth CHRIS (test code = CHRIS) Performed at: [facility] [id number] Director: Juno Wagner MD, Phone: [phone] [facility][U] XRAY BONE LENGTH STUDY-SCANOGRAM [id number] 11:19:00 Images acquired, not reported on this accession number.[facility][U] XRAY KNEE 4 OR MORE VWS BILATERAL [id number] 10:56:00Images acquired, not reported on this accession number.[facility] PhysiciansIR IVC Filter Hzjpnyq3190-07-86 09:15:49Hm Interface, Radiology Results Incoming - 06/16/2019 9:18 AM CSTPROCEDURE: IR REMOVE ENDOVASCULAR VENA CAVA FILTERThis exam was performed in the Radiology department.Fluoro time: 15:44 minutesIMPRESSION:A complete separate report will be issued in operative notes by the performing physician.[id number] MethodistUS Guided Vascular Xjntek0585-37-92 09:15:39Hm Interface, Radiology Results Incoming - 06/16/2019 9:18 AM CSTPROCEDURE: US GUIDED VASCULAR ACCESSThis exam was performed in the Radiology department.IMPRESSION:A complete separate report will be issued in operative notes by the performing physician.[id number] MethodistPOC awxtijx6259-98-19 11:36:31* Test Item Value Reference Range Interpretation Comments POC glucose (test code = 53262-8) 164 mg/dL 65-99 H Meter ID: [id number]: [facility] Interpretation (test code = 66853-0) Abnormal [facility] MethodistECG 12 rqzi1285-74-93 10:05:16* Test Item Value Reference Range Interpretation Comments Ventricular rate (test code = 253) 61 Atrial rate (test code = 255) 40 MT interval (test code = 266) 142 QRSD interval (test code = 260) 90 QT interval (test code = 264) 454 QTC interval (test code = 265) 457 P axis 1 (test code = 267) 58 QRS axis 1 (test code = 268) -2 T wave axis (test code = 270) 71 EKG impression (test code = 273) Marked sinus bradycar dolores with frequent premature ventricular complexes-Low voltage QRS-Abnormal ECG-- [facility] DoshiistProthrombin time with PJF0191-46-13 07:58:03* Test Item Value Reference Range Interpretation Comments Prothrombin time (test code = 5902-2) 12.9 11.5- 14.5 sec INR (test code = 17104-9) 1.0 Th e International Normalized Ratio (INR) is a therapeutic monitoring tool for patients who are stable on oral anticoagulant therapy. An INR of 2.0-3.0 is suggested for deep vein thrombosis/pulmonary embolism. [facility] MethodistPartial thromboplastin time, etqygviki9924-74-98 07:58:03* Test Item Value Reference Range Interpretation Comments PTT (test code = 89525-1) 41.0 23.0- 36.0 sec H PTT therapeutic range for unfractionated heparin is61.0-112.0 seconds which corresponds to Anti-Xa0.3-0.7 U/ml. Lab Interpretation (test code = 29130-3) Abnormal [place] MethodistBasic metabolic gdjic4278-00-36 07:44:31* Test Item Value Reference Range Interpretation Comments Sodium (test code = 2951-2) 143 135- 148 mEq/L Potassium (test code = 2823-3) 4.9 3.5- 5.0 mEq/L Chloride (test code = 2075-0) 105 98- 112 mEq/L CO2 (test code = 8-9) 25 24- 31 mEq/L Anion gap (test code = 41553-4) 13@ANIO 7- 15 mEq/L BUN (test code = 3094-0) 49 mg/dL 8-23 H Creatinine (test code = 2160-0) 2.00 mg/dL 0.5-0.9 H Glucose (test code = 2345-7) 131 mg/dL 65-99 H Calcium (test code = 68066-3) 10.0 mg/dL 8.8-10.2 Lab Interpretation (test code = 39255-3) Abnormal [place] MethodistXR Chest 1 Vw Vteknjqv6789-39-64 07:16:51Hm Interface, Radiology Results Incoming - 06/14/2019 7:19 AM CSTExamination: XR CHEST 1 PORTABLEClinical history: "preop" Comparison: 06/12/2019 IMPRESSION: Indwelling support lines/tubes appear generally sta ble in position.There are no new alveolar opacities within either lung. No pneum othoraces are identified.The cardiomediastinal silhouette is unchanged. The bon es of the chest are unchanged. HMSL-[id number] MethodistGram pvssi2555-23-74 21:17:07Gram stain resultFew WBC'sMany Gram positive rodsOccasional Gram negative rods Comment: Specimen InformationSpecimen Source: UrineSpecimen Site: [facility]rost[facility]/ [facility] MethodistUrinalysis screen and microscopy, with reflex to kkkcxio6521-91-78 12:01:29* Test Item Value Reference Range Interpretation Comments Specimen site (test code = 2326666) Nephrostomy Color, UA (test code = 5778-6) Yellow Appearance, UA (test code = 5767-9) Sl Cloudy Specific gravity, UA (test code = 5811-5) 1.012 1.001-1.030 pH, UA (test code = 5803-2) 6.0 5.0-9.0 Protein, UA (test code = 19148-3) Negative Negative Glucose, UA (test code = 30689-5) Negative Negative Ketones, UA (test code = 2514-8) Negative Negative Bilirubin, UA (test code = 5770-3) Negative Negative Blood, UA (test code = 5794-3) Negative Negative Nitrite, UA (test code = 5802-4) Positive Negative A Urobilinogen, UA (test code = 07192-2) <2.0 <2.0 E.U./dL Leukocyte esterase, UA (test code = 5799-2) Large Negative A Round epithelial cells, UA (test code = 98435-3) <1 0- 5 /HPF WBC, UA (test code = 5821-4) 132 0- 4 /HPF H RBC, UA (test code = 81267-2) 8 0- 5 /HPF H Bacteria, UA (test code = 67892-4) Few None seen WBC clumps, UA (test code = 49805-8) Few A Yeast, UA (test code = 12359-2) None seen Yeast with pseudohyphae, UA (test code = 69408-5) None seen Lab Interpretation (test code = 28232-3) [facility]normal [facility] Kub Kidney Ureter Repuxoj4406-04-67 12:19:34Hm Interface, Radiology Results 05/05/2019 12:22 PM CDTEXAMINATION: XR KUB KIDNEY URETER BLADDERCLINICAL HISTORY: 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 Extensive surgical clips are identified predominantly at midline, in the left upper quadrant, in the bilatera l pelvis. Surgical clips are also identified in the right upper quadrant compati ble with prior cholecystectomy.Lower thorax: Unremarkable where visible.Abdomen and bowel: Small amount of stool in the colon. Nonspecific paucity of bowel gas. No dilated loops of small bowel seen.Calcifications: No abnormal calcifications found. Bones and soft tissues: No acute abnormality. Age-related degenerative findings.[facility]-[id number] MethodistUS Yldcv2839-89-65 15:13:31Hm Interface, Radiology Results - 04/14/2019 3:16 PM CDTEXAMINATION: US RENALCLINICAL HISTORY: N17.9 Acute kidney failure unspecified, N18.9 Chronic kidney disease unspecified, N17.9 N18.9TECHNIQUE: Sonographic imaging over the kidneys was performed. COMPARISON: CT of the abdomen and pelvis dated 02/27/20 19FINDINGS:1.The right kidney is normal size measuring 11.8 cm in long axis. The kidney has normal echogenicity. Vascular flow is unremarkable. There is a 4.8 c m cyst in the right kidney. Mild to moderate right-sided hydronephrosis.2.Prior left nephrectomy. Prior cystectomy.IMPRESSION:Mild to moderate right-sided hydro nephrosis.[facility]-[id number] MethodistS MAMM BILATERAL JOCELYNN CAD DIGITAL 2019-04-08 18:35:54 - SCR MAMM BILATERAL JOCELYNN CAD DIGITALBILATERAL DIGITAL SCREENING MAMMOGRAM 3D/2D WITH CAD: 04/07/2019CLINICAL: Asymptomatic. Digital breast tomosynthesis was performed in addition to routine CC and MLO views. Current mammographic images were evaluated by either a [employer] M-Vu or a [employer] ImageChecker CAD (computer aided detection system). Comparison is made to exams dated 01/19/2017 mammogram - [facility] and 12/06/2014 mammogram - [facility]. There are scattered fibroglandular tissues in both breasts. There are benign calcifications in both breasts. No suspicious mass, architectural distortion, malignant type calcification, or lymph node abnormality detected. Breast architecture is stable compared to prior exams.IMPRESSION: BENIGNThere is no mammographic evidence of malignancy. Resume annual screening mammography in one year. Concepción talbert/leo:04/08/2019 18:35:54 Tip Banding Machine Operator: Aishwarya VALDES, [facility]-FWletter sent: BIRADS 1-2 Normal Mammogram BI-RADS: 2 Benign Microscopic Ziimrnxplia3857-57-11 12:07:00* Test Item Value Reference Range Interpretation Comments WBC, UA (test code = 5821-4) 6-10 0- 5 /hpf A RBC, UA (test code = 84392-7) 0-2 0- 2 /hpf Epithelial cells (non renal) (test code = 5787-7) None seen 0- 1 0 /hpf Bacteria, UA (test code = 5769-5) Few None seen/Few CHRIS (test code = CHRIS) Performed at: [facility] [id number] Director: Juno Wagner MD, Phone: [phone] Lab Interpretation (test code = 23345-4) Abnormal [place] MethodistURINALYSIS, COMPLETE, WITH REFLEX TO OFJJPMP3005-28-18 12:07:00 * Test Item Value Reference Range Interpretation Comments Specific gravity, urine (test code = 2965-2) 1.009 1.005-1.0 30 pH, urine (test code = 5803-2) 6.5 5.0-7.5 Color, UA (test code = 5778-6) Yellow Yellow Appearance (test code = 5767-9) Cloudy Clear A WBC esterase, urine (test code = 5799-2) 2+ Negative A Protein, UA (test code = 85459-1) 2+ Negative/Trace A Glucose, urine (test code = 2349-9) Negative Negative Ketones, UA (test code = 2514-8) Negative Negative Occult blood, urine (test code = 5794-3) Trace Negative A Bilirubin, UA (test code = 5770-3) Negative Negative Urobilinogen, UA (test code = 31929-0) 0.2 mg/dL 0.2-1 Nitrite, UA (test code = 5802-4) Negative Negative Microscopic examination (test code = 23252-4) See below: Microscopic was indicated and was performed. Urinalysis reflex (test code = 2386) Comment This specimen has reflexed to a Urine Culture. CHRIS (test code = CHRIS) Performed at: [address] [place] [id number] Director: Juno Wagner MD, Phone: [phone] Lab Interpretation (test code = 96205-3) Abnormal [place] MethodistLipase mgoxc4557-00-57 05:56:25* Test Item Value Reference Range Interpretation Comments Lipase (test code = 3040-3) 23 U/L 13-60 [place] MethodistEchocardiogram complete w contrast and 3D if xqltal0599-23-40 11:51:06* Test Item Value Reference Range Interpretation Comments Velocity Ratio (V1/V2) (test code = 4689) 0.45 m/s IVS,d (test code = 5202251021) 1.19 cm EF (test code = 4882842028) 64.72 % LA volume (test code = 7309900160) 109.00 cm3 LVPWD,d (test code = 2232531931) 1.12 cm AoV Mean PG (test code = 0301633698) 11.31 mmHg AV LVOT peak gradient (test code = 4688533244) 4.03 mmHg MV valve area p 1/2 method (test code = 6992085322) 3.81 cm2 E/A ratio (test code = 6970204122) 1.10 E wave decelartion time (test code = 0497907009) 205.67 msec LVOT Diam,S (test code = 2907367414) 1.97 cm LVOT area (test code = 3511555967) 3.05 cm2 LVOT Vmax (test code = 6521524681) 1.00 m/s LVOT VTI (test code = 7145192174) 0.22 m AoV Peak PG (test code = 5142646773) 20.13 mmHg MV Peak E Tom (test code = 2218046119) 1.18 m/s MV stenosis pressure 1/2 time (test code = 2781823328) 57.72 ms MV Peak A Tom (test code = 5726669536) 1.07 m/s LV Vol,s A2C (test code = 0291457880) 43.97 mL LV Vol,d A2C (test code = 0709444975) 128.69 mL AoV Area, Vmax (test code = 3523358209) 1.36 cm2 AoV Area, VTI (test code = 3196194545) 1.37 cm2 AoV Vmax (test code = 6223788172) 2.24 m/s LA Area d A4C (test code = 6299273702) 73 cm2 LV,d (test code = 1482365038) 5.01 cm LV,s (test code = 0175011200) 3.23 cm LV Vol,d A4C (test code = 7124930107) 126.32 ml LV Vol,s A4C (test code = 0572838790) 67.52 ml MV E A ratio (test code = 2230160553) 1.10 MR peak grad (test code = 3243149771) 84.49 mmHg LV SYS VOL (test code = 3292013806) 41.82 ml LV HART VOL (test code = 9558909871) 118.53 ml LA diam s (test code = 7201879494) 4.00 cm LA area s A4C (test code = 9865165186) 22.72 cm2 LA Vol MOD A4C (test code = 0160651758) 72.94 ml LV SV Teich 2D (test code = 0856692823) 76.72 ml LVOT SI (test code = 6251159964) 34.69 ml/m2 AoV Cusp sep (test code = 3903720503) 1.17 Aortic Root (test code = 2999623852) 2.98 cm AoV Vmn (test code = 0261718592) 1.63 IVS s 2D (test code = 7692979285) 1.48 LA Ao Ratio Mmode (test code = 2830939086) 1.34 MT End Hart Grad (test code = 8847351807) 8.85 MT End Diat Tom (test code = 6847978447) 1.49 D E excurs (test code = 9403911407) 1.20 E f slope (test code = 1055417122) 0.05 E prime lat (test code = 9271712808) 0.11 E aissatou sept (test code = 2938173297) 0.07 PV acc T slope (test code = 9246398965) 5.80 PV AT (test code = 8658930351) 119.89 msec AoV VTI (test code = 5764066733) 0.50 m LV EF,A2C (test code = 1351707940) 65.84 % LV EF,A4C (test code = 1728634768) 46.55 % LV EF,BP (test code = 4406996635) 57.37 % [place],d A2C (test code = 3756193989) 7.50 cm [place],d A4C (test code = 7126247841) 7.64 cm [place],s A2C (test code = 3519759781) 6.10 cm [place],s A4C (test code = 9701081910) 6.23 cm LV SV,A2C (test code = 3117876008) 84.73 % LV SV,A4C (test code = 6042493907) 58.81 % LV Vol,d BP (test code = 1294040083) 128.45 ml LV Vol,s BP (test code = 8309999622) 54.76 nl MR Vmax (test code = 8256714261) 5.21 m/s LVOT Vmn (test code = 2879445132) 0.73 Pt Size (test code = 7557162021) 160.02 Pt Wt (test code = 9878423629) 93.44 LVOT mean grad (test code = 2972194756) 2.40 mmHg LVPW s PLAX (test code = 2056452327) 1.34 cm MV Decel slope (test code = 0277830655) 5.75 m/s2 CHRIS (test code = CHRIS) Left ventricular systolic function is normal. There is mild left ventricular concentric hypertrophy. Left Ventricular ejection fraction is 55 - 60%. The mitral valve appears calcified. Mild aortic valve stenosis . There is mild sclerosis of the aortic valve leaflets. Spectral Doppler shows impaired relaxation pattern of left ventricular diastolic filling. [facility] SPINE CERVICAL WJ2099-22-56 14:33:00 [place] [address] Patient Name: FELICITAS PASTRANA MR #: [id number] : 1950 Age/Sex: 68/F Req #: [id number] Adm Physician: Ordered by: BEN SINGH MD Report #: [id number] Location: MRI Room/Bed: Procedure: [id number] MRI/M RI SPINE CERVICAL WO Exam Date: 08/05/18 Exam Time: 1250 REPORT STATUS: Signed MRI S PINE CERVICAL WO HISTORY: Right shoulder pain, cervical radiculopathy COMPARISON: Cervical spine radiographs 07/15/2018 TECHNIQUE: Sagittal T1, sagittal T2, sagittal inversion recovery, axial T2/GRE and axial T1 weighted M R images of the cervical spine were obtained without intravenous contrast. Mot ion artifacts obscure some details. DISCUSSION: Alignment: Straighteni ng of the cervical lordosis. No scoliosis. Vertebrae: No definite evidence fo r fractures, infection, or neoplasm. Cervicomedullary junction: No abnormaliti es. Spinal cord: Normal in signal and morphology from the foramen magnum throu gh T5. Soft tissues: No signal abnormalities. Mild multilevel disc dege neration is present. C2-C3: Mild right foraminal stenosis due to uncoverteb ral and facet arthrosis. No significant canal or left foraminal stenosis. C3-C4: Mild right foraminal stenosis due to uncovertebral and facet arthrosis. No significant canal or left foraminal stenosis. C4-C5: Patent canal and foramina. C5-C6: Mild right foraminal stenosis due to uncovertebral and fac et arthrosis. No significant canal or left foraminal stenosis. C6-C7: Mil d bilateral foraminal stenoses due to uncovertebral and facet arthrosis. No si gnificant canal stenosis. C7-T1: Patent canal and foramina. IMPRESSIO N: 1. Mild multilevel disc degeneration without significant canal stenosis . 2. Mild multilevel degenerative foraminal stenoses, more prominent on the right side. Signed by: Dr. Neftali Marie M.D. on 08/05/2018 2:41 PM Dictated By: NEFTALI MARIE MD 40 Transcribed By: LEO on 08/05/181440 COPY TO: BEN FORREST MD CERVICAL SPINE 4 OR 5 RXJUO5797-14-31 10:14:00 [place] [address] Patient Name: FELICITAS PASTRANA MR #: [id number] : 1950 Age/Sex: 68/F Req #: [id number] Adm Physician: Ordered by: BEN SINGH MD Report #: [id number] Location: [facility] Room/Bed: Procedure: [id number] DX/CE RVICAL SPINE 4 OR 5 VIEWS Exam Date: 07/15/18 Exam T candis: 0955 REPORT STATUS: Signed Exam: Cervical spine, 4 views History: Cervical disc disorder Com parison: None. Findings: The cervical spine is visualized from the sku ll base to the top of T1 on the lateral radiograph. No acute, displaced fractu re or dislocation. Soft tissue, ligamentous, and spinal cord abnormalities can not be excluded on the basis of plain radiography. The intervertebral disc spa marlena are well-maintained. Minimal degenerative disc changes at C5-6 with a smal l anterior osteophyte. Mild left C3-4 foraminal narrowing secondary to uncover tebral arthrosis. Neural foramina are otherwise patent as seen on the oblique radiographs. Atlantoaxial interval is within normal limits. Prevertebral soft tissues are of normal thickness. Right internal jugular tunneled central venou s catheter or port is partially visualized. Impression: No acute osseous abnormality. Mild left C3-4 foraminal narrowing due to uncovertebral arthro sis. MRI of the cervical spine without contrast may be of benefit in the clini carlos enrique setting of reticular the. Minimal degenerative disc changes at C5-C6. Signed by: Dr. Deborah Montague M.D. on 07/15/2018 10:18 AM Dictated By: DEBORAH MONTAGUE MD 1018 COPY TO: NATALIE SINGH MD ELBOW RIGHT PRXNNKVU8261-34-05 10:12:00 [place] [address] Patient Name: FELICITAS PASTRANA MR #: [id number] : 1950 Age/Sex: 68/F Req #: [id number] Adm Physician: Ordered by: BEN SINGH MD Report #: [id number] Location: [facility] Room/Bed: Procedure: [id number] DX/EL BOW RIGHT COMPLETE Exam Date: 07/15/18 Exam Time: REPORT STATUS: Signed Exam : Right elbow, 3 views History: Elbow pain Comparison: None. Fi ndings: No acute, displaced fracture or dislocation. Joint space is well-maint ained. No joint effusion. Soft tissues unremarkable. Impression: No ac [place] osseous abnormality. Signed by: Dr. Deborah Montague M.D. on 8 10:13 AM Dictated By: DEBORAH MONTAGUE MD 1013 Transcribed By: LEO on 07/15/18 1013 TURN SUPERVISOR Y TO: BEN SINGH MD Creatine Kinase CS7993-85-38 12:52:00* Test Item Value Reference Range Interpretation Comments Creatine Kinase MB (test code = 70676-7) 1.00 0-5.0 [facility] CypressTroponin O9695-25-63 12:52:00* Test Item Value Reference Range Interpretation Comments Troponin I (test code = SSH6516) -0.001 0-0.300 [facility] Parkwayodium Tgeoj4038-58-77 12:45:00* Test Item Value Reference Range Interpretation Comments Sodium Level (test code = 2951-2) 142 136-145 [facility] CypressPotassium Aabgd3705-63-76 12:45:00* Test Item Value Reference Range Interpretation Comments Potassium Level (test code = 2823-3) 4.0 3.5-5.1 [facility] CypressChloride Dqbnt8214-11-44 12:45:00* Test Item Value Reference Range Interpretation Comments Chloride Level (test code = 2075-0) 104 98-107 [facility] CypressCarbon Dioxide Blwxy3839-81-58 12:45:00* Test Item Value Reference Range Interpretation Comments Carbon Dioxide Level (test code = 2028-9) 27 22-29 [facility] CypressAnion Evm5049-42-99 12:45:00* Test Item Value Reference Range Interpretation Comments Anion Gap (test code = 17977-3) 15.0 8-16 [facility] CypressBlood Urea Hplneshz8083-30-95 12:45:00* Test Item Value Reference Range Interpretation Comments Blood Urea Nitrogen (test code = 3094-0) 32 7-26 H [facility] CypressCreatinine2018-03-22 12:45:00* Test Item Value Reference Range Interpretation Comments Creatinine (test code = 2160-0) 1.43 0.57-1.11 H [facility] CypressBUN/Creatinine Uryml6601-01-13 12:45:00* Test Item Value Reference Range Interpretation Comments BUN/Creatinine Ratio (test code = 3097-3) 22 6-25 [facility] CypressEstimat Glomerular Filtration Rate 2017-10-15 12:45:00* Test Item Value Reference Range Interpretation Comments Estimat Glomerular Filtration Rate (test code = 04228-4) 36 >60 L Ranges were taken from the National Kidney Disease Education Program and the [facility] Kidney Foundation literature.Reference ranges:60 or greater: Uxufpe02-13 ( for 3 consecutive months): Chronic kidney disease 15 or less: Kidney failureHCA [facility] Healthcare [facility] CypressGlucose Mhfqt2410-25-01 12:45:00* Test Item Value Reference Range Interpretation Comments Glucose Level (test code = RIM1265) 216 74-118 H [facility] CypressCalcium Pxytm7757-11-78 12:45:00* Test Item Value Reference Range Interpretation Comments Calcium Level (test code = 21027-8) 9.2 8.4-10.2 [facility] CypressMagnesium Zyxqd3242-53-40 12:45:00* Test Item Value Reference Range Interpretation Comments Magnesium Level (test code = 25533-5) 1.5 1.3-2.1 [facility] CypressTotal Arzzfrtmv2849-37-30 12:45:00* Test Item Value Reference Range Interpretation Comments Total Bilirubin (test code = 1975-2) 0.3 0.2-1.2 [facility] CypressAspartate Amino Transf (AST/SGOT) 2017-10-15 12:45:00* Test Item Value Reference Range Interpretation Comments Aspartate Amino Transf (AST/SGOT) (test code = Aspartate Amino Transf (AST/SGOT)) 14 5-34 [facility] CypressAlanine Aminotransferase (ALT/SGPT) 2017-10-15 12:45:00* Test Item Value Reference Range Interpretation Comments Alanine Aminotransferase (ALT/SGPT) (test code = 1742-6) 11 0-55 [facility] CypressTotal Obzhnzx5579-47-38 12:45:00* Test Item Value Reference Range Interpretation Comments Total Protein (test code = 2885-2) 7.0 6.5-8.1 [facility] CypressAlbumin2018-03-22 12:45:00* Test Item Value Reference Range Interpretation Comments Albumin (test code = 1751-7) 3.3 3.5-5.0 L [facility] CypressGlobulin2018-03-22 12:45:00* Test Item Value Reference Range Interpretation Comments Globulin (test code = 02867-9) 3.7 2.3-3.5 H [facility] CypressAlbumin/Globulin Xruxj6563-43-66 12:45:00 * Test Item Value Reference Range Interpretation Comments Albumin/Globulin Ratio (test code = 1759-0) 0.9 0.8-2.0 [facility] CypressAlkaline Tdcbvvrvric9012-35-88 12:45:00* Test Item Value Reference Range Interpretation Comments Alkaline Phosphatase (test code = 6768-6) 84 40-150 [facility] CypressCreatine Zawhtl6387-88-18 12:45:00* Test Item Value Reference Range Interpretation Comments Creatine Kinase (test code = 2157-6) 32 29-168 [facility] CypressUrine BLQ8242-35-82 12:43:00* Test Item Value Reference Range Interpretation Comments Urine WBC (test code = 5821-4) 6-10 0-5 H [facility] CypressUrine IOM4444-16-49 12:43:00* Test Item Value Reference Range Interpretation Comments Urine RBC (test code = 06425-6) 0-5 0-5 [facility] CypressUrine Ecyglsyv1790-17-34 12:43:00* Test Item Value Reference Range Interpretation Comments Urine Bacteria (test code = 81570-2) RARE NONE [facility] CypressUrine Epithelial Rxmnv9612-18-49 12:43:00 * Test Item Value Reference Range Interpretation Comments Urine Epithelial Cells (test code = 32119-3) NONE NONE [facility] CypressProthrombin Sidu0529-06-57 12:36:00* Test Item Value Reference Range Interpretation Comments Prothrombin Time (test code = 5902-2) 13.5 11.9-14.5 [facility] CypressProthromb Time International Ratio 2017-10-15 12:36:00* Test Item Value Reference Range Interpretation Comments Prothromb Time International Ratio (test code = 6301-6) 1.11 Oral Anticoagulant Therapy INR Values:1. Low Intensity Therapy 1.5 - 2.02 . Moderate Intensity Therapy 2.0 - 3.03. High Intensity Therapy(1) 2.5 - 3. 54. High Intensity Therapy(2) 3.0 - 4.05. Panic Value INR > 5.0 [facility] CypressActivated Partial Thromboplast Time 2017-10-15 12:36:00* Test Item Value Reference Range Interpretation Comments Activated Partial Thromboplast Time (test code = 81516-6) 34.3 23.8-35.5 [facility] CypressWhite Blood Jboom6878-14-48 12:25:00* Test Item Value Reference Range Interpretation Comments White Blood Count (test code = 6690-2) 6.41 4.8-10.8 [facility] CypressRed Blood Mhqbn7422-64-15 12:25:00* Test Item Value Reference Range Interpretation Comments Red Blood Count (test code = 789-8) 3.56 3.6-5.1 L [facility] CypressHemoglobin2018-03-22 12:25:00* Test Item Value Reference Range Interpretation Comments Hemoglobin (test code = 78482-7) 10.9 12.0-16.0 L [facility] CypressHematocrit2018-03-22 12:25:00* Test Item Value Reference Range Interpretation Comments Hematocrit (test code = 4544-3) 34.3 34.2-44.1 [facility] CypressMean Corpuscular Hvptxd7313-31-46 12:25:00* Test Item Value Reference Range Interpretation Comments Mean Corpuscular Volume (test code = 787-2) 96.3 81-99 [facility] CypressMean Corpuscular Kkbbrjhwlu1210-48-15 12:25:00* Test Item Value Reference Range Interpretation Comments Mean Corpuscular Hemoglobin (test code = 785-6) 30.6 28-32 [facility] Concent 2017-10-15 12:25:00* Test Item Value Reference Range Interpretation Comments Mean Corpuscular Hemoglobin Concent (test code = 786-4) 31.8 31-35 [facility] CypressRed Cell Distribution Nyxyb4756-69-03 12:25:00* Test Item Value Reference Range Interpretation Comments Red Cell Distribution Width (test code = 66102-7) 13.9 11.7 -14.4 [facility] CypressPlatelet Wxhgr0030-73-93 12:25:00* Test Item Value Reference Range Interpretation Comments Platelet Count (test code = 777-3) 304 140-360 [facility] CypressNeutrophils (%) (Auto)2017-10-15 12:25:00 * Test Item Value Reference Range Interpretation Comments Neutrophils (%) (Auto) (test code = 87926-2) 69.4 38.7-80.0 [facility] CypressLymphocytes (%) (Auto)2017-10-15 12:25:00 * Test Item Value Reference Range Interpretation Comments Lymphocytes (%) (Auto) (test code = 736-9) 21.5 18.0-39.1 [facility] CypressMonocytes (%) (Auto)2017-10-15 12:25:00* Test Item Value Reference Range Interpretation Comments Monocytes (%) (Auto) (test code = 5905-5) 6.7 4.4-11.3 [facility] CypressEosinophils (%) (Auto)2017-10-15 12:25:00 * Test Item Value Reference Range Interpretation Comments Eosinophils (%) (Auto) (test code = 713-8) 1.6 0.0-6.0 [facility] CypressBasophils (%) (Auto)2017-10-15 12:25:00* Test Item Value Reference Range Interpretation Comments Basophils (%) (Auto) (test code = 706-2) 0.3 0.0-1.0 [facility] CypressIM GRANULOCYTES %2017-10-15 12:25:00* Test Item Value Reference Range Interpretation Comments IM GRANULOCYTES % (test code = IM GRANULOCYTES %) 0.5 0.0- 1.0 [facility] CypressNeutrophils # (Auto)2017-10-15 12:25:00* Test Item Value Reference Range Interpretation Comments Neutrophils # (Auto) (test code = 751-8) 4.5 2.1-6.9 [facility] CypressLymphocytes # (Auto)2017-10-15 12:25:00* Test Item Value Reference Range Interpretation Comments Lymphocytes # (Auto) (test code = 84225-7) 1.4 1.0-3.2 [facility] CypressMonocytes # (Auto)2017-10-15 12:25:00* Test Item Value Reference Range Interpretation Comments Monocytes # (Auto) (test code = 742-7) 0.4 0.2-0.8 [facility] CypressEosinophils # (Auto)2017-10-15 12:25:00* Test Item Value Reference Range Interpretation Comments Eosinophils # (Auto) (test code = 711-2) 0.1 0.0-0.4 [facility] CypressBasophils # (Auto)2017-10-15 12:25:00* Test Item Value Reference Range Interpretation Comments Basophils # (Auto) (test code = 704-7) 0.0 0.0-0.1 [facility] CypressAbsolute Immature Granulocyte (auto 2017-10-15 12:25:00* Test Item Value Reference Range Interpretation Comments Absolute Immature Granulocyte (auto (ela t code = Absolute Immature Granulocyte (auto) 0.03 0-0.1 [facility] CypressUrine Utatq4347-35-25 12:25:00* Test Item Value Reference Range Interpretation Comments Urine Color (test code = 5778-6) YELLOW YELLOW [facility] CypressUrine Utfaajy8144-46-72 12:25:00* Test Item Value Reference Range Interpretation Comments Urine Clarity (test code = 76384-0) CLEAR CLEAR [facility] CypressUrine Specific Dsbwneq2706-26-61 12:25:00 * Test Item Value Reference Range Interpretation Comments Urine Specific [place] (test code = 5811-5) 1.010 1.010-1.02 5 [facility] CypressUrine mY2392-60-54 12:25:00* Test Item Value Reference Range Interpretation Comments Urine pH (test code = 48373-5) 7 5-7 [facility] CypressUrine Leukocyte Ysjwkawy5657-24-85 12:25:00* Test Item Value Reference Range Interpretation Comments Urine Leukocyte Esterase (test code = 5799-2) TRACE NEGATIVE [facility] Dactyoa2584-66-37 12:25:00* Test Item Value Reference Range Interpretation Comments Urine Nitrite (test code = 62450-0) NEGATIVE NEGATIVE [facility] CypressUrine Enkcbxe6597-41-06 12:25:00* Test Item Value Reference Range Interpretation Comments Urine Protein (test code = 5804-0) NEGATIVE NEGATIVE [facility] Glucose (UA)2017-10-15 12:25:00* Test Item Value Reference Range Interpretation Comments Urine Glucose (UA) (test code = 2349-9) NEGATIVE NEGATIVE [facility] Jnejjoh6025-30-88 12:25:00* Test Item Value Reference Range Interpretation Comments Urine Ketones (test code = 94598-0) NEGATIVE NEGATIVE [facility] Miopdciadohc7298-97-08 12:25:00* Test Item Value Reference Range Interpretation Comments Urine Urobilinogen (test code = 35323-8) 0.2 0.2-1 [facility] Qrqrainkj9661-08-39 12:25:00* Test Item Value Reference Range Interpretation Comments Urine Bilirubin (test code = 1978-6) NEGATIVE NEGATIVE [facility] Auqny7015-33-09 12:25:00* Test Item Value Reference Range Interpretation Comments Urine Blood (test code = 38668-9) NEGATIVE NEGATIVE [facility] CypressURINE AND USUKS5743-15-44 20:09:00 Negative *NA*(11/28/16 3:09 PM)[facility] GCFSF4216-49-47 20:09:00 Negative (11/28/16 3:09 PM)[facility] PFJAE7285-59-72 20:09:004 [facility] YHZUC3940-27-53 20:09:007[facility] BUWQO1296-52-93 20:09:001[facility] ABHOO4188-19-45 20:09:00 Negative (11/28/16 3:09 PM)[facility] SEHHC5646-21-80 20:09:00Small *ABN*(11/28/16 3:09 PM)[facility] KDTWG6798-07-13 20:09:005.0 [facility] HZOVC6117-33-02 20:09:001.005[facility] QTRUU0858-10-31 20:09:00Clear (11/28/16 3:09 PM)[facility]BL[facility] AKWRTMQ4186-40-96 21:03:00Negative (01/09/16 4:03 PM)[facility]annCHEM PANEL 2016-01-09 21:03:0018[facility]annCHEM CYVEF4462-86-20 21:03:0011.6[facility]annCHEM NBTWP1763-70-76 21:03:000.9[facility]annCHEM BMKTZ6317-70-22 21:03:003.9[facility]annCHEM SBEJE7015-19-73 21:03:000.2[facility]annCHEM WYGXO7305-59-24 21:03:0025[facility]annCHEM JPENJ6008-56-31 21:03:0089 [facility]annCHE[facility] AVXSR5296-15-23 21:03:0040[facility]annCHEM PANEL 2016-01-09 21:03:007.5[facility]annCHEM SXUDY2665-18-82 21:03:003.6[facility]annCHEM APRJU4431-65-19 21:03:009.3[facility]annCHEM YFCDO6504-30-92 21:03:0045[facility]annCHEM UYKWA9568-46-55 21:03:001.24[facility]annCHEM CNKCX5546-56-94 21:03:22271Uagwywqn HermannCHEM EPDIX2569-71-09 21:03:0030 [facility]annCHE[facility] YADNY7362-45-43 21:03:20439Qfmgqaze HermannCHEM PANEL 2016-01-09 21:03:004.6[facility]annCHEM JIVOU1058-52-45 21:03:0022[facility]annCHEM LRYKJ0119-96-86 21:03:74021Kbtkcqbr DgzcqbwYZKXFKBDNZ8306-86-32 21:03:000.5[facility] DstkvepIQRXHGKUNJ9674-74-73 21:03:001.9[facility] PLPWJWIVUB8095-18-41 21:03:003.2[facility] JvivmbjSUWGFYQNMF5661-06-96 21:03:001.2 Memorial TjsmmvzWFBGTHQRFN7254-73-17 21:03:003.7[facility]annHEMATOLOGY 2016-01-09 21:03:0029.5[facility] LcvkqkfFOKIGJLEPI5972-16-25 21:03:008.0[facility] FviiikuYNSEXIABRP9093-78-97 21:03:0058.1[facility] KahegamJHWXZXZIEL0007-48-42 21:03:000.2[facility] GvdqpwsTCOBBUUJGT5127-54-06 21:03:000.1[facility] [place] QDLGSSWKQF9709-45-32 21:03:000.97[facility] WjrggorYRCNFSWDYR6762-12-61 21:03:00* Test Item Value Reference Range Interpretation Comments PT (test code = PT) 13.2 s 12.0-14.7 [facility] HkzfkllGYSHMBVEBH8102-10-16 21:03:00* Test Item Value Reference Range Interpretation Comments PTT (test code = PTT) 33.2 s 22.9-35.8 [facility] QxyxlinQNCJQSTVLN2376-11-54 21:03:0036.0[facility]annHEMATOLOGY 2016-01-09 21:03:0088.5[facility] PyhinvzDUJSVBBPUZ6950-67-40 21:03:0011.8[facility] UsfadanKWJGFYFXRO0433-16-09 21:03:006.4[facility] TnxnxjoTBTBQHNXWT9594-32-60 21:03:004.06[facility] UjguyhrHIAEPXARUD9481-95-61 21:03:008.4[facility] YBFHLYUWXZ2546-33-96 21:03:15678Fsjzgozy PbwwqqgZUDXSNVYXE0454-44-20 21:03:00* Test Item Value Reference Range Interpretation Comments MCH (test code = MCH) 29.1 pg 27.0-31.0 [facility] CenterSpdbudyNTLURUWINM0599-35-62 21:03:0032.8[facility] HermannHEMATOLOGY 2016-01-09 21:03:0013.7[facility] HermannRENAL SCAN W/FLOW FUNCTION [place] [address] Patient Name: FELICITAS PASTRANA MR #: [id number] : 1950 Age/Sex: 67/F Req #: [id number] Adm Physician: Ordered by: VALENTIN ROSS MD Report #: [id number] Location: [place] Room/Bed: Procedure: [id number] NM/RENAL SCAN W/FLOW FUNCTI ON Exam Date: 12/18/17 Exam Time: 1405 REPORT STATUS: Signed Renal Scan Reason for exam: 67 F with bladder cancer in diagnosed in 2017; bladder removed. Biopsy of left kidney at outside [facility] last week also shows cancer. Left kidney has draining catheter with colle ction bag on right side. Radiopharmaceutical: Tc-99m MAG3 10.1 mCi Rep ort: After administration of the radiopharmaceutical, dynamic images of the k idneys were obtained through 40 minutes. LEFT KIDNEY: Perfusion is promp t. 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 Extraction of tracer from the blood pool from the minimal amount of remaining renal parenchyma is normal. Clearance of trac er from the renal parenchyma is prompt. The pelvicaliceal system cannot be ass essed because the impaired kidney does not fill the system to near-capacity. T here is minimal amount of tracer that pools in the pelvicaliceal system. No d rainage of tracer is seen from the left kidney. RIGHT KIDNEY: Perfusion is prompt. The kidney has a distorted reniform shape with reduction in size an d irregular renal contours. Extraction of tracer from the blood pool is normal . Clearance of tracer from the renal parenchyma is prompt. The pelvicaliceal s ystem is not dilated. Mildly increased pooling of tracer is seen within the p elvicaliceal system. Drainage of tracer from the pelvicaliceal study is adequ ate. No stasis of tracer is seen in the right ureter. The collection bag on t he right side does fill with some tracer. DIFFERENTIAL RENAL FUNCTION: Left kidney 13% and right kidney 87% (normal 43-57%). Impression: 1. 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 The loss of renal parenchyma accounts for the dec reased differential renal function of 13%. The remaining renal parenchyma julia ears to function normally. The renal collecting system cannot be assessed bec ause it does not fill to near capacity. 2. The right kidney shows some loss of renal parenchyma due to scarring as evidenced by the reduction in size and the irregular contours. No hydronephrosis or obstruction are present. Signed by: Dr. Rosita Ramirez M.D. on 12/18/2017 7:18 PM Dictated By: OLI RAMIREZ MD 17 Transcrib ed By: LEO on 12/18/171917 COPY TO: VALENTIN ROSS MD [facility] ([facility]) [place] [address] Patient Name: FELICITAS PASTRANA MR #: [id number] : 1950 Age/Sex: 67/F Req #: [id number] Adm Physician: Ordered by: FLAQUITA DEVINE FUELS ENGINEER Report #: [id number] Location: ER Room/Bed: Procedure: [id number] DX/CHEST SINGLE (PORTABLE) Exam Date: Exam Time: REPORT STATUS: Signed PRO CEDURE: A single AP view of the chest. COMPARISON: None. INDICATIO NS: BILATERAL KIDNEY PAIN FINDINGS: Lines/tubes: None. Lung s: The lungs are well inflated. Minimal linear opacity projecting in the lef t costophrenic angle region likely represents subsegmental atelectasis. There is no evidence of pneumonia or pulmonary edema. Pleura: There is no pleu ral effusion or pneumothorax. Heart and mediastinum: Cardiac silhouette is unremarkable. Pulmonary vasculature is normal. Bones: No acute bony a bnormality. IMPRESSION: 1. No acute cardiopulmonary abnormalities. Ezekiel Alas M.D. Dictated by: Ezekiel Alas M.D. on 10/15/2017 at 12:29 Electronically approved by: Eezkiel Alas M.D. o n 10/15/2017 at 12:29 Dictated By: EZEKIEL [facility] Signed By: EZEKIEL ALAS MD on 10/15/17 1229 Transcribed By: LUIS FERNANDO on 1229 COPY TO: FLAQUITA DEVINE NP
--- OUTSIDE RECORDS SUMMARY | 2020-01-03 02:53 | XMS REPORT | Summary of Care ---
Author Author FELICITAS RIDER M.D. 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, subsequent encounter (V58.89, T84.033D) Status: Active 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, initial encounter (996.41, T84.033A) Status: Active Medications Name Dates Details Medications not documented Allergies and Adverse Reactions Name Dates Details Allergy history not documented Status: Procedures Procedure Dates Details [B] ALBUMIN SERUM Date: 08-Sep-2019 [B] VITAMIN D 25-HYDROXY Date: 08-Sep-2019 [U] XRAY KNEE 4 OR MORE VWS BILATERAL 86146 Date: 01-Sep-2019 [U] XRAY BONE LENGTH STUDY-SCANOGRAM 24586 Date: 02-Sep-2019 Immunization Name Dates Details Immunizations not documented Social History Name Dates Details Tobacco smoking consumption unknown (finding) Vital Signs Date Test Result Details No Known Vitals to report Results Date Description Value Details Results not documented Plan of Care Name Dates Details Planned Observations Planned Goals not documented Planned Encounters Pain Management Referral Instructions Name Dates Details Instructions not documented Encounters Appointment; BRIAN RIDER M.D. Encounter Diagnosis: Problem not documented On: 08-Sep-2019 10:15
--- OUTSIDE RECORDS SUMMARY | 2020-01-03 02:53 | XMS REPORT | Summary of Care ---
Author Author FELICITAS Marinelli M.A. Organization Unknown Address Unknown Phone Unavailable Care Team Providers Care Farm Agent Name Role Phone ADRY Yousif, BRIAN Unavailable Unavailable SAMANTHA MUÑOZ, BEN Chow Unavailable Unavailable CHAN MAYORGA MD, I Unavailable Unavailable ADRY MUÑOZ [place], BRIAN H Unavailable Unavailable Unavailable Unavailable Functional Status Name [...] 08-Sep-2019 [B] VITAMIN D 25-HYDROXY Date: 08-Sep-2019 [QLH] HEMOGLOBIN A1c Date: 08-Sep-2019 [U] XRAY KNEE 4 OR MORE VWS BILATERAL 81703 Date: 01-Sep-2019 [U] XRAY BONE LENGTH STUDY-SCANOGRAM 80083 Date: 02-Sep-2019 Immunization Name Dates Details Immunizations not documented Social History Name Dates Details Unknown if ever smoked Vital Signs Date Test Result Details [id number] Height 63 in Status: Weight 217.8 lb Status: Body Mass Index Calculated 38.58 kg/m2 Status: Body Surface Area Calculated 2.01 m2 Status: Results Date Description Value Details :56 [U] XRAY KNEE 4 OR MORE VWS BILATERAL 73 564 XRAY KNEE 4 OR MORE VWS BILATERAL Images acquired, not reported on this accession number. [id number] [U] XRAY BONE LENGTH STUDY-SCANOGRAM 770 73 XR BONE LENGTH STUDY-SCANOGRAM Images ac quired, not reported on this accession number. Plan of Care Name Dates Details Planned Observations Planned Goals not documented Planned Encounters Pain Management Referral Appointment; BRIAN RIDER M.D. On: 22-Sep-2019 13:45 Interventions Provided Labs/Procedures/Imaging* [B] ALBUMIN SERUM; To Be Done: 08 Sep 2019 * [B] VITAMIN D 25-HYDROXY; To Be Done: 08 Sep 2019 * [QLH] HEMOGLOBIN A1c; To Be Done: 08 Sep 2019 * [U] XRAY BONE LENGTH STUDY-SCANOGRAM 12191; Done: 08 Sep 2019 * [U] XRAY KNEE 4 OR MORE VWS BILATERAL 69366; Done: 08 Sep 2019 Instructions Name Dates Details Instructions not documented Encounters Appointment; BRIAN RIDER M.D. Encounter Diagnosis: Problem not documented On: 08-Sep-2019 10:15
[2020-01-03] MEDS ORDERED: MORPHINE SULFATE INJ 4 MG/ML INJ 1ML IV STA (03:08)
[2020-01-03] MEDS ORDERED: ONDANSETRON HCL INJ 2MG/ML 2ML 2 MG/ML VIAL IV STA (03:08)
--- NOTE | 2020-01-03 03:08 | Emergency Department Note ---
History of Present Illnes History of Present Illness Chief Complaint: Respiratory History of Present Illness This is a 69 year old female presents to the ED for left sided neck pa in after recieving serveral rounds of radiation therapy for lung CA . Past Medical/Family History Physician Review I have reviewed the patient's past medical and family history. Any updates have been documented here. Review of Systems Review of Systems Review of other systems All other systems reviewed and negative. Physical Exam Related Data Allergies: Coded Allergies: Penicillins (Verified Allergy, Unknown, 10/15/17) Physical Exam CONSTITUTIONAL HENT EYES NECK PULMONARY CARDIOVASCULAR GASTROINTESTINAL GENITOURINARY SKIN MUSCULOSKELETAL NEUROLOGICAL PSYCHOLOGICAL Results Laboratory Laboratory Laboratory Tests Test 01/03/20 03:07 White Blood Count 6.93 x10e3/uL (4.8-10.8) Red Blood Count 3.14 x10e6/uL (3.6-5.1) Hemoglobin 9.8 g/dL (12.0-16.0) Hematocrit 30.8 % (34.2-44.1) Mean Corpuscular Volume 98.1 fL (81-99) Mean Corpuscular Hemoglobin 31.2 pg (28-32) Mean Corpuscular Hemoglobin Concent 31.8 g/dL (31-35) Red Cell Distribution Width 13.2 % (11.7-14.4) Platelet Count 248 x10e3/uL (140-360) Neutrophils (%) (Auto) 81.9 % (38.7-80.0) Lymphocytes (%) (Auto) 7.4 % (18.0-39.1) Monocytes (%) (Auto) 8.5 % (4.4-11.3) Eosinophils (%) (Auto) 1.7 % (0.0-6.0) Basophils (%) (Auto) 0.1 % (0.0-1.0) Neutrophils # (Auto) 5.7 (2.1-6.9) Lymphocytes # (Auto) 0.5 (1.0-3.2) Monocytes # (Auto) 0.6 (0.2-0.8) Eosinophils # (Auto) 0.1 (0.0-0.4) Basophils # (Auto) 0.0 (0.0-0.1) Absolute Immature Granulocyte (auto 0.03 x10e3/uL (0-0.1) Sodium Level 133 mmol/L (136-145) Potassium Level 4.7 mmol/L (3.5-5.1) Chloride Level 100 mmol/L (98-107) Carbon Dioxide Level 20 mmol/L (22-29) Anion Gap 17.7 mmol/L (8-16) Blood Urea Nitrogen 25 mg/dL (7-26) Creatinine 1.59 mg/dL (0.57-1.11) Estimat Glomerular Filtration Rate 32 ML/MIN (60-) BUN/Creatinine Ratio 16 (6-25) Glucose Level 150 mg/dL (74-118) Calcium Level 9.1 mg/dL (8.4-10.2) Imaging Imaging results reviewed: Yes Impressions [place] [address] Patient Name: FELICITAS BRADFORD MR #: [id number] : 1950 Age/Sex: 69/F Req #: [id number] Adm Physician: Ordered by: TOMMIE HOOVER DO Report #: [id number] Location: ER Room/Bed: Procedure: [id number] CT/CT SOFT TISSUE NECK WO Exam Date: 01/03/20 Exam Time: 0400 REPORT STATUS: Signed Examination:CT SOFT TISSUE NECK WO CONTRAST History: Left neck pain and swelling; history of lung cancer Comparison studies: None Technique: Axial images from the skull base to the thoracic inlet with coronal and sagittal reformats. Dose modulation, iterative reconstruction, and/or weight based adjustment of the mA/kV was utilized to reduce the radiation dose to as low as reasonably achievable. Findings: Evaluation of the neck is limited due to the absence of intravenous contrast. In spite of this limitation, Soft tissues: No abnormalities. Aerodigestive tract: No abnormality. Lymph nodes: Few left level IIa adenopathy with reticulation of the fat surround the adenopathy and concerning for extracapsular spread. Thyroid gland: Normal in size and homogeneous. Submandibular glands: Normal in size and homogeneous. Parotid glands: Normal in size and homogeneous. Orbits: No abnormalities. Paranasal sinuses: Clear. Temporal bones: No abnormalities. Skull base and facial bones: Intact. Cervical spine: Diffuse disc osteophytes from C5-C6 to C6-C7 without canal stenosis. Visualized lung apices: No abnormalities. IMPRESSION: Few left level II metastatic adenopathy with extracapsular spread. 1. Signed by: Dr. Kay Calderon M.D. on 01/03/2020 4:54 AM Dictated By: KAY SCALES MD 3 Transcribed By: LEO on 01/03/20453 COPY TO: TOMMIE HOOVER DO~ [place] [address] Patient Name: FELICITAS BRADFORD MR #: [id number] : 1950 Age/Sex: 69/F Req #: [id number] Adm Physician: Ordered by: TOMMIE HOOVER DO Report #: [id number] Location: ER Room/Bed: Procedure: [id number] CT/CT CHEST WO Exam Date: 01/03/20 Exam Time: 399 REPORT STATUS: Signed EXAM: CT Chest WITHOUT contrast INDICATION: ^Left neck pain ^[id number] ^399 COMPARISON: None TECHNIQUE: Chest was scanned utilizing a multidetector helical scanner from the lung apex through the level of the adrenal glands without administration of IV contrast. Absence of intravenous contrast decreases sensitivity for detection of lymphadenopathy and vascular pathology. Coronal and sagittal reformations were obtained. Routine protocol was performed. IV CONTRAST: None COMPLICATIONS: None RADIATION DOSE: Total DLP: 879.1 mGy*cm Estimated effective dose: (DLP x 0.014 x size factor) mSv CTDIvol has been reviewed. It is below the limits set by the Radiation Protocol Committee (RPC). FINDINGS: LINES/ TUBES: Right chest wall port in place with tip terminating in inferior SVC. LUNGS AND AIRWAYS: 2.1 x 1.9 cm pleural-based right lower lobe nodule. 6 mm left lower lobe nodule (series 8, image 85). 1.4 cm pleural-based left lower lobe cavitary nodule (series 8, image 73). 7 mm left upper lobe nodule (8/62). Mild dependent atelectasis, right greater than left. Airways are normal. PLEURA: The pleural spaces are clear. HEART AND MEDIASTINUM: The thyroid gland is normal. No mediastinal, hilar or axillary lymphadenopathy. The heart is normal in size.. There is no pericardial effusion. There are mild atherosclerotic calcifications in the coronary arteries. UPPER ABDOMEN: Cholecystectomy. Punctate calcifications along the falciform ligament. Atrophic pancreas. Left retroperitoneal surgical clips. BONES: The visualized bony thorax is within normal limits. SOFT TISSUES: Unremarkable. IMPRESSION: 2.1 cm right lower lobe nodule, consistent with known lung malignancy. There are additional bilateral pulmonary nodules as described above. No acute thoracic abnormality. Signed by: Dr. Adolfo Fuchs MD on 01/03/2020 4:50 AM Dictated By: ADOLFO FUCHS MD 9 Transcribed By: LEO on 01/03/20449 COPY TO: TOMMIE HOOVER DO~ Critical Care Time Subsequent provider I assumed direction of critical care for this patient from another provider of my specialty. Assessment & Plan Assessment & Plan Final Impression: (1) Left cervical lymphadenopathy Assessment & Plan renal insufficiency Home Meds Reported Medications Allopurinol (ALLOPURINOL) 100 Mg Tablet, 100 MG PO DAILY 05/13/13 Furosemide (FUROSEMIDE) 20 Mg Tablet, 20 MG PO DAILY 05/13/13 Pravastatin Sodium (PRAVASTATIN SODIUM) 40 Mg Tablet, 40 MG PO DAILY 05/13/13 Lisinopril/Hydrochlorothiazide (LISINOPRIL-HCTZ 20-12.5 MG TAB) 1 Each Tablet, PO DAILY 05/13/13 Omeprazole (OMEPRAZOLE) 20 Mg Capsule.dr, 20 MG PO BID 05/13/13 Insulin Glargine (LANTUS) 100 Units/Ml Ml, 30 UNITS SQ BID 05/12/13 Glipizide (GLIPIZIDE) 5 Mg Tablet, 5 MG PO BID 05/12/13 Metformin Hcl (METFORMIN HCL) 500 Mg Tablet, 500 MG PO 2BID 05/12/13 Gabapentin (GABAPENTIN) 300 Mg Capsule, 300 MG PO TID 05/12/13 Duloxetine Hcl (CYMBALTA) 30 Mg Capsule.dr, 30 MG PO DAILY 05/12/13 TOMMIE HOOVER DO Jan 03, 2020 03:07
[2020-01-03 03:26] LABS: BASOPHILS % 0.1 % (0.0-1.0); EOSINOPHILS # (AUTO) 0.1 (0.0-0.4); EOSINOPHILS % 1.7 % (0.0-6.0); HEMATOCRIT 30.8 % (34.2-44.1); HEMOGLOBIN 9.8 g/dL (12.0-16.0); LYMPHOCYTES # (AUTO) 0.5 (1.0-3.2); LYMPHOCYTES % 7.4 % (18.0-39.1); MEAN CORPUSCULAR HEMOGLOBIN 31.2 pg (28-32); MEAN CORPUSCULAR HGB CONC 31.8 g/dL (31-35); MEAN CORPUSCULAR VOLUME 98.1 fL (81-99); MONOCYTES # (AUTO) 0.6 (0.2-0.8); MONOCYTES % 8.5 % (4.4-11.3); NEUTROPHILS # (AUTO) 5.7 (2.1-6.9); NEUTROPHILS % 81.9 % (38.7-80.0); PLATELET COUNT 248 x10e3/uL (140-360); RED BLOOD COUNT 3.14 x10e6/uL (3.6-5.1); RED CELL DISTRIBUTION WIDTH 13.2 % (11.7-14.4)
[2020-01-03 03:39] LABS: ANION GAP 17.7 mmol/L (8-16); CALCIUM 9.1 mg/dL (8.4-10.2); CREATININE, SERUM 1.59 mg/dL (0.57-1.11); POTASSIUM 4.7 mmol/L (3.5-5.1)
--- NOTE | 2020-01-03 04:53 | Diagnostic Imaging Report ---
EXAM: CT Chest WITHOUT contrast INDICATION: ^Left neck pain ^[id number] ^0400 COMPARISON: None TECHNIQUE: Chest was scanned utilizing a multidetector helical scanner from the lung apex through the level of the adrenal glands without administration of IV contrast. Absence of intravenous contrast decreases sensitivity for detection of lymphadenopathy and vascular pathology. Coronal and sagittal reformations were obtained. Routine protocol was performed. IV CONTRAST: None COMPLICATIONS: None RADIATION DOSE: Total DLP: 879.1 mGy*cm Estimated effective dose: (DLP x 0.014 x size factor) mSv CTDIvol has been reviewed. It is below the limits set by the Radiation Protocol Committee (RPC). FINDINGS: LINES/ TUBES: Right chest wall port in place with tip terminating in inferior SVC. LUNGS AND AIRWAYS: 2.1 x 1.9 cm pleural-based right lower lobe nodule. 6 mm left lower lobe nodule (series 8, image 85). 1.4 cm pleural-based left lower lobe cavitary nodule (series 8, image 73). 7 mm left upper lobe nodule (8/62). Mild dependent atelectasis, right greater than left. Airways are normal. PLEURA: The pleural spaces are clear. HEART AND MEDIASTINUM: The thyroid gland is normal. No mediastinal, hilar or axillary lymphadenopathy. The heart is normal in size.. There is no pericardial effusion. There are mild atherosclerotic calcifications in the coronary arteries. UPPER ABDOMEN: Cholecystectomy. Punctate calcifications along the falciform ligament. Atrophic pancreas. Left retroperitoneal surgical clips. BONES: The visualized bony thorax is within normal limits. SOFT TISSUES: Unremarkable. IMPRESSION: 2.1 cm right lower lobe nodule, consistent with known lung malignancy. There are additional bilateral pulmonary nodules as described above. No acute thoracic abnormality. Signed by: Dr. Adolfo Kaiser MD on 01/03/2020 4:50 AM
--- NOTE | 2020-01-03 04:57 | Diagnostic Imaging Report ---
Examination:CT SOFT TISSUE NECK WO CONTRAST History: Left neck pain and swelling; history of lung cancer Comparison studies: None Technique: Axial images from the skull base to the thoracic inlet with coronal and sagittal reformats. Dose modulation, iterative reconstruction, and/or weight based adjustment of the mA/kV was utilized to reduce the radiation dose to as low as reasonably achievable. Findings: Evaluation of the neck is limited due to the absence of intravenous contrast. In spite of this limitation, Soft tissues: No abnormalities. Aerodigestive tract: No abnormality. Lymph nodes: Few left level IIa adenopathy with reticulation of the fat surround the adenopathy and concerning for extracapsular spread. Thyroid gland: Normal in size and homogeneous. Submandibular glands: Normal in size and homogeneous. Parotid glands: Normal in size and homogeneous. Orbits: No abnormalities. Paranasal sinuses: Clear. Temporal bones: No abnormalities. Skull base and facial bones: Intact. Cervical spine: Diffuse disc osteophytes from C5-C6 to C6-C7 without canal stenosis. Visualized lung apices: No abnormalities. IMPRESSION: Few left level II metastatic adenopathy with extracapsular spread. 1. Signed by: Dr. Kay Calderon M.D. on 01/03/2020 4:54 AM
[2020-01-03] MEDS ORDERED: MORPHINE SULFATE 2 MG/ML SYR 1ML IV STA (05:29)
[2020-01-03] MEDS ORDERED: MORPHINE SULFATE 2 MG/ML SYR 1ML ONE (05:37)
[2020-01-03 05:44] VITALS: BP 147/67
== END 2020-01-03 06:17 | disposition home or self-care (01) ==
LOC: ER 02:47
DX: R59.1 Generalized enlarged lymph nodes (principal); C34.90 Malignant neoplasm of unspecified part of unspecified bronchus or lung; N28.9 Disorder of kidney and ureter, unspecified; Z79.899 Other long term (current) drug therapy
CPT/HCPCS: 36415; 70490; 71250; 80048; 85025; 99284; J2270 ×2; J2405